=== PATIENT | female | born 1945 | race Caucasian/White ===

== ENCOUNTER 2017-02-09 18:24 | Emergency (ER) | payer MEDICARE, BC ==
[2017-02-09] MEDS ORDERED: Sodium Chloride 0.9% 10 ML Syringe FLUSH PRN (20:44)
[2017-02-09] MEDS ORDERED: Albuterol/Ipratropium 3.0-0.5 MG/3 ML Neb Soln NEB ONE (20:44)
[2017-02-09] MEDS ORDERED: methylPREDNISolone Sodium Succinate 125 MG/2 ML SDV IVPUSH ONE (20:45)
--- NOTE | 2017-02-09 21:39 | EDM.PDOC ---
ED HPI GENERAL MEDICAL PROBLEM - General Chief Complaint: Respiratory Problem Stated Complaint: LUNG PROBLEMS Time Seen by Provider: 02/09/17 20:45 Source of Information: Reports: Patient, Family History Limitations: Reports: No Limitations - History of Present Illness INITIAL COMMENTS - FREE TEXT/NARRATIVE: Cathy is a 71 year old female with a hx of COPD who presents to the ED today with c/o increasing SOB and wheezing for the last 2 days. Patient in on chronic oxygen at home at 2 liters. Patient deneis any fever, she does endorse increased weakness. Patient reports that her symptoms are similar to when she gets Bronchitis, she does not currently smoke. Patient denies any chest pain. Patient reports she has been eating and drinking well. - Related Data Allergies Allergy/AdvReac Type Severity Reaction Status Date / Time lidocaine [From LidoPatch] Allergy Intermediate Swollen Verified 02/09/17 19:44 Tongue ampicillin sodium Allergy Mild Itching Verified 02/09/17 19:44 [From Unasyn] erythromycin base Allergy Mild local eye Verified 02/09/17 19:44 [Erythromycin Base] rxn using ophthalmic dontrell sulbactam sodium Allergy Mild Itching Verified 02/09/17 19:44 [From Unasyn] aspirin Allergy Bleeding Verified 02/09/17 19:44 gabapentin Allergy Cannot Verified 02/09/17 19:44 Remember gemfibrozil [From Lopid] Allergy Hives Verified 02/09/17 19:44 menthol [From LidoPatch] Allergy Burning Verified 02/09/17 19:44 midazolam HCl [From Versed] Allergy Hallucinati Verified 02/09/17 19:44 ons prednisone Allergy Confusion Verified 02/09/17 19:44 Home Meds: Home Meds Calcium Carbonate/Vitamin D3 [Calcium 600-Vit D3 200 Tablet] 1 each PO TID 04/24 [History] Melatonin 1 mg PO BEDTIME PRN 04/24/13 [History] Multivitamin [Multi-Vitamin Daily] 1 each PO DAILY 04/24/13 [History] Sucralfate [Carafate] 1 gm PO QID 04/24/13 [History] amLODIPine Besylate [Norvasc] 10 mg PO BEDTIME 04/24/13 [History] clonazePAM [Klonopin] 0.5 mg PO ASDIRECTED 04/24/13 [History] ARIPiprazole [Abilify] 20 mg PO DAILY 10/17/13 [History] LORazepam [Ativan] 0.5 mg PO BID PRN 10/17/13 [History] Levothyroxine [Synthroid] 88 mcg PO ACBRK 10/17/13 [History] Loperamide [Imodium] 2 mg PO QID PRN 10/17/13 [History] Losartan Potassium [Cozaar] 50 mg PO DAILY 10/17/13 [History] Nitroglycerin [Nitrostat] 0.4 mg SL ASDIRECTED 10/17/13 [History] Vit B12/Lmefolate Ca/Vit B6/B2 [l-Methyl-Mc Tablet] 1,000 mcg PO DAILY 10/17/13 [History] Tranylcypromine [Parnate] 30 mg PO TASNEEM 01/06/14 [History] Tranylcypromine [Parnate] 40 mg PO QAM 01/06/14 [History] Omeprazole Magnesium [Prilosec Otc] 20 mg PO DAILY 07/04/14 [History] ClonazePAM [KlonoPIN] 1 mg PO BEDTIME 07/18/14 [History] Tranylcypromine [Parnate] 20 mg PO ACDINNER 07/18/14 [History] Magnesium Hydroxide [Milk of Magnesia] 30 ml PO Q12H PRN #2 cup 07/23/14 [Rx] Albuterol/Ipratropium [DuoNeb 3.0-0.5 MG/3 ML] 3 ml IH QID 09/05/15 [History] Aspirin [Ecotrin] 81 mg PO DAILY 09/05/15 [History] Betamethasone/Clotrimazole [Lotrisone] 15 gm TOP BID 09/05/15 [History] Budesonide [Pulmicort] 0.5 mg IH BID 09/05/15 [History] Celecoxib [CeleBREX] 200 mg PO BID 09/05/15 [History] Clindamycin HCl [Cleocin] 150 mg PO ASDIRECTED PRN 09/05/15 [History] [place] Starch [Resource Thickenup] 1 each PO ASDIRECTED 09/05/15 [History] Ferrous Fumarate [Ferretts] 50 mg PO DAILY 09/05/15 [History] Fluocinonide [Lidex 0.05% Crm] 30 gm TOP BID 09/05/15 [History] Furosemide [Lasix] 20 mg PO DAILY PRN 09/05/15 [History] Pravastatin [Pravachol] 10 mg PO DAILY 09/05/15 [History] Triamcinolone Acetonide [Kenalog 0.1% Crm] 1 applic TOP BID 09/05/15 [History] Formoterol [Perforomist] 1 ampule INH BID 02/09/17 [History] Past Medical History HEENT History: Reports: Cataract, Impaired Vision Cardiovascular History: Reports: CAD, Hypertension Respiratory History: Reports: Asthma, COPD, Intubation, Previous, Other (See Below) Other Respiratory History: cylindrical bronchiectasis Gastrointestinal History: Reports: GERD, GI Bleed Genitourinary History: Reports: None 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: Musculoskeletal History: Reports: Back Pain, Chronic, Osteoarthritis, RA Neurological History: Reports: TIA, Other (See Below) Other Neuro History: Dysphagia Psychiatric History: Reports: Anxiety, Depression Endocrine/Metabolic History: Reports: Hyperparathyroidism Hematologic History: Reports: Anemia Immunologic History: Reports: None Oncologic (Cancer) History: Reports: None Dermatologic History: Reports: None - Infectious Disease History Infectious Disease History: Reports: Chicken Pox, Measles, Mumps - Past Surgical History Head Surgeries/Procedures: Reports: None Cardiovascular Surgical History: Reports: Coronary Artery Stent Female Surgical History: Reports: Dilitation & Evacuation Musculoskeletal Surgical History: Reports: Hip Replacement Social & Family History - Tobacco Use Smoking Status *Q: Never Smoker Years of Tobacco use: 30 Used Tobacco, but Quit: Yes Month Tobacco Last Used: 1999 Second Hand Smoke Exposure: No - Alcohol Use Days Per Week of Alcohol Use: 0 Number of Drinks Per Day: 0 Total Drinks Per Week: 0 - Recreational Drug Use Recreational Drug Use: No ED ROS GENERAL - Review of Systems Review Of Systems: See Below Constitutional: Reports: Weakness HEENT: Reports: No Symptoms Respiratory: Reports: Shortness of Breath, Wheezing, Cough Cardiovascular: Reports: No Symptoms Endocrine: Reports: No Symptoms, Fatigue GI/Abdominal: Reports: No Symptoms : Reports: No Symptoms Musculoskeletal: Reports: No Symptoms Skin: Reports: No Symptoms ED EXAM, GENERAL - Physical Exam Exam: See Below Exam Limited By: No Limitations General Appearance: Alert, WD/WN, No Apparent Distress Throat/Mouth: Normal Oropharynx Head: Atraumatic Respiratory/Chest: Rhonchi (wheezing throughout, audible, rhonchi bilateral lower lobes), Wheezing Cardiovascular: Regular Rate, Rhythm Back Exam: Normal Inspection Extremities: Normal Inspection Neurological: Alert, Oriented, CN II-XII Intact Psychiatric: Normal Affect, Normal Mood Lymphatic: No Adenopathy Course - Vital Signs Last Recorded V/S: Last Vital Signs Temp 37.0 C 02/09/17 19:58 Pulse 73 02/09/17 21:40 Resp 20 02/09/17 21:40 BP 159/82 H 02/09/17 21:40 Pulse Ox 96 02/09/17 21:40 Cathy is a 71 year old female with multiple medical problems including COPD, on chronic O2, with Prednisone allergy who presents to the ED today with increasing SOB and wheezing for the last 2-3 days. Patient is on inhalers at home daily including albuterol. Patient likely has COPD exacerbation. Please refer to HPI and focused exam. Patient no exam is audibly wheezing, her oxygen saturation remains mid to upper 90's on 2 liters of oxygen via nasal cannula. Patient has no accessory muscle use. She arrives here afebrile, mildly hypertensive, she is not tachycardic. Likely COPD exacerbation vs. pneumonia. CXR obtained and is negative for any acute lobar infiltrate, on my interpretation, discussed with Dr. Jaquez who agrees. Blood work obtained, CBC returns with a normal white count. HGB is stable at 10.9. CMP returns with elevated creatinine of 1.4 and GFR of 37. Patient's BUN is elevated as well at 28, likely pre-renal. Patient does not appear dehydrated on exam and reports she has been drinking "a lot" of water today; however, feels that she did not drink as much as she should on their recent vacation to [facility]. Patient was given a DuoNeb here in the ED with some improvement in her symptoms. I did give her a dose of Levaquin for COPD exacerbation, patient has documented allergy to Prednisone (confusion) and is reluctant to receive any other steroids secondary to this as well as any potential interactions with her other medications. Patient reports she would like to be discharged home, she feels she is well enough to go home and does not want to stay in the hospital, agrees with this. Given patient's estimated creatinine clearance, I did give her 500 mg of Levaquin here in the ED today and will start her on 250 mg daily for 5 days. I did discuss with patient increasing her overall fluid intake given her mildly elevated BUN and creatinine (she has drank 500 ml of water while here) I would like her seen this next week by her primary care provider for follow up. Patient has Duo Nebs at home and can use these every 4 hours as needed for shortness of breath/wheezing. Probiotics recommended while on the Levaquin. Reasons to return to the ED were discussed in detail. Patient and her are agreeable to plan of care and patient was discharged in stable condition. - Orders/Labs/Meds Orders: Active Orders 24 hr Category Date Time Status Peripheral IV Care [RC] . DIRECTED Care 02/09/17 20:45 Active RT Aerosol Therapy [RC] ASDIRECTED Care 02/09/17 20:44 Active Chest 2V [CR] Stat Exams 02/09/17 20:46 Taken Sodium Chloride 0.9% [Saline Flush] Med 02/09/17 20:44 Active 10 ml FLUSH ASDIRECTED PRN Peripheral IV Insertion Adult [OM.PC] Routine Oth 02/09/17 20:44 Ordered Medication Orders Sodium Chloride (Saline Flush) 10 ml FLUSH ASDIRECTED PRN PRN Reason: Keep Vein Open Labs: Laboratory Tests 02/09/17 02/09/17 02/09/17 Range/Units 20:57 20:57 20:57 WBC 8.5 (4.5-11.0) K/uL RBC 3.68 (3.30-5.50) M/uL Hgb 10.9 L (12.0-15.0) g/dL Hct 35.1 L (36.0-48.0) % MCV 95 (80-98) fL MCH 30 (27-31) pg MCHC 31 L (32-36) % Plt Count 151 (150-400) K/uL Neut % (Auto) 60 (36-66) % Lymph % (Auto) 21 L (24-44) % [place] % (Auto) 13 H (2-6) % Eos % (Auto) 5 H (2-4) % Baso % (Auto) 1 (0-1) % ABG Hemoglobin 11.0 L (12.0-16.0) g/dL ABG Oxyhemoglobin 75.0 % ABG Carboxyhemoglobin 1.2 (0.0-1.6) % ABG Methemoglobin 0.9 % VBG pH 7.348 L (7.350-7.450) VBG pCO2 53.5 mm/Hg VBG pO2 41.9 mm/Hg VBG HCO3 28.6 mmol/L VBG Total CO2 26.7 mmol/L VBG O2 Saturation 76.6 VBG O2 Content 11.6 %vol VBG Base Excess 2.7 mm/L O2 Delivery Device Nasal cannula Sodium 141 (140-148) mmol/L Potassium 4.5 (3.6-5.2) mmol/L Chloride 106 (100-108) mmol/L Carbon Dioxide 30 (21-32) mmol/L Anion Gap 4.7 L (5.0-14.0) mmol/L BUN 28 H D (7-18) mg/dL Creatinine 1.4 H D (0.6-1.0) mg/dL Est Cr Clr Drug Dosing 26.09 mL/min Estimated GFR (MDRD) 37 L (>60) Glucose 107 H (74-106) mg/dL Calcium 8.8 (8.5-10.1) mg/dL Total Bilirubin 0.2 (0.2-1.0) mg/dL AST 14 L (15-37) U/L ALT 17 (12-78) U/L Alkaline Phosphatase 101 (46-116) U/L Total Protein 7.1 (6.4-8.2) g/dL Albumin 2.8 L (3.4-5.0) g/dL Globulin 4.3 H (2.3-3.5) g/dL Albumin/Globulin Ratio 0.7 L (1.2-2.2) Meds: Medications Generic Name Dose Route Start Last Admin Trade Name Freq PRN Reason Stop Dose Admin Sodium Chloride 10 ml 02/09/17 20:44 Saline Flush FLUSH ASDIRECTED PRN Keep Vein Open Discontinued Medications Generic Name Dose Route Start Last Admin Trade Name Freq PRN Reason Stop Dose Admin Albuterol/Ipratropium 3 ml 02/09/17 20:44 02/09/17 22:02 Duoneb 3.0-0.5 Mg/3 Ml NEB 02/09/17 20:45 3 ml ONETIME ONE Administration Levofloxacin 500 mg 02/09/17 21:59 Levaquin PO 02/09/17 22:00 ONETIME ONE Levofloxacin Confirm 02/09/17 22:08 02/09/17 22:27 Levaquin Administered 02/09/17 22:09 500 mg Dose Administration 500 mg .ROUTE .STK-MED ONE Methylprednisolone Sodium Succinate 125 mg 02/09/17 20:45 Solu-Medrol IVPUSH 02/09/17 20:46 ONETIME ONE Departure - Departure Time of Disposition: 22:45 Disposition: Home, Self-Care 01 Condition: Good Clinical Impression: COPD, Moderate chronic obstructive pulmonary disease, COPD exacerbation - Discharge Information Instructions: Chronic Obstructive Pulmonary Disease Exacerbation, [id number] Referrals: Cathy Stanton NP [Primary Care Provider] - Forms: ED Department Discharge Additional Instructions: Start Levaquin tomorrow, 250 mg a day for 5 days. Do not take with your Carafate, these should be taken at least 2 hours apart. Take a probiotic while on the Levaquin Drink plenty of water. See your primary doctor in this next week for follow up, your kidney function can be checked at that time. You can use your DuoNebs every 4 hours for shortness of breath/wheezing Return to the ED with any worsening symptoms - My Orders Last 24 Hours: My Active Orders 02/09/17 20:44 RT Aerosol Therapy [RC] ASDIRECTED Sodium Chloride 0.9% [Saline Flush] 10 ml FLUSH ASDIRECTED PRN Peripheral IV Insertion Adult [OM.PC] Routine 02/09/17 20:45 Peripheral IV Care [RC] . DIRECTED 02/09/17 20:46 Chest 2V [CR] Stat - Assessment/Plan Last 24 Hours: My Active Orders 02/09/17 20:44 RT Aerosol Therapy [RC] ASDIRECTED Sodium Chloride 0.9% [Saline Flush] 10 ml FLUSH ASDIRECTED PRN Peripheral IV Insertion Adult [OM.PC] Routine 02/09/17 20:45 Peripheral IV Care [RC] . DIRECTED 02/09/17 20:46 Chest 2V [CR] Stat
[2017-02-09 21:40] VITALS: BP 159/82
[2017-02-09] MEDS ORDERED: Levofloxacin 250 MG Tab PO ONE (21:59)
[2017-02-09] MEDS ORDERED: Levofloxacin 500 MG Tab ONE (22:08)
--- NOTE | 2017-02-11 11:52 | CR ---
2 view chest Comparison: 25 April 2016. The heart and vascular structures are stable. There are no infiltrates or effusions. Impression: 1. Stable exam. No acute findings.
== END 2017-02-09 22:48 | disposition home or self-care (01) ==
LOC: JP.ED 18:24
DX: J44.1 Chronic obstructive pulmonary disease with (acute) exacerbation (principal); I10 Essential (primary) hypertension; I25.10 Atherosclerotic heart disease of native coronary artery without angina pectoris; J45.909 Unspecified asthma, uncomplicated; K21.9 Gastro-esophageal reflux disease without esophagitis; Z86.73 Personal history of transient ischemic attack (TIA), and cerebral infarction without residual deficits; F41.9 Anxiety disorder, unspecified; F32.9 Major depressive disorder, single episode, unspecified; E21.3 Hyperparathyroidism, unspecified; Z95.5 Presence of coronary angioplasty implant and graft; Z96.649 Presence of unspecified artificial hip joint; Z79.82 Long term (current) use of aspirin; Z79.899 Other long term (current) drug therapy; Z88.1 Allergy status to other antibiotic agents; Z88.8 Allergy status to other drugs, medicaments and biological substances
CPT/HCPCS: 36415; 71020; 80053; 82803; 85025; 96374; 99285; A9270; J7620; 99284

== ENCOUNTER 2017-11-11 23:47 | Emergency (ER) | payer MEDICARE, BC ==
[2017-11-12] MEDS ORDERED: Oxymetazoline 0.05% Nasal Spray 15 ML Bottle NAS ONE (00:15)
--- NOTE | 2017-11-12 00:27 | EDM.PDOC ---
ED HPI GENERAL MEDICAL PROBLEM - General Chief Complaint: ENT Problem Stated Complaint: MEDICAL [facility] Time Seen by Provider: 11/12/17 00:12 Source of Information: Reports: Patient, Family, RN Notes Reviewed History Limitations: Reports: No Limitations - History of Present Illness INITIAL COMMENTS - FREE TEXT/NARRATIVE: 72-year-old female presents to the emergency department today with a nosebleed, she has a history of recurrent nosebleed is actively set up to see ear nose and throat next week. This particular event started about an hour prior she has been unsuccessful trying to get it stopped - Related Data Allergies Allergy/AdvReac Type Severity Reaction Status Date / Time lidocaine [From LidoPatch] Allergy Intermediate Swollen Verified 11/12/17 00:40 Tongue ampicillin sodium Allergy Mild Itching Verified 11/12/17 00:40 [From Unasyn] sulbactam sodium Allergy Mild Itching Verified 11/12/17 00:40 [From Unasyn] gabapentin Allergy Cannot Verified 11/12/17 00:40 Remember gemfibrozil [From Lopid] Allergy Hives Verified 11/12/17 00:40 menthol [From LidoPatch] Allergy Burning Verified 11/12/17 00:40 erythromycin base AdvReac Mild local eye Verified 11/12/17 00:40 [Erythromycin Base] rxn using ophthalmic dontrell aspirin AdvReac Bleeding Verified 11/12/17 00:40 midazolam HCl [From Versed] AdvReac Hallucinati Verified 11/12/17 00:40 ons prednisone AdvReac Confusion Verified 11/12/17 00:40 Home Meds: Home Meds Calcium Carbonate/Vitamin D3 [Calcium 600-Vit D3 200 Tablet] 1 each PO ASDIRECTED 04/24/13 [History] Melatonin 1 mg PO BEDTIME PRN 04/24/13 [History] Multivitamin [Multi-Vitamin Daily] 1 each PO DAILY 04/24/13 [History] Sucralfate [Carafate] 1 gm PO QID 04/24/13 [History] clonazePAM [Klonopin] 0.5 mg PO ASDIRECTED 04/24/13 [History] LORazepam [Ativan] 0.5 mg PO TID 10/17/13 [History] Levothyroxine [Synthroid] 88 mcg PO ACBRK 10/17/13 [History] Losartan Potassium [Cozaar] 50 mg PO BID 10/17/13 [History] Nitroglycerin [Nitrostat] 0.4 mg SL ASDIRECTED 10/17/13 [History] Tranylcypromine [Parnate] 30 mg PO TASNEEM 01/06/14 [History] Tranylcypromine [Parnate] 40 mg PO QAM 01/06/14 [History] Omeprazole Magnesium [Prilosec Otc] 20 mg PO DAILY 07/04/14 [History] ClonazePAM [KlonoPIN] 1 mg PO ASDIRECTED 07/18/14 [History] Tranylcypromine [Parnate] 20 mg PO ACDINNER 07/18/14 [History] Albuterol/Ipratropium [DuoNeb 3.0-0.5 MG/3 ML] 3 ml IH Q4H PRN 09/05/15 [History ] Aspirin [Ecotrin] 81 mg PO DAILY 09/05/15 [History] Budesonide [Pulmicort] 0.5 mg IH BID 09/05/15 [History] Celecoxib [CeleBREX] 200 mg PO BID 09/05/15 [History] Ferrous Fumarate [Ferretts] 50 mg PO DAILY 09/05/15 [History] Fluocinonide [Lidex 0.05% Crm] 30 gm TOP BID 09/05/15 [History] Furosemide [Lasix] 20 mg PO DAILY PRN 09/05/15 [History] Pravastatin [Pravachol] 10 mg PO DAILY 09/05/15 [History] Triamcinolone Acetonide [Kenalog 0.1% Crm] 1 applic TOP BID 09/05/15 [History] Formoterol [Perforomist] 1 ampule INH BID 02/09/17 [History] ARIPiprazole [Abilify] 20 mg PO DAILY 04/23/17 [History] Cyanocobalamin (Vitamin B-12) [Vitamin B-12] 1,000 mcg SL DAILY 04/23/17 [ History] Doxycycline Monohydrate 100 mg PO Q12H 04/23/17 [History] Gluc 2KCl/Chondr/Heather Hy/Hy Ac [Glucosamine & Chondroitin Cap] 1 each PO BID 10/05 [History] Isosorbide Mononitrate [Imdur] 30 mg PO DAILY 04/23/17 [History] Mirabegron [Myrbetriq] 50 mg PO DAILY 04/23/17 [History] Zinc Oxide [Boudreauxs] 1 applic TP Q4H PRN 04/23/17 [History] amLODIPine Besylate [Amlodipine Besylate] 5 mg PO DAILY 04/23/17 [History] Acetaminophen [Tylenol Extra Strength] 1,000 mg PO TID 04/24/17 [History] ARIPiprazole [Abilify] 10 mg PO DAILY 05/09/17 [History] Magnesium Oxide 250 mg PO DAILY 11/12/17 [History] oxyCODONE HCl/Acetaminophen [Percocet 10-325 mg Tablet] 1 each PO TID PRN [History] Past Medical History HEENT History: Reports: Cataract, Impaired Vision Cardiovascular History: Reports: CAD, Hypertension Respiratory History: Reports: Asthma, COPD, Intubation, Previous, Other (See Below) Other Respiratory History: cylindrical bronchiectasis Gastrointestinal History: Reports: GERD, GI Bleed 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: Musculoskeletal History: Reports: Back Pain, Chronic, Osteoarthritis, RA, Other (See Below) Other Musculoskeletal History: R hip,thigh and leg pain Neurological History: Reports: TIA, Other (See Below) Other Neuro History: Dysphagia Psychiatric History: Reports: Anxiety, Depression Endocrine/Metabolic History: Reports: Hyperparathyroidism Hematologic History: Reports: Anemia - Infectious Disease History Infectious Disease History: Reports: Chicken Pox, Measles, Mumps - Past Surgical History Head Surgeries/Procedures: Reports: None Cardiovascular Surgical History: Reports: Coronary Artery Stent Female Surgical History: Reports: Dilitation & Evacuation Musculoskeletal Surgical History: Reports: Hip Replacement Social & Family History - Tobacco Use Smoking Status *Q: Never Smoker Years of Tobacco use: 30 Used Tobacco, but Quit: Yes Month/Year Tobacco Last Used: 1999 Second Hand Smoke Exposure: No - Caffeine Use Caffeine Use: Reports: None - Alcohol Use Days Per Week of Alcohol Use: 0 Number of Drinks Per Day: 0 Total Drinks Per Week: 0 - Recreational Drug Use Recreational Drug Use: No ED ROS ENT - Review of Systems Review Of Systems: See Below Constitutional: Reports: No Symptoms HEENT: Reports: Nosebleed Respiratory: Reports: No Symptoms Cardiovascular: Reports: No Symptoms ED EXAM, ENT - Physical Exam Exam: See Below Exam Limited By: No Limitations General Appearance: Alert, Mild Distress Nose: Active Bleeding, Dried Blood Respiratory/Chest: No Respiratory Distress ED ENT PROCEDURES - Epistaxis Procedure Indication: Epistaxis Recent anticoagulants/antiplatlets: No Uncontrolled HTN: No Recent septal/nasal surgery: No Site of bleeding: Left Nare Clearing of clots: Patient Blew Nose, Suction Topical Meds: Phenylephrine Ice pack to area: No Posterior packing: Long Inflatable Nasal Tampon Local Anesthetic Volume: Other (7 cc) Complications: No Course - Vital Signs Last Recorded V/S: Last Vital Signs Temp 97.3 F 11/11/17 23:59 Pulse 80 11/11/17 23:59 Resp 20 11/11/17 23:59 BP 158/64 H 11/11/17 23:59 Pulse Ox 96 11/11/17 23:59 - Orders/Labs/Meds Labs: Laboratory Tests 11/12/17 11/12/17 Range/Units 00:30 00:30 Hgb 10.5 L (12.0-15.0) g/dL PT 10.1 (9.5-12.0) sec INR 0.95 (0.80-1.20) Meds: Medications Discontinued Medications Generic Name Dose Route Start Last Admin Trade Name Jose Carlosq PRN Reason Stop Dose Admin Oxymetazoline HCl 1 ml 11/12/17 00:15 11/12/17 00:15 Afrin Original 0.05% Nasal Jacob NILSA 11/12/17 00:16 1 ml ONETIME ONE Administration Departure - Departure Time of Disposition: 01:41 Disposition: Home, Self-Care 01 Condition: Good Clinical Impression: Epistaxis - Discharge Information Referrals: PCP,None [Primary Care Provider] - Forms: ED Department Discharge Additional Instructions: Please follow-up with your primary care provider and ear nose and throat in the upcoming week, call return to the emergency department with worsening of symptoms - Assessment/Plan Plan: Assessment Acuity = acute Site and laterality = epistaxis Etiology = unclear etiology Manifestations = none Location of injury = Home Lab values = hemoglobin 10.5 consists with anemia INR was normal Plan I did review lab work with he nasal tampon was placed with able to get the bleeding under control she has a follow-up appointment with your primary care this week in follow-up appointment with ear nose and throat that week from now she is on an antibiotic of doxycycline This note was dictated using [employer] voice recognition software please call with any questions on syntax or celina.
[2017-11-12 01:58] VITALS: BP 159/64
== END 2017-11-12 02:04 | disposition home or self-care (01) ==
LOC: JP.ED 23:47
DX: R04.0 Epistaxis (principal); I10 Essential (primary) hypertension; J44.9 Chronic obstructive pulmonary disease, unspecified; Z87.891 Personal history of nicotine dependence; Z88.8 Allergy status to other drugs, medicaments and biological substances; Z88.1 Allergy status to other antibiotic agents; Z88.6 Allergy status to analgesic agent; Z79.899 Other long term (current) drug therapy
CPT/HCPCS: 30905; 36415; 85018; 85610; 99284; A9270

== ENCOUNTER 2017-11-22 15:26 | Inpatient (IN) | payer MEDICARE, BC ==
[2017-11-22] MEDS ORDERED: Albuterol 0.083% 2.5 MG/3 ML Neb Soln NEB PRN (16:18)
[2017-11-22] MEDS ORDERED: Sodium Chloride 0.9% 10 ML Syringe FLUSH PRN (16:18)
[2017-11-22] MEDS ORDERED: Ondansetron 4 MG/2 ML SDV IV PRN (16:18)
[2017-11-22] MEDS ORDERED: Pantoprazole 40 MG Vial IVPUSH ONE (16:30)
--- NOTE | 2017-11-22 16:35 | PCM.HP ---
H&P History of Present Illness - General Date of Service: 11/22/17 Admit Problem/Dx: Source of Information: Patient, Family, Old Records, Provider, RN Notes Reviewed History Limitations: Reports: No Limitations - History of Present Illness Initial Comments - Free Text/Narative: Ms. Espinosa is a 72-year-old woman who is admitted as a direct admission from the clinic with probable upper GI bleed and acute blood loss anemia. She's had a history of previous GI bleeds approximately 6 years ago, requiring extensive evaluation and several interventions. Since then has not had significant difficulty with bleeding and up until this time has been relatively stable. Over the past few days she has become progressively more weak and fatigued, appetite has been diminished. She had some difficulty with constipation, after she took a cathartic has had diarrhea. Yesterday she had 2 black tarry stools, with an additional black tarry stool this morning. She denies significant abdominal pain and has had no nausea or vomiting. Hemoglobin is down approximately 1 g from baseline and her creatinine and GFR are mildly elevated from baseline. - Related Data Allergies/Adverse Reactions: Allergies Allergy/AdvReac Type Severity Reaction Status Date / Time lidocaine [From LidoPatch] Allergy Intermediate Swollen Verified 11/12/17 00:40 Tongue ampicillin sodium Allergy Mild Itching Verified 11/12/17 00:40 [From Unasyn] sulbactam sodium Allergy Mild Itching Verified 11/12/17 00:40 [From Unasyn] gabapentin Allergy Cannot Verified 11/12/17 00:40 Remember gemfibrozil [From Lopid] Allergy Hives Verified 11/12/17 00:40 menthol [From LidoPatch] Allergy Burning Verified 11/12/17 00:40 erythromycin base AdvReac Mild local eye Verified 11/12/17 00:40 [Erythromycin Base] rxn using ophthalmic dontrell aspirin AdvReac Bleeding Verified 11/12/17 00:40 midazolam HCl [From Versed] AdvReac Hallucinati Verified 11/12/17 00:40 ons prednisone AdvReac Confusion Verified 11/12/17 00:40 Home Medications: Home Meds Calcium Carbonate/Vitamin D3 [Calcium 600-Vit D3 200 Tablet] 1 each PO ASDIRECTED 04/24/13 [History] Melatonin 1 mg PO BEDTIME PRN 04/24/13 [History] Multivitamin [Multi-Vitamin Daily] 1 each PO DAILY 04/24/13 [History] Sucralfate [Carafate] 1 gm PO QID 04/24/13 [History] clonazePAM [Klonopin] 0.5 mg PO ASDIRECTED 04/24/13 [History] LORazepam [Ativan] 0.5 mg PO TID 10/17/13 [History] Levothyroxine [Synthroid] 88 mcg PO ACBRK 10/17/13 [History] Losartan Potassium [Cozaar] 50 mg PO BID 10/17/13 [History] Nitroglycerin [Nitrostat] 0.4 mg SL ASDIRECTED 10/17/13 [History] Tranylcypromine [Parnate] 30 mg PO TASNEEM 01/06/14 [History] Tranylcypromine [Parnate] 40 mg PO QAM 01/06/14 [History] Omeprazole Magnesium [Prilosec Otc] 20 mg PO DAILY 07/04/14 [History] ClonazePAM [KlonoPIN] 1 mg PO ASDIRECTED 07/18/14 [History] Tranylcypromine [Parnate] 20 mg PO ACDINNER 07/18/14 [History] Albuterol/Ipratropium [DuoNeb 3.0-0.5 MG/3 ML] 3 ml IH Q4H PRN 09/05/15 [History ] Aspirin [Ecotrin] 81 mg PO DAILY 09/05/15 [History] Budesonide [Pulmicort] 0.5 mg IH BID 09/05/15 [History] Celecoxib [CeleBREX] 200 mg PO BID 09/05/15 [History] Ferrous Fumarate [Ferretts] 50 mg PO DAILY 09/05/15 [History] Fluocinonide [Lidex 0.05% Crm] 30 gm TOP BID 09/05/15 [History] Furosemide [Lasix] 20 mg PO DAILY PRN 09/05/15 [History] Pravastatin [Pravachol] 10 mg PO DAILY 09/05/15 [History] Triamcinolone Acetonide [Kenalog 0.1% Crm] 1 applic TOP BID 09/05/15 [History] Formoterol [Perforomist] 1 ampule INH BID 02/09/17 [History] ARIPiprazole [Abilify] 20 mg PO DAILY 04/23/17 [History] Cyanocobalamin (Vitamin B-12) [Vitamin B-12] 1,000 mcg SL DAILY 04/23/17 [ History] Doxycycline Monohydrate 100 mg PO Q12H 04/23/17 [History] Gluc 2KCl/Chondr/Heather Hy/Hy Ac [Glucosamine & Chondroitin Cap] 1 each PO BID 10/05 [History] Isosorbide Mononitrate [Imdur] 30 mg PO DAILY 04/23/17 [History] Mirabegron [Myrbetriq] 50 mg PO DAILY 04/23/17 [History] Zinc Oxide [Boudreauxs] 1 applic TP Q4H PRN 04/23/17 [History] amLODIPine Besylate [Amlodipine Besylate] 5 mg PO DAILY 04/23/17 [History] Acetaminophen [Tylenol Extra Strength] 1,000 mg PO TID 04/24/17 [History] ARIPiprazole [Abilify] 10 mg PO DAILY 05/09/17 [History] Magnesium Oxide 250 mg PO DAILY 11/12/17 [History] oxyCODONE HCl/Acetaminophen [Percocet 10-325 mg Tablet] 1 each PO TID PRN [History] Past Medical History HEENT History: Reports: Cataract, Impaired Vision Other HEENT History: "hole between septum" Cardiovascular History: Reports: CAD, Hypertension Respiratory History: Reports: Asthma, COPD, Intubation, Previous, Other (See Below) Other Respiratory History: cylindrical bronchiectasis Gastrointestinal History: Reports: GERD, GI Bleed 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: Musculoskeletal History: Reports: Back Pain, Chronic, Osteoarthritis, RA, Other (See Below) Other Musculoskeletal History: R hip,thigh and leg pain Neurological History: Reports: TIA, Other (See Below) Other Neuro History: Dysphagia Psychiatric History: Reports: Anxiety, Depression Endocrine/Metabolic History: Reports: Hyperparathyroidism Hematologic History: Reports: Anemia - Infectious Disease History Infectious Disease History: Reports: Chicken Pox, Measles, Mumps - Past Surgical History Head Surgeries/Procedures: Reports: None Cardiovascular Surgical History: Reports: Coronary Artery Stent Female Surgical History: Reports: Dilitation & Evacuation Musculoskeletal Surgical History: Reports: Hip Replacement Social & Family History - Tobacco Use Smoking Status *Q: Former Smoker Years of Tobacco use: 35 Packs/Tins Daily: 3 Used Tobacco, but Quit: No Month/Year Tobacco Last Used: 1999 Second Hand Smoke Exposure: No - Caffeine Use Caffeine Use: Reports: None - Alcohol Use Days Per Week of Alcohol Use: 0 Number of Drinks Per Day: 0 Total Drinks Per Week: 0 - Recreational Drug Use Recreational Drug Use: No H&P Review of Systems - Review of Systems: Review Of Systems: See Below General: Reports: Weakness, Fatigue, Decreased Appetite. Denies: Fever, Chills , Diaphoresis HEENT: Reports: No Symptoms Pulmonary: Reports: No Symptoms Cardiovascular: Reports: No Symptoms Gastrointestinal: Reports: Diarrhea, Decreased Appetite, Melena. Denies: Abdominal Pain, Difficulty Swallowing, Distension, Hematemesis, Hematochezia, Nausea, Vomiting Genitourinary: Reports: No Symptoms Musculoskeletal: Reports: Back Pain, Joint Pain Skin: Reports: No Symptoms Psychiatric: Reports: Depression, Anxiety Neurological: Reports: No Symptoms Hematologic/Lymphatic: Reports: Anemia Immunologic: Reports: No Symptoms Exam - Exam Exam: See Below - Vital Signs Vital Signs: Last Vital Signs Temp 97.5 F 11/22/17 15:45 Pulse 66 11/22/17 15:45 Resp 16 11/22/17 15:45 BP 155/48 H 11/22/17 15:45 Pulse Ox 90 L 11/22/17 15:45 Weight: 181 lb 11.2 oz - Exam Quality Assessment: Supplemental Oxygen, DVT Prophylaxis General: Alert, Oriented, Cooperative, Mild Distress HEENT: Conjunctiva Clear, Hearing Intact, Normal Nasal Septum, Posterior Pharynx Clear, Pupils Equal. No: Mucosa Moist & [place] Neck: Supple, Trachea Midline, +2 Carotid Pulse wo Bruit Lungs: Decreased Breath Sounds, Wheezing. No: Rales, Rhonchi, Rub Cardiovascular: Regular Rate, Regular Rhythm, Normal S1, Normal S2. No: Systolic Murmur, Diastolic Murmur GI/Abdominal Exam: Soft, Non-Tender, No Organomegaly, No Distention Extremities: Non-Tender, No Pedal Edema Skin: Warm, Dry, Intact, Ecchymosis Neurological: Cranial Nerves Intact, Strength Equal Bilateral, Normal Speech, Normal Tone, Sensation Intact. No: Focal Deficit Neuro Extensive - Mental Status: Alert, Oriented x3, Normal Mood/Affect, Normal Cognition, Memory Intact *Q Meaningful Use (ADM) - VTE *Q VTE Pharmacological Contraindications *Q: Active Hemorrhage - VTE Risk Assess *Q Each Risk Factor Represents 1 Point: Varicose Veins, Obesity ( BMI > 25 kg/m2), Abnormal Pulmonary Function (COPD) Total Score 1 Point Risk Factors: 3 Each Risk Factor Represents 2 Points: Age 60 - 74 Years Total Score 2 Point Risk Factors: 2 Each Risk Factor Represents 3 Points: None Total Score 3 Point Risk Factors: 0 Each Risk Factor Represents 5 Points: None Total Score 5 Point Risk Factors: 0 Venous Thromboembolism Risk Factor Score *Q: 5 Problem List Initiated/Reviewed/Updated: Yes Orders Last 24hrs: Active Orders 24 hr Category Date Time Status Patient Status [ADT] Routine ADT 11/22/17 16:16 Ordered Ambulate [RC] QID Care 11/22/17 16:16 Ordered Height and Weight [RC] DAILY Care 11/22/17 16:16 Ordered Intake and Output [RC] QSHIFT Care 11/22/17 16:16 Ordered Notify Provider Consults [RC] ASDIRECTED Care 11/22/17 16:23 Ordered Notify Provider Vital Signs [RC] ASDIRECTED Care 11/22/17 16:16 Ordered Oxygen Therapy [RC] PRN Care 11/22/17 16:16 Ordered Peripheral IV Care [RC] . DIRECTED Care 11/22/17 16:23 Ordered RT Aerosol Therapy [RC] ASDIRECTED Care 11/22/17 16:23 Ordered Up With Assistance [RC] ASDIRECTED Care 11/22/17 16:16 Ordered Up to Chair [RC] QID Care 11/22/17 16:16 Ordered VTE/DVT Education [RC] Per Unit Routine Care 11/22/17 16:16 Ordered Vital Signs [RC] Q4H Care 11/22/17 16:16 Ordered Consult to Physician [CONS] Routine Cons 11/23/17 08:00 Ordered Clear Liquid Diet [DIET] Diet 11/22/17 Lunch Ordered Nothing per Oral After Midnight Diet [DIET] Diet 11/23/17 Breakfast Ordered CBC WITH AUTO DIFF [HEME] AM Lab 11/23/17 05:11 Ordered COMPREHENSIVE METABOLIC PN,CMP [CHEM] AM Lab 11/23/17 05:11 Ordered HGB [HEMOGLOBIN] [HEME] Stat Lab 11/22/17 22:00 Ordered Hemoccult [OCCULT BLOOD DIAGNOSTIC] [OP] Routine Lab 11/22/17 16:26 Ordered MAGNESIUM [CHEM] AM Lab 11/23/17 05:11 Ordered RED BLOOD CELLS LP [BBK] Stat Lab 11/22/17 16:24 Ordered TYPE AND SCREEN [BBK] Routine Lab 11/22/17 16:24 Ordered TYPE AND SCREEN [BBK] Stat Lab 11/22/17 16:24 Ordered Albuterol [Proventil Neb Soln] Med 11/22/17 16:18 Ordered 2.5 mg NEB Q4H PRN Ondansetron [Zofran] Med 11/22/17 16:18 Ordered 4 mg IV Q4H PRN Pantoprazole 80 MG in Sodium Chloride 0.9% @ 10 MLS/HR( Med 11/22/17 16:30 Ordered 100ml) Sodium Chloride 0.9% [Normal Saline] 100 ml Pantoprazole [ProTONIX IV] 80 mg IV 10 mls/hr Pantoprazole [ProTONIX IV] Med 11/22/17 16:30 Ordered 80 mg IVPUSH .BOLUS Sodium Chloride 0.9% @ 125 MLS/HR (1000ml) Med 11/22/17 16:30 Ordered Sodium Chloride 0.9% [Normal Saline] 1,000 ml IV ASDIRECTED Sodium Chloride 0.9% [Saline Flush] Med 11/22/17 16:18 Ordered 10 ml FLUSH ASDIRECTED PRN Peripheral IV Insertion Adult [OM.PC] Routine Oth 11/22/17 16:18 Ordered Sequential Compression Device [OM.PC] Per Unit Routine Oth 11/22/17 16:17 Ordered VTE Pharmacological Contraindications [AST] Per Unit Oth 11/22/17 16:16 Ordered Routine Resuscitation Status Routine Resus Stat 11/22/17 16:16 Ordered Medication Orders Albuterol (Proventil Neb Soln) 2.5 mg NEB Q4H PRN PRN Reason: Shortness Of Breath/wheezing Sodium Chloride (Normal Saline) 1,000 mls @ 125 mls/hr IV ASDIRECTED [facility] Pantoprazole Sodium 80 mg/ (Sodium Chloride) 100 mls @ 10 mls/hr IV .Q10H [facility] Ondansetron HCl (Zofran) 4 mg IV Q4H PRN PRN Reason: Nausea/Vomiting Pantoprazole Sodium (Protonix Iv) 80 mg IVPUSH .BOLUS [facility] Sodium Chloride (Saline Flush) 10 ml FLUSH ASDIRECTED PRN PRN Reason: Keep Vein Open Assessment/Plan Comment:: ASSESSMENT AND PLAN UPPER GI BLEED-history of melenic stools over the past 2 days, with progressive weakness and fatigue. Prior history of GI bleed 6 years ago requiring fairly extensive evaluation and intervention. -Clear liquid diet -Nothing by mouth after midnight -Protonix 80 mg IV now -Protonix continuous infusion 8 mg per hour -Type and cross to hold 2 units of red blood cells -Consult Dr. Knox for EGD ACUTE BLOOD LOSS ANEMIA -Serial hemoglobin levels -Otherwise management as above COPD-stable with no evidence of acute exacerbation -Continue supplemental oxygen as needed -Continue home medical regimen CHRONIC KIDNEY DISEASE STAGE III-renal function decreased from baseline, likely related to current bleed and intravascular volume depletion -IV fluids for hydration -Closely monitor urine output and renal function MAINTENANCE ISSUES -DVT prophylaxis;SCUDs, hold on anticoagulation given acute bleed -GI prophylaxis;Protonix as above -Mims catheter;Not indicated -Nutrition;Clear liquid diet, nothing by mouth after midnight -Nicotine dependence;Not required CODE STATUS-FULL CODE ADMISSION STATUS-patient will be admitted to inpatient status, expect at least a 2 night hospital stay for evaluation and management of problems as outlined above. At the time of this admission I do not reasonably expected evaluation and management of this problem will require more than a 96 hour hospital stay. DISPOSITION-anticipate discharge to home after the hospital stay. PRIMARY CARE PROVIDER-Bernard Young
[2017-11-22] MEDS ORDERED: Albuterol/Ipratropium 3.0-0.5 MG/3 ML Neb Soln INH PRN (17:56)
[2017-11-22] MEDS ORDERED: LORazepam 0.5 MG Tab PO PRN (17:56)
[2017-11-22] MEDS: Sodium Chloride 0.9% 100 ML with Pantoprazole 80 MG IV SCH ×2 (17:58)
[2017-11-22] MEDS: Sodium Chloride 0.9% 1,000 ML IV SCH (18:00)
[2017-11-22] MEDS: Budesonide 0.5 MG/2 ML Neb Susp NEB SCH (21:17)
[2017-11-22] MEDS: Albuterol 0.083% 2.5 MG/3 ML Neb Soln INH SCH (21:17)
[2017-11-22] MEDS: Sucralfate 1 GM Tab PO SCH (21:28)
[2017-11-22] MEDS: Doxycycline 100 MG Cap PO SCH (21:28)
[2017-11-22] MEDS: Losartan 50 MG Tab PO SCH (21:29)
[2017-11-22] MEDS: ARIPiprazole 10 MG Tab PO SCH (21:32)
[2017-11-22] MEDS: ClonazePAM 1 MG Tab PO SCH (21:32)
[2017-11-23] MEDS: Sodium Chloride 0.9% 1,000 ML IV SCH ×2 (04:52→12:49)
[2017-11-23] MEDS ORDERED: Pantoprazole 40 MG Vial ONE (05:14)
[2017-11-23] MEDS: Sodium Chloride 0.9% 100 ML with Pantoprazole 80 MG IV SCH ×4 (05:27→15:58)
[2017-11-23] MEDS: Acetaminophen/oxyCODONE 325-10 MG Tab PO PRN ×2 (05:31→22:59)
[2017-11-23] MEDS: Albuterol 0.083% 2.5 MG/3 ML Neb Soln INH SCH ×4 (07:40→20:36)
[2017-11-23] MEDS: Budesonide 0.5 MG/2 ML Neb Susp NEB SCH ×2 (07:41→20:36)
[2017-11-23] MEDS ORDERED: fentaNYL 100 MCG/2 ML SDV ONE (08:12)
[2017-11-23] MEDS ORDERED: Propofol 200 MG/20 ML SDV ONE (08:12)
[2017-11-23] MEDS ORDERED: Meropenem 500 MG SDV ONE (08:23)
[2017-11-23] MEDS ORDERED: ClonazePAM 1 MG Tab PO SCH (09:00)
[2017-11-23] MEDS ORDERED: Sodium Chloride 0.9% 500 ML ONE (09:43)
[2017-11-23] MEDS: Sucralfate 1 GM Tab PO SCH ×3 (12:32→20:19)
[2017-11-23] MEDS: Levothyroxine 88 MCG Tab PO SCH (12:32)
[2017-11-23] MEDS: Aspirin 81 MG Tab.EC PO SCH (12:33)
[2017-11-23] MEDS: ARIPiprazole 10 MG Tab PO SCH ×3 (12:33→20:19)
[2017-11-23] MEDS: Losartan 50 MG Tab PO SCH ×2 (12:33→20:20)
[2017-11-23] MEDS: Isosorbide Mononitrate 30 MG Tab.ER PO SCH (12:33)
--- NOTE | 2017-11-23 13:09 | PCM.PN ---
- General Info Date of Service: 11/23/17 Subjective Update: This patient has been stable since admission with no further evidence of active bleeding. Hemoglobin is essentially unchanged despite hydration with IV fluids. EGD performed this morning by Dr. Knox showed no obvious source of bleeding. She is still confused and mildly agitated from sedating medications for EGD, unable to provide meaningful information concerning symptoms or review of systems. - Patient Data Vitals - Most Recent: Last Vital Signs Temp 97.6 F 11/23/17 10:45 Pulse 72 11/23/17 11:31 Resp 18 11/23/17 10:45 BP 139/50 L 11/23/17 10:45 Pulse Ox 89 L 11/23/17 10:45 Weight - Most Recent: 181 lb 11.2 oz I&O - Last 24 Hours: Intake & Output 11/22/17 11/23/17 11/23/17 22:59 06:59 14:59 Intake Total 1231 Output Total 450 800 100 Balance -450 431 -100 Lab Results Last 24 Hours: Laboratory Results - last 24 hr 11/22/17 11/22/17 11/23/17 Range/Units 16:24 22:00 05:45 WBC 5.0 (4.5-11.0) K/uL RBC 3.28 L (3.30-5.50) M/uL Hgb 10.0 L 9.6 L (12.0-15.0) g/dL Hct 31.0 L (36.0-48.0) % MCV 95 (80-98) fL MCH 29 (27-31) pg MCHC 31 L (32-36) % Plt Count 100 L (150-400) K/uL Neut % (Auto) 51 (36-66) % Lymph % (Auto) 28 (24-44) % [place] % (Auto) 15 H (2-6) % Eos % (Auto) 6 H (2-4) % Baso % (Auto) 0 (0-1) % Sodium (140-148) mmol/L Potassium (3.6-5.2) mmol/L Chloride (100-108) mmol/L Carbon Dioxide (21-32) mmol/L Anion Gap (5.0-14.0) mmol/L BUN (7-18) mg/dL Creatinine (0.6-1.0) mg/dL Est Cr Clr Drug Dosing mL/min Estimated GFR (MDRD) (>60) Glucose (74-106) mg/dL Calcium (8.5-10.1) mg/dL Magnesium (1.8-2.4) mg/dL Total Bilirubin (0.2-1.0) mg/dL AST (15-37) U/L ALT (12-78) U/L Alkaline Phosphatase (46-116) U/L Total Protein (6.4-8.2) g/dL Albumin (3.4-5.0) g/dL Globulin (2.3-3.5) g/dL Albumin/Globulin Ratio (1.2-2.2) Blood Type AB POSITIVE Gel Antibody Screen Negative Crossmatch See Detail 11/23/17 Range/Units 05:45 WBC (4.5-11.0) K/uL RBC (3.30-5.50) M/uL Hgb (12.0-15.0) g/dL Hct (36.0-48.0) % MCV (80-98) fL MCH (27-31) pg MCHC (32-36) % Plt Count (150-400) K/uL Neut % (Auto) (36-66) % Lymph % (Auto) (24-44) % [place] % (Auto) (2-6) % Eos % (Auto) (2-4) % Baso % (Auto) (0-1) % Sodium 145 (140-148) mmol/L Potassium 4.5 (3.6-5.2) mmol/L Chloride 109 H (100-108) mmol/L Carbon Dioxide 30 (21-32) mmol/L Anion Gap 10.5 (5.0-14.0) mmol/L BUN 27 H (7-18) mg/dL Creatinine 1.4 H (0.6-1.0) mg/dL Est Cr Clr Drug Dosing 25.71 mL/min Estimated GFR (MDRD) 37 L (>60) Glucose 89 (74-106) mg/dL Calcium 8.9 (8.5-10.1) mg/dL Magnesium 1.9 (1.8-2.4) mg/dL Total Bilirubin 0.2 (0.2-1.0) mg/dL AST 27 D (15-37) U/L ALT 25 (12-78) U/L Alkaline Phosphatase 88 (46-116) U/L Total Protein 6.3 L (6.4-8.2) g/dL Albumin 2.9 L (3.4-5.0) g/dL Globulin 3.4 (2.3-3.5) g/dL Albumin/Globulin Ratio 0.9 L (1.2-2.2) Blood Type Gel Antibody Screen Crossmatch Med Orders - Current: Current Medications Albuterol (Proventil Neb Soln) 2.5 mg NEB Q4H PRN PRN Reason: Shortness Of Breath/wheezing Albuterol (Proventil Neb Soln) 2.5 mg INH QIDRT [facility] Last Admin: 11/23/17 11:31 Dose: 2.5 mg Albuterol/Ipratropium (Duoneb 3.0-0.5 Mg/3 Ml) 3 ml INH Q4H PRN PRN Reason: Dyspepsia Amlodipine Besylate (Norvasc) 5 mg PO DAILY [facility] Aripiprazole (Abilify) 10 mg PO BEDTIME [facility] Last Admin: 11/22/17 21:32 Dose: 10 mg Aripiprazole (Abilify) 20 mg PO QAM [facility] Last Admin: 11/23/17 12:33 Dose: Not Given Aspirin (Halfprin) 81 mg PO DAILY [facility] Last Admin: 11/23/17 12:33 Dose: Not Given Budesonide (Pulmicort) 0.5 mg NEB BIDRT [facility] Last Admin: 11/23/17 07:41 Dose: 0.5 mg Clonazepam (Klonopin) 1 mg PO BEDTIME [facility] Last Admin: 11/22/17 21:32 Dose: 1 mg Clonazepam (Klonopin) 0.5 mg PO DAILY [facility] Doxycycline Hyclate (Vibramycin) 100 mg PO BID [facility] Last Admin: 11/22/17 21:28 Dose: 100 mg Furosemide (Lasix) 20 mg PO DAILY [facility] Pantoprazole Sodium 80 mg/ (Sodium Chloride) 100 mls @ 10 mls/hr IV .Q10H [facility] Last Admin: 11/23/17 05:27 Dose: 10 mls/hr Isosorbide Mononitrate (Imdur) 30 mg PO DAILY [facility] Last Admin: 11/23/17 12:33 Dose: Not Given Levothyroxine Sodium (Synthroid) 88 mcg PO ACBRK [facility] Last Admin: 11/23/17 12:32 Dose: Not Given Lorazepam (Ativan) 0.5 mg PO TID PRN PRN Reason: Anxiety Losartan Potassium (Cozaar) 50 mg PO BID [facility] Last Admin: 11/23/17 12:33 Dose: Not Given Mirabegron (Myrbetriq) 50 mg PO DAILY [facility] Ondansetron HCl (Zofran) 4 mg IV Q4H PRN PRN Reason: Nausea/Vomiting Oxycodone/Acetaminophen (Percocet 325-10 Mg) 1 tab PO TID PRN PRN Reason: Pain Last Admin: 11/23/17 05:31 Dose: 1 tab Pravastatin Sodium (Pravachol) 10 mg PO DAILY [facility] Sodium Chloride (Saline Flush) 10 ml FLUSH ASDIRECTED PRN PRN Reason: Keep Vein Open Sucralfate (Carafate) 1 gm PO QIDACANDBED [facility] Last Admin: 11/23/17 12:32 Dose: Not Given Tranylcypromine Sulfate (Parnate) 20 mg PO ACDINNER [facility] Tranylcypromine Sulfate (Parnate) 30 mg PO TASNEEM [facility] Tranylcypromine Sulfate (Parnate) 40 mg PO QAM [facility] Discontinued Medications Clonazepam (Klonopin) 0.5 mg PO QAM [facility] Fentanyl (Sublimaze) Confirm Administered Dose 100 mcg .ROUTE .STK-MED ONE Stop: 11/23/17 08:13 Sodium Chloride (Normal Saline) 1,000 mls @ 125 mls/hr IV ASDIRECTED [facility] Last Admin: 11/23/17 12:49 Dose: 125 mls/hr Sodium Chloride (Normal Saline) Confirm Administered Dose 500 mls @ as directed .ROUTE .STK-MED ONE Stop: 11/23/17 09:44 Meropenem (Merrem) Confirm Administered Dose 500 mg .ROUTE .STK-MED ONE Stop: 11/23/17 08:24 Pantoprazole Sodium (Protonix Iv) 80 mg IVPUSH .BOLUS ONE Stop: 11/22/17 16:31 Last Admin: 11/22/17 17:59 Dose: 80 mg Pantoprazole Sodium (Protonix Iv) Confirm Administered Dose 80 mg .ROUTE .STK -MED ONE Stop: 11/23/17 05:15 Last Admin: 11/23/17 05:27 Dose: Not Given Propofol (Diprivan 20 Ml) Confirm Administered Dose 200 mg .ROUTE .STK-MED ONE Stop: 11/23/17 08:13 - Exam Quality Assessment: DVT Prophylaxis General: Alert, Mild Distress. No: Oriented Lungs: Clear to Auscultation, Normal Respiratory Effort Cardiovascular: Regular Rate, Regular Rhythm, No Murmurs GI/Abdominal Exam: Soft, Non-Tender, No Organomegaly, No Distention Extremities: Non-Tender, No Pedal Edema Skin: Warm, Dry - Problem List Review Problem List Initiated/Reviewed/Updated: Yes - My Orders Last 24 Hours: My Active Orders 11/22/17 16:16 Patient Status [ADT] Routine Ambulate [RC] QID Height and Weight [RC] 0500 Intake and Output [RC] QSHIFT Notify Provider Vital Signs [RC] ASDIRECTED Oxygen Therapy [RC] PRN Up With Assistance [RC] ASDIRECTED Up to Chair [RC] QID VTE/DVT Education [RC] Per Unit Routine Vital Signs [RC] Q4H VTE Pharmacological Contraindications [AST] Per Unit Routine Resuscitation Status Routine 11/22/17 16:17 Sequential Compression Device [OM.PC] Per Unit Routine 11/22/17 16:18 Albuterol [Proventil Neb Soln] 2.5 mg NEB Q4H PRN Ondansetron [Zofran] 4 mg IV Q4H PRN Sodium Chloride 0.9% [Saline Flush] 10 ml FLUSH ASDIRECTED PRN Peripheral IV Insertion Adult [OM.PC] Routine 11/22/17 16:23 Notify Provider Consults [RC] ASDIRECTED Peripheral IV Care [RC] Q12H RT Aerosol Therapy [RC] ASDIRECTED 11/22/17 16:24 RED BLOOD CELLS LP [BBK] Stat TYPE AND SCREEN [BBK] Stat 11/22/17 16:26 Hemoccult [OCCULT BLOOD DIAGNOSTIC] [OP] Routine 11/22/17 16:30 Sodium Chloride 0.9% [Normal Saline] 100 ml Pantoprazole [ProTONIX IV] 80 mg IV 10 mls/hr 11/22/17 16:35 TYPE AND SCREEN [BBK] Routine 11/22/17 17:56 Acetaminophen/oxyCODONE [Percocet 325-10 MG] 1 tab PO TID PRN Albuterol/Ipratropium [DuoNeb 3.0-0.5 MG/3 ML] 3 ml INH Q4H PRN LORazepam [Ativan] 0.5 mg PO TID PRN 11/22/17 20:00 Sucralfate [Carafate] 1 gm PO QIDACANDBED 11/22/17 21:00 ARIPiprazole [Abilify] 10 mg PO BEDTIME Albuterol [Proventil Neb Soln] 2.5 mg INH QIDRT Budesonide [Pulmicort] 0.5 mg NEB BIDRT ClonazePAM [KlonoPIN] 1 mg PO BEDTIME Doxycycline [Vibramycin] 100 mg PO BID Losartan [Cozaar] 50 mg PO BID 11/23/17 07:30 Levothyroxine [Synthroid] 88 mcg PO ACBRK 11/23/17 08:00 Consult to Physician [CONS] Routine 11/23/17 09:00 ARIPiprazole [Abilify] 20 mg PO QAM Aspirin [Halfprin] 81 mg PO DAILY ClonazePAM [KlonoPIN] 0.5 mg PO DAILY Furosemide [Lasix] 20 mg PO DAILY Isosorbide Mononitrate [Imdur] 30 mg PO DAILY Mirabegron [Myrbetriq] 50 mg PO DAILY Pravastatin [Pravachol] 10 mg PO DAILY Tranylcypromine [Parnate] 40 mg PO QAM amLODIPine [Norvasc] 5 mg PO DAILY 11/23/17 09:41 Consult to Physical Therapy [PT Evaluation and Treatment] [CONS] Routine 11/23/17 12:00 Tranylcypromine [Parnate] 30 mg PO TASNEEM 11/23/17 13:01 Convert IV to Saline Lock [OM.PC] Routine 11/23/17 16:00 Tranylcypromine [Parnate] 20 mg PO ACDINNER 11/23/17 17:00 HGB [HEMOGLOBIN] [HEME] Stat 11/23/17 Breakfast 2 Gram Sodium Diet [DIET] 11/24/17 05:11 HGB [HEMOGLOBIN] [HEME] AM - Plan Plan:: ASSESSMENT AND PLAN UPPER GI BLEED-no evidence of active bleeding since admission, hemoglobin has remained stable. EGD performed earlier today shows no obvious source of bleeding -2 g sodium diet -Protonix 40 mg by mouth twice daily -Recheck hemoglobin this afternoon and in a.m. -Type and cross to hold 2 units of red blood cells Surgical follow-up per Dr. Knox ACUTE BLOOD LOSS ANEMIA-secondary to probable recent GI bleed COPD-stable with no evidence of acute exacerbation -Continue supplemental oxygen as needed -Continue home medical regimen CHRONIC KIDNEY DISEASE STAGE III-renal function decreased from baseline, likely related to current bleed and intravascular volume depletion -IV fluids for hydration -Closely monitor urine output and renal function MAINTENANCE ISSUES -DVT prophylaxis;SCUDs, hold on anticoagulation given acute bleed -GI prophylaxis;Protonix as above -Mims catheter;Not indicated -Nutrition;Clear liquid diet, nothing by mouth after midnight -Nicotine dependence;Not required CODE STATUS-FULL CODE ADMISSION STATUS-patient will be admitted to inpatient status, expect at least a 2 night hospital stay for evaluation and management of problems as outlined above. At the time of this admission I do not reasonably expected evaluation and management of this problem will require more than a 96 hour hospital stay. DISPOSITION-anticipate discharge to home after the hospital stay. PRIMARY CARE PROVIDER-Bernard Young
[2017-11-23] MEDS: TRANYLCYPROMINE 10 MG PO SCH ×2 (13:15→13:19)
[2017-11-23] MEDS: Pravastatin 20 MG Tab PO SCH (13:17)
[2017-11-23] MEDS: Furosemide 20 MG Tab PO SCH (13:19)
[2017-11-23] MEDS: Mirabegron 25 MG Tab Extended Release PO SCH (13:20)
[2017-11-23] MEDS: amLODIPine 5 MG Tab PO SCH (13:20)
[2017-11-23] MEDS: Doxycycline 100 MG Cap PO SCH ×2 (13:21→20:21)
[2017-11-23] MEDS: ClonazePAM 0.5 MG Tab PO SCH (13:24)
[2017-11-23] MEDS ORDERED: TRANYLCYPROMINE 10 MG PO SCH (16:00)
[2017-11-23] MEDS: Pantoprazole 40 MG Tab.CR PO SCH (18:02)
[2017-11-23] MEDS: ClonazePAM 1 MG Tab PO SCH (20:35)
[2017-11-23] MEDS: Celecoxib 200 MG Cap PO SCH (20:36)
[2017-11-24] MEDS: Budesonide 0.5 MG/2 ML Neb Susp NEB SCH (07:37)
[2017-11-24] MEDS: Albuterol 0.083% 2.5 MG/3 ML Neb Soln INH SCH ×2 (07:37→11:05)
[2017-11-24] MEDS: Pantoprazole 40 MG Tab.CR PO SCH (07:47)
[2017-11-24] MEDS: Sucralfate 1 GM Tab PO SCH ×2 (07:48→11:42)
[2017-11-24] MEDS: Levothyroxine 88 MCG Tab PO SCH (07:48)
[2017-11-24] MEDS: Celecoxib 200 MG Cap PO SCH (08:03)
[2017-11-24] MEDS: Furosemide 20 MG Tab PO SCH (08:03)
[2017-11-24] MEDS: Aspirin 81 MG Tab.EC PO SCH (08:03)
[2017-11-24] MEDS: ARIPiprazole 10 MG Tab PO SCH (08:04)
[2017-11-24] MEDS: Mirabegron 25 MG Tab Extended Release PO SCH (08:05)
[2017-11-24] MEDS: TRANYLCYPROMINE 10 MG PO SCH ×2 (08:06→11:41)
[2017-11-24] MEDS: Doxycycline 100 MG Cap PO SCH (08:07)
[2017-11-24] MEDS: Pravastatin 20 MG Tab PO SCH (08:07)
[2017-11-24] MEDS: Acetaminophen/oxyCODONE 325-10 MG Tab PO PRN (08:26)
[2017-11-24] MEDS: ClonazePAM 0.5 MG Tab PO SCH (08:27)
--- NOTE | 2017-11-24 11:43 | CONS ---
DATE OF SERVICE: 11/24/2017 REFERRING PHYSICIAN: CONSULTING PHYSICIAN: Cem Knox MD REASON FOR CONSULTATION: GI bleeding. HISTORY OF PRESENT ILLNESS: This is a pleasant 72-year-old female who has had a day's history of GI bleeding. She underwent an EGD yesterday and was found to have a normal EGD. Consultation today is for evaluation of her current status. She is not having any bloody bowel movements at this time. Her pain is 0-1/10. Her hemoglobin is 9.2, down from 9.5. This is an ongoing problem for her. The patient had a similar history of this approximately couple of years ago which resolved spontaneously. PAST MEDICAL HISTORY: Quite extensive past medical history which includes hip and leg pain, osteoarthritis, back pain, history of reflux, GI bleeding as described above, asthma, COPD, coronary artery disease, hypertension, cataracts, impaired vision, history of strokes, anxiety, and hyperparathyroidism. PAST SURGICAL HISTORY: No abdominal surgery. Coronary artery stenting, hip replacement. SOCIAL HISTORY: She does not smoke currently. FAMILY HISTORY: No family history of colorectal cancer. REVIEW OF SYSTEMS: GENERAL: The patient is tired, but appropriate for her condition. HEENT: No symptoms. RESPIRATORY: No increased shortness of breath. CARDIOVASCULAR: No chest pain. GASTROINTESTINAL: As above. GENITOURINARY: No symptoms. MUSCULOSKELETAL: Chronic back, leg, joint, extremity pain, but this is baseline, and has not worsened. SKIN: The patient has history of venous ulcers, which have resolved. PSYCHIATRIC: History of depression. NEUROLOGICAL: No symptoms. HEMATOLOGY: Please see above. NEUROLOGICAL: No symptoms. PHYSICAL EXAMINATION: VITAL SIGNS: Temperature 97.4, blood pressure 159/54, pulse 76, respirations 20, 91% on 2 L. GENERAL: The patient is resting comfortably. HEENT: Pupils are equal. NECK: Supple. LUNGS: Clear. CARDIOVASCULAR: Regular rhythm and rate. RESPIRATORY: Lungs are clear to auscultation bilaterally. ABDOMEN: Bowel sounds positive. No rebound. No guarding. Minimal to no tenderness. EXTREMITIES: Full range of motion. Strength 5/5. NEUROLOGICAL: Oriented x3. PSYCHIATRIC: No gross depression. LABORATORY DATA: Described as above. ASSESSMENT AND PLAN: The patient is noted to not have bowel movements at this time. There did not appear to be any evidence of gastrointestinal bleeding at this moment. We will continue to watch the patient, and if she does develop further gastrointestinal issues, we will schedule for colonoscopy. We did discuss risks, benefits, alternatives, and limitations of performing a colonoscopy. She understands these risks and wished to proceed. Cem Knox MD /[id number]
--- NOTE | 2017-11-24 13:50 | PCM.DCSUM1 ---
Discharge Summary - Hospital Course Brief History: Is patient is a 72-year-old woman who was admitted as a direct admission from the clinic with progressive weakness and melenic stools secondary to an upper GI bleed. - Discharge Data Discharge Date: 11/24/17 Discharge Disposition: Home, Self-Care 01 Condition: Fair - Discharge Diagnosis/Problem(s) (1) Acute blood loss anemia SNOMED Code(s): 693828901 ICD Code: D62 - ACUTE POSTHEMORRHAGIC ANEMIA Status: Acute Current Visit : Yes (2) Upper GI bleed SNOMED Code(s): 66826168 ICD Code: K92.2 - GASTROINTESTINAL HEMORRHAGE, UNSPECIFIED Status: Acute Current Visit: Yes - Patient Summary/Data Consults: Consultations 11/23/17 08:00 Consult to Physician [CONS] Routine Consulting Provider: Cem Knox Call Completed to Consulting Physician: Yes Reason for Consult: Upper GI bleed 11/23/17 09:41 Consult to Physical Therapy [PT Evaluation and Treatment] [CONS] Routine Please Evaluate and Treat. PT Reason for Consult: Ambulation This query below is only for informational purposes and is not editable. Admission Diagnosis/Problem: Bleeding Hospital Course: Ms. Espinosa is a 72-year-old woman who was admitted as a direct admission from the clinic with probable upper GI bleed and acute blood loss anemia. She's had a history of previous GI bleeds approximately 6 years ago, requiring extensive evaluation and several interventions. Since then has not had significant difficulty with bleeding and up until this time has been relatively stable. Over the past few days she has become progressively more weak and fatigued, appetite has been diminished. She had some difficulty with constipation, after she took a cathartic has had diarrhea. Yesterday she had 2 black tarry stools, with an additional black tarry stool this morning. She denies significant abdominal pain and has had no nausea or vomiting. Hemoglobin is down approximately 1 g from baseline and her creatinine and GFR were mildly elevated from baseline. On admission she was given IV fluids for hydration, bolus dose of Protonix 80 mg , and started on a continuous infusion of Protonix at 8 mg per hour. Serial hemoglobin levels were obtained and were found to be stable essentially throughout her hospital stay with no further evidence of active bleeding. On the day after admission she was seen and evaluated by Dr. Knox, EGD was performed which showed no obvious bleeding source. She was monitored an additional 24 hours with no further evidence of active bleeding or melenic stools. Was felt that further endoscopic evaluation with colonoscopy would likely be a very low yield. She will be on a soft low residue diet activity will be as tolerated. Shower he has a follow-up appointment scheduled with her primary care provider Mariola hemoglobin level be obtained at the time of that appointment. She should return to the emergency department if she develops further symptoms of weakness or melenic stools. - Patient Instructions Diet: GI Soft/Low Residue/Low Fiber Activity: As Tolerated Other/Special Instructions: Patient are he has a follow-up appointment with Bernard Rodrigues in approximately 10 days, hemoglobin should be checked at the time of that appointment. - Discharge Plan Home Medications: Home Meds Calcium Carbonate/Vitamin D3 [Calcium 600-Vit D3 200 Tablet] 1 each PO BID 04/24 [History] Multivitamin [Multi-Vitamin Daily] 1 each PO DAILY 04/24/13 [History] Sucralfate [Carafate] 1 gm PO QID 04/24/13 [History] clonazePAM [Klonopin] 0.5 mg PO QAM 04/24/13 [History] LORazepam [Ativan] 0.5 mg PO TID PRN 10/17/13 [History] Levothyroxine [Synthroid] 88 mcg PO ACBRK 10/17/13 [History] Losartan Potassium [Cozaar] 50 mg PO BID 10/17/13 [History] Nitroglycerin [Nitrostat] 0.4 mg SL ASDIRECTED PRN 10/17/13 [History] Tranylcypromine [Parnate] 30 mg PO TASNEEM 01/06/14 [History] Tranylcypromine [Parnate] 40 mg PO QAM 01/06/14 [History] Omeprazole Magnesium [Prilosec Otc] 20 mg PO DAILY 07/04/14 [History] ClonazePAM [KlonoPIN] 1 mg PO ASDIRECTED 07/18/14 [History] Tranylcypromine [Parnate] 20 mg PO ACDINNER 07/18/14 [History] Albuterol/Ipratropium [DuoNeb 3.0-0.5 MG/3 ML] 3 ml IH Q4H PRN 09/05/15 [History ] Aspirin [Ecotrin] 81 mg PO DAILY 09/05/15 [History] Celecoxib [CeleBREX] 200 mg PO BID 09/05/15 [History] Ferrous Fumarate [Ferretts] 50 mg PO DAILY 09/05/15 [History] Furosemide [Lasix] 20 mg PO DAILY 09/05/15 [History] Pravastatin [Pravachol] 10 mg PO DAILY 09/05/15 [History] Formoterol [Perforomist] 1 ampule INH BID 02/09/17 [History] ARIPiprazole [Abilify] 20 mg PO QAM 04/23/17 [History] Doxycycline Monohydrate 100 mg PO Q12H 04/23/17 [History] Gluc 2KCl/Chondr/Heather Hy/Hy Ac [Glucosamine & Chondroitin Cap] 1 each PO BID 10/05 [History] Isosorbide Mononitrate [Imdur] 30 mg PO DAILY 04/23/17 [History] Mirabegron [Myrbetriq] 50 mg PO DAILY 04/23/17 [History] amLODIPine Besylate [Amlodipine Besylate] 5 mg PO DAILY 04/23/17 [History] ARIPiprazole [Abilify] 10 mg PO BEDTIME 05/09/17 [History] Magnesium Oxide 250 mg PO DAILY 11/12/17 [History] oxyCODONE HCl/Acetaminophen [Percocet 10-325 mg Tablet] 1 each PO TID PRN [History] Budesonide [Pulmicort] 2 ml NEB BID 11/22/17 [History] clonazePAM [Klonopin] 1 mg PO BEDTIME 11/22/17 [History] - Discharge Summary/Plan Comment DC Time >30 min.: No - Patient Data Vitals - Most Recent: Last Vital Signs Temp 97.2 F 11/24/17 11:21 Pulse 69 11/24/17 11:21 Resp 16 11/24/17 11:21 BP 134/50 L 11/24/17 11:21 Pulse Ox 96 11/24/17 11:21 Weight - Most Recent: 179 lb 6.4 oz I&O - Last 24 hours: Intake & Output 11/23/17 11/24/17 11/24/17 22:59 06:59 14:59 Intake Total 240 240 236 Output Total 2900 500 200 Balance -2660 -260 36 Lab Results - Last 24 hrs: Laboratory Results - last 24 hr 11/23/17 11/24/17 Range/Units 17:00 05:45 Hgb 9.5 L 9.2 L (12.0-15.0) g/dL Med Orders - Current: Current Medications Albuterol (Proventil Neb Soln) 2.5 mg NEB Q4H PRN PRN Reason: Shortness Of Breath/wheezing Albuterol (Proventil Neb Soln) 2.5 mg INH QIDRT [facility] Last Admin: 11/24/17 11:05 Dose: 2.5 mg Albuterol/Ipratropium (Duoneb 3.0-0.5 Mg/3 Ml) 3 ml INH Q4H PRN PRN Reason: Dyspepsia Amlodipine Besylate (Norvasc) 5 mg PO DAILY [facility] Last Admin: 11/23/17 13:20 Dose: Not Given Aripiprazole (Abilify) 10 mg PO BEDTIME [facility] Last Admin: 11/23/17 20:19 Dose: Not Given Aripiprazole (Abilify) 20 mg PO QAM [facility] Last Admin: 11/24/17 08:04 Dose: 20 mg Aspirin (Halfprin) 81 mg PO DAILY [facility] Last Admin: 11/24/17 08:03 Dose: 81 mg Budesonide (Pulmicort) 0.5 mg NEB BIDRT [facility] Last Admin: 11/24/17 07:37 Dose: 0.5 mg Celecoxib (Celebrex) 200 mg PO BIDMEALS [facility] Last Admin: 11/24/17 08:03 Dose: 200 mg Clonazepam (Klonopin) 1 mg PO BEDTIME [facility] Last Admin: 11/23/17 20:35 Dose: 1 mg Clonazepam (Klonopin) 0.5 mg PO DAILY [facility] Last Admin: 11/24/17 08:27 Dose: 0.5 mg Doxycycline Hyclate (Vibramycin) 100 mg PO BID [facility] Last Admin: 11/24/17 08:07 Dose: 100 mg Furosemide (Lasix) 20 mg PO DAILY [facility] Last Admin: 11/24/17 08:03 Dose: 20 mg Isosorbide Mononitrate (Imdur) 30 mg PO DAILY [facility] Last Admin: 11/23/17 12:33 Dose: Not Given Levothyroxine Sodium (Synthroid) 88 mcg PO ACBRK [facility] Last Admin: 11/24/17 07:48 Dose: 88 mcg Lorazepam (Ativan) 0.5 mg PO TID PRN PRN Reason: Anxiety Last Admin: 11/23/17 19:49 Dose: 0.5 mg Losartan Potassium (Cozaar) 50 mg PO BID [facility] Last Admin: 11/23/17 20:20 Dose: 50 mg Mirabegron (Myrbetriq) 50 mg PO DAILY [facility] Last Admin: 11/24/17 08:05 Dose: 50 mg Ondansetron HCl (Zofran) 4 mg IV Q4H PRN PRN Reason: Nausea/Vomiting Oxycodone/Acetaminophen (Percocet 325-10 Mg) 1 tab PO TID PRN PRN Reason: Pain Last Admin: 11/24/17 08:26 Dose: 0.5 tab Pantoprazole Sodium (Protonix) 40 mg PO BIDAC [facility] Last Admin: 11/24/17 07:47 Dose: 40 mg Pravastatin Sodium (Pravachol) 10 mg PO DAILY [facility] Last Admin: 11/24/17 08:07 Dose: 10 mg Sodium Chloride (Saline Flush) 10 ml FLUSH ASDIRECTED PRN PRN Reason: Keep Vein Open Sucralfate (Carafate) 1 gm PO QIDACANDBED [facility] Last Admin: 11/24/17 11:42 Dose: 1 gm Tranylcypromine Sulfate (Parnate) 20 mg PO ACDINNER [facility] Last Admin: 11/23/17 18:00 Dose: 20 mg Tranylcypromine Sulfate (Parnate) 30 mg PO TASNEEM [facility] Last Admin: 11/24/17 11:41 Dose: 30 mg Tranylcypromine Sulfate (Parnate) 40 mg PO QAM [facility] Last Admin: 11/24/17 08:06 Dose: 40 mg Discontinued Medications Clonazepam (Klonopin) 0.5 mg PO QAM [facility] Fentanyl (Sublimaze) Confirm Administered Dose 100 mcg .ROUTE .STK-MED ONE Stop: 11/23/17 08:13 Sodium Chloride (Normal Saline) 1,000 mls @ 125 mls/hr IV ASDIRECTED [facility] Last Admin: 11/23/17 12:49 Dose: 125 mls/hr Pantoprazole Sodium 80 mg/ (Sodium Chloride) 100 mls @ 10 mls/hr IV .Q10H [facility] Stop: 11/23/17 15:00 Last Admin: 11/23/17 15:58 Dose: Not Given Sodium Chloride (Normal Saline) Confirm Administered Dose 500 mls @ as directed .ROUTE .STK-MED ONE Stop: 11/23/17 09:44 Meropenem (Merrem) Confirm Administered Dose 500 mg .ROUTE .STK-MED ONE Stop: 11/23/17 08:24 Pantoprazole Sodium (Protonix Iv) 80 mg IVPUSH .BOLUS ONE Stop: 11/22/17 16:31 Last Admin: 11/22/17 17:59 Dose: 80 mg Pantoprazole Sodium (Protonix Iv) Confirm Administered Dose 80 mg .ROUTE .STK -MED ONE Stop: 11/23/17 05:15 Last Admin: 11/23/17 05:27 Dose: Not Given Propofol (Diprivan 20 Ml) Confirm Administered Dose 200 mg .ROUTE .STK-MED ONE Stop: 11/23/17 08:13 - Exam General: Reports: Alert, Oriented, Cooperative, No Acute Distress Lungs: Reports: Clear to Auscultation, Normal Respiratory Effort, Decreased Breath Sounds. Denies: Wheezing Cardiovascular: Reports: Regular Rate, Regular Rhythm, No Murmurs GI/Abdominal Exam: Soft, Non-Tender, No Organomegaly, No Distention *Q Meaningful Use (DIS) - VTE *Q VTE Pharmacological Contraindications *Q: Active Hemorrhage
[2017-11-24] MEDS: Losartan 50 MG Tab PO SCH (14:23)
[2017-11-24] MEDS: Isosorbide Mononitrate 30 MG Tab.ER PO SCH (14:24)
[2017-11-24 14:25] VITALS: BP 154/49
[2017-11-24] MEDS: amLODIPine 5 MG Tab PO SCH (14:25)
--- NOTE | 2017-12-06 08:22 | OR ---
DATE OF PROCEDURE: 11/22/2017 PROCEDURE PERFORMED: EGD. FINDINGS: Normal EGD. PREOPERATIVE DIAGNOSES: History of GI bleed and anemia. POSTOPERATIVE DIAGNOSES: History of GI bleed and anemia. RISKS: Risks, benefits, alternatives, and limitations including but not limited to infection, bleeding, and perforation were explained to the patient who wished to proceed. PROCEDURE IN DETAIL: The patient was placed in left lateral decubitus position. The EGD scope was introduced and advanced atraumatically to the second part of the duodenum. No evidence of duodenitis or abnormality. No abnormalities on retroflex. No hiatal hernia. No gastritis. No ulceration. No inflammation of the GE junction. The esophagus was normal. The patient tolerated the procedure well. Cem Knox MD /[id number]
== END 2017-11-24 14:28 | disposition home or self-care (01) | DRG 378 ==
LOC: JP.MS 15:26
PROVIDERS: ADMIT Hospitalist; ATTEND Hospitalist
PROC: 0DJ08ZZ Inspection of Upper Intestinal Tract, Via Natural or Artificial Opening Endoscopic (ICD-10-PCS; principal; 2017-11-23)
DX: K92.2 Gastrointestinal hemorrhage, unspecified (principal); D62 Acute posthemorrhagic anemia; I12.9 Hypertensive chronic kidney disease with stage 1 through stage 4 chronic kidney disease, or unspecified chronic kidney disease; N18.3 Chronic kidney disease, stage 3 (moderate); J44.9 Chronic obstructive pulmonary disease, unspecified; M54.9 Dorsalgia, unspecified; G89.29 Other chronic pain; F32.9 Major depressive disorder, single episode, unspecified; F41.9 Anxiety disorder, unspecified; E21.3 Hyperparathyroidism, unspecified; I25.10 Atherosclerotic heart disease of native coronary artery without angina pectoris; M19.90 Unspecified osteoarthritis, unspecified site; K21.9 Gastro-esophageal reflux disease without esophagitis; H54.7 Unspecified visual loss; Z96.649 Presence of unspecified artificial hip joint; Z79.82 Long term (current) use of aspirin; Z88.6 Allergy status to analgesic agent; Z88.1 Allergy status to other antibiotic agents; Z95.5 Presence of coronary angioplasty implant and graft; Z87.891 Personal history of nicotine dependence; Z86.73 Personal history of transient ischemic attack (TIA), and cerebral infarction without residual deficits; Z88.8 Allergy status to other drugs, medicaments and biological substances
CPT/HCPCS: 36415; 80053; 83735; 85018; 85025; 86850; 86870; 86900; 86901; 86902; 94640; 94667; A9270-GY; C9113; J2185; J2704; J3010; J7030; J7040

== ENCOUNTER 2018-02-07 10:09 | Emergency (ER) | payer MEDICARE, BC ==
[2018-02-07] MEDS ORDERED: Sodium Chloride 0.9% 10 ML Syringe FLUSH PRN ×2 (11:15)
[2018-02-07] MEDS ORDERED: Aspirin 81 MG Tab.Chew PO ONE (11:17)
--- NOTE | 2018-02-07 11:28 | EDM.PDOC ---
ED HPI GENERAL MEDICAL PROBLEM - General Chief Complaint: Headache Stated Complaint: HEADACHE Time Seen by Provider: 02/07/18 11:01 Source of Information: Reports: Patient, Family, Old Records, RN Notes Reviewed History Limitations: Reports: No Limitations - History of Present Illness INITIAL COMMENTS - FREE TEXT/NARRATIVE: 72-year-old female presents to the emergency department today with complaint of right-sided weakness, she is unsure of the exact timing of this she does have a history of TIAs in the past as well as coronary artery disease with stenting 1 , does have baseline dysphagia from prior event, she awoke at 5 AM this morning transferred by herself to bedside commode without difficulty, she awoke again at 8 AM this morning had weakness on her right side could not stand could not transfer without assistance. The event happened somewhere between 5 AM and 8 AM this morning. While in the emergency room she also developed chest pain no nausea no shortness of breath head and chest Pain Score (Numeric/FACES): 8 - Related Data Allergies Allergy/AdvReac Type Severity Reaction Status Date / Time lidocaine [From LidoPatch] Allergy Intermediate Swollen Verified 02/07/18 11:04 Tongue ampicillin sodium Allergy Mild Itching Verified 02/07/18 11:04 [From Unasyn] sulbactam sodium Allergy Mild Itching Verified 02/07/18 11:04 [From Unasyn] gabapentin Allergy Cannot Verified 02/07/18 11:04 Remember gemfibrozil [From Lopid] Allergy Hives Verified 02/07/18 11:04 menthol [From LidoPatch] Allergy Burning Verified 02/07/18 11:04 erythromycin base AdvReac Mild local eye Verified 02/07/18 11:04 [Erythromycin Base] rxn using ophthalmic dontrell midazolam HCl [From Versed] AdvReac Hallucinati Verified 02/07/18 11:04 ons prednisone AdvReac Confusion Verified 02/07/18 11:04 Home Meds: Home Meds Calcium Carbonate/Vitamin D3 [Calcium 600-Vit D3 200 Tablet] 1 each PO BID 04/24 [History] Multivitamin [Multi-Vitamin Daily] 1 each PO DAILY 04/24/13 [History] Sucralfate [Carafate] 1 gm PO QID 04/24/13 [History] clonazePAM [Klonopin] 0.5 mg PO QAM 04/24/13 [History] LORazepam [Ativan] 0.5 mg PO TID PRN 10/17/13 [History] Levothyroxine [Synthroid] 88 mcg PO ACBRK 10/17/13 [History] Losartan Potassium [Cozaar] 50 mg PO BID 10/17/13 [History] Nitroglycerin [Nitrostat] 0.4 mg SL ASDIRECTED PRN 10/17/13 [History] Tranylcypromine [Parnate] 30 mg PO TASNEEM 01/06/14 [History] Tranylcypromine [Parnate] 40 mg PO QAM 01/06/14 [History] Omeprazole Magnesium [Prilosec Otc] 20 mg PO DAILY 07/04/14 [History] ClonazePAM [KlonoPIN] 1 mg PO ASDIRECTED 07/18/14 [History] Tranylcypromine [Parnate] 20 mg PO ACDINNER 07/18/14 [History] Albuterol/Ipratropium [DuoNeb 3.0-0.5 MG/3 ML] 3 ml IH Q4H PRN 09/05/15 [History ] Aspirin [Ecotrin] 81 mg PO DAILY 09/05/15 [History] Celecoxib [CeleBREX] 200 mg PO BID 09/05/15 [History] Ferrous Fumarate [Ferretts] 50 mg PO DAILY 09/05/15 [History] Furosemide [Lasix] 20 mg PO DAILY 09/05/15 [History] Pravastatin [Pravachol] 10 mg PO DAILY 09/05/15 [History] Formoterol [Perforomist] 1 ampule INH BID 02/09/17 [History] ARIPiprazole [Abilify] 20 mg PO QAM 04/23/17 [History] Doxycycline Monohydrate 100 mg PO Q12H 04/23/17 [History] Gluc 2KCl/Chondr/Heather Hy/Hy Ac [Glucosamine & Chondroitin Cap] 1 each PO BID 10/05 [History] Isosorbide Mononitrate [Imdur] 30 mg PO DAILY 04/23/17 [History] Mirabegron [Myrbetriq] 50 mg PO DAILY 04/23/17 [History] amLODIPine Besylate [Amlodipine Besylate] 5 mg PO DAILY 04/23/17 [History] ARIPiprazole [Abilify] 10 mg PO BEDTIME 05/09/17 [History] Magnesium Oxide 250 mg PO DAILY 11/12/17 [History] oxyCODONE HCl/Acetaminophen [Percocet 10-325 mg Tablet] 1 each PO TID PRN [History] Budesonide [Pulmicort] 2 ml NEB BID 11/22/17 [History] clonazePAM [Klonopin] 1 mg PO BEDTIME 11/22/17 [History] Past Medical History HEENT History: Reports: Cataract, Impaired Vision Other HEENT History: "hole between septum" Cardiovascular History: Reports: CAD, High Cholesterol, Hypertension Respiratory History: Reports: Asthma, COPD, Intubation, Previous, Other (See Below) Other Respiratory History: cylindrical bronchiectasis Gastrointestinal History: Reports: GERD, GI Bleed Genitourinary History: Reports: Urinary Incontinence 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: Musculoskeletal History: Reports: Back Pain, Chronic, Osteoarthritis, RA, Other (See Below) Other Musculoskeletal History: R hip,thigh and leg pain Neurological History: Reports: TIA, Other (See Below) Other Neuro History: Dysphagia Psychiatric History: Reports: Anxiety, Depression Endocrine/Metabolic History: Reports: Hyperparathyroidism, Obesity/BMI 30+, Osteoporosis Hematologic History: Reports: Anemia, Blood Transfusion(s) - Infectious Disease History Infectious Disease History: Reports: Chicken Pox, Measles, MRSA, Mumps - Past Surgical History Head Surgeries/Procedures: Reports: None Cardiovascular Surgical History: Reports: Coronary Artery Stent GI Surgical History: Reports: None Female Surgical History: Reports: Dilitation & Evacuation Musculoskeletal Surgical History: Reports: Hip Replacement Social & Family History - Family History Family Medical History: Noncontributory Neurological: Reports: CVA Oncologic: Reports: Leukemia - Tobacco Use Smoking Status *Q: Former Smoker Used Tobacco, but Quit: Yes Month/Year Tobacco Last Used: december 29 2000 - Caffeine Use Caffeine Use: Reports: None - Recreational Drug Use Recreational Drug Use: No ED ROS GENERAL - Review of Systems Review Of Systems: See Below Constitutional: Reports: Weakness. Denies: Fever, Chills HEENT: Reports: No Symptoms Respiratory: Reports: No Symptoms Cardiovascular: Reports: Chest Pain. Denies: Dyspnea on Exertion GI/Abdominal: Reports: No Symptoms : Reports: No Symptoms Skin: Reports: No Symptoms Neurological: Reports: Weakness, Gait Disturbance ED EXAM, NEURO - Physical Exam Exam: See Below Text/Narrative:: General: Female, not in any distress, alert and oriented x3 HEENT: head is atraumatic normocephalic, eyes pupils equal round reactive to light, sclera clear no conjunctivitis appreciated, extraocular eye movements intact. Ears tympanic membranes clear and chavez landmarks and light reflex are present bilaterally canals are clear. Nose no septal deviation, nares are clear, no blood present. Mouth mucosa is moist and pink no erythema or exudate noted in soft palate, tongue is midline uvula is midline, dentition is intact. Neck: Supple no thyromegaly no tracheal deviation. Nodes: Cervical nodes subclavicular nodes nontender no palpable lymphadenopathy noted. Lungs: clear to auscultation bilaterally with symmetrical respirations, no adventitious noise appreciated. CV: Regular rate and rhythm but does have significant pauses S1 and S2 appreciated no murmurs rubs or gallops noted. Abdomen: Soft, nontender, no palpable masses or organomegaly appreciated, no distention no guarding bowel sounds are present, . Neuro: Cranial nerves II through XII grossly intact, power is 5 out 5 in upper and power is 5 x 5 on the left lower extremity and 3 x 5 right lower extremity, patellar reflex, biceps reflex +2 can do finger to nose without difficulty no dysdiadochokinesis she does have pronator drift upper extremity right side, unable to stand normally uses a walker Skin: Warm and dry, intact Extremities: No lower extremity edema appreciated, Course - Vital Signs Last Recorded V/S: Last Vital Signs Temp 97.0 F 02/07/18 10:41 Pulse 76 02/07/18 12:19 Resp 13 02/07/18 12:19 BP 116/56 L 02/07/18 12:19 Pulse Ox 97 02/07/18 12:19 - Orders/Labs/Meds Orders: Active Orders 24 hr Category Date Time Status EKG Documentation Completion [RC] ASDIRECTED Care 02/07/18 11:17 Active Neuro Check [RC] Q15M Care 02/07/18 11:15 Active Peripheral IV Care [RC] . DIRECTED Care 02/07/18 11:16 Active Chest 1V Frontal [CR] Urgent Exams 02/07/18 11:47 Taken UA W/MICROSCOPIC [URIN] Urgent Lab 02/07/18 11:15 Ordered Sodium Chloride 0.9% [Saline Flush] Med 02/07/18 11:15 Active 10 ml FLUSH ASDIRECTED PRN Sodium Chloride 0.9% [Saline Flush] Med 02/07/18 11:15 Active 10 ml FLUSH ASDIRECTED PRN Peripheral IV Insertion Adult [OM.PC] Urgent Oth 02/07/18 11:15 Ordered EKG 12 Lead [EK] Urgent Ther 02/07/18 11:15 Ordered Medication Orders Sodium Chloride (Saline Flush) 10 ml FLUSH ASDIRECTED PRN PRN Reason: Keep Vein Open Sodium Chloride (Saline Flush) 10 ml FLUSH ASDIRECTED PRN PRN Reason: Keep Vein Open Labs: Laboratory Tests 02/07/18 02/07/18 02/07/18 Range/Units 12:10 12:10 12:10 WBC 8.8 (4.5-11.0) K/uL RBC 3.90 (3.30-5.50) M/uL Hgb 11.4 L D (12.0-15.0) g/dL Hct 34.9 L (36.0-48.0) % MCV 90 (80-98) fL MCH 29 (27-31) pg MCHC 33 (32-36) % Plt Count 145 L (150-400) K/uL Neut % (Auto) 80 H (36-66) % Lymph % (Auto) 8 L (24-44) % [place] % (Auto) 13 H (2-6) % Eos % (Auto) 0 L (2-4) % Baso % (Auto) 0 (0-1) % ESR 31 H (0-25) mm/hr APTT (27.0-36.0) sec Sodium 139 L (140-148) mmol/L Potassium 4.5 (3.6-5.2) mmol/L Chloride 102 (100-108) mmol/L Carbon Dioxide 33 H (21-32) mmol/L Anion Gap 8.5 (5.0-14.0) mmol/L BUN 33 H (7-18) mg/dL Creatinine 1.4 H (0.6-1.0) mg/dL Est Cr Clr Drug Dosing 25.71 mL/min Estimated GFR (MDRD) 37 L (>60) Glucose 107 H (74-106) mg/dL Calcium 10.5 H D (8.5-10.1) mg/dL Total Bilirubin 0.2 (0.2-1.0) mg/dL AST 21 (15-37) U/L ALT 22 (12-78) U/L Alkaline Phosphatase 73 (46-116) U/L CK-MB (CK-2) 2.7 (0-3.6) mg/mL Troponin I < 0.017 (0.000-0.056) ng/mL Total Protein 6.8 (6.4-8.2) g/dL Albumin 3.3 L (3.4-5.0) g/dL Globulin 3.5 (2.3-3.5) g/dL Albumin/Globulin Ratio 0.9 L (1.2-2.2) 02/07/18 Range/Units 12:10 WBC (4.5-11.0) K/uL RBC (3.30-5.50) M/uL Hgb (12.0-15.0) g/dL Hct (36.0-48.0) % MCV (80-98) fL MCH (27-31) pg MCHC (32-36) % Plt Count (150-400) K/uL Neut % (Auto) (36-66) % Lymph % (Auto) (24-44) % [place] % (Auto) (2-6) % Eos % (Auto) (2-4) % Baso % (Auto) (0-1) % ESR (0-25) mm/hr APTT 25.3 L (27.0-36.0) sec Sodium (140-148) mmol/L Potassium (3.6-5.2) mmol/L Chloride (100-108) mmol/L Carbon Dioxide (21-32) mmol/L Anion Gap (5.0-14.0) mmol/L BUN (7-18) mg/dL Creatinine (0.6-1.0) mg/dL Est Cr Clr Drug Dosing mL/min Estimated GFR (MDRD) (>60) Glucose (74-106) mg/dL Calcium (8.5-10.1) mg/dL Total Bilirubin (0.2-1.0) mg/dL AST (15-37) U/L ALT (12-78) U/L Alkaline Phosphatase (46-116) U/L CK-MB (CK-2) (0-3.6) mg/mL Troponin I (0.000-0.056) ng/mL Total Protein (6.4-8.2) g/dL Albumin (3.4-5.0) g/dL Globulin (2.3-3.5) g/dL Albumin/Globulin Ratio (1.2-2.2) Meds: Medications Generic Name Dose Route Start Last Admin Trade Name Freq PRN Reason Stop Dose Admin Sodium Chloride 10 ml 02/07/18 11:15 Saline Flush FLUSH ASDIRECTED PRN Keep Vein Open Sodium Chloride 10 ml 02/07/18 11:15 Saline Flush FLUSH ASDIRECTED PRN Keep Vein Open Discontinued Medications Generic Name Dose Route Start Last Admin Trade Name Freq PRN Reason Stop Dose Admin Aspirin 324 mg 02/07/18 11:17 02/07/18 11:22 Aspirin PO 02/07/18 11:18 324 mg ONETIME ONE Administration Departure - Departure Time of Disposition: 13:23 Disposition: DC/Tfer to Acute Hospital 02 Clinical Impression: CVA (cerebral vascular accident) Qualifiers: CVA mechanism: unspecified Qualified Code(s): I63.9 - Cerebral infarction, unspecified - Discharge Information Referrals: Bernard Young NP [Primary Care Provider] - Forms: ED Department Discharge - My Orders Last 24 Hours: My Active Orders 02/07/18 11:15 Neuro Check [RC] Q15M UA W/MICROSCOPIC [URIN] Urgent Sodium Chloride 0.9% [Saline Flush] 10 ml FLUSH ASDIRECTED PRN Sodium Chloride 0.9% [Saline Flush] 10 ml FLUSH ASDIRECTED PRN Peripheral IV Insertion Adult [OM.PC] Urgent EKG 12 Lead [EK] Urgent 02/07/18 11:16 Peripheral IV Care [RC] . DIRECTED 02/07/18 11:17 EKG Documentation Completion [RC] ASDIRECTED 02/07/18 11:47 Chest 1V Frontal [CR] Urgent - Assessment/Plan Last 24 Hours: My Active Orders 02/07/18 11:15 Neuro Check [RC] Q15M UA W/MICROSCOPIC [URIN] Urgent Sodium Chloride 0.9% [Saline Flush] 10 ml FLUSH ASDIRECTED PRN Sodium Chloride 0.9% [Saline Flush] 10 ml FLUSH ASDIRECTED PRN Peripheral IV Insertion Adult [OM.PC] Urgent EKG 12 Lead [EK] Urgent 02/07/18 11:16 Peripheral IV Care [RC] . DIRECTED 02/07/18 11:17 EKG Documentation Completion [RC] ASDIRECTED 02/07/18 11:47 Chest 1V Frontal [CR] Urgent Plan: Assessment Acuity = acute Site and laterality = probable cerebral vascular accident complicated patient with known history of TIA in the past, rheumatoid arthritis, hypertension, dyslipidemia and coronary artery disease Etiology = unknown etiology Manifestations = right sided weakness and pronator drift right arm Location of injury = Home Lab values = hemoglobin low 11.4 consistent normochromic anemia creatinine elevated 1.4 consistent chronic renal failure stage G IIIB troponin was negative remainder CMP unremarkable CT scan of the head shows atrophy otherwise no acute process chest x-ray I did review films myself I cannot appreciate any acute process, the official read from radiology is pending Plan Called discussed case with Dr. Mcclain neurology at [facility] Kindly accepted the patient in transport will be transported via EMS ground to the emergency department for further evaluation This note was dictated using MoPub voice recognition software please call with any questions on syntax or grammar.
--- NOTE | 2018-02-07 12:43 | CR ---
Chest 1V Frontal CLINICAL HISTORY: Right-sided weakness COMPARISON: 2011 TECHNIQUE: Transverse scans were obtained from the base of the skull through the vertex without IV co ntrast on a multislice, multidetector CT scanner. Auto dosage reduction and iterative reconstruction techniques employed. FINDINGS: No focal lesion is identified. There is no mass effect, hemorrhage, or extraaxial collectio n. The basal cisterns and sulci over the convexities are prominent. The ventricles are normal for age . There is some scattered lucency in the subcortical and periventricular white matter IMPRESSION: Age-related atrophy Chronic ischemic microvascular changes
[2018-02-07 13:38] VITALS: BP 162/71
[2018-02-07] MEDS ORDERED: Acetaminophen 325 MG Tab, 50 Tab Bulk Bottle PO ONE (14:35)
[2018-02-07] MEDS ORDERED: Acetaminophen 325 MG Tab PO ONE (14:38)
--- NOTE | 2018-02-07 14:59 | CR ---
CHEST: Portable CLINICAL HISTORY:Chest pain COMPARISON:2017 FINDINGS: There is less than optimal inspiration which exaggerates lung markings. Heart size and pul monary vascularity are 3. Normal. There are atherosclerotic changes in the aorta. No infiltrates are seen. IMPRESSION: Limited study due to poor inspiration. This exaggerates lung markings No infiltrates are seen
== END 2018-02-07 14:53 ==
LOC: JP.ED 10:09
DX: I63.9 Cerebral infarction, unspecified (principal); I10 Essential (primary) hypertension; E78.5 Hyperlipidemia, unspecified; M06.9 Rheumatoid arthritis, unspecified; I25.10 Atherosclerotic heart disease of native coronary artery without angina pectoris; E21.3 Hyperparathyroidism, unspecified; Z79.899 Other long term (current) drug therapy; Z87.891 Personal history of nicotine dependence; Z88.1 Allergy status to other antibiotic agents; Z88.8 Allergy status to other drugs, medicaments and biological substances
CPT/HCPCS: 36415; 70450; 71045; 80053; 81001; 82553; 84484; 85025; 85651; 85730; 93005; 99285; A9270

== ENCOUNTER 2018-09-25 21:18 | Emergency (ER) | payer MEDICARE, BC ==
[2018-09-25 22:44] VITALS: BP 155/66
--- NOTE | 2018-09-25 23:28 | EDM.PDOC ---
ED HPI GENERAL MEDICAL PROBLEM - General Chief Complaint: General Stated Complaint: LEFT ARM AND LEG NUMBNESS Time Seen by Provider: 09/25/18 22:00 Source of Information: Reports: Patient, Family History Limitations: Reports: No Limitations - History of Present Illness INITIAL COMMENTS - FREE TEXT/NARRATIVE: 73-year-old female who tonight after taking her medications at 8:30 PM, developed left arm pain. She took nitroglycerin 2 without significant effect. She then started developing left arm numbness and left leg numbness and perceived weakness so felt she should be checked out. Even after symptoms started she was still able to use her walker for ambulation. The pain is gone but she still thinks her arm and leg feel "numb". No speech difficulties, visual changes, chest pain or shortness of breath. She does have a previous history of recurring TIAs. Onset: Sudden Duration: Hour(s): (3 hours ago) Location: Reports: Upper Extremity, Left, Lower Extremity, Left Quality: Reports: Other (Numbness) Associated Symptoms: Reports: Other (Initially left arm pain which has resolved) Treatments PSYCHIATRIC CNS: Reports: Other (see below) Other Treatments PSYCHIATRIC CNS: Unknown - Related Data Allergies Allergy/AdvReac Type Severity Reaction Status Date / Time lidocaine [From LidoPatch] Allergy Intermediate Swollen Verified 06/12/18 11:44 Tongue ampicillin sodium Allergy Mild Itching Verified 06/12/18 11:44 [From Unasyn] sulbactam sodium Allergy Mild Itching Verified 06/12/18 11:44 [From Unasyn] gabapentin Allergy Cannot Verified 06/12/18 11:44 Remember gemfibrozil [From Lopid] Allergy Hives Verified 06/12/18 11:44 menthol [From LidoPatch] Allergy Burning Verified 06/12/18 11:44 erythromycin base AdvReac Mild local eye Verified 06/12/18 11:44 [Erythromycin Base] rxn using ophthalmic dontrell midazolam HCl [From Versed] AdvReac Hallucinati Verified 06/12/18 11:44 ons prednisone AdvReac Confusion Verified 06/12/18 11:44 Home Meds: Home Meds Calcium Carbonate/Vitamin D3 [Calcium 600-Vit D3 200 Tablet] 1 each PO BID 04/24 [History] Multivitamin [Multi-Vitamin Daily] 1 each PO DAILY 04/24/13 [History] Sucralfate [Carafate] 1 gm PO QID 04/24/13 [History] clonazePAM [Klonopin] 0.5 mg PO QAM 04/24/13 [History] LORazepam [Ativan] 0.5 mg PO TID PRN 10/17/13 [History] Levothyroxine [Synthroid] 88 mcg PO ACBRK 10/17/13 [History] Losartan Potassium [Cozaar] 50 mg PO BEDTIME 10/17/13 [History] Nitroglycerin [Nitrostat] 0.4 mg SL ASDIRECTED PRN 10/17/13 [History] Tranylcypromine [Parnate] 30 mg PO TASNEEM 01/06/14 [History] Tranylcypromine [Parnate] 40 mg PO QAM 01/06/14 [History] Omeprazole Magnesium [Prilosec Otc] 20 mg PO DAILY 07/04/14 [History] Tranylcypromine [Parnate] 20 mg PO ACDINNER 07/18/14 [History] Albuterol/Ipratropium [DuoNeb 3.0-0.5 MG/3 ML] 3 ml IH Q4H PRN 09/05/15 [History ] Aspirin [Ecotrin] 81 mg PO BEDTIME 09/05/15 [History] Ferrous Fumarate [Ferretts] 50 mg PO DAILY 09/05/15 [History] Pravastatin [Pravachol] 10 mg PO BEDTIME 09/05/15 [History] Formoterol [Perforomist] 1 ampule INH BID 02/09/17 [History] ARIPiprazole [Abilify] 20 mg PO QAM 04/23/17 [History] Isosorbide Mononitrate [Imdur] 30 mg PO DAILY 04/23/17 [History] Mirabegron [Myrbetriq] 50 mg PO DAILY 04/23/17 [History] amLODIPine Besylate [Amlodipine Besylate] 5 mg PO BEDTIME 04/23/17 [History] ARIPiprazole [Abilify] 10 mg PO BEDTIME 05/09/17 [History] oxyCODONE HCl/Acetaminophen [Percocet 10-325 mg Tablet] 1 each PO TID PRN [History] Budesonide [Pulmicort] 2 ml NEB BID 11/22/17 [History] clonazePAM [Klonopin] 1 mg PO BEDTIME 11/22/17 [History] Past Medical History HEENT History: Reports: Cataract, Impaired Vision Other HEENT History: "hole between septum" Cardiovascular History: Reports: CAD, High Cholesterol, Hypertension Respiratory History: Reports: Asthma, COPD, Intubation, Previous, Other (See Below) Other Respiratory History: cylindrical bronchiectasis. 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 shouler pain. bilat knee pain Neurological History: Reports: TIA, Other (See Below) Other Neuro History: Dysphagia Psychiatric History: Reports: Anxiety, Depression Endocrine/Metabolic History: Reports: Hyperparathyroidism, Obesity/BMI 30+, Osteoporosis Hematologic History: Reports: Anemia, Blood Transfusion(s) - Infectious Disease History Infectious Disease History: Reports: Chicken Pox - Past Surgical History Head Surgeries/Procedures: Reports: None Cardiovascular Surgical History: Reports: Coronary Artery Stent GI Surgical History: Reports: None Female Surgical History: Reports: Dilitation & Evacuation Musculoskeletal Surgical History: Reports: Hip Replacement Social & Family History - Family History Family Medical History: Noncontributory Neurological: Reports: CVA Oncologic: Reports: Leukemia - Tobacco Use Smoking Status *Q: Former Smoker Used Tobacco, but Quit: Yes Month/Year Tobacco Last Used: 2000 Second Hand Smoke Exposure: No - Caffeine Use Caffeine Use: Reports: Coffee - Recreational Drug Use Recreational Drug Use: No ED ROS GENERAL - Review of Systems Review Of Systems: See Below Constitutional: Denies: Fever, Chills HEENT: Denies: Vision Change Respiratory: Reports: Shortness of Breath (Chronic and stable) Cardiovascular: Denies: Chest Pain GI/Abdominal: Denies: Nausea, Vomiting : Reports: No Symptoms Skin: Reports: Bruising (Bruises easily) Neurological: Denies: Headache ED EXAM, GENERAL - Physical Exam Exam: See Below Exam Limited By: No Limitations General Appearance: Alert, No Apparent Distress, Other (She appears her baseline state) Eye Exam: Bilateral Eye: EOMI Head: Atraumatic, Normocephalic Neck: Supple, Non-Tender Respiratory/Chest: No Respiratory Distress, Lungs Clear Cardiovascular: Regular Rate, Rhythm, Extra Beats GI/Abdominal: Soft, Non-Tender Extremities: Pedal Edema (1+ symmetric lower extremity edema) Neurological: Alert, Oriented, No Motor/Sensory Deficits (She seems to have to concentrate to move the left arm and leg and grasp, however the strength is symmetric) Psychiatric: Flat Affect Skin Exam: Warm, Dry, Other (Numerous bruises, particularly on the arms) Course - Vital Signs Last Recorded V/S: Last Vital Signs Temp 97.1 F 09/25/18 22:10 Pulse 83 09/25/18 22:43 Resp 12 09/25/18 22:10 BP 155/66 H 09/25/18 22:43 Pulse Ox 96 09/25/18 22:43 - Orders/Labs/Meds Labs: Laboratory Tests 09/25/18 09/25/18 Range/Units 22:43 23:07 WBC 9.2 (4.5-11.0) K/uL RBC 3.40 (3.30-5.50) M/uL Hgb 10.0 L (12.0-15.0) g/dL Hct 33.0 L (36.0-48.0) % MCV 97 (80-98) fL MCH 29 (27-31) pg MCHC 30 L (32-36) % Plt Count 235 (150-400) K/uL Neut % (Auto) 53 (36-66) % Lymph % (Auto) 23 L (24-44) % [place] % (Auto) 16 H (2-6) % Eos % (Auto) 9 H (2-4) % Baso % (Auto) 0 (0-1) % Sodium 138 L (140-148) mmol/L Potassium 4.4 (3.6-5.2) mmol/L Chloride 104 (100-108) mmol/L Carbon Dioxide 29 (21-32) mmol/L Anion Gap 9.4 (5.0-14.0) mmol/L BUN 25 H (7-18) mg/dL Creatinine 1.2 H (0.6-1.0) mg/dL Est Cr Clr Drug Dosing 29.54 mL/min Estimated GFR (MDRD) 44 L (>60) Glucose 116 H (74-106) mg/dL Calcium 8.8 (8.5-10.1) mg/dL Troponin I < 0.017 (0.000-0.056) ng/mL - Re-Assessments/Exams Free Text/Narrative Re-Assessment/Exam: 09/25/18 23:28 Similar symptoms occurred last year and the patient had a very extensive daily neurologic workup which was negative. She was also just seen in the clinic 2 days ago and had an ultrasound of her left lower extremity which was negative. We will obtain a troponin as well as a head CT. 09/25/18 23:40 Patient remained comfortable while in the emergency room, still insisted she get some left arm and leg paresthesia but no pain. CT was negative, CBC reassuring and troponin 0. Patient did not want transfer less necessary. She has a neurology appointment set up for early next week, this CT scan will be pushed through and she can recheck next week unless she feels she is worsening. No medication changes. Departure - Departure Time of Disposition: 00:08 Disposition: Home, Self-Care 01 Condition: Good Clinical Impression: Paresthesia of left upper and lower extremity, Weakness - Discharge Information Instructions: Weakness Referrals: Bernard Young NP [Primary Care Provider] - Forms: ED Department Discharge Care Plan Goals: Continue your current medications and activity as tolerated. Recheck next week as scheduled, or return sooner if you feel you are worsening or develop other concerns.
--- NOTE | 2018-09-25 23:37 | CRLCT ---
INDICATION: Arm and leg paresthesias TECHNIQUE: CT head without contrast. COMPARISON: 02/24/2018 FINDINGS: CSF spaces: Within normal limits for age. Brain parenchyma: The chavez-white differentiation is normal. No sign of mass, hemorrhage, or midline shift. Diffuse volume loss. Skull base and calvarium: The visualized paranasal sinuses and mastoid air cells demonstrate no acute or significant findings. The visualized orbits are grossly unremarkable. No skull fractures. IMPRESSION: Unremarkable noncontrast head CT. Dictated by Wilton Collins MD @ 09/25/2018 11:35:26 PM Please note that all CT scans at this facility use dose modulation, iterative reconstruction, and/or weight-based dosing when appropriate to reduce radiation dose to as low as reasonably achievable. Dictated by: Wilton Collins MD @ 09/25/2018 23:35:37 (Electronically Signed)
== END 2018-09-26 00:05 | disposition home or self-care (01) ==
LOC: JP.ED 21:18
DX: R20.2 Paresthesia of skin (principal); R53.1 Weakness; I25.10 Atherosclerotic heart disease of native coronary artery without angina pectoris; E78.00 Pure hypercholesterolemia, unspecified; I10 Essential (primary) hypertension; J44.9 Chronic obstructive pulmonary disease, unspecified; Z87.891 Personal history of nicotine dependence; Z88.8 Allergy status to other drugs, medicaments and biological substances; Z88.1 Allergy status to other antibiotic agents; Z79.899 Other long term (current) drug therapy
CPT/HCPCS: 36415; 70450; 80048; 84484; 85025; 99283-25

== ENCOUNTER 2019-08-10 13:50 | Emergency (ER) | payer MEDICARE, BC ==
[2019-08-10 14:11] VITALS: BP 133/61; PULSE 84
--- NOTE | 2019-08-10 16:14 | EDM.PDOC ---
ED HPI GENERAL MEDICAL PROBLEM - General Chief Complaint: Neuro Symptoms/Deficits Stated Complaint: DIZZY,NUMBNESS LEFT SIDE Time Seen by Provider: 08/10/19 16:00 Source of Information: Reports: Patient, Family History Limitations: Reports: No Limitations - History of Present Illness INITIAL COMMENTS - FREE TEXT/NARRATIVE: 74-year-old female developed some numbness in her right foot and right arm while eating lunch earlier today. She has been feeling weaker and nauseous since starting on oral Diflucan for "thrush". No nausea, vomiting, diarrhea or abdominal pain. No fevers or chills. She called the nurse hotline and they told her to call 911 or get immediately to the emergency room. Onset: Sudden (Numbness started about 3 hours ago) Duration: Hour(s): (3 hours) Location: Reports: Upper Extremity, Right, Lower Extremity, Right Associated Symptoms: Reports: Malaise, Weakness, Other (Intermittent dizziness for the past several days) - Related Data Allergies Allergy/AdvReac Type Severity Reaction Status Date / Time gemfibrozil [From Lopid] Allergy Severe Hives Verified 08/10/19 14:15 lidocaine [From LidoPatch] Allergy Intermediate Swollen Verified 08/10/19 14:15 Tongue ampicillin sodium Allergy Mild Itching Verified 08/10/19 14:15 [From Unasyn] gabapentin Allergy Mild Cannot Verified 08/10/19 14:15 Remember menthol [From LidoPatch] Allergy Mild Burning Verified 08/10/19 14:15 sulbactam sodium Allergy Mild Itching Verified 08/10/19 14:15 [From Unasyn] midazolam HCl [From Versed] AdvReac Severe Hallucinati Verified 08/10/19 14:15 ons prednisone AdvReac Intermediate Confusion Verified 08/10/19 14:15 erythromycin base AdvReac Mild local eye Verified 08/10/19 14:15 [Erythromycin Base] rxn using ophthalmic dontrell Home Meds: Home Meds Calcium Carbonate/Vitamin D3 [Calcium 600-Vit D3 200 Tablet] 1 each PO BID 04/24 [History] Multivitamin [Multi-Vitamin Daily] 1 each PO DAILY 04/24/13 [History] clonazePAM [Klonopin] 0.5 mg PO BEDTIME 04/24/13 [History] LORazepam [Ativan] 0.5 mg PO QID 10/17/13 [History] Levothyroxine [Synthroid] 88 mcg PO ACBRK 10/17/13 [History] Losartan Potassium [Cozaar] 50 mg PO ACDINNER 10/17/13 [History] Nitroglycerin [Nitrostat] 0.4 mg SL ASDIRECTED PRN 10/17/13 [History] Tranylcypromine [Parnate] 30 mg PO TASNEEM 01/06/14 [History] Tranylcypromine [Parnate] 40 mg PO QAM 01/06/14 [History] Omeprazole Magnesium [Prilosec Otc] 20 mg PO BID 07/04/14 [History] Tranylcypromine [Parnate] 20 mg PO ACDINNER 07/18/14 [History] Aspirin [Ecotrin EC] 81 mg PO BEDTIME 09/05/15 [History] Ferrous Fumarate [Ferretts] 50 mg PO PCLUNCH 09/05/15 [History] Pravastatin [Pravachol] 10 mg PO ACDINNER 09/05/15 [History] Formoterol [Perforomist] 1 ampule INH BID 02/09/17 [History] ARIPiprazole [Abilify] 20 mg PO QAM 04/23/17 [History] Isosorbide Mononitrate [Imdur] 30 mg PO DAILY 04/23/17 [History] Mirabegron [Myrbetriq] 50 mg PO DAILY 04/23/17 [History] amLODIPine Besylate [Amlodipine Besylate] 5 mg PO BEDTIME 04/23/17 [History] ARIPiprazole [Abilify] 10 mg PO ACDINNER 05/09/17 [History] oxyCODONE HCl/Acetaminophen [Percocet 10-325 mg Tablet] 1 each PO QID 11/12/17 [ History] Budesonide [Pulmicort] 2 ml NEB BID 11/22/17 [History] clonazePAM [Klonopin] 1 mg PO DAILY PRN 11/22/17 [History] Diclofenac Sodium 100 gm TP TID PRN #1 gel..gram. 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 shouler pain. bilat knee pain Neurological History: Reports: TIA, Other (See Below) Other Neuro History: Dysphagia Psychiatric History: Reports: Anxiety, Depression Endocrine/Metabolic History: Reports: Hyperparathyroidism, Obesity/BMI 30+, Osteoporosis Hematologic History: Reports: Anemia, Blood Transfusion(s) Immunologic History: Reports: None Oncologic (Cancer) History: Reports: None Dermatologic History: Reports: None - Infectious Disease History Infectious Disease History: Reports: Chicken Pox - Past Surgical History Head Surgeries/Procedures: Reports: None Cardiovascular Surgical History: Reports: Coronary Artery Stent GI Surgical History: Reports: None Female Surgical History: Reports: Dilitation & Evacuation Musculoskeletal Surgical History: Reports: Hip Replacement Social & Family History - Family History Family Medical History: Noncontributory Neurological: Reports: CVA Oncologic: Reports: Leukemia - Tobacco Use Smoking Status *Q: Former Smoker Years of Tobacco use: 40 Packs/Tins Daily: 3 Used Tobacco, but Quit: Yes Month/Year Tobacco Last Used: 2000 - Caffeine Use Caffeine Use: Reports: None - Recreational Drug Use Recreational Drug Use: No ED ROS GENERAL - Review of Systems Review Of Systems: See Below Constitutional: Reports: Malaise. Denies: Fever, Chills HEENT: Denies: Ear Pain, Vision Change Respiratory: Denies: Shortness of Breath Cardiovascular: Denies: Chest Pain, Palpitations GI/Abdominal: Denies: Vomiting Neurological: Reports: Dizziness, Paresthesia (Numbness of the right foot and right arm) ED EXAM, NEURO - Physical Exam Exam: See Below Exam Limited By: No Limitations General Appearance: Alert, No Apparent Distress Eye Exam: Bilateral Eye: EOMI Throat/Mouth: Other (A small amount of white discoloration of the tongue but no lesions of the oropharynx or palate seen) Head Exam: Atraumatic Neck: Supple Respiratory/Chest: Lungs Clear Cardiovascular: Regular Rate, Rhythm GI/Abdominal: Soft Neurological: Alert, No Motor/Sensory Deficits (I cannot elicit weakness of her grasp strength upper extremities or strength of the lower extremities), Oriented x 3 Psychiatric: Flat Affect Skin Exam: Warm, Dry Course - Vital Signs Last Recorded V/S: Last Vital Signs Temp 97.4 F 08/10/19 14:10 Pulse 84 08/10/19 14:10 Resp 15 08/10/19 14:10 BP 133/61 08/10/19 14:10 Pulse Ox 95 08/10/19 14:10 - Orders/Labs/Meds Labs: Laboratory Tests 08/10/19 08/10/19 Range/Units 16:25 16:25 WBC 9.0 (4.5-11.0) K/uL RBC 3.53 (3.30-5.50) M/uL Hgb 10.5 L (12.0-15.0) g/dL Hct 34.7 L (36.0-48.0) % MCV 98 (80-98) fL MCH 30 (27-31) pg MCHC 30 L (32-36) % Plt Count 182 (150-400) K/uL Neut % (Auto) 71 H (36-66) % Lymph % (Auto) 12 L (24-44) % [place] % (Auto) 11 H (2-6) % Eos % (Auto) 6 H (2-4) % Baso % (Auto) 0 (0-1) % Sodium 137 L (140-148) mmol/L Potassium 4.5 (3.6-5.2) mmol/L Chloride 102 (100-108) mmol/L Carbon Dioxide 31 (21-32) mmol/L Anion Gap 8.5 (5.0-14.0) mmol/L BUN 30 H (7-18) mg/dL Creatinine 1.4 H (0.6-1.0) mg/dL Est Cr Clr Drug Dosing 24.94 mL/min Estimated GFR (MDRD) 37 L (>60) Glucose 112 H (74-106) mg/dL Calcium 9.1 (8.5-10.1) mg/dL Troponin I < 0.017 (0.000-0.056) ng/mL - Re-Assessments/Exams Free Text/Narrative Re-Assessment/Exam: 08/10/19 16:17 CBC and CMP were obtained, I do not think a CT is indicated at this time. Also lili a troponin. 08/10/19 17:44 Hemoglobin is 10.5, chemistry panel is near her usual baseline. She still felt diffusely uncomfortable and weak but no asymmetry, she will try 1 to 2 days off the Diflucan and return if not improving satisfactorily. 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 Increase activity and diet as tolerated recheck in 2 to 3 days if not improving satisfactorily, or return sooner if worsening or you develop other concerns. Sepsis Event Note - Evaluation Sepsis Screening Result: No Definite Risk - Focused Exam Date Exam was Performed: 08/11/19 Time Exam was Performed: 11:47
== END 2019-08-10 18:05 | disposition home or self-care (01) ==
LOC: JP.ED 13:50
DX: R20.2 Paresthesia of skin (principal); R53.1 Weakness; I10 Essential (primary) hypertension; E78.00 Pure hypercholesterolemia, unspecified; I25.10 Atherosclerotic heart disease of native coronary artery without angina pectoris; J44.9 Chronic obstructive pulmonary disease, unspecified; K21.9 Gastro-esophageal reflux disease without esophagitis; M19.90 Unspecified osteoarthritis, unspecified site; F41.9 Anxiety disorder, unspecified; F32.9 Major depressive disorder, single episode, unspecified; E21.3 Hyperparathyroidism, unspecified; E66.9 Obesity, unspecified; Z87.891 Personal history of nicotine dependence; Z88.8 Allergy status to other drugs, medicaments and biological substances; Z88.1 Allergy status to other antibiotic agents; Z79.899 Other long term (current) drug therapy; Z79.82 Long term (current) use of aspirin
CPT/HCPCS: 36415; 80048; 84484; 85025; 99283; 99285

== ENCOUNTER 2020-02-22 10:45 | Emergency (ER) | payer MEDICARE, BC ==
[2020-02-22 10:57] VITALS: BP 179/82; PULSE 81
--- NOTE | 2020-02-22 11:48 | EDM.PDOCBH ---
ED HPI GENERAL MEDICAL PROBLEM - General Chief Complaint: Behavioral/Psych Stated Complaint: MEDICAL VIA [place] Time Seen by Provider: 02/22/20 10:57 Source of Information: Reports: Patient, Family History Limitations: Reports: No Limitations - History of Present Illness INITIAL COMMENTS - FREE TEXT/NARRATIVE: 74 yo female with PMH of dementia presents to ER today with behavior changes. She is cared for at home by her . they had a normal day yesterday. This AM she slept later then she usually does. Her went to wake her and she was not happy resisting him and verbally yelling profanities. This is not her normal behavior. Her called her daughter and the daughter came to help but behaviors continued. She harshly sat into her arm chair striking her right arm on the arm rest causing skin tear. This then bleed through her pajamas. Pt has not complaints of pain, she is afebrile. is present at the bedside. - Related Data Allergies Allergy/AdvReac Type Severity Reaction Status Date / Time gemfibrozil [From Lopid] Allergy Severe Hives Verified 08/10/19 14:15 lidocaine [From LidoPatch] Allergy Intermediate Swollen Verified 08/10/19 14:15 Tongue ampicillin sodium Allergy Mild Itching Verified 08/10/19 14:15 [From Unasyn] gabapentin Allergy Mild Cannot Verified 08/10/19 14:15 Remember menthol [From LidoPatch] Allergy Mild Burning Verified 08/10/19 14:15 sulbactam sodium Allergy Mild Itching Verified 08/10/19 14:15 [From Unasyn] midazolam HCl [From Versed] AdvReac Severe Hallucinati Verified 08/10/19 14:15 ons prednisone AdvReac Intermediate Confusion Verified 08/10/19 14:15 erythromycin base AdvReac Mild local eye Verified 08/10/19 14:15 [Erythromycin Base] rxn using ophthalmic dontrell Home Meds: Home Meds Calcium Carbonate/Vitamin D3 [Calcium 600-Vit D3 200 Tablet] 1 each PO BID 04/24 [History] Multivitamin [Multi-Vitamin Daily] 1 each PO DAILY 04/24/13 [History] clonazePAM [Klonopin] 0.5 mg PO BEDTIME 04/24/13 [History] LORazepam [Ativan] 0.5 mg PO QID 10/17/13 [History] Levothyroxine [Synthroid] 88 mcg PO ACBRK 10/17/13 [History] Losartan Potassium [Cozaar] 50 mg PO ACDINNER 10/17/13 [History] Nitroglycerin [Nitrostat] 0.4 mg SL ASDIRECTED PRN 10/17/13 [History] Tranylcypromine [Parnate] 30 mg PO TASNEEM 01/06/14 [History] Tranylcypromine [Parnate] 40 mg PO QAM 01/06/14 [History] Omeprazole Magnesium [Prilosec Otc] 20 mg PO BID 07/04/14 [History] Tranylcypromine [Parnate] 20 mg PO ACDINNER 07/18/14 [History] Aspirin [Ecotrin EC] 81 mg PO BEDTIME 09/05/15 [History] Ferrous Fumarate [Ferretts] 50 mg PO PCLUNCH 09/05/15 [History] Pravastatin [Pravachol] 10 mg PO ACDINNER 09/05/15 [History] Formoterol [Perforomist] 1 ampule INH BID 02/09/17 [History] ARIPiprazole [Abilify] 10 mg PO QAM 04/23/17 [History] Isosorbide Mononitrate [Imdur] 30 mg PO DAILY 04/23/17 [History] Mirabegron [Myrbetriq] 50 mg PO DAILY 04/23/17 [History] amLODIPine Besylate [Amlodipine Besylate] 5 mg PO BEDTIME 04/23/17 [History] ARIPiprazole [Abilify] 20 mg PO ACDINNER 05/09/17 [History] oxyCODONE HCl/Acetaminophen [Percocet 10-325 mg Tablet] 1 each PO QID 11/12/17 [History] Budesonide [Pulmicort] 2 ml NEB BID 11/22/17 [History] clonazePAM [Klonopin] 1 mg PO DAILY PRN 11/22/17 [History] Diclofenac Sodium 100 gm TP TID PRN #1 gel..gram. 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 shouler pain. bilat knee pain Neurological History: Reports: TIA, Other (See Below) Other Neuro History: Dysphagia Psychiatric History: Reports: Anxiety, Depression Endocrine/Metabolic History: Reports: Hyperparathyroidism, Obesity/BMI 30+, Osteoporosis Hematologic History: Reports: Anemia, Blood Transfusion(s) Immunologic History: Reports: None Oncologic (Cancer) History: Reports: None Dermatologic History: Reports: None - Infectious Disease History Infectious Disease History: Reports: Chicken Pox - Past Surgical History Head Surgeries/Procedures: Reports: None Cardiovascular Surgical History: Reports: Coronary Artery Stent GI Surgical History: Reports: None Female Surgical History: Reports: Dilitation & Evacuation Musculoskeletal Surgical History: Reports: Hip Replacement Social & Family History - Family History Family Medical History: Noncontributory Neurological: Reports: CVA Oncologic: Reports: Leukemia - Tobacco Use Smoking Status *Q: Never Smoker - Caffeine Use Caffeine Use: Reports: None - Recreational Drug Use Recreational Drug Use: No ED ROS GENERAL - Review of Systems Review Of Systems: See Below Constitutional: Denies: Fever, Chills Respiratory: Denies: Shortness of Breath, Wheezing, Cough Cardiovascular: Denies: Chest Pain GI/Abdominal: Denies: Abdominal Pain : Reports: Frequency Skin: Reports: Other (skin tears and bruising). Denies: Rash ED EXAM, BEHAVIORAL HEALTH - Physical Exam Exam: See Below Exam Limited By: No Limitations General Appearance: Alert, WD/WN, No Apparent Distress Head: Atraumatic, Normocephalic Neck: Normal Inspection, Supple, Non-Tender, Full Range of Motion. No: Lymphadenopathy (R), Lymphadenopathy (L) Cardiovascular: Normal Peripheral Pulses, Regular Rate, Rhythm, No Murmur GI/Abdominal: Normal Bowel Sounds, Soft, Non-Tender Neurological: Alert, Other (verbally aggresive behavior) Psychiatric: Restless Skin Exam: Warm, Dry, Intact, Wound/incision (skin tear right elbow with ecchymo sis, multiple ecchymotitic areas to bilateral arms) COURSE, BEHAVIORAL HEALTH COMP - Course Vital Signs: Last Vital Signs Temp 36.4 C 08/03/20 11:02 Pulse 81 02/22/20 11:02 Resp 13 02/22/20 11:02 BP 179/82 H 02/22/20 11:02 Pulse Ox 94 L 02/22/20 11:02 Orders, Labs, Meds: Laboratory Tests 02/22/20 02/22/20 02/22/20 Range/Units 11:42 11:42 14:50 WBC 6.6 (4.5-11.0) K/uL RBC 3.80 (3.30-5.50) M/uL Hgb 11.1 L (12.0-15.0) g/dL Hct 37.2 (36.0-48.0) % MCV 98 (80-98) fL MCH 29 (27-31) pg MCHC 30 L (32-36) % Plt Count 150 (150-400) K/uL Neut % (Auto) 66 (36-66) % Lymph % (Auto) 12 L (24-44) % [place] % (Auto) 12 H (2-6) % Eos % (Auto) 10 H (2-4) % Baso % (Auto) 1 (0-1) % Sodium 142 (140-148) mmol/L Potassium 3.9 (3.6-5.2) mmol/L Chloride 103 (100-108) mmol/L Carbon Dioxide 34 H (21-32) mmol/L Anion Gap 8.9 (5.0-14.0) mmol/L BUN 26 H (7-18) mg/dL Creatinine 1.2 H (0.6-1.0) mg/dL Est Cr Clr Drug Dosing 29.10 mL/min Estimated GFR (MDRD) 44 L (>60) Glucose 99 (74-106) mg/dL Calcium 9.4 (8.5-10.1) mg/dL Total Bilirubin 0.4 D (0.2-1.0) mg/dL AST 18 (15-37) U/L ALT 15 (12-78) U/L Alkaline Phosphatase 88 (46-116) U/L Total Protein 6.7 (6.4-8.2) g/dL Albumin 2.8 L (3.4-5.0) g/dL Globulin 3.9 H (2.3-3.5) g/dL Albumin/Globulin Ratio 0.7 L (1.2-2.2) Urine Color Yellow (YELLOW) Urine Appearance Clear (CLEAR) Urine pH 7.5 (5.0-8.0) Ur Specific [place] 1.025 (1.008-1.030) Urine Protein Negative (NEGATIVE) mg/dL Urine Glucose (UA) Negative (NEGATIVE) mg/dL Urine Ketones Trace H (NEGATIVE) mg/dL Urine Occult Blood Negative (NEGATIVE) Urine Nitrite Negative (NEGATIVE) Urine Bilirubin Negative (NEGATIVE) Urine Urobilinogen 0.2 (0.2-1.0) EU/dL Ur Leukocyte Esterase Negative (NEGATIVE) Urine RBC 0-5 (0-5) Urine WBC 0-5 (0-5) Ur Epithelial Cells Rare Amorphous Sediment Not seen Urine Bacteria Rare Urine Mucus Not seen Re-Assessment/Re-Exam: stayed at bedside. throughout the day pt did eat apple sauce and take her daily pills. CT head no intracranial bleed. pt did progressively return to normal mentation. is primary career transition specialist and has local support. He will take pt home and return if cognation returns to aggressive behavior. Departure - Departure Time of Disposition: 19:17 Disposition: Home, Self-Care 01 Condition: Fair Clinical Impression: Dementia Qualifiers: Dementia type: Alzheimer's disease Alzheimer's disease onset: unspecified onset Dementia behavioral disturbance: with behavioral disturbance Qualified Code(s): G30.9 - Alzheimer's disease, unspecified; F02.81 - Dementia in other diseases classified elsewhere with behavioral disturbance - Discharge Information *PRESCRIPTION DRUG MONITORING PROGRAM REVIEWED*: Not Applicable *COPY OF PRESCRIPTION DRUG MONITORING REPORT IN PATIENT CHARLIE: Not Applicable Instructions: Dementia, [id number] Referrals: PCP,None [Primary Care Provider] - Forms: ED Department Discharge Additional Instructions: continue normal routine and medications return to emergency room if needed, follow-up with primary care and phycology Sepsis Event Note (ED) - Evaluation Sepsis Screening Result: No Definite Risk - Focused Exam Vital Signs: Vital Signs Temp Pulse Resp BP Pulse Ox 02/22/20 11:02 36.4 C 81 13 179/82 H 94 L 02/22/20 10:56 36.4 C 81 13 179/82 H 94 L
--- NOTE | 2020-02-22 18:58 | CRLCT ---
INDICATION: Behavior changes TECHNIQUE: CT head without contrast. COMPARISON: None. FINDINGS: CSF spaces: Within normal limits for age. Brain parenchyma: No intracranial bleed or mass effect. Mild low density in the deep white matter. Doss-white differentiation is distinct. Mild cerebral atrophy. Skull base and calvarium: Atherosclerosis. Mild mucosal thickening paranasal sinuses. Trace right mastoid fluid. The visualized orbits are grossly unremarkable. No skull fractures. IMPRESSION: 1. No intracranial bleed or mass effect. 2. Mild cerebral atrophy with nonspecific white matter disease, likely microangiopathy. Please note that all CT scans at this facility use dose modulation, iterative reconstruction, and/or weight-based dosing when appropriate to reduce radiation dose to as low as reasonably achievable. Dictated by Mihai Skelton MD @ Feb 22 2020 6:49PM Signed by Dr. Mihai Skelton @ Feb 22 2020 6:57PM
== END 2020-02-22 19:33 | disposition home or self-care (01) ==
LOC: JP.ED 10:45
DX: S51.011A Laceration without foreign body of right elbow, initial encounter (principal); S40.022A Contusion of left upper arm, initial encounter; S40.021A Contusion of right upper arm, initial encounter; G30.9 Alzheimer's disease, unspecified; F02.81 Dementia in other diseases classified elsewhere, unspecified severity, with behavioral disturbance; I10 Essential (primary) hypertension; E80.0 Hereditary erythropoietic porphyria; I25.10 Atherosclerotic heart disease of native coronary artery without angina pectoris; K21.9 Gastro-esophageal reflux disease without esophagitis; Z86.73 Personal history of transient ischemic attack (TIA), and cerebral infarction without residual deficits; F41.9 Anxiety disorder, unspecified; F32.9 Major depressive disorder, single episode, unspecified; E21.3 Hyperparathyroidism, unspecified; E66.9 Obesity, unspecified; D64.9 Anemia, unspecified; Z95.5 Presence of coronary angioplasty implant and graft; Z88.4 Allergy status to anesthetic agent; Z88.1 Allergy status to other antibiotic agents; Z88.8 Allergy status to other drugs, medicaments and biological substances; Z79.899 Other long term (current) drug therapy; X58.XXXA Exposure to other specified factors, initial encounter
CPT/HCPCS: 36415; 70450; 80053; 81001; 85025; 99283; 99284-25

== ENCOUNTER 2020-03-10 10:59 | Emergency (ER) | payer MEDICARE, BC ==
[2020-03-10 11:03] VITALS: BP 157/76; PULSE 86
--- NOTE | 2020-03-10 11:15 | EDM.PDOC ---
ED HPI GENERAL MEDICAL PROBLEM - General Chief Complaint: Wound Recheck Stated Complaint: EVAL Time Seen by Provider: 03/10/20 11:05 Source of Information: Reports: Patient, Old Records, RN History Limitations: Reports: No Limitations - History of Present Illness INITIAL COMMENTS - FREE TEXT/NARRATIVE: 74 yo female here with L hip area and generalized L leg swelling. Has been f ollowed by Dr. Knox for the hip swelling. Recently had the hip drained of accumulated blood. Cultures of the wound negative to date, but the redness is getting worse. No fever. Pain not severe now, took a pain pill before coming in. Onset: Gradual Duration: Day(s):, Constant Location: Reports: Lower Extremity, Left Quality: Reports: Ache Severity: Moderate Improves with: Reports: Medication Worsens with: Reports: Movement Context: Reports: Other (See HPI) Associated Symptoms: Reports: No Other Symptoms Treatments VP PACKAGING: Reports: Other (see below) (Wound has been drained and is on IV antibiotics through Saturday. ) - Related Data Allergies Allergy/AdvReac Type Severity Reaction Status Date / Time gemfibrozil [From Lopid] Allergy Severe Hives Verified 03/07/20 15:52 lidocaine [From LidoPatch] Allergy Intermediate Swollen Verified 03/07/20 15:52 Tongue ampicillin sodium Allergy Mild Itching Verified 03/07/20 15:52 [From Unasyn] gabapentin Allergy Mild Cannot Verified 03/07/20 15:52 Remember menthol [From LidoPatch] Allergy Mild Burning Verified 03/07/20 15:52 sulbactam sodium Allergy Mild Itching Verified 03/07/20 15:52 [From Unasyn] midazolam HCl [From Versed] AdvReac Severe Hallucinati Verified 03/07/20 15:52 ons prednisone AdvReac Intermediate Confusion Verified 03/07/20 15:52 erythromycin base AdvReac Mild local eye Verified 03/07/20 15:52 [Erythromycin Base] rxn using ophthalmic dontrell Home Meds: Home Meds Calcium Carbonate/Vitamin D3 [Calcium 600-Vit D3 200 Tablet] 1 each PO BID 04/24/13 [History] Multivitamin [Multi-Vitamin Daily] 1 each PO DAILY 04/24/13 [History] clonazePAM [Klonopin] 0.25 mg PO BEDTIME 04/24/13 [History] LORazepam [Ativan] 0.5 mg PO QID 10/17/13 [History] Levothyroxine [Synthroid] 88 mcg PO ACBRK 10/17/13 [History] Losartan Potassium [Cozaar] 50 mg PO ACDINNER 10/17/13 [History] Nitroglycerin [Nitrostat] 0.4 mg SL ASDIRECTED PRN 10/17/13 [History] Tranylcypromine [Parnate] 30 mg PO TASNEEM 01/06/14 [History] Tranylcypromine [Parnate] 40 mg PO QAM 01/06/14 [History] Omeprazole Magnesium [Prilosec Otc] 20 mg PO BID 07/04/14 [History] Tranylcypromine [Parnate] 20 mg PO ACDINNER 07/18/14 [History] Aspirin [Ecotrin EC] 81 mg PO BEDTIME 09/05/15 [History] Ferrous Fumarate [Ferretts] 50 mg PO PCLUNCH 09/05/15 [History] Pravastatin [Pravachol] 10 mg PO ACDINNER 09/05/15 [History] Formoterol [Perforomist] 1 ampule INH BID 02/09/17 [History] ARIPiprazole [Abilify] 10 mg PO QAM 04/23/17 [History] Isosorbide Mononitrate [Imdur] 30 mg PO DAILY 04/23/17 [History] Mirabegron [Myrbetriq] 50 mg PO DAILY 04/23/17 [History] amLODIPine Besylate [Amlodipine Besylate] 5 mg PO BEDTIME 04/23/17 [History] ARIPiprazole [Abilify] 20 mg PO ACDINNER 05/09/17 [History] oxyCODONE HCl/Acetaminophen [Percocet 10-325 mg Tablet] 1 each PO QID 11/12/17 [History] Budesonide [Pulmicort] 2 ml NEB BID 11/22/17 [History] clonazePAM [Klonopin] 0.25 - 0.5 mg PO DAILY PRN 11/22/17 [History] Betamethasone/Clotrimazole [Lotrisone] 1 applic TOP QAM 03/07/20 [History] Cevimeline [Evoxac] 30 mg PO BID 03/07/20 [History] Furosemide [Lasix] 20 mg PO QAM 03/07/20 [History] Ipratropium [Atrovent 0.03% Nasal [place]] 2 spray NASBOTH BID 03/07/20 [History] Ketoconazole [Nizoral 2% Crm] 1 applic TOP BEDTIME 03/07/20 [History] Saliva Stimulant Comb. No.2 [Biotene Oralbalance] 2 ml PO QID 03/07/20 [History] Triamcinolone Acetonide [Triamcinolone Acetonide 0.1% Crm] 1 applic TOP BID PRN 03/07/20 [History] Zinc Oxide 1 applic TOP ASDIRECTED PRN 03/07/20 [History] Past Medical History HEENT History: Reports: Cataract, Impaired Vision Other HEENT History: "hole between septum" Cardiovascular History: Reports: CAD, High Cholesterol, Hypertension Respiratory History: Reports: Asthma, COPD, Intubation, Previous, Other (See Below) Other Respiratory History: cylindrical bronchiectasis Gastrointestinal History: Reports: GERD, GI Bleed Genitourinary History: Reports: Urinary Incontinence 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 shouler pain. bilat knee pain Neurological History: Reports: TIA, Other (See Below) Other Neuro History: Dysphagia Psychiatric History: Reports: Anxiety, Depression Endocrine/Metabolic History: Reports: Hyperparathyroidism, Obesity/BMI 30+, Osteoporosis Hematologic History: Reports: Anemia, Blood Transfusion(s) Immunologic History: Reports: None Oncologic (Cancer) History: Reports: None Dermatologic History: Reports: None - Infectious Disease History Infectious Disease History: Reports: Chicken Pox - Past Surgical History Head Surgeries/Procedures: Reports: None Cardiovascular Surgical History: Reports: Coronary Artery Stent GI Surgical History: Reports: None Female Surgical History: Reports: Dilitation & Evacuation Musculoskeletal Surgical History: Reports: Hip Replacement Social & Family History - Family History Family Medical History: Noncontributory Neurological: Reports: CVA Oncologic: Reports: Leukemia - Caffeine Use Caffeine Use: Reports: None ED ROS GENERAL - Review of Systems Review Of Systems: See Below Constitutional: Reports: No Symptoms. Denies: Fever, Chills Musculoskeletal: Reports: Leg Pain (left) Skin: Reports: Erythema (of L thigh, not worse than earlier), Wound (wick in L thigh wound since I&D was performed.) Neurological: Reports: No Symptoms ED EXAM, SKIN/RASH Exam: See Below Exam Limited By: No Limitations General Appearance: Alert, WD/WN, No Apparent Distress Extremities: Redness (L thigh, does not extend outside of the purple lines previously drawn to liz the extent of her infection. ), Other (L leg is much larger than the R leg. ). No: Increased Warmth Neurological: Alert, Oriented, CN II-XII Intact, Normal Cognition, No Motor/Sensory Deficits Psychiatric: Normal Affect, Normal Mood Skin: Warm, Dry, No Rash, Ecchymosis, Wound/Incision (surgical wound from a recent I&D of the thigh(ant/lat)). No: Increased Warmth, Rash Course - Vital Signs Last Recorded V/S: Last Vital Signs Temp 36.6 C 03/10/20 11:23 Pulse 86 03/10/20 11:23 Resp 16 03/10/20 11:23 BP 157/76 H 03/10/20 11:23 Pulse Ox 97 03/10/20 11:23 - Orders/Labs/Meds Orders: Active Orders 24 hr Category Date Time Status Extremity Non Vascular Lt [US] Stat Exams 03/10/20 11:07 Taken VL Duplex Lwr Ext Veins Ltd Lt [US] Stat Exams 03/10/20 11:07 Taken Labs: Laboratory Tests 03/10/20 03/10/20 Range/Units 11:24 11:24 WBC 7.6 (4.5-11.0) K/uL RBC 2.82 L (3.30-5.50) M/uL Hgb 7.9 L D (12.0-15.0) g/dL Hct 27.9 L (36.0-48.0) % MCV 99 H (80-98) fL MCH 28 (27-31) pg MCHC 28 L (32-36) % Plt Count 436 H (150-400) K/uL C-Reactive Protein 3.26 H (0.0-0.3) mg/dL - Radiology Interpretation Free Text/Narrative:: US of the thigh and calf suggests no DVT and the L thigh has minimal fluid in the site of her earlier wound drainage. Departure - Departure Time of Disposition: 12:40 Disposition: Home, Self-Care 01 Condition: Fair Clinical Impression: Left leg swelling - Discharge Information *PRESCRIPTION DRUG MONITORING PROGRAM REVIEWED*: No *COPY OF PRESCRIPTION DRUG MONITORING REPORT IN PATIENT CHARLIE: No Referrals: PCP,None [Primary Care Provider] - Forms: ED Department Discharge Additional Instructions: Continue current cares/medications. See Dr. Knox for recheck on Saturday. El ailynate that left leg to help reduce swelling. Return for fever or increased redness. Sepsis Event Note (ED) - Focused Exam Vital Signs: Vital Signs Temp Pulse Resp BP Pulse Ox 03/10/20 11:23 36.6 C 86 16 157/76 H 97 03/10/20 11:02 36.6 C 86 16 157/76 H 97 - My Orders Last 24 Hours: My Active Orders 03/10/20 11:07 Extremity Non Vascular Lt [US] Stat VL Duplex Lwr Ext Veins Ltd Lt [US] Stat - Assessment/Plan Last 24 Hours: My Active Orders 03/10/20 11:07 Extremity Non Vascular Lt [US] Stat VL Duplex Lwr Ext Veins Ltd Lt [US] Stat
--- NOTE | 2020-03-10 14:30 | US ---
Extremity Non Vascular Lt CLINICAL HISTORY: Leg swelling, hematoma FINDINGS: Scans were obtained over the lateral upper thigh and hip area. There is a small fluid collection measuring 1.8 x 0.8 cm. This is in the area swelling. This may represent small hematoma. In the left medial distal thigh there is a 3 x 4 x 0.7 cm fluid collection. There is no internal flow. This may represent a De Leon's cyst which was described on prior study from November. IMPRESSION: Small hematoma in the upper lateral thigh near the hip. 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
--- NOTE | 2020-03-10 14:31 | US ---
VL Duplex Lwr Ext Veins Ltd Lt INDICATION: leg swelling FINDINGS: Ultrasound examination of the lower extremity using Doppler and compressive technique demonstrates that the common femoral, femoral, and popliteal veins are patent, and compressible throughout. The calf veins were segmentally visualized and are negative where seen. IMPRESSION: Negative for deep venous thrombosis.
== END 2020-03-10 13:35 | disposition home or self-care (01) ==
LOC: JP.ED 10:59
DX: M79.89 Other specified soft tissue disorders (principal); I25.10 Atherosclerotic heart disease of native coronary artery without angina pectoris; E78.00 Pure hypercholesterolemia, unspecified; F41.9 Anxiety disorder, unspecified; F32.9 Major depressive disorder, single episode, unspecified; E21.3 Hyperparathyroidism, unspecified; I10 Essential (primary) hypertension; J44.9 Chronic obstructive pulmonary disease, unspecified; K21.9 Gastro-esophageal reflux disease without esophagitis; E66.9 Obesity, unspecified; M19.90 Unspecified osteoarthritis, unspecified site; Z88.1 Allergy status to other antibiotic agents; Z88.8 Allergy status to other drugs, medicaments and biological substances; Z91.09 Other allergy status, other than to drugs and biological substances; Z88.4 Allergy status to anesthetic agent; Z86.73 Personal history of transient ischemic attack (TIA), and cerebral infarction without residual deficits; Z79.899 Other long term (current) drug therapy; Z95.5 Presence of coronary angioplasty implant and graft; Z88.2 Allergy status to sulfonamides; Z79.82 Long term (current) use of aspirin; Z68.32 Body mass index [BMI] 32.0-32.9, adult
CPT/HCPCS: 36415; 76881-26; 76881-LT; 85027; 86140; 93971-26-LT; 93971-LT; 99284-25

== ENCOUNTER 2020-03-24 21:27 | Emergency (ER) | payer MEDICARE, BC ==
[2020-03-24] MEDS ORDERED: Ondansetron 4 MG Tab.DIS PO ONE (21:41)
--- NOTE | 2020-03-24 21:47 | EDM.PDOC ---
ED HPI GENERAL MEDICAL PROBLEM - General Chief Complaint: Chest Pain Stated Complaint: MEDICAL [facility] Time Seen by Provider: 03/24/20 21:30 Source of Information: Reports: Patient, Family, Old Records, RN History Limitations: Reports: No Limitations - History of Present Illness INITIAL COMMENTS - FREE TEXT/NARRATIVE: 74 yo female presents via EMS with CP. Sx's began while reading. 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 Her BP was in the upper 120's at that time. Has some mild nausea with her pain, no SOB or diaphoresis. She took 3 NTG tablets and a baby aspirin without relief. EMS gave more aspirin and a couple doses of NTG with improvement, but not resolution of her pain. Has not missed any of her medications recently. Reports a current ECHAVARRIA. ECHAVARRIA preceded the NTG doses. Has known CAD. Had a beef BRAT for dinner. Onset: Today, Sudden Onset Date: 03/24/20 Duration: Minutes: Location: Reports: Chest Quality: Reports: Pressure Severity: Mild (now, was worse at home.) Improves with: Reports: Medication Worsens with: Reports: Other (unknown) Context: Reports: Other (See HPI) Associated Symptoms: Reports: Chest Pain, Fever/Chills (had some chills at home, no fever. ), Nausea/Vomiting (mild, no vomiting). 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 - Related Data Allergies Allergy/AdvReac Type Severity Reaction Status Date / Time gemfibrozil [From Lopid] Allergy Severe Hives Verified 03/24/20 22:17 lidocaine [From LidoPatch] Allergy Intermediate Swollen Verified 03/24/20 22:17 Tongue ampicillin sodium Allergy Mild Itching Verified 03/24/20 22:17 [From Unasyn] gabapentin Allergy Mild Cannot Verified 03/24/20 22:17 Remember menthol [From LidoPatch] Allergy Mild Burning Verified 03/24/20 22:17 sulbactam sodium Allergy Mild Itching Verified 03/24/20 22:17 [From Unasyn] midazolam HCl [From Versed] AdvReac Severe Hallucinati Verified 03/24/20 22:17 ons prednisone AdvReac Intermediate Confusion Verified 03/24/20 22:17 erythromycin base AdvReac Mild local eye Verified 03/24/20 22:17 [Erythromycin Base] rxn using ophthalmic dontrell Home Meds: Home Meds Calcium Carbonate/Vitamin D3 [Calcium 600-Vit D3 200 Tablet] 1 each PO BID 04/24/13 [History] Multivitamin [Multi-Vitamin Daily] 1 each PO DAILY 04/24/13 [History] clonazePAM [Klonopin] 1 mg PO BEDTIME 04/24/13 [History] LORazepam [Ativan] 0.5 mg PO QID PRN 10/17/13 [History] Levothyroxine [Synthroid] 88 mcg PO ACBRK 10/17/13 [History] Losartan Potassium [Cozaar] 50 mg PO ACDINNER 10/17/13 [History] Nitroglycerin [Nitrostat] 0.4 mg SL ASDIRECTED PRN 10/17/13 [History] Tranylcypromine [Parnate] 20 mg PO TASNEEM 01/06/14 [History] Tranylcypromine [Parnate] 40 mg PO QAM 01/06/14 [History] Omeprazole Magnesium [Prilosec Otc] 20 mg PO BID 07/04/14 [History] Tranylcypromine [Parnate] 20 mg PO ACDINNER 07/18/14 [History] Aspirin [Ecotrin EC] 81 mg PO BEDTIME 09/05/15 [History] Ferrous Fumarate [Ferretts] 50 mg PO PCLUNCH 09/05/15 [History] Pravastatin [Pravachol] 10 mg PO ACDINNER 09/05/15 [History] Formoterol [Perforomist] 1 ampule INH BID 02/09/17 [History] ARIPiprazole [Abilify] 10 mg PO QAM 04/23/17 [History] Isosorbide Mononitrate [Imdur] 30 mg PO DAILY 04/23/17 [History] Mirabegron [Myrbetriq] 50 mg PO DAILY 04/23/17 [History] amLODIPine Besylate [Amlodipine Besylate] 5 mg PO BEDTIME 04/23/17 [History] ARIPiprazole [Abilify] 20 mg PO ACDINNER 05/09/17 [History] oxyCODONE HCl/Acetaminophen [Percocet 10-325 mg Tablet] 1 each PO QID 11/12/17 [History] Budesonide [Pulmicort] 2 ml NEB BID 11/22/17 [History] clonazePAM [Klonopin] 0.25 - 0.5 mg PO DAILY PRN 11/22/17 [History] Betamethasone/Clotrimazole [Lotrisone] 1 applic TOP QAM 03/07/20 [History] Cevimeline [Evoxac] 30 mg PO BID 03/07/20 [History] Furosemide [Lasix] 20 mg PO QAM 03/07/20 [History] Ipratropium [Atrovent 0.03% Nasal [place]] 2 spray NASBOTH BID 03/07/20 [History] Ketoconazole [Nizoral 2% Crm] 1 applic TOP BEDTIME 03/07/20 [History] Saliva Stimulant Comb. No.2 [Biotene Oralbalance] 2 ml PO QID 03/07/20 [History] Triamcinolone Acetonide [Triamcinolone Acetonide 0.1% Crm] 1 applic TOP BID PRN 03/07/20 [History] Zinc Oxide 1 applic TOP ASDIRECTED PRN 03/07/20 [History] Past Medical History HEENT History: Reports: Cataract, Impaired Vision Other HEENT History: "hole between septum" Cardiovascular History: Reports: CAD, High Cholesterol, Hypertension Respiratory History: Reports: Asthma, COPD, Intubation, Previous, Other (See Below) Other Respiratory History: cylindrical bronchiectasis Gastrointestinal History: Reports: GERD, GI Bleed Genitourinary History: Reports: Urinary Incontinence 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 shouler pain. bilat knee pain Neurological History: Reports: TIA, Other (See Below) Other Neuro History: Dysphagia Psychiatric History: Reports: Anxiety, Depression Endocrine/Metabolic History: Reports: Hyperparathyroidism, Obesity/BMI 30+, Osteoporosis Hematologic History: Reports: Anemia, Blood Transfusion(s) Immunologic History: Reports: None Oncologic (Cancer) History: Reports: None Dermatologic History: Reports: None - Infectious Disease History Infectious Disease History: Reports: Chicken Pox - Past Surgical History Head Surgeries/Procedures: Reports: None Cardiovascular Surgical History: Reports: Coronary Artery Stent GI Surgical History: Reports: None Female Surgical History: Reports: Dilitation & Evacuation Musculoskeletal Surgical History: Reports: Hip Replacement Social & Family History - Family History Family Medical History: Noncontributory Neurological: Reports: CVA Oncologic: Reports: Leukemia - Tobacco Use Smoking Status *Q: Never Smoker - Caffeine Use Caffeine Use: Reports: None ED ROS GENERAL - Review of Systems Review Of Systems: See Below Constitutional: Reports: No Symptoms HEENT: Reports: No Symptoms Respiratory: Denies: Shortness of Breath, Wheezing, Pleuritic Chest Pain, Cough, Sputum, Hemoptysis Cardiovascular: Reports: Chest Pain, Blood Pressure Problem (BP high per EMS ). Denies: Dyspnea on Exertion, Edema, Lightheadedness, Orthopnea, Palpitations Endocrine: Reports: No Symptoms GI/Abdominal: Reports: Nausea (mild). Denies: Abdominal Pain, Black Stool, Bloody Stool, Constipation, Diarrhea, Distension, Flatus, Hematemesis, Hematochezia, Melena, Vomiting : Reports: No Symptoms Musculoskeletal: Reports: No Symptoms Skin: Reports: No Symptoms Neurological: Reports: No Symptoms Psychiatric: Reports: No Symptoms ED EXAM, GENERAL - Physical Exam Exam: See Below Exam Limited By: No Limitations General Appearance: Alert, WD/WN, No Apparent Distress Eye Exam: Bilateral Eye: Normal Inspection, Other (pale conjunctivas) Ears: Normal External Exam, Normal Canal, Hearing Grossly Normal Ear Exam: Bilateral Ear: Auricle Normal, Canal Normal Nose: Normal Inspection, No Blood Throat/Mouth: Normal Inspection, Normal Lips, Normal Oropharynx, Normal Voice, No Airway Compromise Head: Atraumatic, Normocephalic Neck: Normal Inspection Respiratory/Chest: No Respiratory Distress, No Accessory Muscle Use, Chest Non- Tender, Crackles (at both bases). No: Respiratory Distress Cardiovascular: Regular Rate, Rhythm, No Edema GI/Abdominal: Normal Bowel Sounds, Soft, No Distention, Tender (mild RUQ tenderness) Back Exam: Normal Inspection. No: CVA Tenderness (R), CVA Tenderness (L) Extremities: Normal Inspection, Normal Range of Motion, Non-Tender, No Pedal Edema Neurological: Alert, Oriented, CN II-XII Intact, Normal Cognition, No Motor/Sensory Deficits Psychiatric: Normal Affect, Normal Mood Skin Exam: Warm, Dry, Intact, No Rash, Erythema (both legs below the knees are slightly reddened with increased warmth. ), Increased Warmth EKG INTERPRETATION EKG Date: 03/24/20 Time: 21:30 Rhythm: NSR Rate (Beats/Min): 83 Anza: Normal P-Wave: Present QRS: Normal ST-T: Normal QT: Normal Comparison: Change From Previous EKG (Rate increase of 10 beats/min. QRS complexes in lateral chest leads are taller.) Course - Vital Signs Last Recorded V/S: Last Vital Signs Temp 36.5 C 03/24/20 22:10 Pulse 87 03/24/20 23:28 Resp 13 03/24/20 23:28 BP 188/74 H 03/24/20 23:28 Pulse Ox 99 03/24/20 23:28 - Orders/Labs/Meds Orders: Active Orders 24 hr Category Date Time Status Cardiac Monitoring [RC] .As Directed Care 03/24/20 21:40 Active EKG Documentation Completion [RC] ASDIRECTED Care 03/24/20 21:41 Active Abdomen Ltd [US] Stat Exams 03/24/20 21:56 Taken Chest 2V [CR] Stat Exams 03/24/20 21:41 Taken Sodium Chloride 0.9% [Saline Flush] Med 03/24/20 22:47 Active 10 ml FLUSH ASDIRECTED PRN Saline Lock Insert [OM.PC] Routine Oth 03/24/20 22:47 Ordered EKG 12 Lead [EK] Routine Ther 03/24/20 21:40 Ordered Medication Orders Sodium Chloride (Saline Flush) 10 ml FLUSH ASDIRECTED PRN PRN Reason: Keep Vein Open Last Admin: 03/24/20 22:56 Dose: 10 ml Documented by: WILSON Labs: Laboratory Tests 03/24/20 03/24/20 03/24/20 Range/Units 21:40 21:40 22:05 WBC 5.9 (4.5-11.0) K/uL RBC 3.49 (3.30-5.50) M/uL Hgb 10.2 L D (12.0-15.0) g/dL Hct 35.6 L (36.0-48.0) % MCV 102 H (80-98) fL MCH 29 (27-31) pg MCHC 29 L (32-36) % Plt Count 179 (150-400) K/uL D-Dimer, Quantitative 674 H (0.0-400.0) ng/mL Sodium (140-148) mmol/L Potassium (3.6-5.2) mmol/L Chloride (100-108) mmol/L Carbon Dioxide (21-32) mmol/L Anion Gap (5.0-14.0) mmol/L BUN (7-18) mg/dL Creatinine (0.6-1.0) mg/dL Est Cr Clr Drug Dosing mL/min Estimated GFR (MDRD) (>60) Glucose (74-106) mg/dL Calcium (8.5-10.1) mg/dL Troponin I (0.000-0.056) ng/mL NT-Pro-B Natriuret Pep (5-450) pg/mL Urine Color Yellow (YELLOW) Urine Appearance Clear (CLEAR) Urine pH 7.0 (5.0-8.0) Ur Specific [place] 1.020 (1.008-1.030) Urine Protein Negative (NEGATIVE) mg/dL Urine Glucose (UA) Negative (NEGATIVE) mg/dL Urine Ketones Negative (NEGATIVE) mg/dL Urine Occult Blood Negative (NEGATIVE) Urine Nitrite Negative (NEGATIVE) Urine Bilirubin Negative (NEGATIVE) Urine Urobilinogen 0.2 (0.2-1.0) EU/dL Ur Leukocyte Esterase Negative (NEGATIVE) Urine RBC Not seen (0-5) Urine WBC Not seen (0-5) Ur Epithelial Cells Rare Amorphous Sediment Not seen Urine Bacteria Rare Urine Mucus Not seen 03/24/20 03/24/20 03/24/20 Range/Units 22:05 22:05 23:35 WBC (4.5-11.0) K/uL RBC (3.30-5.50) M/uL Hgb (12.0-15.0) g/dL Hct (36.0-48.0) % MCV (80-98) fL MCH (27-31) pg MCHC (32-36) % Plt Count (150-400) K/uL D-Dimer, Quantitative (0.0-400.0) ng/mL Sodium 141 (140-148) mmol/L Potassium 5.1 (3.6-5.2) mmol/L Chloride 105 (100-108) mmol/L Carbon Dioxide 32 (21-32) mmol/L Anion Gap 9.1 (5.0-14.0) mmol/L BUN 18 (7-18) mg/dL Creatinine 1.0 (0.6-1.0) mg/dL Est Cr Clr Drug Dosing 34.91 mL/min Estimated GFR (MDRD) 54 L (>60) Glucose 101 (74-106) mg/dL Calcium 9.2 (8.5-10.1) mg/dL Troponin I < 0.017 < 0.017 (0.000-0.056) ng/mL NT-Pro-B Natriuret Pep 5938 H (5-450) pg/mL Urine Color (YELLOW) Urine Appearance (CLEAR) Urine pH (5.0-8.0) Ur Specific [place] (1.008-1.030) Urine Protein (NEGATIVE) mg/dL Urine Glucose (UA) (NEGATIVE) mg/dL Urine Ketones (NEGATIVE) mg/dL Urine Occult Blood (NEGATIVE) Urine Nitrite (NEGATIVE) Urine Bilirubin (NEGATIVE) Urine Urobilinogen (0.2-1.0) EU/dL Ur Leukocyte Esterase (NEGATIVE) Urine RBC (0-5) Urine WBC (0-5) Ur Epithelial Cells Amorphous Sediment Urine Bacteria Urine Mucus Meds: Medications Generic Name Dose Route Start Last Admin Trade Name Radha PRN Reason Stop Dose Admin Sodium Chloride 10 ml 03/24/20 22:47 03/24/20 22:56 Saline Flush FLUSH 10 ml ASDIRECTED PRN Administration Keep Vein Open Discontinued Medications Generic Name Dose Route Start Last Admin Trade Name Radha PRN Reason Stop Dose Admin Acetaminophen 1,000 mg 03/24/20 21:49 03/24/20 21:56 Tylenol Extra Strength PO 03/24/20 21:50 1,000 mg ONETIME ONE Administration Furosemide 40 mg 03/24/20 22:45 03/24/20 23:27 Lasix IVPUSH 03/24/20 22:46 40 mg ONETIME ONE Administration Nitroglycerin 1 gm 03/24/20 21:49 03/24/20 22:21 Nitro-Bid 2% TOP 03/24/20 21:50 1 gm ONETIME ONE Administration Ondansetron HCl 4 mg 03/24/20 21:41 03/24/20 21:56 Zofran Odt PO 03/24/20 21:42 4 mg ONETIME ONE Administration Oxycodone/Acetaminophen 1 tab 03/24/20 23:54 03/25/20 00:02 Percocet 325-10 Mg PO 03/24/20 23:55 1 tab ONETIME STA Administration - Radiology Interpretation Free Text/Narrative:: GB ultrasound-GB upper limit of normal with dilated common duct, no stones seen. Not tender directly over GB during exam. - Re-Assessments/Exams Free Text/Narrative Re-Assessment/Exam: 03/24/20 23:33 complains now of only rib pain, says all her other pain is now gone. Free Text/Narrative Re-Assessment/Exam: 03/25/20 00:20 All her sx's are gone. Not SOB with lying nearly flat. Departure - Departure Time of Disposition: 00:30 Disposition: Home, Self-Care 01 Condition: Fair Clinical Impression: Nonspecific chest pain Instructions: Nonspecific Chest Pain, Adult, [id number] Referrals: Bernard Young NP [Primary Care Provider] - Forms: ED Department Discharge Additional Instructions: Avoid salt or salty foods. Continue your usual medications. Recheck in the clinic Saturday afternoon or Saturday morning. Return if worse. Sepsis Event Note (ED) - Focused Exam Vital Signs: Vital Signs Temp Pulse Resp BP Pulse Ox 03/24/20 23:28 87 13 188/74 H 99 03/24/20 23:05 87 14 186/84 H 96 03/24/20 22:45 86 11 L 187/85 H 96 03/24/20 22:20 85 13 172/88 H 97 03/24/20 22:10 36.5 C 85 20 190/88 H 97 03/24/20 21:37 36.5 C 85 20 190/88 H 97 - My Orders Last 24 Hours: My Active Orders 03/24/20 21:40 Cardiac Monitoring [RC] .As Directed EKG 12 Lead [EK] Routine 03/24/20 21:41 EKG Documentation Completion [RC] ASDIRECTED Chest 2V [CR] Stat 03/24/20 21:56 Abdomen Ltd [US] Stat 03/24/20 22:47 Sodium Chloride 0.9% [Saline Flush] 10 ml FLUSH ASDIRECTED PRN Saline Lock Insert [OM.PC] Routine - Assessment/Plan Last 24 Hours: My Active Orders 03/24/20 21:40 Cardiac Monitoring [RC] .As Directed EKG 12 Lead [EK] Routine 03/24/20 21:41 EKG Documentation Completion [RC] ASDIRECTED Chest 2V [CR] Stat 03/24/20 21:56 Abdomen Ltd [US] Stat 03/24/20 22:47 Sodium Chloride 0.9% [Saline Flush] 10 ml FLUSH ASDIRECTED PRN Saline Lock Insert [OM.PC] Routine
[2020-03-24] MEDS ORDERED: Acetaminophen 500 MG Tab PO ONE (21:49)
[2020-03-24] MEDS ORDERED: Nitroglycerin 2% Oint 1 GM UD Packet TOP ONE (21:49)
[2020-03-24] MEDS ORDERED: Furosemide 40 MG/4 ML VIAL IVPUSH ONE (22:45)
[2020-03-24] MEDS ORDERED: Sodium Chloride 0.9% 10 ML Syringe FLUSH PRN (22:47)
[2020-03-24 23:12] VITALS: PULSE 87
[2020-03-24 23:28] VITALS: BP 188/74
[2020-03-24] MEDS ORDERED: Acetaminophen/oxyCODONE 325-10 MG Tab PO STA (23:54)
--- NOTE | 2020-03-25 09:24 | CR ---
CHEST: 2 view CLINICAL HISTORY:Chest pain COMPARISON:03/08/2020 FINDINGS: Heart is upper limits of normal size. Pulmonary vascularity is normal. There is diffuse interstitial prominence which is thought to be chronic. There is some streaky atelectasis or scarring in both lower lobes. There are atherosclerotic changes in the aorta. Impression: Borderline cardiomegaly Underlying chronic lung field changes. Vascular cephalization seen on prior study has involuted
--- NOTE | 2020-03-25 09:28 | US ---
Abdomen Ltd CLINICAL HISTORY: Right upper quadrant pressure after eating COMPARISON: None. TECHNIQUE: Real-time images were obtained through the right upper quadrant. FINDINGS: The liver is free of mass or biliary dilatation. There is a normal hepatic parenchymal echotexture. The gallbladder is elongated measuring over 12 cm in length there is a fold. There was no tenderness during scanning. The common bile duct measures 10 mm. The pancreas is free of mass. The right kidney measures 9.0 x 5.2 x 4.2 cm. Cortical thickness is 1.1 cm. The IVC is normal. IMPRESSION: Hydropic gallbladder without stones Common bile duct mildly dilated at 10 mm
== END 2020-03-25 00:53 | disposition home or self-care (01) ==
LOC: JP.ED 21:27
DX: R07.9 Chest pain, unspecified (principal); R10.811 Right upper quadrant abdominal tenderness; L53.9 Erythematous condition, unspecified; I25.10 Atherosclerotic heart disease of native coronary artery without angina pectoris; R11.0 Nausea; I10 Essential (primary) hypertension; J44.9 Chronic obstructive pulmonary disease, unspecified; E66.9 Obesity, unspecified; K21.9 Gastro-esophageal reflux disease without esophagitis; Z68.32 Body mass index [BMI] 32.0-32.9, adult; Z88.8 Allergy status to other drugs, medicaments and biological substances; Z88.1 Allergy status to other antibiotic agents; Z88.0 Allergy status to penicillin; Z88.4 Allergy status to anesthetic agent; Z91.09 Other allergy status, other than to drugs and biological substances; Z79.899 Other long term (current) drug therapy
CPT/HCPCS: 36415; 71046; 76705; 80048; 81001; 83880; 84484; 85027; 85379; 93005; 96374; 99285; A9270; J1940; 93010

== ENCOUNTER 2020-10-28 09:56 | Emergency (ER) | payer MEDICARE, BC ==
[2020-10-28 10:22] VITALS: BP 139/68; PULSE 87
--- NOTE | 2020-10-28 10:50 | EDM.PDOC ---
ED HPI GENERAL MEDICAL PROBLEM - General Chief Complaint: ENT Problem Stated Complaint: BROUGHT FROM [facility] Time Seen by Provider: 10/28/20 10:34 Source of Information: Reports: Patient, Family, RN Notes Reviewed History Limitations: Reports: No Limitations - History of Present Illness INITIAL COMMENTS - FREE TEXT/NARRATIVE: 75-year-old female presents emergency department today with complaint of bleeding gums, she has had troubles with bleeding gums for the last 5 days did have blood work done about a week ago which was normal CBC and CMP she states it has been bleeding profusely sometimes it stops with gauze pressure she has used teabags in the past as well. She was initially evaluated in the clinic with significant bleeding and then sent to the emergency department for further evaluation. - Related Data Allergies Allergy/AdvReac Type Severity Reaction Status Date / Time gemfibrozil [From Lopid] Allergy Severe Hives Verified 10/28/20 10:14 lidocaine [From LidoPatch] Allergy Intermediate Swollen Verified 10/28/20 10:14 Tongue ampicillin sodium Allergy Mild Itching Verified 10/28/20 10:14 [From Unasyn] gabapentin Allergy Mild Cannot Verified 10/28/20 10:14 Remember menthol [From LidoPatch] Allergy Mild Burning Verified 10/28/20 10:14 sulbactam sodium Allergy Mild Itching Verified 10/28/20 10:14 [From Unasyn] midazolam HCl [From Versed] AdvReac Severe Hallucinati Verified 10/28/20 10:14 ons prednisone AdvReac Intermediate Confusion Verified 10/28/20 10:14 erythromycin base AdvReac Mild local eye Verified 10/28/20 10:14 [Erythromycin Base] rxn using ophthalmic dontrell Home Meds: Home Meds Calcium Carbonate/Vitamin D3 [Calcium 600-Vit D3 200 Tablet] 1 each PO BID 04/24/13 [History] Multivitamin [Multi-Vitamin Daily] 1 each PO DAILY 04/24/13 [History] clonazePAM [Klonopin] 1 mg PO BEDTIME 04/24/13 [History] LORazepam [Ativan] 0.5 mg PO QID PRN 10/17/13 [History] Levothyroxine [Synthroid] 88 mcg PO ACBRK 10/17/13 [History] Losartan Potassium [Cozaar] 50 mg PO ACDINNER 10/17/13 [History] Nitroglycerin [Nitrostat] 0.4 mg SL ASDIRECTED PRN 10/17/13 [History] Tranylcypromine [Parnate] 20 mg PO TASNEEM 01/06/14 [History] Tranylcypromine [Parnate] 40 mg PO QAM 01/06/14 [History] Tranylcypromine [Parnate] 20 mg PO ACDINNER 07/18/14 [History] Aspirin [Ecotrin EC] 81 mg PO BEDTIME 09/05/15 [History] Ferrous Fumarate [Ferretts] 50 mg PO PCLUNCH 09/05/15 [History] Pravastatin [Pravachol] 10 mg PO ACDINNER 09/05/15 [History] Formoterol [Perforomist] 1 ampule INH BID 02/09/17 [History] ARIPiprazole [Abilify] 10 mg PO QAM 04/23/17 [History] Isosorbide Mononitrate [Imdur] 30 mg PO DAILY 04/23/17 [History] Mirabegron [Myrbetriq] 50 mg PO DAILY 04/23/17 [History] amLODIPine Besylate [Amlodipine Besylate] 5 mg PO BEDTIME 04/23/17 [History] ARIPiprazole [Abilify] 20 mg PO ACDINNER 05/09/17 [History] Budesonide [Pulmicort] 2 ml NEB BID 11/22/17 [History] clonazePAM [Klonopin] 0.25 - 0.5 mg PO DAILY PRN 11/22/17 [History] Betamethasone/Clotrimazole [Lotrisone] 1 applic TOP QAM 03/07/20 [History] Cevimeline [Evoxac] 30 mg PO BID 03/07/20 [History] Furosemide [Lasix] 20 mg PO QAM 03/07/20 [History] Ipratropium [Atrovent 0.03% Nasal [place]] 2 spray NASBOTH BID 03/07/20 [History] Ketoconazole [Nizoral 2% Crm] 1 applic TOP BEDTIME 03/07/20 [History] Saliva Stimulant Comb. No.2 [Biotene Oralbalance] 2 ml PO QID 03/07/20 [History] Triamcinolone Acetonide [Triamcinolone Acetonide 0.1% Crm] 1 applic TOP BID PRN 03/07/20 [History] Zinc Oxide 1 applic TOP ASDIRECTED PRN 03/07/20 [History] Azithromycin 250 mg PO .MON,WED,FRI 07/26/20 [History] Cannabidiol (Cbd) Extract [Cannabis (Medical)] 1 dose PO ASDIRECTED 07/26/20 [History] Diclofenac Sodium [Voltaren] 1 applic TOP QID 07/26/20 [History] Famotidine [Pepcid AC] 60 mg PO DAILY 07/26/20 [History] polyethylene glycoL 3350 [MiraLAX] 17 gm PO DAILY 07/26/20 [History] Past Medical History HEENT History: Reports: Cataract, Impaired Vision Other HEENT History: "hole between septum" Cardiovascular History: Reports: CAD, High Cholesterol, Hypertension Respiratory History: Reports: Asthma, COPD, Intubation, Previous, Other (See Below) Other Respiratory History: cylindrical bronchiectasis Gastrointestinal History: Reports: GERD, GI Bleed Genitourinary History: Reports: Urinary Incontinence [employer] History: Reports: Musculoskeletal History: Reports: Back Pain, Chronic, Fracture, Osteoarthritis, Other (See Below) Other Musculoskeletal History: bilat. shouler pain. bilat knee pain. left hip, low back and tail bone pain Neurological History: Reports: TIA, Other (See Below) Other Neuro History: Dysphagia Psychiatric History: Reports: Anxiety, Depression Endocrine/Metabolic History: Reports: Hyperparathyroidism, Obesity/BMI 30+, Osteoporosis Hematologic History: Reports: Anemia, Blood Transfusion(s) Other Hematologic History: blood reaction when pt was 11yrs old Immunologic History: Reports: None Oncologic (Cancer) History: Reports: None Dermatologic History: Reports: None - Infectious Disease History Infectious Disease History: Reports: Chicken Pox - Past Surgical History Head Surgeries/Procedures: Reports: None HEENT Surgical History: Reports: Cataract Surgery Cardiovascular Surgical History: Reports: Coronary Artery Stent GI Surgical History: Reports: None Female Surgical History: Reports: Dilitation & Evacuation Musculoskeletal Surgical History: Reports: Hip Replacement Social & Family History - Family History Family Medical History: No Pertinent Family History Neurological: Reports: CVA Oncologic: Reports: Leukemia - Tobacco Use Tobacco Use Status *Q: Never Tobacco User - Caffeine Use Caffeine Use: Reports: None ED ROS ENT - Review of Systems Review Of Systems: See Below Constitutional: Reports: No Symptoms HEENT: Reports: Other (Bleeding gums) Respiratory: Reports: No Symptoms Cardiovascular: Reports: No Symptoms ED EXAM, ENT - Physical Exam Exam: See Below Text/Narrative:: Mouth mucosa is moist and pink there is no bleeding at this time it has been stopped however in the area that is bleeding she has 2 small ulcerations at the base of the tooth molars #31 and 32. The area is tender to the touch Exam Limited By: No Limitations General Appearance: Alert, WD/WN, No Apparent Distress Respiratory/Chest: No Respiratory Distress Course - Vital Signs Last Recorded V/S: Last Vital Signs Temp 98.4 F 10/28/20 10:20 Pulse 87 10/28/20 10:20 Resp 15 10/28/20 10:20 BP 139/68 10/28/20 10:20 Pulse Ox 91 L 10/28/20 10:20 - Orders/Labs/Meds Labs: Laboratory Tests 10/28/20 Range/Units 11:07 WBC 16.2 H (4.5-11.0) K/uL RBC 3.88 (3.30-5.50) M/uL Hgb 11.0 L (12.0-15.0) g/dL Hct 36.3 (36.0-48.0) % MCV 94 (80-98) fL MCH 28 (27-31) pg MCHC 30 L (32-36) % Plt Count 275 (150-400) K/uL Neut % (Auto) 80 H (36-66) % Lymph % (Auto) 8 L (24-44) % Towns % (Auto) 7 H (2-6) % Eos % (Auto) 5 H (2-4) % Baso % (Auto) 0 (0-1) % Departure - Departure Time of Disposition: 11:41 Disposition: Home, Self-Care 01 Condition: Fair Clinical Impression: Bleeding gums - Discharge Information Referrals: Bernard Young NP [Primary Care Provider] - Forms: ED Department Discharge Additional Instructions: Return to the emergency department if the bleeding become severe, try the gauze or teabags for pressure in that area please follow-up with dentistry as soon as possible Sepsis Event Note (ED) - Evaluation Sepsis Screening Result: No Definite Risk - Focused Exam Vital Signs: Vital Signs Temp Pulse Resp BP Pulse Ox 10/28/20 10:20 98.4 F 87 15 139/68 91 L - Assessment/Plan Plan: Assessment Acuity = acute Site and laterality = bleeding gums tooth #30 and 31 Etiology = unknown Manifestations = none Location of injury = Home Lab values = hemoglobin low 11.0 consistent with normochromic anemia, WBC elevated 16.5 consistent leukocytosis probably an acute phase response, platelets normal at 275 Plan I did review this with family and showed an exact spot where the bleeding was occurring again to try gauze and teabags to keep the bleeding under control but recommend follow-up with dentistry call return to the emergency department worsening of symptoms This note was dictated using [employer] voice recognition software please call with any questions on syntax or grammar.
== END 2020-10-28 11:58 | disposition home or self-care (01) ==
LOC: JP.ED 09:56
DX: K06.8 Other specified disorders of gingiva and edentulous alveolar ridge (principal); I25.10 Atherosclerotic heart disease of native coronary artery without angina pectoris; E78.00 Pure hypercholesterolemia, unspecified; I10 Essential (primary) hypertension; J44.9 Chronic obstructive pulmonary disease, unspecified; K21.9 Gastro-esophageal reflux disease without esophagitis; E66.9 Obesity, unspecified; M19.90 Unspecified osteoarthritis, unspecified site; Z68.28 Body mass index [BMI] 28.0-28.9, adult; Z88.4 Allergy status to anesthetic agent; Z88.1 Allergy status to other antibiotic agents; Z88.8 Allergy status to other drugs, medicaments and biological substances; Z88.2 Allergy status to sulfonamides; Z79.899 Other long term (current) drug therapy; Z79.82 Long term (current) use of aspirin; Z86.73 Personal history of transient ischemic attack (TIA), and cerebral infarction without residual deficits
CPT/HCPCS: 36415; 85025; 99283

== ENCOUNTER 2020-12-20 13:35 | Emergency (ER) | payer MEDICARE, BC ==
[2020-12-20 13:39] VITALS: BP 181/73; PULSE 80
--- NOTE | 2020-12-20 14:23 | EDM.PDOC ---
ED HPI GENERAL MEDICAL PROBLEM - General Chief Complaint: Respiratory Problem Stated Complaint: [facility] Time Seen by Provider: 12/20/20 14:00 Source of Information: Reports: Patient History Limitations: Reports: No Limitations - History of Present Illness INITIAL COMMENTS - FREE TEXT/NARRATIVE: This is a 75-year-old female history of oxygen dependent COPD and anxiety who presents with concerns of shortness of breath. She reports that last night she had to get up from bed to sleep in her chair, she does this every night but I do earlier last night than usual. She then noted today that she felt more shortness of breath. Her notes that he discovered a leak in her oxygen tubing. After this was fixed she took a nap, woke up, and is seen like her breathing may be a bit worse so they called the clinic for an appointment and return to the emergency room. She notes no increase in her baseline cough. She does note a new chest pain in her left breast. The pain does not radiate. It is not pleuritic. She has no history of similar pain in the past. She has no lower extremity swelling or pain. No fevers or chills. - Related Data Allergies Allergy/AdvReac Type Severity Reaction Status Date / Time gemfibrozil [From Lopid] Allergy Severe Hives Verified 12/20/20 13:51 lidocaine [From LidoPatch] Allergy Intermediate Swollen Verified 12/20/20 13:51 Tongue ampicillin sodium Allergy Mild Itching Verified 12/20/20 13:51 [From Unasyn] gabapentin Allergy Mild Cannot Verified 12/20/20 13:51 Remember menthol [From LidoPatch] Allergy Mild Burning Verified 12/20/20 13:51 sulbactam sodium Allergy Mild Itching Verified 12/20/20 13:51 [From Unasyn] midazolam HCl [From Versed] AdvReac Severe Hallucinati Verified 12/20/20 13:51 ons prednisone AdvReac Intermediate Confusion Verified 12/20/20 13:51 erythromycin base AdvReac Mild local eye Verified 12/20/20 13:51 [Erythromycin Base] rxn using ophthalmic dontrell Home Meds: Home Meds Calcium Carbonate/Vitamin D3 [Calcium 600-Vit D3 200 Tablet] 1 each PO BID 04/24/13 [History] Multivitamin [Multi-Vitamin Daily] 1 each PO DAILY 04/24/13 [History] clonazePAM [Klonopin] 1 mg PO BEDTIME 04/24/13 [History] LORazepam [Ativan] 0.5 mg PO QID PRN 10/17/13 [History] Levothyroxine [Synthroid] 88 mcg PO ACBRK 10/17/13 [History] Losartan Potassium [Cozaar] 100 mg PO ACDINNER 10/17/13 [History] Nitroglycerin [Nitrostat] 0.4 mg SL ASDIRECTED PRN 10/17/13 [History] Tranylcypromine [Parnate] 20 mg PO TASNEEM 01/06/14 [History] Tranylcypromine [Parnate] 40 mg PO QAM 01/06/14 [History] Tranylcypromine [Parnate] 20 mg PO ACDINNER 07/18/14 [History] Aspirin [Ecotrin EC] 81 mg PO BEDTIME 09/05/15 [History] Ferrous Fumarate [Ferretts] 50 mg PO PCLUNCH 09/05/15 [History] Pravastatin [Pravachol] 10 mg PO ACDINNER 09/05/15 [History] Formoterol [Perforomist] 1 ampule INH BID 02/09/17 [History] ARIPiprazole [Abilify] 10 mg PO QAM 04/23/17 [History] Isosorbide Mononitrate [Imdur] 30 mg PO DAILY 04/23/17 [History] Mirabegron [Myrbetriq] 50 mg PO DAILY 04/23/17 [History] amLODIPine Besylate [Amlodipine Besylate] 5 mg PO BEDTIME 04/23/17 [History] ARIPiprazole [Abilify] 20 mg PO ACDINNER 05/09/17 [History] Budesonide [Pulmicort] 2 ml NEB BID 11/22/17 [History] clonazePAM [Klonopin] 0.25 - 0.5 mg PO DAILY PRN 11/22/17 [History] Betamethasone/Clotrimazole [Lotrisone] 1 applic TOP QAM 03/07/20 [History] Cevimeline [Evoxac] 30 mg PO BID 03/07/20 [History] Furosemide [Lasix] 20 mg PO QAM 03/07/20 [History] Ipratropium [Atrovent 0.03% Nasal [place]] 2 spray NASBOTH BID 03/07/20 [History] Ketoconazole [Nizoral 2% Crm] 1 applic TOP BEDTIME 03/07/20 [History] Saliva Stimulant Comb. No.2 [Biotene Oralbalance] 2 ml PO QID 03/07/20 [History] Triamcinolone Acetonide [Triamcinolone Acetonide 0.1% Crm] 1 applic TOP BID PRN 03/07/20 [History] Zinc Oxide 1 applic TOP ASDIRECTED PRN 03/07/20 [History] Azithromycin 250 mg PO .MON,WED,FRI 07/26/20 [History] Diclofenac Sodium [Voltaren] 1 applic TOP QID 07/26/20 [History] Famotidine [Pepcid AC] 60 mg PO DAILY 07/26/20 [History] polyethylene glycoL 3350 [MiraLAX] 17 gm PO DAILY 07/26/20 [History] oxyCODONE HCl/Acetaminophen [Oxycodone-Acetaminophen 5-325] 10 - 325 mg PO Q6H 12/20/20 [History] Past Medical History HEENT History: Reports: Cataract, Impaired Vision Other HEENT History: "hole between septum" Cardiovascular History: Reports: CAD, High Cholesterol, Hypertension Respiratory History: Reports: Asthma, COPD, Intubation, Previous, Other (See Below) Other Respiratory History: cylindrical bronchiectasis Gastrointestinal History: Reports: GERD, GI Bleed Genitourinary History: Reports: Urinary Incontinence [employer] History: Reports: Musculoskeletal History: Reports: Back Pain, Chronic, Fracture, Osteoarthritis, Other (See Below) Other Musculoskeletal History: bilat. shouler pain. bilat knee pain. left hip, low back and tail bone pain Neurological History: Reports: TIA, Other (See Below) Other Neuro History: Dysphagia Psychiatric History: Reports: Anxiety, Depression Endocrine/Metabolic History: Reports: Hyperparathyroidism, Obesity/BMI 30+, O steoporosis Hematologic History: Reports: Anemia, Blood Transfusion(s) Other Hematologic History: blood reaction when pt was 11yrs old Immunologic History: Reports: None Oncologic (Cancer) History: Reports: None Dermatologic History: Reports: None - Infectious Disease History Infectious Disease History: Reports: Chicken Pox - Past Surgical History Head Surgeries/Procedures: Reports: None HEENT Surgical History: Reports: Cataract Surgery Cardiovascular Surgical History: Reports: Coronary Artery Stent Respiratory Surgical History: Reports: None GI Surgical History: Reports: Appendectomy Female Surgical History: Reports: Dilitation & Evacuation Endocrine Surgical History: Reports: None Neurological Surgical History: Reports: None Musculoskeletal Surgical History: Reports: Hip Replacement Dermatological Surgical History: Reports: None Social & Family History - Family History Family Medical History: No Pertinent Family History Neurological: Reports: CVA Oncologic: Reports: Leukemia - Tobacco Use Tobacco Use Status *Q: Never Tobacco User Second Hand Smoke Exposure: No - Caffeine Use Caffeine Use: Reports: None - Recreational Drug Use Recreational Drug Use: No ED ROS GENERAL - Review of Systems Review Of Systems: See Below Constitutional: Reports: No Symptoms HEENT: Reports: No Symptoms Respiratory: Reports: Shortness of Breath Cardiovascular: Reports: Chest Pain Endocrine: Reports: No Symptoms GI/Abdominal: Reports: No Symptoms : Reports: No Symptoms Musculoskeletal: Reports: No Symptoms Skin: Reports: No Symptoms Neurological: Reports: No Symptoms Psychiatric: Reports: No Symptoms Hematologic/Lymphatic: Reports: No Symptoms Immunologic: Reports: No Symptoms ED EXAM, GENERAL - Physical Exam Exam: See Below Exam Limited By: No Limitations General Appearance: Alert, No Apparent Distress Ears: Normal External Exam Nose: Normal Inspection Throat/Mouth: Normal Inspection Head: Atraumatic, Normocephalic Neck: Normal Inspection Respiratory/Chest: Lungs Clear, Other (Left-sided chest wall tenderness). No: Rhonchi, Wheezing Cardiovascular: Regular Rate, Rhythm, No Murmur GI/Abdominal: Soft, Non-Tender Back Exam: Normal Inspection Extremities: Normal Inspection. No: Pedal Edema Neurological: Alert, Oriented Psychiatric: Normal Affect, Normal Mood Skin Exam: Warm, Dry #1 Interpretation Rhythm: NSR Rate (Beats/Min): 75 P-Wave: Present QT: Normal (Atrial premature complexes are present.) Course - Vital Signs Last Recorded V/S: Last Vital Signs Temp 36.4 C 12/20/20 13:51 Pulse 80 12/20/20 13:51 Resp 14 12/20/20 13:51 BP 181/73 H 12/20/20 13:51 Pulse Ox 95 12/20/20 13:51 - Orders/Labs/Meds Orders: Active Orders 24 hr Category Date Time Status EKG Documentation Completion [RC] ASDIRECTED Care 12/20/20 14:19 Active EKG 12 Lead [EK] Routine Ther 12/20/20 14:19 Ordered Labs: Laboratory Tests 12/20/20 12/20/20 Range/Units 14:20 14:46 WBC 10.3 (4.5-11.0) K/uL RBC 3.68 (3.30-5.50) M/uL Hgb 10.3 L (12.0-15.0) g/dL Hct 34.5 L (36.0-48.0) % MCV 94 (80-98) fL MCH 28 (27-31) pg MCHC 30 L (32-36) % Plt Count 191 (150-400) K/uL Sodium 141 (140-148) mmol/L Potassium 4.4 (3.6-5.2) mmol/L Chloride 104 (100-108) mmol/L Carbon Dioxide 32 (21-32) mmol/L Anion Gap 5.5 (5.0-14.0) mmol/L BUN 29 H D (7-18) mg/dL Creatinine 1.1 H (0.6-1.0) mg/dL Est Cr Clr Drug Dosing 31.25 mL/min Estimated GFR (MDRD) 48 L (>60) Glucose 100 (74-106) mg/dL Calcium 9.3 (8.5-10.1) mg/dL Total Bilirubin 0.3 (0.2-1.0) mg/dL AST 12 L (15-37) U/L ALT 11 L (12-78) U/L Alkaline Phosphatase 84 (46-116) U/L Troponin I < 0.017 (0.000-0.056) ng/mL Total Protein 7.1 (6.4-8.2) g/dL Albumin 3.0 L (3.4-5.0) g/dL Globulin 4.1 H (2.3-3.5) g/dL Albumin/Globulin Ratio 0.7 L (1.2-2.2) - Re-Assessments/Exams Free Text/Narrative Re-Assessment/Exam: 75-year-old female history of oxygen dependent COPD, on 2 L at baseline, presents concerns of dyspnea. On exam she is noted to be in 2 L of oxygen, her baseline, with an O2 sat around 90%. Cardiopulmonary exam is reassuring. Chest x-ray is unrevealing. Screening labs including troponin testing unremarkable. She does have some new chest pain today, some tenderness of the lateral chest wall, with her negative work-up I am reassured this does not require further work-up or tension in the ED today. I have asked her to take Tylenol for the discomfort. I suspect her symptoms were due to the malfunction of her oxygen tubing. During observation in the ED her sats are appropriate, breathing comfortable, this is all without any intervention. I think she is safe for discharge. We discussed return precautions and I asked her to follow-up with her primary physician as needed. 12/20/20 15:26 Departure - Departure Time of Disposition: 15:24 Disposition: Home, Self-Care 01 Clinical Impression: SOB (shortness of breath) - Discharge Information *PRESCRIPTION DRUG MONITORING PROGRAM REVIEWED*: No *COPY OF PRESCRIPTION DRUG MONITORING REPORT IN PATIENT CHARLIE: No Instructions: Shortness of Breath, Adult Referrals: PCP,None [Primary Care Provider] - Forms: ED Department Discharge Additional Instructions: Your work-up in the emergency room today was reassuring. We suspect your symptoms may have been due to the malfunction of your oxygen tubing. If you develop chest pain, worsening shortness of breath, fever we are I was happy to see you in the emergency room. If your symptoms persist but are not worsening it would be a good idea to see your primary doctor. Thank you for trusting us to care for you today. Sepsis Event Note (ED) - Evaluation Sepsis Screening Result: No Definite Risk - Focused Exam Vital Signs: Vital Signs Temp Pulse Resp BP Pulse Ox 12/20/20 13:51 36.4 C 80 14 181/73 H 95 12/20/20 13:37 36.4 C 80 14 181/73 H 95 - My Orders Last 24 Hours: My Active Orders 12/20/20 14:19 EKG Documentation Completion [RC] ASDIRECTED EKG 12 Lead [EK] Routine - Assessment/Plan Last 24 Hours: My Active Orders 12/20/20 14:19 EKG Documentation Completion [RC] ASDIRECTED EKG 12 Lead [EK] Routine
--- NOTE | 2020-12-20 15:13 | CR ---
CHEST: Portable 12/20/2020 at 252 CLINICAL HISTORY:SOB COMPARISON:March 2020 FINDINGS: There is patchy density in both lung francis. Some of this is chronic. Superimposed pneumonitis is not excluded. Heart size is normal. There are atherosclerotic changes in the aorta. Impression: Patchy densities in both lung francis. Some of this is chronic. Superimposed pneumonitis is not excluded.
== END 2020-12-20 15:48 | disposition home or self-care (01) ==
LOC: JP.ED 13:35
DX: R06.02 Shortness of breath (principal); I25.10 Atherosclerotic heart disease of native coronary artery without angina pectoris; E78.00 Pure hypercholesterolemia, unspecified; I10 Essential (primary) hypertension; K21.9 Gastro-esophageal reflux disease without esophagitis; E21.3 Hyperparathyroidism, unspecified; E66.9 Obesity, unspecified; Z68.28 Body mass index [BMI] 28.0-28.9, adult; Z88.8 Allergy status to other drugs, medicaments and biological substances; Z88.4 Allergy status to anesthetic agent; Z88.1 Allergy status to other antibiotic agents; Z99.81 Dependence on supplemental oxygen; J44.9 Chronic obstructive pulmonary disease, unspecified; Z91.048 Other nonmedicinal substance allergy status; Z88.2 Allergy status to sulfonamides; Z79.899 Other long term (current) drug therapy; Z79.82 Long term (current) use of aspirin; Z86.73 Personal history of transient ischemic attack (TIA), and cerebral infarction without residual deficits
CPT/HCPCS: 36415; 71045; 71045-26; 80053; 84484; 85027; 93005; 99285-25

== ENCOUNTER 2020-12-30 15:13 | Observation (INO) | payer MEDICARE, BC ==
[2020-12-30] MEDS ORDERED: Sodium Chloride 0.9% 10 ML Syringe FLUSH PRN (15:28)
[2020-12-30] MEDS ORDERED: Polyethylene Glycol 3350 Powder 17 GM Packet PO PRN (15:28)
[2020-12-30] MEDS ORDERED: Ondansetron 4 MG/2 ML SDV IV PRN (15:28)
[2020-12-30] MEDS ORDERED: Acetaminophen 325 MG Tab PO PRN (15:28)
[2020-12-30] MEDS ORDERED: Albuterol 0.083% 2.5 MG/3 ML Neb Soln NEB PRN (15:32)
[2020-12-30] MEDS ORDERED: cefTRIAXone 1 GM in Sodium Chloride 0.9% 50 ML IV SCH (16:00)
[2020-12-30] MEDS: Albuterol/Ipratropium 3.0-0.5 MG/3 ML Neb Soln NEB SCH ×2 (16:21→22:51)
--- NOTE | 2020-12-30 16:36 | CRLCR ---
INDICATION: Pneumonia, hypoxia TECHNIQUE: Chest 2 views. COMPARISON: 12/20/2020 FINDINGS: Cardiovascular and mediastinum: Heart size and vasculature are normal in caliber and appearance. Mediastinum is within normal limits. Lungs and pleural spaces: Prominent bilobed interstitial markings unchanged compared to prior study. No sign of pleural effusion. No pneumothorax. Bones and soft tissues: No significant findings. IMPRESSION: Bilateral interstitial markings unchanged compared to prior study. Dictated by Wilton Collins MD @ 12/30/2020 4:36:34 PM Dictated by: Wilton Collins MD @ 12/30/2020 16:36:45 (Electronically Signed)
[2020-12-30] MEDS: Doxycycline 100 MG in Sodium Chloride 0.9% 100 ML IV SCH (16:58)
[2020-12-30] MEDS ORDERED: Enoxaparin 40 MG/0.4 ML Syringe SUBCUT SCH (17:00)
[2020-12-30] MEDS ORDERED: ClonazePAM 0.5 MG Tab PO PRN (18:44)
--- NOTE | 2020-12-30 18:44 | PCM.HP.2 ---
H&P History of Present Illness - General Date of Service: 12/30/20 Admit Problem/Dx: Admission Diagnosis/Problem Admission Diagnosis/Problem Hypoxia Source of Information: Patient, Family, Provider, RN Notes Reviewed History Limitations: Reports: No Limitations - History of Present Illness Initial Comments - Free Text/Narative: Ms. Espinosa is a 75-year-old woman who was admitted as a direct admission from the clinic with increased hypoxia secondary to COPD exacerbation and underlying pneumonia. Over the past 2 weeks has had difficulty with increased shortness of breath. 1 week ago she was started on oral antibiotic therapy with levofloxacin. Despite antibiotic therapy she has had increased symptoms of shortness of breath and worsening cough. Chest x-ray shows evidence of bilateral infiltrates, white blood cell count is within normal range. She was seen and evaluated the clinic today and was noted to be hypoxic with oxygen saturation of 85% on room air. She was referred for hospitalization and further management. She is unable to tolerate any type of steroid. I did the hospital saturations on 2 L of oxygen via nasal cannula were found to be in the mid 90s. - Related Data Allergies/Adverse Reactions: Allergies Allergy/AdvReac Type Severity Reaction Status Date / Time gemfibrozil [From Lopid] Allergy Severe Hives Verified 12/20/20 13:51 lidocaine [From LidoPatch] Allergy Intermediate Swollen Verified 12/20/20 13:51 Tongue ampicillin sodium Allergy Mild Itching Verified 12/20/20 13:51 [From Unasyn] gabapentin Allergy Mild Cannot Verified 12/20/20 13:51 Remember menthol [From LidoPatch] Allergy Mild Burning Verified 12/20/20 13:51 sulbactam sodium Allergy Mild Itching Verified 12/20/20 13:51 [From Unasyn] midazolam HCl [From Versed] AdvReac Severe Hallucinati Verified 12/20/20 13:51 ons prednisone AdvReac Intermediate Confusion Verified 12/20/20 13:51 erythromycin base AdvReac Mild local eye Verified 12/20/20 13:51 [Erythromycin Base] rxn using ophthalmic dontrell Home Medications: Home Meds Calcium Carbonate/Vitamin D3 [Calcium 600-Vit D3 200 Tablet] 1 each PO BID 04/24/13 [History] Multivitamin [Multi-Vitamin Daily] 1 each PO DAILY 04/24/13 [History] LORazepam [Ativan] 0.5 mg PO TID PRN 10/17/13 [History] Levothyroxine [Synthroid] 88 mcg PO ACBRK 10/17/13 [History] Losartan Potassium [Cozaar] 100 mg PO ACDINNER 10/17/13 [History] Nitroglycerin [Nitrostat] 0.4 mg SL ASDIRECTED PRN 10/17/13 [History] Tranylcypromine [Parnate] 30 mg PO ACBREAKFAST 01/06/14 [History] Tranylcypromine [Parnate] 30 mg PO TASNEEM 01/06/14 [History] Tranylcypromine [Parnate] 20 mg PO ACDINNER 07/18/14 [History] Aspirin [Ecotrin EC] 81 mg PO BEDTIME 09/05/15 [History] Ferrous Fumarate [Ferretts] 50 mg PO PCLUNCH 09/05/15 [History] Pravastatin [Pravachol] 10 mg PO ACDINNER 09/05/15 [History] Formoterol [Perforomist] 1 ampule INH BID 02/09/17 [History] ARIPiprazole [Abilify] 10 mg PO QAM 04/23/17 [History] Isosorbide Mononitrate [Imdur] 30 mg PO DAILY 04/23/17 [History] Mirabegron [Myrbetriq] 50 mg PO DAILY 04/23/17 [History] amLODIPine Besylate [Amlodipine Besylate] 5 mg PO BEDTIME 04/23/17 [History] ARIPiprazole [Abilify] 20 mg PO ACDINNER 05/09/17 [History] Budesonide [Pulmicort] 2 ml NEB BID 11/22/17 [History] clonazePAM [Klonopin] 0.25 - 0.5 mg PO DAILY PRN 11/22/17 [History] Cevimeline [Evoxac] 30 mg PO BID 03/07/20 [History] Ipratropium [Atrovent 0.03% Nasal [place]] 2 spray NASBOTH BID 03/07/20 [History] Triamcinolone Acetonide [Triamcinolone Acetonide 0.1% Crm] 1 applic TOP BID PRN 03/07/20 [History] Zinc Oxide 1 applic TOP ASDIRECTED PRN 03/07/20 [History] Famotidine [Pepcid AC] 60 mg PO BEDTIME 07/26/20 [History] polyethylene glycoL 3350 [MiraLAX] 17 gm PO DAILY 07/26/20 [History] oxyCODONE HCl/Acetaminophen [Oxycodone-Acetaminophen 5-325] 10 - 325 mg PO Q6H PRN 12/20/20 [History] Ipratropium/Albuterol Sulfate [Iprat-Albut 0.5-3(2.5) mg/3 ml] 3 ml INH QID PRN 12/30/20 [History] clonazePAM [Clonazepam] 0.25 mg PO BEDTIME 12/30/20 [History] levalbuterol HCL [Levalbuterol HCl] 1.25 mg IH TID PRN 12/30/20 [History] levoFLOXacin [Levofloxacin] 250 mg PO DAILY 12/30/20 [History] Past Medical History HEENT History: Reports: Cataract, Impaired Vision Other HEENT History: "hole between septum" Cardiovascular History: Reports: CAD, High Cholesterol, Hypertension, Other (See Below) Other Cardiovascular History: vasculitis Respiratory History: Reports: Asthma, COPD, Intubation, Previous, Other (See Below) Other Respiratory History: cylindrical bronchiectasis Gastrointestinal History: Reports: GERD, GI Bleed Genitourinary History: Reports: Urinary Incontinence, Other (See Below) Other Genitourinary History: hypertensive kidney disease; stage 3 chronic kidney disease 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 shouler pain. bilat knee pain. left hip, low back and tail bone pain Neurological History: Reports: TIA, Other (See Below) Other Neuro History: Dysphagia Psychiatric History: Reports: Anxiety, Depression Endocrine/Metabolic History: Reports: Hyperparathyroidism, Hyperthyroidism, Obesity/BMI 30+, Osteoporosis Hematologic History: Reports: Anemia, Blood Transfusion(s) Other Hematologic History: blood reaction when pt was 11yrs old Immunologic History: Reports: None Oncologic (Cancer) History: Reports: None Dermatologic History: Reports: None - Infectious Disease History Infectious Disease History: Reports: Chicken Pox - Past Surgical History Head Surgeries/Procedures: Reports: None HEENT Surgical History: Reports: Cataract Surgery Cardiovascular Surgical History: Reports: Coronary Artery Stent Respiratory Surgical History: Reports: None GI Surgical History: Reports: Appendectomy Female Surgical History: Reports: Dilitation & Evacuation Endocrine Surgical History: Reports: None Neurological Surgical History: Reports: None Musculoskeletal Surgical History: Reports: Hip Replacement Dermatological Surgical History: Reports: None Social & Family History - Family History Family Medical History: No Pertinent Family History Neurological: Reports: CVA Oncologic: Reports: Leukemia - Tobacco Use Tobacco Use Status *Q: Former Tobacco User Years of Tobacco use: 30 Packs/Tins Daily: 3 Used Tobacco, but Quit: Yes Month/Year Tobacco Last Used: 12/2000 Second Hand Smoke Exposure: No - Caffeine Use Caffeine Use: Reports: None - Recreational Drug Use Recreational Drug Use: No H&P Review of Systems - Review of Systems: Review Of Systems: See Below General: Reports: Malaise, Weakness, Fatigue. Denies: Fever, Chills HEENT: Reports: No Symptoms Pulmonary: Reports: Shortness of Breath, Cough, Sputum. Denies: Wheezing, Pleuritic Chest Pain, Hemoptysis Cardiovascular: Reports: Dyspnea on Exertion. Denies: Chest Pain, Palpitations, Orthopnea, PND, Edema, Lightheadedness Gastrointestinal: Reports: No Symptoms Genitourinary: Reports: No Symptoms Musculoskeletal: Reports: No Symptoms Skin: Reports: No Symptoms Psychiatric: Reports: No Symptoms Neurological: Reports: No Symptoms Hematologic/Lymphatic: Reports: No Symptoms Immunologic: Reports: No Symptoms Exam - Exam Exam: See Below - Vital Signs Vital Signs: Last Vital Signs Temp 98.7 F 12/30/20 15:28 Pulse 73 12/30/20 15:28 Resp 18 12/30/20 15:28 BP 184/50 H 12/30/20 15:28 Pulse Ox 97 12/30/20 16:32 Weight: 139 lb - Exam Quality Assessment: Supplemental Oxygen, DVT Prophylaxis General: Alert, Oriented, Cooperative, Mild Distress HEENT: Conjunctiva Clear, Hearing Intact, Mucosa Moist & Joseph, Normal Nasal Septum, Posterior Pharynx Clear, Pupils Equal Neck: Supple, Trachea Midline, +2 Carotid Pulse wo Bruit Lungs: Decreased Breath Sounds, Crackles. No: Rales, Rhonchi, Wheezing Cardiovascular: Regular Rate, Normal S1, Normal S2, Irregular Rhythm. No: Systolic Murmur, Diastolic Murmur GI/Abdominal Exam: Soft, Non-Tender, No Organomegaly, No Distention Back Exam: Normal Inspection, Full Range of Motion Extremities: Non-Tender, No Pedal Edema Skin: Warm, Dry, Intact Neurological: Cranial Nerves Intact, Strength Equal Bilateral, Normal Speech, Normal Tone, Sensation Intact. No: Focal Deficit Neuro Extensive - Mental Status: Alert, Oriented x3, Normal Mood/Affect, Normal Cognition, Memory Intact - Patient Data Lab Results Last 24 hrs: Laboratory Results - last 24 hr 12/30/20 12/30/20 12/30/20 Range/Units 15:53 15:53 15:53 WBC 6.9 (4.5-11.0) K/uL RBC 3.70 (3.30-5.50) M/uL Hgb 9.9 L (12.0-15.0) g/dL Hct 34.1 L (36.0-48.0) % MCV 92 (80-98) fL MCH 27 (27-31) pg MCHC 29 L (32-36) % Plt Count 294 (150-400) K/uL Neut % (Auto) 62.9 (36-66) % Lymph % (Auto) 15.9 L (24-44) % [place] % (Auto) 8.5 H (2-6) % Eos % (Auto) 11.7 H (2-4) % Baso % (Auto) 1.0 (0-1) % Sodium 140 (140-148) mmol/L Potassium 4.1 (3.6-5.2) mmol/L Chloride 100 (100-108) mmol/L Carbon Dioxide 33 H (21-32) mmol/L Anion Gap 11.1 (5.0-14.0) mmol/L BUN 23 H (7-18) mg/dL Creatinine 1.3 H (0.6-1.0) mg/dL Est Cr Clr Drug Dosing TNP Estimated GFR (MDRD) 40 L (>60) Glucose 91 (74-106) mg/dL Calcium 9.0 (8.5-10.1) mg/dL Magnesium 2.2 (1.8-2.4) mg/dL Total Bilirubin 0.3 (0.2-1.0) mg/dL AST 14 L (15-37) U/L ALT 14 (12-78) U/L Alkaline Phosphatase 89 (46-116) U/L C-Reactive Protein 2.72 H (0.0-0.3) mg/dL Total Protein 7.5 (6.4-8.2) g/dL Albumin 2.9 L (3.4-5.0) g/dL Globulin 4.6 H (2.3-3.5) g/dL Albumin/Globulin Ratio 0.6 L (1.2-2.2) Procalcitonin < 0.05 ng/mL Result Diagrams: 12/30/20 15:53 12/30/20 15:53 Sepsis Event Note - Evaluation Sepsis Screening Result: No Definite Risk - Focused Exam Vital Signs: Vital Signs Temp Pulse Resp BP Pulse Ox 12/30/20 16:32 97 12/30/20 15:28 98.7 F 73 18 184/50 H 99 *Q Meaningful Use (ADM) - VTE Risk Assess *Q Each Risk Factor Represents 1 Point: Obesity ( BMI > 25 kg/m2), Serious lung disease including pneumonia, Abnormal Pulmonary Function (COPD) Total Score 1 Point Risk Factors: 3 Each Risk Factor Represents 2 Points: None Total Score 2 Point Risk Factors: 0 Each Risk Factor Represents 3 Points: Age 75 Years or Greater Total Score 3 Point Risk Factors: 3 Each Risk Factor Represents 5 Points: None Total Score 5 Point Risk Factors: 0 Venous Thromboembolism Risk Factor Score *Q: 6 Problem List Initiated/Reviewed/Updated: Yes Orders Last 24hrs: Active Orders 24 hr Category Date Time Status Patient Status [ADT] Routine ADT 12/30/20 15:28 Active Ambulate [RC] QID Care 12/30/20 15:28 Active Height and Weight [RC] DAILY Care 12/30/20 15:28 Active Intake and Output [RC] QSHIFT Care 12/30/20 15:28 Active Notify Provider Vital Signs [RC] ASDIRECTED Care 12/30/20 15:28 Active Oxygen Therapy [RC] PRN Care 12/30/20 15:28 Active Pulse Oximetry [RC] CONTINUOUS Care 12/30/20 15:29 Active RT Aerosol Therapy [RC] ASDIRECTED Care 12/30/20 15:33 Active Up With Assistance [RC] ASDIRECTED Care 12/30/20 15:28 Active Up to Chair [RC] QID Care 12/30/20 15:28 Active VTE/DVT Education [RC] Per Unit Routine Care 12/30/20 15:28 Active Vital Signs [RC] Q4H Care 12/30/20 15:28 Active Regular Diet [DIET] Diet 12/30/20 Lunch Active Acetaminophen [TylenoL] Med 12/30/20 15:28 Active 650 mg PO Q4H PRN Albuterol [Proventil Neb Soln] Med 12/30/20 15:32 Active 2.5 mg NEB Q4H PRN Albuterol/Ipratropium [DuoNeb 3.0-0.5 MG/3 ML] Med 12/30/20 16:00 Active 3 ml NEB QIDRT Doxycycline [Vibramycin] 100 mg Med 12/30/20 17:00 Active Sodium Chloride 0.9% [Normal Saline] 100 ml IV Q12H Enoxaparin [Lovenox] Med 12/30/20 17:00 Active 40 mg SUBCUT Q24H Ondansetron [Zofran] Med 12/30/20 15:28 Active 4 mg IV Q4H PRN Sodium Chloride 0.9% [Saline Flush] Med 12/30/20 15:28 Active 10 ml FLUSH ASDIRECTED PRN cefTRIAXone [Rocephin] 1 gm Med 12/30/20 16:00 Active Sodium Chloride 0.9% [Normal Saline] 50 ml IV Q24H polyethylene glycoL 3350 [MiraLAX] Med 12/30/20 15:28 Active 17 gm PO DAILY PRN Saline Lock Insert [OM.PC] Routine Oth 12/30/20 15:28 Ordered Resuscitation Status Routine Resus Stat 12/30/20 15:28 Ordered Medication Orders Acetaminophen (Acetaminophen 325 Mg Tab) 650 mg PO Q4H PRN PRN Reason: Pain (Mild 1-3)/fever Albuterol (Albuterol 0.083% 2.5 Mg/3 Ml Neb Soln) 2.5 mg NEB Q4H PRN PRN Reason: Dyspnea Albuterol/Ipratropium (Albuterol/Ipratropium 3.0-0.5 Mg/3 Ml Neb Soln) 3 ml NEB QIDRT [facility] Last Admin: 12/30/20 16:21 Dose: 3 ml Documented by: DAPHNE Enoxaparin Sodium (Enoxaparin 40 Mg/0.4 Ml Syringe) 40 mg SUBCUT Q24H [facility] Last Admin: 12/30/20 16:52 Dose: 40 mg Documented by: DAPHNE Ceftriaxone Sodium 1 gm/ (Sodium Chloride) 50 mls @ 100 mls/hr IV Q24H [facility] Last Admin: 12/30/20 16:55 Dose: 100 mls/hr Documented by: DAPHNE Doxycycline Hyclate 100 mg/ (Sodium Chloride) 100 mls @ 100 mls/hr IV Q12H [facility] Last Admin: 12/30/20 16:58 Dose: 100 mls/hr Documented by: DAPHNE Ondansetron HCl (Ondansetron 4 Mg/2 Ml Sdv) 4 mg IV Q4H PRN PRN Reason: Nausea/Vomiting Polyethylene Glycol (Polyethylene Glycol 3350 Powder 17 Gm Packet) 17 gm PO DAILY PRN PRN Reason: Constipation Sodium Chloride (Sodium Chloride 0.9% 10 Ml Syringe) 10 ml FLUSH ASDIRECTED PRN PRN Reason: Keep Vein Open Assessment/Plan Comment:: ASSESSMENT AND PLAN ACUTE ON CHRONIC HYPOXIC RESPIRATORY FAILURE-recent history of COPD exacerbation and pulmonary infiltrates. She has not improved with antibiotic therapy over the past week and has noted increase in her cough. Increased hypoxia noted at the clinic although when she arrived at the hospital oxygen saturations on 2 L were found to be within desired range. -Continuous pulse oximeter -Supplemental oxygen as needed PULMONARY INFILTRATES-consistent with pneumonia, viral versus bacterial. She has completed 1 week of appropriate antibiotic therapy with no real improvement in symptoms. White blood cell count is normal as is the pro calcitonin level. -IV ceftriaxone and doxycycline, ending observation and further evaluation COPD EXACERBATION-likely secondary to underlying infection, she is not a candidate for steroid therapy -Management as above -Nebulized albuterol and DuoNebs ANXIETY AND DEPRESSION -Continue outpatient medications MAINTENANCE ISSUES -DVT prophylaxis; Lovenox 40 mg subcu daily -GI prophylaxis; continue outpatient H2 deric therapy -Mims catheter; not indicated -Nutrition; regular diet -Nicotine dependence; not required CODE STATUS-FULL CODE ADMISSION STATUS-this patient will be admitted to observation status, expect no more than a one night hospital stay for evaluation and management of problems as outlined above. DISPOSITION-anticipate discharge to home after the hospital stay. PRIMARY CARE PROVIDER-Bernard Young - Mortality Measure Prognosis:: Good
[2020-12-30] MEDS ORDERED: Aspirin 81 MG Tab.EC **OWN MED PO SCH (21:00)
[2020-12-30] MEDS ORDERED: Non-Formulary Medication 1 Each (Formoterol [Perforomist] 20 MCG/2 ML Neb) INH SCH (21:00)
[2020-12-30] MEDS ORDERED: ARIPIPRAZOLE 10 MG PO ONE (21:00)
[2020-12-30] MEDS ORDERED: Aspirin 81 MG Tab.EC PO SCH (21:00)
[2020-12-30] MEDS ORDERED: TRANYLCYPROMINE 10 MG PO ONE (21:00)
[2020-12-30] MEDS ORDERED: Ipratropium 0.03% Nasal Spray 30 ML Bot NASBOTH SCH (21:00)
[2020-12-30] MEDS ORDERED: Budesonide 0.5 MG/2 ML Neb Susp NEB SCH (21:00)
[2020-12-30] MEDS ORDERED: CLONAZEPAM 0.25 MG PO SCH (21:00)
[2020-12-30] MEDS ORDERED: Famotidine 20 MG Tab PO SCH ×2 (21:00→21:24)
[2020-12-30] MEDS: LORazepam 0.5 MG Tab PO PRN (21:39)
[2020-12-30] MEDS ORDERED: Famotidine 20 MG Tab**OWN MED PO SCH (21:45)
[2020-12-31] MEDS: Acetaminophen/oxyCODONE 325-5 MG Tab PO PRN ×3 (00:59→12:47)
[2020-12-31] MEDS: Doxycycline 100 MG in Sodium Chloride 0.9% 100 ML IV SCH (05:20)
[2020-12-31] MEDS: Albuterol/Ipratropium 3.0-0.5 MG/3 ML Neb Soln NEB SCH ×2 (07:11→10:48)
[2020-12-31] MEDS ORDERED: Levothyroxine 88 MCG Tab (PTOM) PO SCH (07:30)
[2020-12-31] MEDS ORDERED: TRANYLCYPROMINE 10 MG PO SCH ×3 (08:30→17:00)
[2020-12-31 08:45] VITALS: BP 160/54
[2020-12-31] MEDS ORDERED: ARIPIPRAZOLE 10 MG PO SCH (09:00)
[2020-12-31] MEDS ORDERED: Polyethylene Glycol 3350 Powder 17 GM Packet PO SCH (09:00)
[2020-12-31] MEDS ORDERED: ARIPIPRAZOLE 20 MG PO SCH ×2 (09:00→21:00)
[2020-12-31] MEDS ORDERED: Isosorbide Mononitrate 30 MG Tab.ER (PTOM) PO SCH (09:00)
[2020-12-31] MEDS ORDERED: Enoxaparin 30 MG/0.3 ML Syringe SUBCUT SCH ×2 (09:00→17:00)
[2020-12-31 09:26] VITALS: PULSE 72
--- NOTE | 2020-12-31 11:54 | PCM.DCSUM1 ---
Discharge Summary - Hospital Course Brief History: Ms. Espinosa is a 75-year-old woman who was admitted as a direct admission from the clinic with hypoxia, pneumonia, and COPD exacerbation. - Discharge Data Discharge Date: 12/31/20 Discharge Disposition: Home, Self-Care 01 Condition: Fair - Referral to Home Health Primary Care Physician: Bernard Young NP - Discharge Diagnosis/Problem(s) (1) Pneumonia SNOMED Code(s): 222082566 ICD Code: J18.9 - PNEUMONIA, UNSPECIFIED ORGANISM Status: Acute Current Visit: Yes (2) COPD exacerbation SNOMED Code(s): 920668902 ICD Code: J44.1 - CHRONIC OBSTRUCTIVE PULMONARY DISEASE W (ACUTE) EXACERBATION Status: Acute Current Visit: Yes - Patient Summary/Data Hospital Course: Ms. Espinosa is a 75-year-old woman who was admitted as a direct admission from the clinic, to observation status with increased hypoxia secondary to COPD exacerbation and underlying pneumonia. Over the past 2 weeks she has had difficulty with increased shortness of breath. 1 week ago she was started on oral antibiotic therapy with levofloxacin. Despite antibiotic therapy she has had increased symptoms of shortness of breath and worsening cough. Chest x-ray shows evidence of bilateral infiltrates, white blood cell count is within normal range. She was seen and evaluated the clinic today and was noted to be hypoxic with oxygen saturation of 85% on 2 L of oxygen via nasal cannula. She was referred for hospitalization and further management. She is unable to tolerate any type of steroid. After admission to the hospital saturations on 2 L of oxygen via nasal cannula were found to be in the mid 90s. Antibiotic therapy was changed on admission to ceftriaxone and doxycycline. She was monitored with continuous pulse oximetry and oxygen saturations remained in the 90s throughout her brief hospitalization. On the morning of discharge she was feeling at base line and will be discharged home on her usual supplemental oxygen 2 L/min via nasal cannula. She will be discharged with an additional 6 days of oral antibiotic therapy with doxycycline. Activity will be as tolerated and she will resume her usual diet. - Patient Instructions Diet: Low Sodium Activity: As Tolerated Other/Special Instructions: Please schedule follow-up appointment with primary care provider within 1 week. - Discharge Plan *PRESCRIPTION DRUG MONITORING PROGRAM REVIEWED*: Not Applicable *COPY OF PRESCRIPTION DRUG MONITORING REPORT IN PATIENT CHARLIE: Not Applicable Prescriptions/Med Rec: Doxycycline [Vibramycin] 100 mg PO BID #12 cap Home Medications: Home Meds Calcium Carbonate/Vitamin D3 [Calcium 600-Vit D3 200 Tablet] 1 each PO BID 04/24/13 [History] Multivitamin [Multi-Vitamin Daily] 1 each PO DAILY 04/24/13 [History] LORazepam [Ativan] 0.5 mg PO TID PRN 10/17/13 [History] Levothyroxine [Synthroid] 88 mcg PO ACBRK 10/17/13 [History] Losartan Potassium [Cozaar] 100 mg PO ACDINNER 10/17/13 [History] Nitroglycerin [Nitrostat] 0.4 mg SL ASDIRECTED PRN 10/17/13 [History] Tranylcypromine [Parnate] 30 mg PO ACBREAKFAST 01/06/14 [History] Tranylcypromine [Parnate] 30 mg PO TASNEEM 01/06/14 [History] Tranylcypromine [Parnate] 20 mg PO ACDINNER 07/18/14 [History] Aspirin [Ecotrin EC] 81 mg PO BEDTIME 09/05/15 [History] Ferrous Fumarate [Ferretts] 50 mg PO PCLUNCH 09/05/15 [History] Pravastatin [Pravachol] 10 mg PO ACDINNER 09/05/15 [History] Formoterol [Perforomist] 1 ampule INH BID 02/09/17 [History] ARIPiprazole [Abilify] 10 mg PO QAM 04/23/17 [History] Isosorbide Mononitrate [Imdur] 30 mg PO DAILY 04/23/17 [History] Mirabegron [Myrbetriq] 50 mg PO DAILY 04/23/17 [History] amLODIPine Besylate [Amlodipine Besylate] 5 mg PO BEDTIME 04/23/17 [History] ARIPiprazole [Abilify] 20 mg PO ACDINNER 05/09/17 [History] Budesonide [Pulmicort] 2 ml NEB BID 11/22/17 [History] clonazePAM [Klonopin] 0.25 - 0.5 mg PO DAILY PRN 11/22/17 [History] Cevimeline [Evoxac] 30 mg PO BID 03/07/20 [History] Ipratropium [Atrovent 0.03% Nasal [place]] 2 spray NASBOTH BID 03/07/20 [History] Triamcinolone Acetonide [Triamcinolone Acetonide 0.1% Crm] 1 applic TOP BID PRN 03/07/20 [History] Zinc Oxide 1 applic TOP ASDIRECTED PRN 03/07/20 [History] Famotidine [Pepcid AC] 60 mg PO BEDTIME 07/26/20 [History] polyethylene glycoL 3350 [MiraLAX] 17 gm PO DAILY 07/26/20 [History] oxyCODONE HCl/Acetaminophen [Oxycodone-Acetaminophen 5-325] 10 - 325 mg PO Q6H PRN 12/20/20 [History] Ipratropium/Albuterol Sulfate [Iprat-Albut 0.5-3(2.5) mg/3 ml] 3 ml INH QID PRN 12/30/20 [History] clonazePAM [Clonazepam] 0.25 mg PO BEDTIME 12/30/20 [History] levalbuterol HCL [Levalbuterol HCl] 1.25 mg IH TID PRN 12/30/20 [History] Doxycycline [Vibramycin] 100 mg PO BID #12 cap 12/31/20 [Rx] Oxygen Therapy Mode: Nasal Cannula Oxygen Flow Rate (L/min): 2 - Discharge Summary/Plan Comment DC Time >30 min.: No - Patient Data Vitals - Most Recent: Last Vital Signs Temp 96.8 F L 12/31/20 09:24 Pulse 72 12/31/20 09:24 Resp 16 12/31/20 09:24 BP 160/54 H 12/31/20 09:24 Pulse Ox 96 12/31/20 09:24 Weight - Most Recent: 137 lb 9.6 oz I&O - Last 24 hours: Intake & Output 12/30/20 12/31/20 12/31/20 22:59 06:59 14:59 Intake Total 390 100 300 Output Total 550 700 850 Balance -160 -600 -550 Lab Results - Last 24 hrs: Laboratory Results - last 24 hr 12/30/20 12/30/20 12/30/20 Range/Units 15:53 15:53 15:53 WBC 6.9 (4.5-11.0) K/uL RBC 3.70 (3.30-5.50) M/uL Hgb 9.9 L (12.0-15.0) g/dL Hct 34.1 L (36.0-48.0) % MCV 92 (80-98) fL MCH 27 (27-31) pg MCHC 29 L (32-36) % Plt Count 294 (150-400) K/uL Neut % (Auto) 62.9 (36-66) % Lymph % (Auto) 15.9 L (24-44) % Eddy % (Auto) 8.5 H (2-6) % Eos % (Auto) 11.7 H (2-4) % Baso % (Auto) 1.0 (0-1) % Sodium 140 (140-148) mmol/L Potassium 4.1 (3.6-5.2) mmol/L Chloride 100 (100-108) mmol/L Carbon Dioxide 33 H (21-32) mmol/L Anion Gap 11.1 (5.0-14.0) mmol/L BUN 23 H (7-18) mg/dL Creatinine 1.3 H (0.6-1.0) mg/dL Est Cr Clr Drug Dosing TNP Estimated GFR (MDRD) 40 L (>60) Glucose 91 (74-106) mg/dL Calcium 9.0 (8.5-10.1) mg/dL Magnesium 2.2 (1.8-2.4) mg/dL Total Bilirubin 0.3 (0.2-1.0) mg/dL AST 14 L (15-37) U/L ALT 14 (12-78) U/L Alkaline Phosphatase 89 (46-116) U/L C-Reactive Protein 2.72 H (0.0-0.3) mg/dL Total Protein 7.5 (6.4-8.2) g/dL Albumin 2.9 L (3.4-5.0) g/dL Globulin 4.6 H (2.3-3.5) g/dL Albumin/Globulin Ratio 0.6 L (1.2-2.2) Procalcitonin < 0.05 ng/mL Med Orders - Current: Current Medications Acetaminophen (Acetaminophen 325 Mg Tab) 650 mg PO Q4H PRN PRN Reason: Pain (Mild 1-3)/fever Albuterol (Albuterol 0.083% 2.5 Mg/3 Ml Neb Soln) 2.5 mg NEB Q4H PRN PRN Reason: Dyspnea Albuterol/Ipratropium (Albuterol/Ipratropium 3.0-0.5 Mg/3 Ml Neb Soln) 3 ml NEB QIDRT [facility] Last Admin: 12/31/20 10:48 Dose: 3 ml Documented by: Amlodipine Besylate (Amlodipine 5 Mg Tab Own Med) 5 mg PO BEDTIME [facility] Last Admin: 12/30/20 22:54 Dose: 5 mg Documented by: Aripiprazole (Aripiprazole 10 Mg Tab (Ptom)) 10 mg PO DAILY [facility] Last Admin: 12/31/20 08:41 Dose: 10 mg Documented by: Aspirin (Aspirin 81 Mg Tab.Ec) 81 mg PO BEDTIME [facility] Budesonide (Budesonide 0.5 Mg/2 Ml Neb Susp) 0.5 mg NEB BIDRT [facility] Clonazepam (Clonazepam 0.5 Mg Tab) 0.5 mg PO DAILY PRN PRN Reason: Anxiety Last Admin: 12/30/20 23:00 Dose: 0.5 mg Documented by: Enoxaparin Sodium (Enoxaparin 30 Mg/0.3 Ml Syringe) 30 mg SUBCUT Q24H [facility] Famotidine (Famotidine 20 Mg TabOwn Med) 20 mg PO BEDTIME [facility] Last Admin: 12/30/20 22:54 Dose: 20 mg Documented by: Ceftriaxone Sodium 1 gm/ (Sodium Chloride) 50 mls @ 100 mls/hr IV Q24H [facility] Last Admin: 12/30/20 16:55 Dose: 100 mls/hr Documented by: Doxycycline Hyclate 100 mg/ (Sodium Chloride) 100 mls @ 100 mls/hr IV Q12H [facility] Last Admin: 12/31/20 05:20 Dose: 100 mls/hr Documented by: Ipratropium [place] (Ipratropium 0.03% Nasal [place] 30 Ml Bot) 0 ml NASBOTH BID [facility] Last Admin: 12/31/20 08:46 Dose: Not Given Documented by: Isosorbide Mononitrate (Isosorbide Mononitrate 30 Mg Tab.Er (Ptom)) 30 mg PO DAILY [facility] Last Admin: 12/31/20 08:41 Dose: 30 mg Documented by: Levothyroxine Sodium (Levothyroxine 88 Mcg Tab (Ptom)) 88 mcg PO ACBREAKFAST [facility] Last Admin: 12/31/20 08:43 Dose: 88 mcg Documented by: Lorazepam (Lorazepam 0.5 Mg Tab) 0.5 mg PO TID PRN PRN Reason: Anxiety Last Admin: 12/30/20 21:39 Dose: 0.5 mg Documented by: Non-Formulary Medication (Formoterol [Perforomist]) 1 ampule INH BID [facility] Tranylcypromine [ Parnate] 10 Mg Tab) (Ptom) 0 mg PO QPM [facility] Tranylcypromine [ Parnate] 10 Mg Tab) (Ptom) 0 mg PO DAILY@1200 [facility] Ondansetron HCl (Ondansetron 4 Mg/2 Ml Sdv) 4 mg IV Q4H PRN PRN Reason: Nausea/Vomiting Oxycodone/Acetaminophen (Acetaminophen/Oxycodone 325-5 Mg Tab) 1 - 1.5 tab PO Q6H PRN PRN Reason: Pain Last Admin: 12/31/20 07:31 Dose: 1.5 tab Documented by: Tranylcypromine 10mg (Tab (Ptom)) 0 each PO ACBREAKFAST [facility] Last Admin: 12/31/20 08:44 Dose: 3 each Documented by: Losartan 100mg Tab ( (Ptom)) 1 each PO ACDINNER [facility] Aripiprazole 20mg (Tab (Ptom)) 1 each PO BEDTIME [facility] Polyethylene Glycol (Polyethylene Glycol 3350 Powder 17 Gm Packet) 17 gm PO DAILY PRN PRN Reason: Constipation Sodium Chloride (Sodium Chloride 0.9% 10 Ml Syringe) 10 ml FLUSH ASDIRECTED PRN PRN Reason: Keep Vein Open Discontinued Medications Aripiprazole (Aripiprazole 10 Mg Tab Own Med) 10 mg PO ONETIME ONE Stop: 12/30/20 21:01 Last Admin: 12/30/20 21:22 Dose: 10 mg Documented by: Aspirin (Aspirin 81 Mg Tab.Ec) 81 mg PO BEDTIME [facility] Last Admin: 12/30/20 23:53 Dose: Not Given Documented by: Aspirin (Aspirin 81 Mg Tab.Ec Own Med) 81 mg PO BEDTIME [facility] Last Admin: 12/30/20 21:20 Dose: 81 mg Documented by: Enoxaparin Sodium (Enoxaparin 40 Mg/0.4 Ml Syringe) 40 mg SUBCUT Q24H [facility] Last Admin: 12/30/20 16:52 Dose: 40 mg Documented by: Famotidine (Famotidine 20 Mg Tab) 60 mg PO BEDTIME [facility] Last Admin: 12/30/20 23:53 Dose: Not Given Documented by: Non-Formulary Medication (Clonazepam [Clonazepam]) 0.25 mg PO BEDTIME [facility] Last Admin: 12/30/20 23:53 Dose: Not Given Documented by: Pravastatin 10 Mg (Tab Own Med) 1 each PO NOW ONE Stop: 12/30/20 21:01 Last Admin: 12/30/20 21:21 Dose: 1 each Documented by: Tranylcypromine 10 (Mg Tab Own Med) 0 each PO NOW ONE Stop: 12/30/20 21:01 Last Admin: 12/30/20 21:20 Dose: 2 each Documented by: Polyethylene Glycol (Polyethylene Glycol 3350 Powder 17 Gm Packet) 17 gm PO DAILY [facility] - Exam General: Reports: Alert, Oriented, Cooperative, No Acute Distress Lungs: Reports: Normal Respiratory Effort, Decreased Breath Sounds, Rales, Rhonchi, Wheezing Cardiovascular: Reports: Regular Rate, Regular Rhythm, No Murmurs GI/Abdominal Exam: Soft, Non-Tender, No Organomegaly, No Distention Extremities: Non-Tender, No Pedal Edema
[2020-12-31] MEDS: LORazepam 0.5 MG Tab PO PRN (12:24)
[2020-12-31] MEDS ORDERED: LOSARTAN 100MG TAB (PTOM) PO SCH (16:00)
[2020-12-31] MEDS ORDERED: ARIPiprazole 10 MG Tab PO SCH (16:00)
[2020-12-31] MEDS ORDERED: Losartan 50 MG Tab PO SCH (16:00)
[2020-12-31] MEDS ORDERED: Aspirin 81 MG Tab.EC PO SCH (21:00)
== END 2020-12-31 13:09 | disposition home or self-care (01) ==
LOC: JP.MS 15:13
PROVIDERS: ADMIT Hospitalist; ATTEND Hospitalist
DX: J96.21 Acute and chronic respiratory failure with hypoxia (principal); J18.9 Pneumonia, unspecified organism; J44.1 Chronic obstructive pulmonary disease with (acute) exacerbation; I25.10 Atherosclerotic heart disease of native coronary artery without angina pectoris; E78.00 Pure hypercholesterolemia, unspecified; I10 Essential (primary) hypertension; J44.9 Chronic obstructive pulmonary disease, unspecified; I12.9 Hypertensive chronic kidney disease with stage 1 through stage 4 chronic kidney disease, or unspecified chronic kidney disease; N18.30 Chronic kidney disease, stage 3 unspecified; E21.3 Hyperparathyroidism, unspecified; E05.90 Thyrotoxicosis, unspecified without thyrotoxic crisis or storm; E66.9 Obesity, unspecified; Z88.8 Allergy status to other drugs, medicaments and biological substances; Z88.1 Allergy status to other antibiotic agents; Z79.899 Other long term (current) drug therapy; Z79.82 Long term (current) use of aspirin; Z86.73 Personal history of transient ischemic attack (TIA), and cerebral infarction without residual deficits; Z95.5 Presence of coronary angioplasty implant and graft; Z98.890 Other specified postprocedural states; Z87.891 Personal history of nicotine dependence; Z68.27 Body mass index [BMI] 27.0-27.9, adult
CPT/HCPCS: 36415; 71046; 80053; 83735; 84145; 85025; 86140; 94640; 94762; A9270; J0696; J1650; J3490; 96365; 96366; 96367; 96372; G0378; G0379; J7620-GY

== ENCOUNTER 2021-01-17 08:42 | Emergency (ER) | payer MEDICARE, BC ==
[2021-01-17] MEDS ORDERED: Sodium Chloride 0.9% 10 ML Syringe FLUSH PRN (08:48)
[2021-01-17] MEDS ORDERED: methylPREDNISolone Sodium Succinate 40 MG/1 ML SDV IVPUSH ONE (08:49)
[2021-01-17] MEDS ORDERED: Furosemide 20 MG/2 ML VIAL IVPUSH ONE (08:49)
--- NOTE | 2021-01-17 08:56 | EDM.PDOC ---
<Diana Steen - Last Filed: 01/17/21 13:18> ED HPI GENERAL MEDICAL PROBLEM - General Chief Complaint: Respiratory Problem Stated Complaint: [facility] Time Seen by Provider: 01/17/21 08:50 Source of Information: Reports: Patient, EMS, Family History Limitations: Reports: Respiratory Distress - History of Present Illness INITIAL COMMENTS - FREE TEXT/NARRATIVE: 75 year old female with significant medical history including COPD, chronic home oxygen use, CVA, CAD, and pneumonia presents via EMS from home due to increased shortness of breath. EMS reports that patient woke up at 0730 with shortness of breath and center chest pain. She reports trying her home neb treatment and not feeling any better so opted to call 911. She had a recent admission on 12/30 for COPD exacerbation and pneumonia and had been taking Levaquin and doxycycline up until 3 days ago. EMS found her to be hypoxic in the 80s on her normal home oxygen post neb treatment with some increased coughing. She had an EKG without acute findings and 324 mg asa via EMS. She presents on 10 L non rebreather mask in moderate respiratory distress. She is tachypneic and has audible wet, course lung sounds. She is alert and oriented, able to answer questions, and reports that her chest pain continues at an 8/10 center chest. Onset: Today Onset Date: 01/17/21 Onset Time: 07:30 Duration: Hour(s): Location: Reports: Chest Severity: Moderate Improves with: Reports: None Worsens with: Reports: None Context: Reports: Activity Associated Symptoms: Reports: Shortness of Breath, Weakness Right Chest Pain Score (Numeric/FACES): 8 - Related Data Allergies Allergy/AdvReac Type Severity Reaction Status Date / Time gemfibrozil [From Lopid] Allergy Severe Hives Verified 01/17/21 09:00 lidocaine [From LidoPatch] Allergy Intermediate Swollen Verified 01/17/21 09:00 Tongue ampicillin sodium Allergy Mild Itching Verified 01/17/21 09:00 [From Unasyn] gabapentin Allergy Mild Cannot Verified 01/17/21 09:00 Remember menthol [From LidoPatch] Allergy Mild Burning Verified 01/17/21 09:00 sulbactam sodium Allergy Mild Itching Verified 01/17/21 09:00 [From Unasyn] midazolam HCl [From Versed] AdvReac Severe Hallucinati Verified 01/17/21 09:00 ons prednisone AdvReac Intermediate Confusion Verified 01/17/21 09:00 erythromycin base AdvReac Mild local eye Verified 01/17/21 09:00 [Erythromycin Base] rxn using ophthalmic dontrell Home Meds: Home Meds Calcium Carbonate/Vitamin D3 [Calcium 600-Vit D3 200 Tablet] 1 each PO BID 04/24/13 [History] Multivitamin [Multi-Vitamin Daily] 1 each PO DAILY 04/24/13 [History] LORazepam [Ativan] 0.5 mg PO TID PRN 10/17/13 [History] Levothyroxine [Synthroid] 88 mcg PO ACBRK 10/17/13 [History] Losartan Potassium [Cozaar] 100 mg PO ACDINNER 10/17/13 [History] Nitroglycerin [Nitrostat] 0.4 mg SL ASDIRECTED PRN 10/17/13 [History] Tranylcypromine [Parnate] 30 mg PO ACBREAKFAST 01/06/14 [History] Tranylcypromine [Parnate] 30 mg PO TASNEEM 01/06/14 [History] Tranylcypromine [Parnate] 20 mg PO ACDINNER 07/18/14 [History] Aspirin [Ecotrin EC] 81 mg PO BEDTIME 09/05/15 [History] Ferrous Fumarate [Ferretts] 50 mg PO PCLUNCH 09/05/15 [History] Pravastatin [Pravachol] 10 mg PO ACDINNER 09/05/15 [History] Formoterol [Perforomist] 1 ampule INH BID 02/09/17 [History] ARIPiprazole [Abilify] 10 mg PO QAM 04/23/17 [History] Isosorbide Mononitrate [Imdur] 30 mg PO DAILY 04/23/17 [History] Mirabegron [Myrbetriq] 50 mg PO DAILY 04/23/17 [History] amLODIPine Besylate [Amlodipine Besylate] 5 mg PO BEDTIME 04/23/17 [History] ARIPiprazole [Abilify] 20 mg PO ACDINNER 05/09/17 [History] Budesonide [Pulmicort] 2 ml NEB BID 11/22/17 [History] clonazePAM [Klonopin] 0.25 - 0.5 mg PO DAILY PRN 11/22/17 [History] Cevimeline [Evoxac] 30 mg PO BID 03/07/20 [History] Ipratropium [Atrovent 0.03% Nasal [place]] 2 spray NASBOTH BID 03/07/20 [History] Triamcinolone Acetonide [Triamcinolone Acetonide 0.1% Crm] 1 applic TOP BID PRN 03/07/20 [History] Zinc Oxide 1 applic TOP ASDIRECTED PRN 03/07/20 [History] Famotidine [Pepcid AC] 60 mg PO BEDTIME 07/26/20 [History] polyethylene glycoL 3350 [MiraLAX] 17 gm PO DAILY 07/26/20 [History] oxyCODONE HCl/Acetaminophen [Oxycodone-Acetaminophen 5-325] 10 - 325 mg PO Q6H PRN 12/20/20 [History] Ipratropium/Albuterol Sulfate [Iprat-Albut 0.5-3(2.5) mg/3 ml] 3 ml INH QID PRN 12/30/20 [History] clonazePAM [Clonazepam] 0.25 mg PO BEDTIME 12/30/20 [History] levalbuterol HCL [Levalbuterol HCl] 1.25 mg IH TID PRN 12/30/20 [History] Past Medical History HEENT History: Reports: Cataract, Impaired Vision Other HEENT History: "hole between septum" Cardiovascular History: Reports: CAD, High Cholesterol, Hypertension, Other (See Below) Other Cardiovascular History: vasculitis Respiratory History: Reports: Asthma, COPD, Intubation, Previous, Other (See Below) Other Respiratory History: cylindrical bronchiectasis Gastrointestinal History: Reports: GERD, GI Bleed Genitourinary History: Reports: Urinary Incontinence, Other (See Below) Other Genitourinary History: hypertensive kidney disease; stage 3 chronic kidney disease [employer] History: Reports: Musculoskeletal History: Reports: Back Pain, Chronic, Fracture, Osteoarthritis, Other (See Below) Other Musculoskeletal History: bilat. shouler pain. bilat knee pain. left hip, low back and tail bone pain Neurological History: Reports: TIA, Other (See Below) Other Neuro History: Dysphagia Psychiatric History: Reports: Anxiety, Depression Endocrine/Metabolic History: Reports: Hyperparathyroidism, Hyperthyroidism, Obesity/BMI 30+, Osteoporosis Hematologic History: Reports: Anemia, Blood Transfusion(s) Other Hematologic History: blood reaction when pt was 11yrs old Immunologic History: Reports: None Oncologic (Cancer) History: Reports: None Dermatologic History: Reports: None - Infectious Disease History Infectious Disease History: Reports: Chicken Pox - Past Surgical History Head Surgeries/Procedures: Reports: None HEENT Surgical History: Reports: Cataract Surgery Cardiovascular Surgical History: Reports: Coronary Artery Stent Respiratory Surgical History: Reports: None GI Surgical History: Reports: Appendectomy Female Surgical History: Reports: Dilitation & Evacuation Endocrine Surgical History: Reports: None Neurological Surgical History: Reports: None Musculoskeletal Surgical History: Reports: Hip Replacement Dermatological Surgical History: Reports: None Social & Family History - Family History Family Medical History: No Pertinent Family History Neurological: Reports: CVA Oncologic: Reports: Leukemia - Caffeine Use Caffeine Use: Reports: None ED ROS GENERAL - Review of Systems Review Of Systems: See Below Constitutional: Reports: Weakness. Denies: Fever HEENT: Reports: No Symptoms Respiratory: Reports: Shortness of Breath, Cough. Denies: Hemoptysis Cardiovascular: Reports: Chest Pain, Dyspnea on Exertion. Denies: Edema Endocrine: Reports: No Symptoms GI/Abdominal: Denies: Abdominal Pain, Black Stool, Bloody Stool, Constipation, Diarrhea, Nausea, Vomiting : Reports: No Symptoms. Denies: Flank Pain Musculoskeletal: Reports: No Symptoms Skin: Reports: No Symptoms, Bruising. Denies: Diaphoresis, Rash Neurological: Denies: Confusion, Dizziness, Headache, Paresthesia Psychiatric: Reports: No Symptoms Hematologic/Lymphatic: Reports: No Symptoms Immunologic: Reports: No Symptoms ED EXAM, GENERAL - Physical Exam Exam: See Below Free Text/Narrative:: Patient is resting on cart, sitting at 90 degrees with obvious increased work of breathing, non rebreather in place at 6LPM. She is alert and oriented, skin warm and dry, Respirations are labored, dyspneic. Audible Course breath sounds, rhonchi in lung francis throughout. She does not have pedal edema, no pain to abdomen or chest with palpation. S1,S2 heart sounds with regular rate and rhythm. Course, wet cough heard. Exam Limited By: Respiratory Distress General Appearance: Alert, Moderate Distress Nose: Normal Inspection Throat/Mouth: Normal Inspection Head: Atraumatic Neck: Normal Inspection, Non-Tender Respiratory/Chest: Respiratory Distress, Rhonchi Cardiovascular: Normal Peripheral Pulses, No Edema. No: No Murmur, Tachycardia GI/Abdominal: Soft, Non-Tender. No: Distended Rectal (Female) Exam: No: Black Stool, Bloody Stool Back Exam: Normal Inspection Extremities: Normal Inspection, No Pedal Edema. No: Redness Neurological: Alert, Oriented. No: Confused Psychiatric: Normal Affect Skin Exam: Warm, Dry, Intact. No: Jaundice, Rash Lymphatic: No Adenopathy Course - Vital Signs Text/Narrative:: CBC, CMP, Troponin ABG, and Chest xray ordered. Chest imaging does not appear to be consistent with fluid overload, some mediastinal lymphadenopathy present. She is scheduled for CT chest tomorrow but ordered today due to acute changes. Placed on 6 LPM via non rebreather. and patient agree with plan of care at this time. No IV ordered at this time. - Re-Assessments/Exams Free Text/Narrative Re-Assessment/Exam: 01/17/21 10:13 patient noted to have increased CO2 on ABG- oxygen decreased to 3LPM NC 01/17/21 10:38 Consult to hospitalist here for admission but Dr Rodriguez recommendation for transfer to higher level of care for bronchoscopy. Patients family member reports that she was told to stop taking her regular oral Zithromax during course of doxycycline and Levaquin and then restart after completion of that course on Saturday01/16/21 with Zithromax. Family member forgot to restart Zithromax. Offered admission here with IV steroid and IV antibiotic treatment but patient does not tolerate steroids. Family would like to trial oral antibiotics with a home discharge and very close and prompt follow up with pulmonology. She now has returned to baseline SPO2 levels on home oxygen dose of 3LPM. Departure - Departure Time of Disposition: 12:19 Disposition: DC[facility] Condition: Fair Clinical Impression: Shortness of breath - Discharge Information Instructions: Chronic Obstructive Pulmonary Disease Exacerbation, [id number], Shortness of Breath, Adult, [id number] Referrals: PCP,None [Primary Care Provider] - Forms: ED Department Discharge Additional Instructions: Resume Zithromax at home. Continue all home medications, neb treatments and inhalers. Expect a call from the clinic to schedule prompt follow up with pulmonology for further workup of chronic lung disease. Return to ER if shortness of breath becomes worse, increased chest pain, fevers, vomiting, or diarrhea. <Efe Jaquez - Last Filed: 01/17/21 17:04> Course - Vital Signs Last Recorded V/S: Last Vital Signs Temp 97.7 F 01/17/21 08:54 Pulse 84 01/17/21 11:15 Resp 16 01/17/21 11:15 BP 168/66 H 01/17/21 11:15 Pulse Ox 91 L 01/17/21 11:15 - Orders/Labs/Meds Orders: Active Orders 24 hr Category Date Time Status Saline Lock Insert [OM.PC] Routine Oth 01/17/21 08:48 Ordered Labs: Laboratory Tests 01/17/21 01/17/21 01/17/21 Range/Units 08:48 09:02 09:02 WBC 9.9 (4.5-11.0) K/uL RBC 3.85 (3.30-5.50) M/uL Hgb 10.5 L (12.0-15.0) g/dL Hct 35.5 L (36.0-48.0) % MCV 92 (80-98) fL MCH 27 (27-31) pg MCHC 30 L (32-36) % Plt Count 147 L (150-400) K/uL Neut % (Auto) 67.0 H (36-66) % Lymph % (Auto) 12.3 L (24-44) % [place] % (Auto) 10.3 H (2-6) % Eos % (Auto) 10.1 H (2-4) % Baso % (Auto) 0.3 (0-1) % Puncture Site Lt brachial ABG pH 7.376 (7.350-7.450) ABG pCO2 51.4 H (35.0-42.0) mmHg ABG pO2 123.0 H (75.0-100.0) mmHg ABG HCO3 29.5 H (22.0-26.0) mmol/L ABG Total CO2 27.2 H (21.0-25.0) mmol/L ABG O2 Saturation 98.7 H (95.0-98.0) % ABG O2 Content 14.7 L (15.0-23.0) %vol ABG Base Excess 4.0 mm/L ABG Hemoglobin 10.8 L (12.0-16.0) g/dL ABG Oxyhemoglobin 95.7 % ABG Carboxyhemoglobin 2.3 H (0.0-1.6) % ABG Methemoglobin 0.7 % Matias Test Not performed O2 Delivery Device Non rebr mask Oxygen Flow Rate 6.0 L Sodium 142 (140-148) mmol/L Potassium 4.1 (3.6-5.2) mmol/L Chloride 104 (100-108) mmol/L Carbon Dioxide 30 (21-32) mmol/L Anion Gap 7.9 (5.0-14.0) mmol/L BUN 25 H (7-18) mg/dL Creatinine 1.1 H (0.6-1.0) mg/dL Est Cr Clr Drug Dosing 35.99 mL/min Estimated GFR (MDRD) 48 L (>60) Glucose 112 H (74-106) mg/dL Calcium 9.4 (8.5-10.1) mg/dL Total Bilirubin 0.3 (0.2-1.0) mg/dL AST 11 L (15-37) U/L ALT 10 L (12-78) U/L Alkaline Phosphatase 91 (46-116) U/L Troponin I < 0.017 (0.000-0.056) ng/mL Total Protein 7.0 (6.4-8.2) g/dL Albumin 2.6 L (3.4-5.0) g/dL Globulin 4.4 H (2.3-3.5) g/dL Albumin/Globulin Ratio 0.6 L (1.2-2.2) Meds: Medications Discontinued Medications Generic Name Dose Route Start Last Admin Trade Name Freq PRN Reason Stop Dose Admin Azithromycin 500 mg 01/17/21 10:39 01/17/21 10:47 Azithromycin 250 Mg Tab PO 01/17/21 10:40 500 mg ONETIME ONE Administration Furosemide 20 mg 01/17/21 08:49 Furosemide 20 Mg/2 Ml Vial IVPUSH 01/17/21 08:50 ONETIME ONE Methylprednisolone Sodium Succinate 40 mg 01/17/21 08:49 Methylprednisolone Sodium Succinate 40 Mg/1 Ml Sdv IVPUSH 01/17/21 08:50 ONETIME ONE Sodium Chloride 10 ml 01/17/21 08:48 Sodium Chloride 0.9% 10 Ml Syringe FLUSH ASDIRECTED PRN Keep Vein Open - Re-Assessments/Exams Free Text/Narrative Re-Assessment/Exam: 01/17/21 17:03 Patient was back to her baseline on discharge, her primary provider is working to get her a pulmonary consultation in the near future. Sepsis Event Note (ED) - Focused Exam Vital Signs: Vital Signs Temp Pulse Resp BP Pulse Ox 01/17/21 11:15 84 16 168/66 H 91 L 01/17/21 10:17 74 16 169/61 H 91 L 01/17/21 09:41 72 28 H 171/58 H 98 01/17/21 09:11 93 23 H 191/66 H 93 L 01/17/21 08:54 97.7 F 93 23 H 191/66 H 93 L - My Orders Last 24 Hours: My Active Orders 01/17/21 08:48 Saline Lock Insert [OM.PC] Routine - Assessment/Plan Last 24 Hours: My Active Orders 01/17/21 08:48 Saline Lock Insert [OM.PC] Routine Attestation - Student - Attestation Statement Attestation Statement: I personally performed or re-performed the physical examination and medical decision making. I have verified all student documentation or findings, including history, physical exam and/or medical decision making.
--- NOTE | 2021-01-17 09:34 | CR ---
CHEST: Portable 01/17/2021 at 9:10 AM CLINICAL HISTORY:Hypoxia, SOB COMPARISON:12/30/2020 FINDINGS: Heart size and pulmonary vascularity are normal. There are atherosclerotic changes in the aorta. There are prominent bronchial markings. There is diffuse interstitial similar to multiple prior studies. IMPRESSION: Chronic interstitial changes Prominent perihilar bronchial markings likely related to COPD Subtle superimposed infiltrate or pneumonitis would be difficult to exclude
--- NOTE | 2021-01-17 09:58 | CT ---
Chest wo Cont CLINICAL HISTORY: Persistent pneumonia, congestion TECHNIQUE: Transverse scans were obtained from the thoracic inlet to the lung bases without contrast. Auto dosage reduction in intervertebral reconstruction techniques were employed COMPARISONS: CT 03/21/2017 FINDINGS: There is diffuse emphysematous change. There are multiple large bulla in the right upper lobe. There is diffuse bronchiectasis and bronchial thickening. There are scattered patchy opacities the largest in the right upper lobe is suspect for pneumonia. There is a similar density in the right lower lobe. There are also patchy groundglass opacities in the right upper lobe. There are scattered irregular small solid and some solid nodules bilaterally and some tree-in-bud formation. There is a 1.4 cm lymph node in the mid pretracheal region. This is increased in size since prior study. Just below this is a 1.1 x 1.7 cm lymph node also increased in size since prior study. There is a 1.1 x 1.9 cm lymph node just anterior to the charleen which has increased in size significantly since prior study. There is bilateral hilar soft tissue fullness. Evaluation is limited with lack of IV contrast. This is increased since prior study and may represent some hilar adenopathy. IMPRESSION: Severe changes of COPD with the diffuse bronchiectasis and bronchial thickening consistent with chronic bronchitis Patchy pneumonic infiltrate in the right upper lobe anteriorly and right lower lobe posteriorly. Right upper lobe groundglass opacities suggest pneumonitis Enlarged mediastinal and hilar lymph nodes increased in size since prior study. These may be reactive due to infection. Neoplastic adenopathy is not excluded Scattered small solid and subsolid nodules and some scattered small tree-in-bud formations bilaterally most consistent with chronic infection. Some metastatic lung nodules cannot be absolutely excluded. Short-term follow-up CT following course of treatment is recommended
[2021-01-17] MEDS ORDERED: Azithromycin 250 MG Tab PO ONE (10:39)
[2021-01-17 11:34] VITALS: BP 168/66; PULSE 84
== END 2021-01-17 12:19 | disposition home or self-care (01) ==
LOC: JP.ED 08:42
DX: R06.02 Shortness of breath (principal); I25.10 Atherosclerotic heart disease of native coronary artery without angina pectoris; E78.00 Pure hypercholesterolemia, unspecified; I12.9 Hypertensive chronic kidney disease with stage 1 through stage 4 chronic kidney disease, or unspecified chronic kidney disease; N18.30 Chronic kidney disease, stage 3 unspecified; J44.9 Chronic obstructive pulmonary disease, unspecified; E03.9 Hypothyroidism, unspecified; E66.9 Obesity, unspecified; Z68.24 Body mass index [BMI] 24.0-24.9, adult; Z79.82 Long term (current) use of aspirin; Z79.899 Other long term (current) drug therapy; Z88.0 Allergy status to penicillin; Z88.1 Allergy status to other antibiotic agents; Z88.5 Allergy status to narcotic agent; Z88.8 Allergy status to other drugs, medicaments and biological substances; Z91.041 Radiographic dye allergy status
CPT/HCPCS: 36415; 36600; 71045; 71250; 80053; 82803; 84484; 85025; 99284; 99285; A9270

== ENCOUNTER 2021-01-23 12:49 | Emergency (ER) | payer MEDICARE, BC ==
--- NOTE | 2021-01-23 13:54 | EDM.PDOC ---
ED HPI GENERAL MEDICAL PROBLEM - General Chief Complaint: General Stated Complaint: NUMB FROM WAIST DOWN Time Seen by Provider: 01/23/21 13:30 Source of Information: Reports: Patient, Family, Old Records History Limitations: Reports: Other (patient is a poor historian) - History of Present Illness INITIAL COMMENTS - FREE TEXT/NARRATIVE: 75 yo female awoke from a nap today with numbness in both feet, L>R. Was able to stand with her walker and take one step to get into a wheel chair. She thinks her sx's are less pronounced now in the ER. Has no hx of DM. No hx of neuropathy. No arm/hand sx's. Is very dependent on care by her at home. Onset: Sudden Onset Date: 01/23/21 Duration: Minutes: Location: Reports: Lower Extremity, Left (worse than R), Lower Extremity, Right Quality: Reports: Other (numbness/weakness) Severity: Moderate Improves with: Reports: Other (time, is a little better now) Worsens with: Reports: Other (unknown) Context: Reports: Other (See HPI) Associated Symptoms: Reports: Chest Pain (transient) Treatments DIRECTOR DATA: Reports: Other (see below) (none) - Related Data Allergies Allergy/AdvReac Type Severity Reaction Status Date / Time gemfibrozil [From Lopid] Allergy Severe Hives Verified 01/23/21 13:58 lidocaine [From LidoPatch] Allergy Intermediate Swollen Verified 01/23/21 13:58 Tongue ampicillin sodium Allergy Mild Itching Verified 01/23/21 13:58 [From Unasyn] gabapentin Allergy Mild Cannot Verified 01/23/21 13:58 Remember menthol [From LidoPatch] Allergy Mild Burning Verified 01/23/21 13:58 sulbactam sodium Allergy Mild Itching Verified 01/23/21 13:58 [From Unasyn] midazolam HCl [From Versed] AdvReac Severe Hallucinati Verified 01/23/21 13:58 ons prednisone AdvReac Intermediate Confusion Verified 01/23/21 13:58 erythromycin base AdvReac Mild local eye Verified 01/23/21 13:58 [Erythromycin Base] rxn using ophthalmic dontrell Home Meds: Home Meds Calcium Carbonate/Vitamin D3 [Calcium 600-Vit D3 200 Tablet] 1 each PO BID 1 [History] Multivitamin [Multi-Vitamin Daily] 1 each PO DAILY 10/04/13 [History] LORazepam [Ativan] 0.5 mg PO TID PRN 10/17/13 [History] Levothyroxine [Synthroid] 88 mcg PO ACBRK 10/17/13 [History] Losartan Potassium [Cozaar] 100 mg PO ACDINNER 10/17/13 [History] Nitroglycerin [Nitrostat] 0.4 mg SL ASDIRECTED PRN 10/17/13 [History] Tranylcypromine [Parnate] 30 mg PO ACBREAKFAST 01/06/14 [History] Tranylcypromine [Parnate] 30 mg PO TASNEEM 01/06/14 [History] Tranylcypromine [Parnate] 20 mg PO ACDINNER 07/18/14 [History] Aspirin [Ecotrin EC] 81 mg PO BEDTIME 09/05/15 [History] Ferrous Fumarate [Ferretts] 50 mg PO PCLUNCH 09/05/15 [History] Pravastatin [Pravachol] 10 mg PO ACDINNER 09/05/15 [History] Formoterol [Perforomist] 1 ampule INH BID 02/09/17 [History] ARIPiprazole [Abilify] 10 mg PO QAM 04/23/17 [History] Isosorbide Mononitrate [Imdur] 30 mg PO DAILY 04/23/17 [History] Mirabegron [Myrbetriq] 50 mg PO DAILY 04/23/17 [History] amLODIPine Besylate [Amlodipine Besylate] 5 mg PO BEDTIME 04/23/17 [History] ARIPiprazole [Abilify] 20 mg PO ACDINNER 05/09/17 [History] Budesonide [Pulmicort] 2 ml NEB BID 11/22/17 [History] clonazePAM [Klonopin] 0.25 - 0.5 mg PO DAILY PRN 11/22/17 [History] Cevimeline [Evoxac] 30 mg PO BID 03/07/20 [History] Ipratropium [Atrovent 0.03% Nasal Aston] 2 spray NASBOTH BID 03/07/20 [History] Triamcinolone Acetonide [Triamcinolone Acetonide 0.1% Crm] 1 applic TOP BID PRN 08/17/20 [History] Zinc Oxide 1 applic TOP ASDIRECTED PRN 03/07/20 [History] Famotidine [Pepcid AC] 60 mg PO BEDTIME 07/26/20 [History] polyethylene glycoL 3350 [MiraLAX] 17 gm PO DAILY 07/26/20 [History] oxyCODONE HCl/Acetaminophen [Oxycodone-Acetaminophen 5-325] 10 - 325 mg PO Q6H PRN 12/20/20 [History] Ipratropium/Albuterol Sulfate [Iprat-Albut 0.5-3(2.5) mg/3 ml] 3 ml INH QID PRN 12/30/20 [History] clonazePAM [Clonazepam] 0.25 mg PO BEDTIME 12/30/20 [History] levalbuterol HCL [Levalbuterol HCl] 1.25 mg IH TID PRN 12/30/20 [History] Clopidogrel Bisulfate [Plavix] 75 mg PO DAILY #30 tablet 01/23/21 [Rx] Past Medical History HEENT History: Reports: Cataract, Impaired Vision Other HEENT History: "hole between septum" Cardiovascular History: Reports: CAD, High Cholesterol, Hypertension, Other (See Below) Other Cardiovascular History: vasculitis Respiratory History: Reports: Asthma, COPD, Intubation, Previous, Other (See Below) Other Respiratory History: cylindrical bronchiectasis Gastrointestinal History: Reports: GERD, GI Bleed Genitourinary History: Reports: Urinary Incontinence, Other (See Below) Other Genitourinary History: hypertensive kidney disease; stage 3 chronic kidney disease 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 shouler pain. bilat knee pain. left hip, low back and tail bone pain Neurological History: Reports: TIA, Other (See Below) Other Neuro History: Dysphagia Psychiatric History: Reports: Anxiety, Depression Endocrine/Metabolic History: Reports: Hyperparathyroidism, Hyperthyroidism, Obesity/BMI 30+, Osteoporosis Hematologic History: Reports: Anemia, Blood Transfusion(s) Other Hematologic History: blood reaction when pt was 11yrs old Immunologic History: Reports: None Oncologic (Cancer) History: Reports: None Dermatologic History: Reports: None - Infectious Disease History Infectious Disease History: Reports: Chicken Pox Other Infectious Disease History: had the covid vacc x2 - Past Surgical History Head Surgeries/Procedures: Reports: None HEENT Surgical History: Reports: Cataract Surgery Cardiovascular Surgical History: Reports: Coronary Artery Stent Respiratory Surgical History: Reports: None GI Surgical History: Reports: Appendectomy Female Surgical History: Reports: Dilitation & Evacuation Endocrine Surgical History: Reports: None Neurological Surgical History: Reports: None Musculoskeletal Surgical History: Reports: Hip Replacement Dermatological Surgical History: Reports: None Social & Family History - Family History Family Medical History: No Pertinent Family History Neurological: Reports: CVA Oncologic: Reports: Leukemia - Caffeine Use Caffeine Use: Reports: None ED ROS GENERAL - Review of Systems Review Of Systems: See Below Constitutional: Reports: No Symptoms HEENT: Reports: No Symptoms Respiratory: Reports: No Symptoms Cardiovascular: Reports: Chest Pain (resolved, transient) GI/Abdominal: Reports: No Symptoms : Reports: No Symptoms Musculoskeletal: Reports: No Symptoms Skin: Reports: No Symptoms Neurological: Reports: Numbness (both feet, L>R), Weakness (L leg weakness) ED EXAM, GENERAL - Physical Exam Exam: See Below Exam Limited By: No Limitations General Appearance: Alert, WD/WN, No Apparent Distress Eye Exam: Bilateral Eye: Normal Inspection Ears: Normal External Exam, Normal Canal, Hearing Grossly Normal Ear Exam: Bilateral Ear: Auricle Normal, Canal Normal Nose: Normal Inspection, No Blood Throat/Mouth: Normal Inspection, Normal Lips, Normal Oropharynx, Normal Voice, No Airway Compromise Head: Atraumatic, Normocephalic Neck: Normal Inspection Respiratory/Chest: No Respiratory Distress, Lungs Clear, Normal Breath Sounds, No Accessory Muscle Use Cardiovascular: Regular Rate, Rhythm, No Edema GI/Abdominal: Soft, Non-Tender Extremities: Normal Inspection, Normal Range of Motion, Non-Tender, No Pedal Edema. No: Pedal Edema Neurological: Alert, Oriented, CN II-XII Intact, Normal Cognition. No: No Motor/Sensory Deficits (just barely able to lift the L leg off the bed, decreased L foot ROM) Psychiatric: Normal Affect, Normal Mood Skin Exam: Warm, Dry, Intact, Normal Color, No Rash Course - Vital Signs Last Recorded V/S: Last Vital Signs Temp 36.6 C 01/23/21 13:56 Pulse 81 01/23/21 15:59 Resp 16 01/23/21 15:59 BP 171/66 H 01/23/21 15:59 Pulse Ox 94 L 01/23/21 15:59 - Orders/Labs/Meds Orders: Active Orders 24 hr Category Date Time Status Cardiac Monitoring [RC] .As Directed Care 01/23/21 13:52 Active Labs: Laboratory Tests 01/23/21 Range/Units 13:52 Troponin I < 0.017 (0.000-0.056) ng/mL Meds: Medications Discontinued Medications Generic Name Dose Route Start Last Admin Trade Name Freq PRN Reason Stop Dose Admin Clopidogrel Bisulfate 150 mg 01/23/21 15:11 Clopidogrel 75 Mg Tab PO 01/23/21 15:12 ONETIME ONE - Radiology Interpretation Free Text/Narrative:: Head CT scan-: Stable CT scan of the head. Mild diffuse volume loss. Changes of chronic small vessel ischemia. Please note that all CT scans at this facility use dose modulation, iterative reconstruction, and/or weight-based dosing when appropriate to reduce radiation dose to as low as reasonably achievable. Dictated by Yi Camejo MD @ 01/23/2021 2:56:53 PM (Electronic Signature) CT Results Date: 01/23/21 CT Results Time: 15:04 - Re-Assessments/Exams Free Text/Narrative Re-Assessment/Exam: 01/23/21 15:13 Sx's much better now in the ER Departure - Departure Time of Disposition: 16:03 Disposition: Home, Self-Care 01 Condition: Fair Clinical Impression: TIA (transient ischemic attack) - Discharge Information *PRESCRIPTION DRUG MONITORING PROGRAM REVIEWED*: Not Applicable *COPY OF PRESCRIPTION DRUG MONITORING REPORT IN PATIENT CHARLIE: Not Applicable Prescriptions: Clopidogrel Bisulfate [Plavix] 75 mg PO DAILY #30 tablet Referrals: PCP,None [Primary Care Provider] - Forms: ED Department Discharge Additional Instructions: Add Plavix 75 mg daily to your current medications. 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 Continue your other medications. Return as needed. Take your Chest CT disc to your pulmonology appt. Sepsis Event Note (ED) - Focused Exam Vital Signs: Vital Signs Temp Pulse Resp BP Pulse Ox 01/23/21 15:59 81 16 171/66 H 94 L 01/23/21 14:27 78 171/71 H 96 01/23/21 13:56 36.6 C 88 15 172/57 H 95 01/23/21 13:33 36.6 C 88 15 172/57 H 90 L - My Orders Last 24 Hours: My Active Orders 01/23/21 13:52 Cardiac Monitoring [RC] .As Directed - Assessment/Plan Last 24 Hours: My Active Orders 01/23/21 13:52 Cardiac Monitoring [RC] .As Directed
--- NOTE | 2021-01-23 14:59 | CRLCT ---
For Patients: As a result of the Century Cures Act, medical imaging exams and procedure reports are released immediately into your electronic medical record. You may view this report before your referring provider. If you have questions, please contact your health care provider. Indication: Left leg numbness and weakness. Technique: Multiple contiguous axial images were obtained from the skullbase to the vertex without intravenous contrast enhancement. Please note that all CT scans at this facility use dose modulation, iterative reconstruction, and/or weight-based dosing when appropriate to reduce radiation dose to as low as reasonably achievable. Comparison: February 22, 2020. Findings: The ventricles are symmetric. A lacunar infarct is identified in the [place] radiata on the right. The CSF spaces on the right are more prominent than on the left. However this is unchanged. Confluent areas of low-attenuation are identified in the periventricular white matter, stable. The basal cisterns are widely patent. No intra-axial or extra-axial hemorrhage is identified. No mass, mass effect or midline shift is identified. The bony calvarium is intact. The visualized paranasal sinuses and mastoid air cells are clear. Impression: Stable CT scan of the head. Mild diffuse volume loss. Changes of chronic small vessel ischemia. Please note that all CT scans at this facility use dose modulation, iterative reconstruction, and/or weight-based dosing when appropriate to reduce radiation dose to as low as reasonably achievable. Dictated by Yi Camejo MD @ 01/23/2021 2:56:[address] Yi Camejo @ Jan 23 2021 2:56PM
[2021-01-23] MEDS ORDERED: Clopidogrel 75 MG Tab PO ONE (15:11)
[2021-01-23 15:59] VITALS: BP 171/66; PULSE 81
[2021-01-23] MEDS ORDERED: Clopidogrel 75 MG Tab ONE (16:24)
== END 2021-01-23 16:44 | disposition home or self-care (01) ==
LOC: JP.ED 12:49
DX: G45.9 Transient cerebral ischemic attack, unspecified (principal); I25.10 Atherosclerotic heart disease of native coronary artery without angina pectoris; E78.00 Pure hypercholesterolemia, unspecified; I12.9 Hypertensive chronic kidney disease with stage 1 through stage 4 chronic kidney disease, or unspecified chronic kidney disease; N18.30 Chronic kidney disease, stage 3 unspecified; D63.1 Anemia in chronic kidney disease; J44.9 Chronic obstructive pulmonary disease, unspecified; K21.9 Gastro-esophageal reflux disease without esophagitis; M19.90 Unspecified osteoarthritis, unspecified site; E21.3 Hyperparathyroidism, unspecified; E66.9 Obesity, unspecified; Z68.26 Body mass index [BMI] 26.0-26.9, adult; Z88.8 Allergy status to other drugs, medicaments and biological substances; Z88.7 Allergy status to serum and vaccine; Z88.1 Allergy status to other antibiotic agents; Z79.02 Long term (current) use of antithrombotics/antiplatelets; Z79.899 Other long term (current) drug therapy
CPT/HCPCS: 36415; 70450; 84484; 99284; A9270

== ENCOUNTER 2021-02-14 13:55 | Inpatient (IN) | payer MEDICARE, BC ==
--- NOTE | 2021-02-14 14:32 | EDM.PDOC ---
ED HPI GENERAL MEDICAL PROBLEM - General Chief Complaint: Respiratory Problem Stated Complaint: SENT FROM CLINIC- O2 LEVELS LOW Time Seen by Provider: 02/14/21 14:10 Source of Information: Reports: Patient, Family, Provider History Limitations: Reports: No Limitations - History of Present Illness INITIAL COMMENTS - FREE TEXT/NARRATIVE: 75-year-old female with severe chronic COPD, chronic bronchitis and bronchiectasis presents with hypoxia after being evaluated at the clinic. She has been on cycling Bactrim and doxycycline for chronic bronchitis, was in the clinic today for evaluation and was found to be worsening over the past 24 hours. O2 saturations at the clinic were only 74%, she appeared weak and pale so she was sent to the emergency room. She is not struggling with a fever, she does not feel increased shortness of breath and she has no pain, no abdominal distention. She has had some intermittent right chest pain for the past 48 hours. Onset: Gradual Duration: Day(s): (2 to 3 days of worsening cough and right intermittent chest wall pain) Generalized Pain Score (Numeric/FACES): 8 - Related Data Allergies Allergy/AdvReac Type Severity Reaction Status Date / Time gemfibrozil [From Lopid] Allergy Severe Hives Verified 02/14/21 14:13 lidocaine [From LidoPatch] Allergy Intermediate Swollen Verified 02/14/21 14:13 Tongue ampicillin sodium Allergy Mild Itching Verified 02/14/21 14:13 [From Unasyn] gabapentin Allergy Mild Cannot Verified 02/14/21 14:13 Remember menthol [From LidoPatch] Allergy Mild Burning Verified 02/14/21 14:13 sulbactam sodium Allergy Mild Itching Verified 02/14/21 14:13 [From Unasyn] midazolam HCl [From Versed] AdvReac Severe Hallucinati Verified 02/14/21 14:13 ons prednisone AdvReac Intermediate Confusion Verified 02/14/21 14:13 erythromycin base AdvReac Mild local eye Verified 02/14/21 14:13 [Erythromycin Base] rxn using ophthalmic dontrell Home Meds: Home Meds Calcium Carbonate/Vitamin D3 [Calcium 600-Vit D3 200 Tablet] 1 each PO BID 04/24/13 [History] Multivitamin [Multi-Vitamin Daily] 1 each PO DAILY 04/24/13 [History] LORazepam [Ativan] 0.5 mg PO TID PRN 10/17/13 [History] Levothyroxine [Synthroid] 88 mcg PO ACBRK 10/17/13 [History] Losartan Potassium [Cozaar] 100 mg PO ACDINNER 10/17/13 [History] Nitroglycerin [Nitrostat] 0.4 mg SL ASDIRECTED PRN 10/17/13 [History] Tranylcypromine [Parnate] 30 mg PO ACBREAKFAST 01/06/14 [History] Tranylcypromine [Parnate] 30 mg PO TASNEEM 01/06/14 [History] Tranylcypromine [Parnate] 20 mg PO ACDINNER 07/18/14 [History] Aspirin [Ecotrin EC] 81 mg PO BEDTIME 09/05/15 [History] Ferrous Fumarate [Ferretts] 50 mg PO PCLUNCH 09/05/15 [History] Pravastatin [Pravachol] 10 mg PO ACDINNER 09/05/15 [History] Formoterol [Perforomist] 1 ampule INH BID 02/09/17 [History] ARIPiprazole [Abilify] 10 mg PO QAM 04/23/17 [History] Isosorbide Mononitrate [Imdur] 30 mg PO DAILY 04/23/17 [History] Mirabegron [Myrbetriq] 50 mg PO DAILY 04/23/17 [History] amLODIPine Besylate [Amlodipine Besylate] 5 mg PO BEDTIME 04/23/17 [History] ARIPiprazole [Abilify] 20 mg PO ACDINNER 05/09/17 [History] Budesonide [Pulmicort] 2 ml NEB BID 11/22/17 [History] clonazePAM [Klonopin] 0.25 - 0.5 mg PO DAILY PRN 11/22/17 [History] Cevimeline [Evoxac] 30 mg PO BID 03/07/20 [History] Ipratropium [Atrovent 0.03% Nasal [place]] 2 spray NASBOTH BID 03/07/20 [History] Triamcinolone Acetonide [Triamcinolone Acetonide 0.1% Crm] 1 applic TOP BID PRN 03/07/20 [History] Zinc Oxide 1 applic TOP ASDIRECTED PRN 03/07/20 [History] Famotidine [Pepcid AC] 60 mg PO BEDTIME 07/26/20 [History] polyethylene glycoL 3350 [MiraLAX] 17 gm PO DAILY 07/26/20 [History] Ipratropium/Albuterol Sulfate [Iprat-Albut 0.5-3(2.5) mg/3 ml] 3 ml INH QID PRN 12/30/20 [History] clonazePAM [Clonazepam] 0.25 mg PO BEDTIME 12/30/20 [History] levalbuterol HCL [Levalbuterol HCl] 1.25 mg IH TID PRN 12/30/20 [History] Clopidogrel Bisulfate [Plavix] 75 mg PO DAILY #30 tablet 01/23/21 [Rx] Furosemide [Lasix] 20 mg PO DAILY 02/14/21 [History] Zafirlukast [Accolate] 20 mg PO BID 02/14/21 [History] oxyCODONE HCl/Acetaminophen [Percocet 10-325 mg Tablet] 0 tab PO Q6H PRN 02/14/21 [History] Past Medical History HEENT History: Reports: Cataract, Impaired Vision Other HEENT History: "hole between septum" Cardiovascular History: Reports: CAD, High Cholesterol, Hypertension, Other (See Below) Other Cardiovascular History: vasculitis Respiratory History: Reports: Asthma, COPD, Intubation, Previous, Other (See Below) Other Respiratory History: cylindrical bronchiectasis Gastrointestinal History: Reports: GERD, GI Bleed Genitourinary History: Reports: Urinary Incontinence, Other (See Below) Other Genitourinary History: hypertensive kidney disease; stage 3 chronic kidney disease [employer] History: Reports: Musculoskeletal History: Reports: Back Pain, Chronic, Fracture, Osteoarthritis, Other (See Below) Other Musculoskeletal History: bilat. shouler pain. bilat knee pain. left hip, low back and tail bone pain Neurological History: Reports: TIA, Other (See Below) Other Neuro History: Dysphagia Psychiatric History: Reports: Anxiety, Depression Endocrine/Metabolic History: Reports: Hyperparathyroidism, Hyperthyroidism, Obesity/BMI 30+, Osteoporosis Hematologic History: Reports: Anemia, Blood Transfusion(s) Other Hematologic History: blood reaction when pt was 11yrs old Immunologic History: Reports: None Oncologic (Cancer) History: Reports: None Dermatologic History: Reports: None - Infectious Disease History Infectious Disease History: Reports: Chicken Pox Other Infectious Disease History: had the covid vacc x2 - Past Surgical History Head Surgeries/Procedures: Reports: None HEENT Surgical History: Reports: Cataract Surgery Cardiovascular Surgical History: Reports: Coronary Artery Stent Respiratory Surgical History: Reports: None GI Surgical History: Reports: Appendectomy Female Surgical History: Reports: Dilitation & Evacuation Endocrine Surgical History: Reports: None Neurological Surgical History: Reports: None Musculoskeletal Surgical History: Reports: Hip Replacement Dermatological Surgical History: Reports: None Social & Family History - Family History Family Medical History: No Pertinent Family History Neurological: Reports: CVA Oncologic: Reports: Leukemia - Caffeine Use Caffeine Use: Reports: None ED ROS GENERAL - Review of Systems Review Of Systems: See Below Constitutional: Reports: Fever, Chills, Malaise HEENT: Denies: Vision Change Respiratory: Reports: Shortness of Breath Cardiovascular: Reports: Chest Pain (Right-sided, intermittent) GI/Abdominal: Reports: Nausea. Denies: Abdominal Pain, Vomiting : Reports: No Symptoms Neurological: Reports: Dizziness, Weakness Psychiatric: Reports: Anxiety ED EXAM, GENERAL - Physical Exam Exam: See Below Free Text/Narrative:: Exam is somewhat difficult because even light palpation anywhere causes her to wince with discomfort out of proportion to real musculoskeletal pain. Exam Limited By: No Limitations General Appearance: Alert, No Apparent Distress, Other (Patient appears tired, mildly short of breath) Head: Atraumatic Neck: Supple, Non-Tender Respiratory/Chest: Rales (Diffuse rhonchi and rales bilaterally), Rhonchi Cardiovascular: Regular Rate, Rhythm. No: Tachycardia GI/Abdominal: Soft, Non-Tender Extremities: Pedal Edema (1+ symmetric pedal edema is present) Neurological: Alert, Oriented, No Motor/Sensory Deficits Psychiatric: Anxious Skin Exam: Warm, Dry Course - Vital Signs Last Recorded V/S: Last Vital Signs Temp 96.3 F L 02/14/21 16:47 Pulse 63 02/14/21 16:47 Resp 20 02/14/21 16:47 BP 147/55 H 02/14/21 17:41 Pulse Ox 93 L 02/14/21 16:47 - Orders/Labs/Meds Orders: Active Orders 24 hr Category Date Time Status cefTAZidime Pentahydrate [Fortaz] 1 gm Med 02/14/21 16:30 Active Sodium Chloride 0.9% [Normal Saline] 50 ml IV Q24H Medication Orders Acetaminophen (Acetaminophen 325 Mg Tab) 650 mg PO Q4H PRN PRN Reason: Pain (Mild 1-3)/fever Albuterol (Albuterol 0.083% 2.5 Mg/3 Ml Neb Soln) 2.5 mg NEB Q4H PRN PRN Reason: Shortness Of Breath/wheezing Albuterol/Ipratropium (Albuterol/Ipratropium 3.0-0.5 Mg/3 Ml Neb Soln) 3 ml INH QID PRN PRN Reason: Shortness of Breath Amlodipine Besylate (Amlodipine 5 Mg Tab) 5 mg PO BEDTIME W[facility]AM Arformoterol Tartrate (Arformoterol 15 Mcg/2 Ml Neb Soln) 15 mcg INH BIDRT [facility] Aripiprazole (Aripiprazole 10 Mg Tab) 20 mg PO ACDINNER [facility] Last Admin: 02/14/21 17:41 Dose: 20 mg Documented by: GAVI Aripiprazole (Aripiprazole 10 Mg Tab) 10 mg PO DAILY [facility] Aspirin (Aspirin 81 Mg Tab.Ec) 81 mg PO BEDTIME W[facility]AM Benzonatate (Benzonatate 100 Mg Cap) 100 mg PO Q8H PRN PRN Reason: Cough Budesonide (Budesonide 0.5 Mg/2 Ml Neb Susp) 0.5 mg NEB BIDRT [facility]AM Clonazepam (Clonazepam 0.5 Mg Tab) 0.25 mg PO BEDTIME [facility]AM Clopidogrel Bisulfate (Clopidogrel 75 Mg Tab) 75 mg PO DAILY [facility] Famotidine (Famotidine 20 Mg Tab) 60 mg PO BEDTIME [facility] Furosemide (Furosemide 20 Mg Tab) 20 mg PO DAILY [facility] Guaifenesin/Dextromethorphan (Guaifenesin/Dextromethorphan 100-10 Mg/5 Ml Soln 10 Ml Cup) 10 ml PO Q4H PRN PRN Reason: Cough Ceftazidime 1 gm/ Sodium (Chloride) 50 mls @ 100 mls/hr IV Q24H [facility] Last Admin: 02/14/21 17:26 Dose: 100 mls/hr Documented by: GAVI Sodium Chloride (Normal Saline) 1,000 mls @ 125 mls/hr IV ASDIRECTED [facility] Last Admin: 02/14/21 17:25 Dose: 125 mls/hr Documented by: GAVI Vancomycin HCl 1 gm/ Sodium (Chloride) 250 mls @ 150 mls/hr IV Q24H [facility] Last Admin: 02/14/21 18:20 Dose: 150 mls/hr Documented by: GAVI Ipratropium [place] (Ipratropium 0.03% Nasal Sap[place] 30 Ml Bot) 0 ml NASBOTH BID [facility]AM Isosorbide Mononitrate (Isosorbide Mononitrate 30 Mg Tab.Er) 30 mg PO DAILY [facility]AM Lactobacillus Rhamnosus (Lactobacillus Rhamnosus Gg (Probiotic) Cap) 1 cap PO BID [facility] Levalbuterol HCl (Levalbuterol Hcl 1.25 Mg/3 Ml Neb) 1.25 mg INH TID PRN PRN Reason: Wheezing Levothyroxine Sodium (Levothyroxine 88 Mcg Tab) 88 mcg PO ACBREAKFAST [facility]AM Lorazepam (Lorazepam 0.5 Mg Tab) 0.5 mg PO TID PRN PRN Reason: Anxiety Lorazepam (Lorazepam 2 Mg/Ml Sdv) 0.5 mg IVPUSH Q4H PRN PRN Reason: Nausea/Vomiting Losartan Potassium (Losartan 50 Mg Tab) 100 mg PO ACDINNER [facility] Last Admin: 02/14/21 17:41 Dose: 100 mg Documented by: GAVI Magnesium Hydroxide (Magnesium Hydroxide 400 Mg/5 Ml Susp 30 Ml Cup) 30 ml PO Q12H PRN PRN Reason: Constipation Melatonin (Melatonin 3 Mg Tab) 9 mg PO BEDTIME PRN PRN Reason: Sleep Mirabegron (Mirabegron 25 Mg Tab Extended Release) 50 mg PO DAILY [facility] Multivitamins/Minerals (Multivitamins With Iron/Calcium/Folic Acid/Minerals Tab) 1 tab PO DAILY [facility] Non-Formulary Medication (Cevimeline [Evoxac]) 30 mg PO BID [facility] Non-Formulary Medication (Tranylcypromine [Parnate]) 20 mg PO ACDINNER [facility] Non-Formulary Medication (Tranylcypromine [Parnate]) 30 mg PO ACBREAKFAST [facility] Non-Formulary Medication (Tranylcypromine [Parnate]) 30 mg PO TASNEEM [facility] Non-Formulary Medication (Zafirlukast [Accolate]) 20 mg PO BID [facility] Ondansetron HCl (Ondansetron 4 Mg/2 Ml Sdv) 4 mg IV Q6H PRN PRN Reason: Nausea/Vomiting Ondansetron HCl (Ondansetron 4 Mg Tab.Dis) 4 mg PO Q6H PRN PRN Reason: Nausea able to take PO Oxycodone/Acetaminophen (Acetaminophen/Oxycodone 325-10 Mg Tab) 1 - 1.5 tab PO Q6H PRN PRN Reason: Pain Last Admin: 02/14/21 17:50 Dose: 1 tab Documented by: GAVI Polyethylene Glycol (Polyethylene Glycol 3350 Powder 17 Gm Packet) 17 gm PO DAILY [facility] Pravastatin Sodium (Pravastatin 20 Mg Tab) 10 mg PO ACDINNER [facility] Last Admin: 02/14/21 17:42 Dose: 10 mg Documented by: GAVI Labs: Laboratory Tests 02/14/21 02/14/21 02/14/21 Range/Units 14:35 14:35 14:45 WBC 11.2 H (4.5-11.0) K/uL RBC 3.19 L (3.30-5.50) M/uL Hgb 8.6 L (12.0-15.0) g/dL Hct 29.2 L (36.0-48.0) % MCV 92 (80-98) fL MCH 27 (27-31) pg MCHC 30 L (32-36) % Plt Count 246 (150-400) K/uL Neut % (Auto) 78.5 H (36-66) % Lymph % (Auto) 4.6 L (24-44) % [place] % (Auto) 12.1 H (2-6) % Eos % (Auto) 4.7 H (2-4) % Baso % (Auto) 0.1 (0-1) % Puncture Site Right radial ABG pH 7.377 (7.350-7.450) ABG pCO2 54.9 H (35.0-42.0) mmHg ABG pO2 56.0 L (75.0-100.0) mmHg ABG HCO3 31.5 H (22.0-26.0) mmol/L ABG Total CO2 29.9 H (21.0-25.0) mmol/L ABG O2 Saturation 87.6 L (95.0-98.0) % ABG O2 Content 10.7 L (15.0-23.0) %vol ABG Base Excess 6.0 mm/L ABG Hemoglobin 8.8 L (12.0-16.0) g/dL ABG Oxyhemoglobin 85.6 % ABG Carboxyhemoglobin 1.5 (0.0-1.6) % ABG Methemoglobin 0.8 % Matias Test Passed O2 Delivery Device Nasal cannula Sodium 137 L (140-148) mmol/L Potassium 4.7 (3.6-5.2) mmol/L Chloride 100 (100-108) mmol/L Carbon Dioxide 33 H (21-32) mmol/L Anion Gap 8.7 (5.0-14.0) mmol/L BUN 19 H (7-18) mg/dL Creatinine 1.6 H (0.6-1.0) mg/dL Est Cr Clr Drug Dosing 21.49 mL/min Estimated GFR (MDRD) 31 L (>60) Glucose 125 H (74-106) mg/dL Calcium 8.8 (8.5-10.1) mg/dL Meds: Medications Generic Name Dose Route Start Last Admin Trade Name Freq PRN Reason Stop Dose Admin Acetaminophen 650 mg 02/14/21 16:47 Acetaminophen 325 Mg Tab PO Q4H PRN Pain (Mild 1-3)/fever Albuterol 2.5 mg 02/14/21 16:47 Albuterol 0.083% 2.5 Mg/3 Ml Neb Soln NEB Q4H PRN Shortness Of Breath/wheezing Albuterol/Ipratropium 3 ml 02/14/21 16:47 Albuterol/Ipratropium 3.0-0.5 Mg/3 Ml Neb Soln INH QID PRN Shortness of Breath Amlodipine Besylate 5 mg 02/14/21 21:00 Amlodipine 5 Mg Tab PO BEDTIME WISAM Arformoterol Tartrate 15 mcg 02/14/21 21:00 Arformoterol 15 Mcg/2 Ml Neb Soln INH BIDRT W[facility]AM Aripiprazole 20 mg 02/14/21 17:00 02/14/21 17:41 Aripiprazole 10 Mg Tab PO 20 mg ACDINNER [facility] Administration Aripiprazole 10 mg 02/15/21 09:00 Aripiprazole 10 Mg Tab PO DAILY [facility] Aspirin 81 mg 02/14/21 21:00 Aspirin 81 Mg Tab.Ec PO BEDTIME W[facility]AM Benzonatate 100 mg 02/14/21 16:47 Benzonatate 100 Mg Cap PO Q8H PRN Cough Budesonide 0.5 mg 02/14/21 21:00 Budesonide 0.5 Mg/2 Ml Neb Susp NEB BIDRT [facility] Clonazepam 0.25 mg 02/14/21 21:00 Clonazepam 0.5 Mg Tab PO BEDTIME [facility] Clopidogrel Bisulfate 75 mg 02/15/21 09:00 Clopidogrel 75 Mg Tab PO DAILY [facility] Famotidine 60 mg 02/14/21 21:00 Famotidine 20 Mg Tab PO BEDTIME [facility] Furosemide 20 mg 02/15/21 09:00 Furosemide 20 Mg Tab PO DAILY [facility] Guaifenesin/Dextromethorphan 10 ml 02/14/21 16:47 Guaifenesin/Dextromethorphan 100-10 Mg/5 Ml Soln 10 Ml Cup PO Q4H PRN Cough Ceftazidime 1 gm/ Sodium 50 mls @ 100 mls/hr 02/14/21 16:30 02/14/21 17:26 Chloride IV 100 mls/hr Q24H [facility] Administration Sodium Chloride 1,000 mls @ 125 mls/hr 02/14/21 16:47 02/14/21 17:25 Normal Saline IV 125 mls/hr ASDIRECTED [facility] Administration Vancomycin HCl 1 gm/ Sodium 250 mls @ 150 mls/hr 02/14/21 17:00 02/14/21 18:20 Chloride IV 150 mls/hr Q24H [facility] Administration Ipratropium [place] 0 ml 02/14/21 21:00 Ipratropium 0.03% Nasal [place] 30 Ml Bot NASBOTH BID [facility] Isosorbide Mononitrate 30 mg 02/15/21 09:00 Isosorbide Mononitrate 30 Mg Tab.Er PO DAILY [facility] Lactobacillus Rhamnosus 1 cap 02/14/21 21:00 Lactobacillus Rhamnosus Gg (Probiotic) Cap PO BID [facility] Levalbuterol HCl 1.25 mg 02/14/21 16:59 Levalbuterol Hcl 1.25 Mg/3 Ml Neb INH TID PRN Wheezing Levothyroxine Sodium 88 mcg 02/15/21 07:30 Levothyroxine 88 Mcg Tab PO ACBREAKFAST [facility] Lorazepam 0.5 mg 02/14/21 16:47 Lorazepam 0.5 Mg Tab PO TID PRN Anxiety Lorazepam 0.5 mg 02/14/21 16:47 Lorazepam 2 Mg/Ml Sdv IVPUSH Q4H PRN Nausea/Vomiting Losartan Potassium 100 mg 02/14/21 17:00 02/14/21 17:41 Losartan 50 Mg Tab PO 100 mg ACDINNER [facility] Administration Magnesium Hydroxide 30 ml 02/14/21 16:47 Magnesium Hydroxide 400 Mg/5 Ml Susp 30 Ml Cup PO Q12H PRN Constipation Melatonin 9 mg 02/14/21 16:47 Melatonin 3 Mg Tab PO BEDTIME PRN Sleep Mirabegron 50 mg 02/15/21 09:00 Mirabegron 25 Mg Tab Extended Release PO DAILY [facility] Multivitamins/Minerals 1 tab 02/15/21 09:00 Multivitamins With Iron/Calcium/Folic Acid/Minerals Tab PO DAILY [facility] Non-Formulary Medication 30 mg 02/14/21 21:00 Cevimeline [Evoxac] PO BID [facility] Non-Formulary Medication 20 mg 02/15/21 16:00 Tranylcypromine [Parnate] PO ACDINNER [facility] Non-Formulary Medication 30 mg 02/15/21 07:30 Tranylcypromine [Parnate] PO ACBREAKFAST [facility] Non-Formulary Medication 30 mg 02/15/21 12:00 Tranylcypromine [Parnate] PO TASNEEM [facility] Non-Formulary Medication 20 mg 02/14/21 21:00 Zafirlukast [Accolate] PO BID [facility] Ondansetron HCl 4 mg 02/14/21 16:47 Ondansetron 4 Mg/2 Ml Sdv IV Q6H PRN Nausea/Vomiting Ondansetron HCl 4 mg 02/14/21 16:47 Ondansetron 4 Mg Tab.Dis PO Q6H PRN Nausea able to take PO Oxycodone/Acetaminophen 1 - 1.5 tab 02/14/21 17:09 02/14/21 17:50 Acetaminophen/Oxycodone 325-10 Mg Tab PO 1 tab Q6H PRN Administration Pain Polyethylene Glycol 17 gm 02/15/21 09:00 Polyethylene Glycol 3350 Powder 17 Gm Packet PO DAILY [facility] Pravastatin Sodium 10 mg 02/14/21 17:00 02/14/21 17:42 Pravastatin 20 Mg Tab PO 10 mg ACDINNER [facility] Administration - Re-Assessments/Exams Free Text/Narrative Re-Assessment/Exam: 02/14/21 18:51 Portable 1 view chest x-ray shows an increase in right middle lobe infiltrate compared to previous. She appears to be failing outpatient treatment with antibiotics, also is struggling with a COPD exacerbation. Discussed this with Dr. Rodriguez, he kindly agreed to see the patient and assess for admission. 02/14/21 18:52 White count was mildly elevated 11,200, ABGs were done which showed a normal pH however she was hypoxic and had an elevated CO2 at 54.9. She does have chronic CO2 elevation. Departure - Departure Time of Disposition: 16:30 Disposition: Admitted As Inpatient 65 Clinical Impression: COPD exacerbation Right upper lobe pneumonia Qualifiers: Pneumonia type: due to unspecified organism Qualified Code(s): J18.9 - Pneumonia, unspecified organism - Discharge Information Sepsis Event Note (ED) - Evaluation Sepsis Screening Result: No Definite Risk - Focused Exam Vital Signs: Vital Signs Temp Pulse Resp BP Pulse Ox 02/14/21 14:17 86 L 02/14/21 14:16 98.4 F 88 14 126/49 L 74 L 02/14/21 14:10 98.4 F 88 14 126/49 L 74 L
--- NOTE | 2021-02-14 16:06 | CRLCR ---
For Patients: As a result of the Century Cures Act, medical imaging exams and procedure reports are released immediately into your electronic medical record. You may view this report before your referring provider. If you have questions, please contact your health care provider. INDICATION: HYPOXIA, COUGH HISTORY: Hypoxia. Cough. COMPARISON: 01/17/2021. TECHNIQUE: Chest one-view. Findings: Bilateral pulmonary opacities have progressed when compared with 01/17/2021. Differential diagnosis includes alveolar edema or pneumonia. Mild blunting of the left lateral costophrenic sulcus, similar to previous. This could represent a small left pleural effusion or pleural thickening. There is no pneumothorax. The central airway is normal. S shaped scoliotic curvature. Degenerative calcific plaque in the thoracic aorta. IMPRESSION: Pulmonary opacities have progressed when compared with 01/17/2021. Dictated by Cem Farmer MD @ 02/14/2021 4:05:51 PM Dictated by: Cem Farmer MD @ 02/14/2021 16:05:59 (Electronically Signed)
--- NOTE | 2021-02-14 16:35 | PCM.HP.2 ---
H&P History of Present Illness - General Date of Service: 02/14/21 Admit Problem/Dx: Admission Diagnosis/Problem Admission Diagnosis/Problem Bronchiectasis with acute exacerbation Source of Information: Patient, Family, Provider History Limitations: Reports: No Limitations - History of Present Illness Initial Comments - Free Text/Narative: CC: sent from clinic HPI: Cathy Kee presents to the emergency room from the clinic where she was being evaluated for cough and weakness. She was sent to the emergency room when she was noted to have oxygen saturations in the mid 70s. She says she does not currently feel all that short of breath but has been coughing quite a bit. Cough is more wet and loose than usual. She does not think she has had any fevers. Strength has not been as good as usual and energy has been down. She has been on oral antibiotics for the last several weeks to treat an MRSA infection of her bronchiectasis. Most recently she has been on Bactrim and was taking this at the time of presentation. She does note some mild pleuritic chest pain on the right side. This seems to come and go but is worse with coughing. She has not tried anything specific to make it better. The past couple of days have been worse though symptoms have been present for the past week or so. No nausea or abdominal pain. No change in bowel movements. No lower extremity edema. No obvious sick contacts. Work-up in the emergency room revealed mild leukocytosis and increased hypoxia from baseline requiring more supplemental oxygen than usual. Chest x-ray sugge sted a right lung pneumonia in the midlung field that was new compared to a few weeks ago. With her acute on chronic respiratory failure and worsening despite being on oral antibiotics as an outpatient she will be admitted for IV antibiotics and additional work-up. - Related Data Allergies/Adverse Reactions: Allergies Allergy/AdvReac Type Severity Reaction Status Date / Time gemfibrozil [From Lopid] Allergy Severe Hives Verified 02/14/21 14:13 lidocaine [From LidoPatch] Allergy Intermediate Swollen Verified 02/14/21 14:13 Tongue ampicillin sodium Allergy Mild Itching Verified 02/14/21 14:13 [From Unasyn] gabapentin Allergy Mild Cannot Verified 02/14/21 14:13 Remember menthol [From LidoPatch] Allergy Mild Burning Verified 02/14/21 14:13 sulbactam sodium Allergy Mild Itching Verified 02/14/21 14:13 [From Unasyn] midazolam HCl [From Versed] AdvReac Severe Hallucinati Verified 02/14/21 14:13 ons prednisone AdvReac Intermediate Confusion Verified 02/14/21 14:13 erythromycin base AdvReac Mild local eye Verified 02/14/21 14:13 [Erythromycin Base] rxn using ophthalmic dontrell Home Medications: Home Meds Calcium Carbonate/Vitamin D3 [Calcium 600-Vit D3 200 Tablet] 1 each PO BID 04/24/13 [History] Multivitamin [Multi-Vitamin Daily] 1 each PO DAILY 04/24/13 [History] LORazepam [Ativan] 0.5 mg PO TID PRN 10/17/13 [History] Levothyroxine [Synthroid] 88 mcg PO ACBRK 10/17/13 [History] Losartan Potassium [Cozaar] 100 mg PO ACDINNER 10/17/13 [History] Nitroglycerin [Nitrostat] 0.4 mg SL ASDIRECTED PRN 10/17/13 [History] Tranylcypromine [Parnate] 30 mg PO ACBREAKFAST 01/06/14 [History] Tranylcypromine [Parnate] 30 mg PO TASNEEM 01/06/14 [History] Tranylcypromine [Parnate] 20 mg PO ACDINNER 07/18/14 [History] Aspirin [Ecotrin EC] 81 mg PO BEDTIME 09/05/15 [History] Ferrous Fumarate [Ferretts] 50 mg PO PCLUNCH 09/05/15 [History] Pravastatin [Pravachol] 10 mg PO ACDINNER 09/05/15 [History] Formoterol [Perforomist] 1 ampule INH BID 02/09/17 [History] ARIPiprazole [Abilify] 10 mg PO QAM 04/23/17 [History] Isosorbide Mononitrate [Imdur] 30 mg PO DAILY 04/23/17 [History] Mirabegron [Myrbetriq] 50 mg PO DAILY 04/23/17 [History] amLODIPine Besylate [Amlodipine Besylate] 5 mg PO BEDTIME 04/23/17 [History] ARIPiprazole [Abilify] 20 mg PO ACDINNER 05/09/17 [History] Budesonide [Pulmicort] 2 ml NEB BID 11/22/17 [History] clonazePAM [Klonopin] 0.25 - 0.5 mg PO DAILY PRN 11/22/17 [History] Cevimeline [Evoxac] 30 mg PO BID 03/07/20 [History] Ipratropium [Atrovent 0.03% Nasal [place]] 2 spray NASBOTH BID 03/07/20 [History] Triamcinolone Acetonide [Triamcinolone Acetonide 0.1% Crm] 1 applic TOP BID PRN 03/07/20 [History] Zinc Oxide 1 applic TOP ASDIRECTED PRN 03/07/20 [History] Famotidine [Pepcid AC] 60 mg PO BEDTIME 07/26/20 [History] polyethylene glycoL 3350 [MiraLAX] 17 gm PO DAILY 07/26/20 [History] Ipratropium/Albuterol Sulfate [Iprat-Albut 0.5-3(2.5) mg/3 ml] 3 ml INH QID PRN 12/30/20 [History] clonazePAM [Clonazepam] 0.25 mg PO BEDTIME 12/30/20 [History] levalbuterol HCL [Levalbuterol HCl] 1.25 mg IH TID PRN 12/30/20 [History] Clopidogrel Bisulfate [Plavix] 75 mg PO DAILY #30 tablet 01/23/21 [Rx] Furosemide [Lasix] 20 mg PO DAILY 02/14/21 [History] Zafirlukast [Accolate] 20 mg PO BID 02/14/21 [History] oxyCODONE HCl/Acetaminophen [Percocet 10-325 mg Tablet] 0 tab PO Q6H PRN 02/14/21 [History] Past Medical History HEENT History: Reports: Cataract, Impaired Vision Other HEENT History: "hole between septum" Cardiovascular History: Reports: CAD, High Cholesterol, Hypertension, Other (See Below) Other Cardiovascular History: vasculitis Respiratory History: Reports: Asthma, COPD, Intubation, Previous, Other (See Below) Other Respiratory History: cylindrical bronchiectasis Gastrointestinal History: Reports: GERD, GI Bleed Genitourinary History: Reports: Urinary Incontinence, Other (See Below) Other Genitourinary History: hypertensive kidney disease; stage 3 chronic kidney disease 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 shouler pain. bilat knee pain. left hip, low back and tail bone pain Neurological History: Reports: TIA, Other (See Below) Other Neuro History: Dysphagia Psychiatric History: Reports: Anxiety, Depression Endocrine/Metabolic History: Reports: Hyperparathyroidism, Hyperthyroidism, Obesity/BMI 30+, Osteoporosis Hematologic History: Reports: Anemia, Blood Transfusion(s) Other Hematologic History: blood reaction when pt was 11yrs old Immunologic History: Reports: None Oncologic (Cancer) History: Reports: None Dermatologic History: Reports: None - Infectious Disease History Infectious Disease History: Reports: Chicken Pox Other Infectious Disease History: had the covid vacc x2 - Past Surgical History Head Surgeries/Procedures: Reports: None HEENT Surgical History: Reports: Cataract Surgery Cardiovascular Surgical History: Reports: Coronary Artery Stent Respiratory Surgical History: Reports: None GI Surgical History: Reports: Appendectomy Female Surgical History: Reports: Dilitation & Evacuation Endocrine Surgical History: Reports: None Neurological Surgical History: Reports: None Musculoskeletal Surgical History: Reports: Hip Replacement Dermatological Surgical History: Reports: None Social & Family History - Family History Family Medical History: No Pertinent Family History Neurological: Reports: CVA Oncologic: Reports: Leukemia - Tobacco Use Tobacco Use Status *Q: Former Tobacco User Used Tobacco, but Quit: Yes - Caffeine Use Caffeine Use: Reports: None - Alcohol Use Alcohol Use History: No H&P Review of Systems - Review of Systems: Review Of Systems: See Below Free Text/Narrative: A complete 12 point review of systems was obtained. Pertinent positives and negatives are noted in the history of present illness. All other systems were reviewed and were negative except as noted. Exam - Exam Exam: See Below - Vital Signs Vital Signs: Last Vital Signs Temp 36.9 C 02/14/21 14:16 Pulse 88 02/14/21 14:16 Resp 14 02/14/21 14:16 BP 126/49 L 02/14/21 14:16 Pulse Ox 86 L 02/14/21 14:17 Weight: 63.049 kg - Exam Quality Assessment: Supplemental Oxygen General: Alert, Oriented, Cooperative. No: Mild Distress HEENT: Conjunctiva Clear, Mucosa Moist & [place]. No: Scleral Icterus Neck: Supple, Trachea Midline Lungs: Normal Respiratory Effort, Crackles (moderate midlung bilaterally), Rhonchi (diffuse both lower lungs ) Cardiovascular: Regular Rate, Regular Rhythm. No: Systolic Murmur GI/Abdominal Exam: Normal Bowel Sounds, Soft, Non-Tender, No Distention Back Exam: Normal Inspection, Full Range of Motion Extremities: No Pedal Edema. No: Increased Warmth Skin: Warm, Dry Neuro Extensive - Mental Status: Alert, Oriented x3, Nl Response to Commands Neuro Extensive - Motor, Sensory, Reflexes: Tremor (mild both hands). No: Dysarthria, Abnormal Motor Psychiatric: Alert, Normal Affect - Patient Data Lab Results Last 24 hrs: Laboratory Results - last 24 hr 02/14/21 02/14/21 02/14/21 Range/Units 14:35 14:35 14:45 WBC 11.2 H (4.5-11.0) K/uL RBC 3.19 L (3.30-5.50) M/uL Hgb 8.6 L (12.0-15.0) g/dL Hct 29.2 L (36.0-48.0) % MCV 92 (80-98) fL MCH 27 (27-31) pg MCHC 30 L (32-36) % Plt Count 246 (150-400) K/uL Neut % (Auto) 78.5 H (36-66) % Lymph % (Auto) 4.6 L (24-44) % [place] % (Auto) 12.1 H (2-6) % Eos % (Auto) 4.7 H (2-4) % Baso % (Auto) 0.1 (0-1) % Puncture Site Right radial ABG pH 7.377 (7.350-7.450) ABG pCO2 54.9 H (35.0-42.0) mmHg ABG pO2 56.0 L (75.0-100.0) mmHg ABG HCO3 31.5 H (22.0-26.0) mmol/L ABG Total CO2 29.9 H (21.0-25.0) mmol/L ABG O2 Saturation 87.6 L (95.0-98.0) % ABG O2 Content 10.7 L (15.0-23.0) %vol ABG Base Excess 6.0 mm/L ABG Hemoglobin 8.8 L (12.0-16.0) g/dL ABG Oxyhemoglobin 85.6 % ABG Carboxyhemoglobin 1.5 (0.0-1.6) % ABG Methemoglobin 0.8 % Matias Test Passed O2 Delivery Device Nasal cannula Sodium 137 L (140-148) mmol/L Potassium 4.7 (3.6-5.2) mmol/L Chloride 100 (100-108) mmol/L Carbon Dioxide 33 H (21-32) mmol/L Anion Gap 8.7 (5.0-14.0) mmol/L BUN 19 H (7-18) mg/dL Creatinine 1.6 H (0.6-1.0) mg/dL Est Cr Clr Drug Dosing 21.49 mL/min Estimated GFR (MDRD) 31 L (>60) Glucose 125 H (74-106) mg/dL Calcium 8.8 (8.5-10.1) mg/dL Result Diagrams: 02/14/21 14:35 02/14/21 14:35 Imaging Impressions Last 24 hrs: CXR-images personally reviewed-there is right mid lung infiltrate and mild bilateral lower lung changes. the right mid lung infiltrate is new from 01/17/21 Sepsis Event Note - Evaluation Sepsis Screening Result: No Definite Risk - Focused Exam Vital Signs: Vital Signs Temp Pulse Resp BP Pulse Ox 02/14/21 14:17 86 L 02/14/21 14:16 36.9 C 88 14 126/49 L 74 L 02/14/21 14:10 36.9 C 88 14 126/49 L 74 L *Q Meaningful Use (ADM) - VTE Risk Assess *Q Each Risk Factor Represents 1 Point: Obesity ( BMI > 25 kg/m2), Serious lung disease including pneumonia, Abnormal Pulmonary Function (COPD) Total Score 1 Point Risk Factors: 3 Each Risk Factor Represents 2 Points: None Total Score 2 Point Risk Factors: 0 Each Risk Factor Represents 3 Points: Age 75 Years or Greater Total Score 3 Point Risk Factors: 3 Each Risk Factor Represents 5 Points: None Total Score 5 Point Risk Factors: 0 Venous Thromboembolism Risk Factor Score *Q: 6 - Problem List (1) Bronchiectasis with acute exacerbation Status: Acute Current Visit: Yes (2) COPD with emphysema SNOMED Code(s): 37615139 ICD Code: J43.9 - EMPHYSEMA, UNSPECIFIED Status: Chronic Current Visit: Yes Qualifiers: Emphysema type: unspecified Qualified Code(s): J43.9 - Emphysema, unspecified (3) Acute on chronic respiratory failure SNOMED Code(s): 20827208 ICD Code: J96.20 - ACUTE AND CHR RESP FAILURE, UNSP W HYPOXIA OR HYPERCAPNIA Status: Acute Current Visit: Yes Qualifiers: Respiratory failure complication: hypoxia Qualified Code(s): J96.21 - Acute and chronic respiratory failure with hypoxia (4) Depression with anxiety SNOMED Code(s): 631214375 ICD Code: F41.8 - OTHER SPECIFIED ANXIETY DISORDERS Status: Chronic Current Visit: Yes Problem List Initiated/Reviewed/Updated: Yes Orders Last 24hrs: Active Orders 24 hr Category Date Time Status Patient Status Manage Transfer [TRANSFER] Routine ADT 02/14/21 16:18 Ordered cefTAZidime Pentahydrate [Fortaz] 1 gm Med 02/14/21 16:30 Active Sodium Chloride 0.9% [Normal Saline] 50 ml IV Q24H Resuscitation Status Routine Resus Stat 02/14/21 16:23 Ordered Medication Orders Ceftazidime 1 gm/ Sodium (Chloride) 50 mls @ 100 mls/hr IV Q24H WISAM Assessment/Plan Comment:: ASSESSMENT AND PLAN - Bronchiectasis with acute exacerbation-complicated by acute on chronic respiratory failure. She was on antibiotics prior to presentation and was worsening despite this. Most recent culture grew out MRSA. Possible pneumonia superimposed on the bronchiectasis involving the right midlung. She would benefit from IV antibiotics because of her complicated history and recent antibiotic use. 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 No wheezing to suggest acute exacerbation of COPD. -Continue home medications Depression with anxiety, severe-long psychiatric history. Patient is currently stable with her home medication regimen. -Continue home medication Maintenance issues - -DVT prophylaxis-mechanical along with dual antiplatelet therapy -GI prophylaxis-H2 deric -Nutrition-regular -Mims catheter-not indicated CODE STATUS -short-term CPR okay but no intubation Admission justification -this patient will be admitted for inpatient services and is medically appropriate meeting medical necessity for inpatient admission as outlined in my documentation. I reasonably expect the patient will require inpatient services that span a period time over 2 midnights. I reasonably expect this patient to be discharged or transferred within 96 hours [facility]. Disposition -I anticipate discharge home after the hospital stay Primary care physician - Bernard Rodriguez M.D. - Mortality Measure Prognosis:: Good
[2021-02-14] MEDS ORDERED: Ondansetron 4 MG Tab.DIS PO PRN (16:47)
[2021-02-14] MEDS ORDERED: Ondansetron 4 MG/2 ML SDV IV PRN (16:47)
[2021-02-14] MEDS ORDERED: Albuterol/Ipratropium 3.0-0.5 MG/3 ML Neb Soln INH PRN (16:47)
[2021-02-14] MEDS ORDERED: Acetaminophen 325 MG Tab PO PRN (16:47)
[2021-02-14] MEDS ORDERED: Melatonin 3 MG Tab PO PRN (16:47)
[2021-02-14] MEDS ORDERED: Magnesium Hydroxide 400 MG/5 ML Susp 30 ML Cup PO PRN (16:47)
[2021-02-14] MEDS ORDERED: guaiFENesin/Dextromethorphan 100-10 MG/5 ML Soln 10 ML Cup PO PRN (16:47)
[2021-02-14] MEDS: Sodium Chloride 0.9% 1,000 ML IV SCH (17:25)
[2021-02-14] MEDS: Losartan 50 MG Tab PO SCH (17:41)
[2021-02-14] MEDS: ARIPiprazole 10 MG Tab PO SCH (17:41)
[2021-02-14] MEDS: Pravastatin 20 MG Tab PO SCH (17:42)
[2021-02-14] MEDS: Acetaminophen/oxyCODONE 325-10 MG Tab PO PRN (17:50)
[2021-02-14] MEDS: Ipratropium 0.03% Nasal Spray 30 ML Bot NASBOTH SCH (20:32)
[2021-02-14] MEDS: Arformoterol 15 MCG/2 ML Neb Soln INH SCH (20:34)
[2021-02-14] MEDS: amLODIPine 5 MG Tab PO SCH (20:35)
[2021-02-14] MEDS: Lactobacillus Rhamnosus GG (Probiotic) Cap PO SCH (20:35)
[2021-02-14] MEDS: Famotidine 20 MG Tab PO SCH (20:35)
[2021-02-14] MEDS: Aspirin 81 MG Tab.EC PO SCH (20:35)
[2021-02-14] MEDS: ClonazePAM 0.5 MG Tab PO SCH (20:37)
[2021-02-14] MEDS: ZAFIRLUKAST 20 MG PO SCH (20:38)
[2021-02-14] MEDS: Budesonide 0.5 MG/2 ML Neb Susp NEB SCH (20:45)
[2021-02-15] MEDS: Acetaminophen/oxyCODONE 325-10 MG Tab PO PRN ×2 (03:36→18:11)
[2021-02-15] MEDS: LORazepam 0.5 MG Tab PO PRN (04:29)
[2021-02-15] MEDS: Arformoterol 15 MCG/2 ML Neb Soln INH SCH ×2 (07:12→20:02)
[2021-02-15] MEDS: Budesonide 0.5 MG/2 ML Neb Susp NEB SCH ×2 (07:14→20:14)
[2021-02-15] MEDS: Isosorbide Mononitrate 30 MG Tab.ER PO SCH ×3 (08:12→15:19)
[2021-02-15] MEDS: ARIPiprazole 10 MG Tab PO SCH ×3 (08:12→15:21)
[2021-02-15] MEDS: Clopidogrel 75 MG Tab PO SCH ×2 (08:13→11:50)
[2021-02-15] MEDS: Multivitamins with Iron/Calcium/Folic Acid/Minerals Tab PO SCH ×2 (08:13→11:50)
[2021-02-15] MEDS: Furosemide 20 MG Tab PO SCH ×2 (08:13→11:48)
[2021-02-15] MEDS: Levothyroxine 88 MCG Tab PO SCH ×3 (08:14→15:20)
[2021-02-15] MEDS: TRANYLCYPROMINE 10 MG PO SCH ×4 (08:16→15:14)
[2021-02-15] MEDS: Polyethylene Glycol 3350 Powder 17 GM Packet PO SCH ×2 (08:17→11:48)
[2021-02-15] MEDS: Lactobacillus Rhamnosus GG (Probiotic) Cap PO SCH ×4 (08:17→20:17)
[2021-02-15] MEDS: Ipratropium 0.03% Nasal Spray 30 ML Bot NASBOTH SCH ×3 (08:17→20:18)
[2021-02-15] MEDS: Mirabegron 25 MG Tab Extended Release PO SCH ×3 (08:18→15:22)
[2021-02-15] MEDS: ZAFIRLUKAST 20 MG PO SCH ×4 (08:19→20:18)
--- NOTE | 2021-02-15 13:29 | PCM.PN ---
- General Info Date of Service: 02/15/21 Subjective Update: No acute events overnight. Still requiring about 4 L of supplemental oxygen. White count is a little better today. Vital signs have been otherwise stable. Patient had a difficult night and is very sleepy this morning. Gram stain from a sputum sample showed moderate gram-positive cocci and few yeast. Low-grade fever overnight. - Patient Data Vitals - Most Recent: Last Vital Signs Temp 36.9 C 02/15/21 11:00 Pulse 92 02/15/21 11:00 Resp 22 H 02/15/21 11:00 BP 117/60 02/15/21 11:00 Pulse Ox 88 L 02/15/21 11:00 Weight - Most Recent: 63.049 kg I&O - Last 24 Hours: Intake & Output 02/14/21 02/15/21 02/15/21 22:59 06:59 14:59 Intake Total 240 30 Output Total 0 100 Balance 240 -100 30 Lab Results Last 24 Hours: Laboratory Results - last 24 hr 02/14/21 02/14/21 02/14/21 Range/Units 14:35 14:35 14:45 WBC 11.2 H (4.5-11.0) K/uL RBC 3.19 L (3.30-5.50) M/uL Hgb 8.6 L (12.0-15.0) g/dL Hct 29.2 L (36.0-48.0) % MCV 92 (80-98) fL MCH 27 (27-31) pg MCHC 30 L (32-36) % Plt Count 246 (150-400) K/uL Neut % (Auto) 78.5 H (36-66) % Lymph % (Auto) 4.6 L (24-44) % [place] % (Auto) 12.1 H (2-6) % Eos % (Auto) 4.7 H (2-4) % Baso % (Auto) 0.1 (0-1) % Puncture Site Right radial ABG pH 7.377 (7.350-7.450) ABG pCO2 54.9 H (35.0-42.0) mmHg ABG pO2 56.0 L (75.0-100.0) mmHg ABG HCO3 31.5 H (22.0-26.0) mmol/L ABG Total CO2 29.9 H (21.0-25.0) mmol/L ABG O2 Saturation 87.6 L (95.0-98.0) % ABG O2 Content 10.7 L (15.0-23.0) %vol ABG Base Excess 6.0 mm/L ABG Hemoglobin 8.8 L (12.0-16.0) g/dL ABG Oxyhemoglobin 85.6 % ABG Carboxyhemoglobin 1.5 (0.0-1.6) % ABG Methemoglobin 0.8 % Matias Test Passed O2 Delivery Device Nasal cannula Sodium 137 L (140-148) mmol/L Potassium 4.7 (3.6-5.2) mmol/L Chloride 100 (100-108) mmol/L Carbon Dioxide 33 H (21-32) mmol/L Anion Gap 8.7 (5.0-14.0) mmol/L BUN 19 H (7-18) mg/dL Creatinine 1.6 H (0.6-1.0) mg/dL Est Cr Clr Drug Dosing 21.49 mL/min Estimated GFR (MDRD) 31 L (>60) Glucose 125 H (74-106) mg/dL Calcium 8.8 (8.5-10.1) mg/dL 02/15/21 02/15/21 Range/Units 05:18 05:18 WBC 9.9 (4.5-11.0) K/uL RBC 3.19 L (3.30-5.50) M/uL Hgb 8.9 L (12.0-15.0) g/dL Hct 29.4 L (36.0-48.0) % MCV 92 (80-98) fL MCH 28 (27-31) pg MCHC 30 L (32-36) % Plt Count 191 (150-400) K/uL Neut % (Auto) (36-66) % Lymph % (Auto) (24-44) % [place] % (Auto) (2-6) % Eos % (Auto) (2-4) % Baso % (Auto) (0-1) % Puncture Site ABG pH (7.350-7.450) ABG pCO2 (35.0-42.0) mmHg ABG pO2 (75.0-100.0) mmHg ABG HCO3 (22.0-26.0) mmol/L ABG Total CO2 (21.0-25.0) mmol/L ABG O2 Saturation (95.0-98.0) % ABG O2 Content (15.0-23.0) %vol ABG Base Excess mm/L ABG Hemoglobin (12.0-16.0) g/dL ABG Oxyhemoglobin % ABG Carboxyhemoglobin (0.0-1.6) % ABG Methemoglobin % Matias Test O2 Delivery Device Sodium 137 L (140-148) mmol/L Potassium 4.9 (3.6-5.2) mmol/L Chloride 102 (100-108) mmol/L Carbon Dioxide 29 (21-32) mmol/L Anion Gap 10.9 (5.0-14.0) mmol/L BUN 15 (7-18) mg/dL Creatinine 1.2 H (0.6-1.0) mg/dL Est Cr Clr Drug Dosing 28.65 mL/min Estimated GFR (MDRD) 44 L (>60) Glucose 109 H (74-106) mg/dL Calcium 8.6 (8.5-10.1) mg/dL Edgardo Results Last 24 Hours: Microbiology 02/14/21 20:25 Gram Stain - Final Sputum - Expectorated Med Orders - Current: Current Medications Acetaminophen (Acetaminophen 325 Mg Tab) 650 mg PO Q4H PRN PRN Reason: Pain (Mild 1-3)/fever Albuterol (Albuterol 0.083% 2.5 Mg/3 Ml Neb Soln) 2.5 mg NEB Q4H PRN PRN Reason: Shortness Of Breath/wheezing Albuterol/Ipratropium (Albuterol/Ipratropium 3.0-0.5 Mg/3 Ml Neb Soln) 3 ml INH QID PRN PRN Reason: Shortness of Breath Last Admin: 02/15/21 00:27 Dose: 3 ml Documented by: Amlodipine Besylate (Amlodipine 5 Mg Tab) 5 mg PO BEDTIME [facility] Last Admin: 02/14/21 20:35 Dose: 5 mg Documented by: Arformoterol Tartrate (Arformoterol 15 Mcg/2 Ml Neb Soln) 15 mcg INH BIDRT [facility] Last Admin: 02/15/21 07:12 Dose: 15 mcg Documented by: Aripiprazole (A[facility]ip[facility]ole 10 Mg Tab) [facility] Last Admin: 02/14/21 17:41 Dose: 20 mg Documented by: Aripiprazole (Aripiprazole 10 Mg Tab) 10 mg PO DAILY [facility] Last Admin: 02/15/21 11:47 Dose: Not Given Documented by: Aspirin (Aspirin 81 Mg Tab.Ec) 81 mg PO BEDTIME [facility] Last Admin: 02/14/21 20:35 Dose: 81 mg Documented by: Benzonatate (Benzonatate 100 Mg Cap) 100 mg PO Q8H PRN PRN Reason: Cough Budesonide (Budesonide 0.5 Mg/2 Ml Neb Susp) 0.5 mg NEB BIDRT [facility] Last Admin: 02/15/21 07:14 Dose: 0.5 mg Documented by: Clonazepam (Clonazepam 0.5 Mg Tab) 0.25 mg PO BEDTIME [facility] Last Admin: 02/14/21 20:37 Dose: 0.25 mg Documented by: Clopidogrel Bisulfate (Clopidogrel 75 Mg Tab) 75 mg PO DAILY [facility] Last Admin: 02/15/21 11:50 Dose: Not Given Documented by: Famotidine (Famotidine 20 Mg Tab) 60 mg PO BEDTIME [facility] Last Admin: 02/14/21 20:35 Dose: 60 mg Documented by: Furosemide (Furosemide 20 Mg Tab) 20 mg PO DAILY [facility] Last Admin: 02/15/21 11:48 Dose: Not Given Documented by: Guaifenesin/Dextromethorphan (Guaifenesin/Dextromethorphan 100-10 Mg/5 Ml Soln 10 Ml Cup) 10 ml PO Q4H PRN PRN Reason: Cough Last Admin: 02/15/21 03:36 Dose: 10 ml Documented by: Ceftazidime 1 gm/ Sodium (Chloride) 50 mls @ 100 mls/hr IV Q24H [facility] Last Admin: 02/14/21 17:26 Dose: 100 mls/hr Documented by: Sodium Chloride (Normal Saline) 1,000 mls @ 125 mls/hr IV ASDIRECTED [facility] Last Admin: 02/14/21 17:25 Dose: 125 mls/hr Documented by: Vancomycin HCl 1 gm/ Sodium (Chloride) 250 mls @ 150 mls/hr IV Q24H [facility] Last Admin: 02/14/21 18:20 Dose: 150 mls/hr Documented by: Ipratropium [place] (Ipratropium 0.03% Nasal Bearden 30 Ml Bot) 0 ml NASBOTH BID [facility] Last Admin: 02/15/21 11:45 Dose: Not Given Documented by: Isosorbide Mononitrate (Isosorbide Mononitrate 30 Mg Tab.Er) 30 mg PO DAILY [facility] Last Admin: 02/15/21 11:47 Dose: Not Given Documented by: Lactobacillus Rhamnosus (Lactobacillus Rhamnosus Gg (Probiotic) Cap) 1 cap PO BID [facility] Last Admin: 02/15/21 11:45 Dose: Not Given Documented by: Levalbuterol HCl (Levalbuterol Hcl 1.25 Mg/3 Ml Neb) 1.25 mg INH TID PRN PRN Reason: Wheezing Levothyroxine Sodium (Levothyroxine 88 Mcg Tab) 88 mcg PO ACBREAKFAST [facility] Last Admin: 02/15/21 11:47 Dose: Not Given Documented by: Lorazepam (Lorazepam 0.5 Mg Tab) 0.5 mg PO TID PRN PRN Reason: Anxiety Last Admin: 02/15/21 04:29 Dose: 0.5 mg Documented by: Lorazepam (Lorazepam 2 Mg/Ml Sdv) 0.5 mg IVPUSH Q4H PRN PRN Reason: Nausea/Vomiting Losartan Potassium (Losartan 50 Mg Tab) 100 mg PO [facility] Last Admin: 02/14/21 17:41 Dose: 100 mg Documented by: Magnesium Hydroxide (Magnesium Hydroxide 400 Mg/5 Ml Susp 30 Ml Cup) 30 ml PO Q12H PRN PRN Reason: Constipation Melatonin (Melatonin 3 Mg Tab) 9 mg PO BEDTIME PRN PRN Reason: Sleep Mirabegron (Mirabegron 25 Mg Tab Extended Release) 50 mg PO DAILY [facility] Last Admin: 02/15/21 11:50 Dose: Not Given Documented by: Multivitamins/Minerals (Multivitamins With Iron/Calcium/Folic Acid/Minerals Tab) 1 tab PO DAILY [facility] Last Admin: 02/15/21 11:50 Dose: Not Given Documented by: Tranylcypromine ( Parnate) 10 Mg Tab * *[facility] Med [facility] Tranylcypromine ( Parnate) 10 Mg Tab * *Own Med 0 mg PO ACBREAKFAST [facility] Last Admin: 02/15/21 11:53 Dose: Not Given Documented by: Tranylcypromine ( Parnate) 10 Mg Tab * *Own Med 0 mg PO DAILY@1200 [facility] Zafirlukast ( Accolate) 20 Mg Tablet Own Med 0 mg PO BID [facility] Last Admin: 02/15/21 11:52 Dose: Not Given Documented by: Ondansetron HCl (Ondansetron 4 Mg/2 Ml Sdv) 4 mg IV Q6H PRN PRN Reason: Nausea/Vomiting Ondansetron HCl (Ondansetron 4 Mg Tab.Dis) 4 mg PO Q6H PRN PRN Reason: Nausea able to take PO Oxycodone/Acetaminophen (Acetaminophen/Oxycodone 325-10 Mg Tab) 1 - 1.5 tab PO Q6H PRN PRN Reason: Pain Last Admin: 02/15/21 03:36 Dose: 1 tab Documented by: Polyethylene Glycol (Polyethylene Glycol 3350 Powder 17 Gm Packet) 17 gm PO DAILY [facility] Last Admin: 02/15/21 11:48 Dose: Not Given Documented by: Pravastatin Sodium (Pravastatin 20 Mg Tab) 10 mg PO ACDINNER [facility] Last Admin: 02/14/21 17:42 Dose: 10 mg Documented by: Discontinued Medications Non-Formulary Medication (Cevimeline [Evoxac]) 30 mg PO BID [facility] - Exam Quality Assessment: Supplemental Oxygen General: No Acute Distress, Lethargic. No: Alert Lungs: Normal Respiratory Effort, Rhonchi Cardiovascular: Regular Rate, Regular Rhythm GI/Abdominal Exam: Soft, No Distention Extremities: No Pedal Edema. No: Increased Warmth Psy/Mental Status: No: Alert, Agitated - Patient Data Lab Results Last 24 hrs: Laboratory Results - last 24 hr 02/14/21 02/14/21 02/14/21 Range/Units 14:35 14:35 14:45 WBC 11.2 H (4.5-11.0) K/uL RBC 3.19 L (3.30-5.50) M/uL Hgb 8.6 L (12.0-15.0) g/dL Hct 29.2 L (36.0-48.0) % MCV 92 (80-98) fL MCH 27 (27-31) pg MCHC 30 L (32-36) % Plt Count 246 (150-400) K/uL Neut % (Auto) 78.5 H (36-66) % Lymph % (Auto) 4.6 L (24-44) % [place] % (Auto) 12.1 H (2-6) % Eos % (Auto) 4.7 H (2-4) % Baso % (Auto) 0.1 (0-1) % Puncture Site Right radial ABG pH 7.377 (7.350-7.450) ABG pCO2 54.9 H (35.0-42.0) mmHg ABG pO2 56.0 L (75.0-100.0) mmHg ABG HCO3 31.5 H (22.0-26.0) mmol/L ABG Total CO2 29.9 H (21.0-25.0) mmol/L ABG O2 Saturation 87.6 L (95.0-98.0) % ABG O2 Content 10.7 L (15.0-23.0) %vol ABG Base Excess 6.0 mm/L ABG Hemoglobin 8.8 L (12.0-16.0) g/dL ABG Oxyhemoglobin 85.6 % ABG Carboxyhemoglobin 1.5 (0.0-1.6) % ABG Methemoglobin 0.8 % Matias Test Passed O2 Delivery Device Nasal cannula Sodium 137 L (140-148) mmol/L Potassium 4.7 (3.6-5.2) mmol/L Chloride 100 (100-108) mmol/L Carbon Dioxide 33 H (21-32) mmol/L Anion Gap 8.7 (5.0-14.0) mmol/L BUN 19 H (7-18) mg/dL Creatinine 1.6 H (0.6-1.0) mg/dL Est Cr Clr Drug Dosing 21.49 mL/min Estimated GFR (MDRD) 31 L (>60) Glucose 125 H (74-106) mg/dL Calcium 8.8 (8.5-10.1) mg/dL 02/15/21 02/15/21 Range/Units 05:18 05:18 WBC 9.9 (4.5-11.0) K/uL RBC 3.19 L (3.30-5.50) M/uL Hgb 8.9 L (12.0-15.0) g/dL Hct 29.4 L (36.0-48.0) % MCV 92 (80-98) fL MCH 28 (27-31) pg MCHC 30 L (32-36) % Plt Count 191 (150-400) K/uL Neut % (Auto) (36-66) % Lymph % (Auto) (24-44) % [place] % (Auto) (2-6) % Eos % (Auto) (2-4) % Baso % (Auto) (0-1) % Puncture Site ABG pH (7.350-7.450) ABG pCO2 (35.0-42.0) mmHg ABG pO2 (75.0-100.0) mmHg ABG HCO3 (22.0-26.0) mmol/L ABG Total CO2 (21.0-25.0) mmol/L ABG O2 Saturation (95.0-98.0) % ABG O2 Content (15.0-23.0) %vol ABG Base Excess mm/L ABG Hemoglobin (12.0-16.0) g/dL ABG Oxyhemoglobin % ABG Carboxyhemoglobin (0.0-1.6) % ABG Methemoglobin % Matias Test O2 Delivery Device Sodium 137 L (140-148) mmol/L Potassium 4.9 (3.6-5.2) mmol/L Chloride 102 (100-108) mmol/L Carbon Dioxide 29 (21-32) mmol/L Anion Gap 10.9 (5.0-14.0) mmol/L BUN 15 (7-18) mg/dL Creatinine 1.2 H (0.6-1.0) mg/dL Est Cr Clr Drug Dosing 28.65 mL/min Estimated GFR (MDRD) 44 L (>60) Glucose 109 H (74-106) mg/dL Calcium 8.6 (8.5-10.1) mg/dL Result Diagrams: 02/15/21 05:18 02/15/21 05:18 Edgardo Results Last 24 hrs: Microbiology 02/14/21 20:25 Gram Stain - Final Sputum - Expectorated Sepsis Event Note - Evaluation Sepsis Screening Result: No Definite Risk - Focused Exam Vital Signs: Vital Signs Temp Pulse Resp BP Pulse Ox Pulse Ox 02/15/21 11:00 36.9 C 92 22 H 117/60 88 L 02/15/21 07:14 88 87 L 02/15/21 07:03 37.1 C 87 22 H 143/49 H 86 L 02/15/21 03:06 37.5 C 98 20 151/68 H 87 L - Problem List & Annotations (1) Bronchiectasis with acute exacerbation Status: Acute Current Visit: Yes (2) COPD with emphysema SNOMED Code(s): 67329037 Code(s): J43.9 - EMPHYSEMA, UNSPECIFIED Status: Chronic Current Visit: Yes Qualifiers: Emphysema type: unspecified Qualified Code(s): J43.9 - Emphysema, unspecified (3) Acute on chronic respiratory failure SNOMED Code(s): 41459575 Code(s): J96.20 - ACUTE AND CHR RESP FAILURE, UNSP W HYPOXIA OR HYPERCAPNIA Status: Acute Current Visit: Yes Qualifiers: Respiratory failure complication: hypoxia Qualified Code(s): J96.21 - Acute and chronic respiratory failure with hypoxia (4) Depression with anxiety SNOMED Code(s): 236681288 Code(s): F41.8 - OTHER SPECIFIED ANXIETY DISORDERS Status: [facility]: Yes - Problem List Review Problem List Initiated/Reviewed/Updated: Yes - My Orders Last 24 Hours: My Active Orders 02/14/21 16:23 Resuscitation Status Routine 02/14/21 16:30 cefTAZidime Pentahydrate [Fortaz] 1 gm Sodium Chloride 0.9% [Normal Saline] 50 ml IV Q24H 02/14/21 16:47 Acetaminophen [TylenoL] 650 mg PO Q4H PRN Albuterol [Proventil Neb Soln] 2.5 mg NEB Q4H PRN Albuterol/Ipratropium [DuoNeb 3.0-0.5 MG/3 ML] 3 ml INH QID PRN Benzonatate [Tessalon Perles] 100 mg PO Q8H PRN Dextromethorphan/guaiFENesin [Robitussin DM] 10 ml PO Q4H PRN LORazepam [Ativan] 0.5 mg IVPUSH Q4H PRN LORazepam [Ativan] 0.5 mg PO TID PRN Magnesium Hydroxide [Milk of Magnesia] 30 ml PO Q12H PRN Melatonin 9 mg PO BEDTIME PRN Ondansetron [Zofran ODT] 4 mg PO Q6H PRN Ondansetron [Zofran] 4 mg IV Q6H PRN Sodium Chloride 0.9% [Normal Saline] 1,000 ml IV ASDIRECTED 02/14/21 16:47 Patient Status [ADT] Routine Antiembolic Devices [RC] .Routine Intake and Output [RC] QSHIFT Notify Provider Vital Signs [RC] ASDIRECTED Oxygen Therapy [RC] PRN RT Aerosol Therapy [RC] ASDIRECTED Up With Assistance [RC] ASDIRECTED Vital Signs [RC] Q4H RT Acapella [RESPCARE] Routine Sequential Compression Device [OM.PC] Routine 02/14/21 16:59 levalbuterol HCL [Xopenex] 1.25 mg INH TID PRN 02/14/21 Dinner Regular Diet [DIET] ARIPiprazole [Abilify] 20 mg PO ACDINNER Losartan [Cozaar] 100 mg PO ACDINNER Pravastatin [Pravachol] 10 mg PO ACDINNER Vancomycin 1 gm Sodium Chloride 0.9% [Normal Saline] 250 ml IV Q24H 02/14/21 17:09 Acetaminophen/oxyCODONE [Percocet 325-10 MG] 1 - 1.5 tab PO Q6H PRN 02/14/21 20:25 CULTURE RESPIRATORY + SMEAR [RM] Routine 02/14/21 21:00 Arformoterol [Brovana] 15 mcg INH BIDRT Aspirin [Halfprin] 81 mg PO BEDTIME Budesonide [Pulmicort] 0.5 mg NEB BIDRT ClonazePAM [KlonoPIN] 0.25 mg PO BEDTIME Famotidine [Pepcid] 60 mg PO BEDTIME Ipratropium [Atrovent 0.03% Nasal Bearden] 0 ml NASBOTH BID Lactobacillus Rhamnosus GG [Culturelle] 1 cap PO BID Zafirlukast [Accolate] 0 mg PO BID amLODIPine [Norvasc] 5 mg PO BEDTIME 02/15/21 07:30 Levothyroxine [Synthroid] 88 mcg PO ACBREAKFAST Tranylcypromine [Parnate] 0 mg PO ACBREAKFAST 02/15/21 08:54 Consult to Physical Therapy [PT Evaluation and Treatment] [CONS] Routine 02/15/21 09:00 ARIPiprazole [Abilify] 10 mg PO DAILY Clopidogrel [Plavix] 75 mg PO DAILY Furosemide [Lasix] 20 mg PO DAILY Isosorbide Mononitrate [Imdur] 30 mg PO DAILY Mirabegron [Myrbetriq] 50 mg PO DAILY Multivitamins w-Iron/Ca/FA/Min [Thera M Plus] 1 tab PO DAILY polyethylene glycoL 3350 [MiraLAX] 17 gm PO DAILY 02/15/21 12:00 Tranylcypromine [Parnate] 0 mg PO DAILY@1200 02/15/21 13:12 Urinary Catheter Assessment [RC] ASDIRECTED 02/15/21 13:26 UA W/MICROSCOPIC [URIN] Routine 02/15/21 16:00 Tranylcypromine [Parnate] 0 mg PO ACDINNER 02/16/21 05:00 BASIC METABOLIC PANEL,BMP [CHEM] Timed CBC W/O DIFF,HEMOGRAM [HEME] Timed (1) 02/16/21 13:15 Insert Mims Catheter [Insert Urinary Catheter] [OM.PC] Q24H - Plan Plan:: ASSESSMENT AND PLAN - Bronchiectasis with acute exacerbation-complicated by acute on chronic respiratory failure. Stable but not dramatically improved since admission. Gram stain of sputum revealed gram-positive cocci and few yeast but culture is pending. Still requiring 4 L of oxygen. 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 No wheezing to suggest acute exacerbation of COPD. -Continue home medications Stage III chronic kidney disease-slightly improved since yesterday with IV fluids. Depression with anxiety, severe-long psychiatric history. Patient is currently stable with her home medication regimen. -Continue home medication Maintenance issues - -DVT prophylaxis-mechanical along with dual antiplatelet therapy -GI prophylaxis-H2 deric -Nutrition-regular Disposition -I anticipate discharge home after the hospital stay Michele Rodriguez M.D.
[2021-02-15] MEDS: Losartan 50 MG Tab PO SCH (15:18)
[2021-02-15] MEDS: Pravastatin 20 MG Tab PO SCH (15:21)
[2021-02-15] MEDS: CEVIMELINE 30 MG PO SCH ×2 (15:25→21:25)
[2021-02-15] MEDS: Sodium Chloride 0.9% 1,000 ML IV SCH (15:25)
[2021-02-15] MEDS: ClonazePAM 0.5 MG Tab PO SCH (20:16)
[2021-02-15] MEDS: Famotidine 20 MG Tab PO SCH (20:16)
[2021-02-15] MEDS: Aspirin 81 MG Tab.EC PO SCH (20:17)
[2021-02-15] MEDS: amLODIPine 5 MG Tab PO SCH (20:17)
[2021-02-16] MEDS: Acetaminophen/oxyCODONE 325-10 MG Tab PO PRN ×3 (00:25→18:02)
[2021-02-16] MEDS: Albuterol 0.083% 2.5 MG/3 ML Neb Soln NEB PRN ×4 (05:06→19:18)
[2021-02-16] MEDS: LORazepam 0.5 MG Tab PO PRN ×3 (05:06→16:33)
[2021-02-16] MEDS: Arformoterol 15 MCG/2 ML Neb Soln INH SCH ×2 (07:36→21:36)
[2021-02-16] MEDS: Budesonide 0.5 MG/2 ML Neb Susp NEB SCH ×2 (07:36→21:17)
[2021-02-16] MEDS: ARIPiprazole 10 MG Tab PO SCH ×2 (08:21→16:34)
[2021-02-16] MEDS: Furosemide 20 MG Tab PO SCH (08:21)
[2021-02-16] MEDS: Polyethylene Glycol 3350 Powder 17 GM Packet PO SCH (08:22)
[2021-02-16] MEDS: Multivitamins with Iron/Calcium/Folic Acid/Minerals Tab PO SCH (08:22)
[2021-02-16] MEDS: Levothyroxine 88 MCG Tab PO SCH (08:23)
[2021-02-16] MEDS: TRANYLCYPROMINE 10 MG PO SCH ×3 (08:23→16:36)
[2021-02-16] MEDS: Clopidogrel 75 MG Tab PO SCH (08:25)
[2021-02-16] MEDS: ZAFIRLUKAST 20 MG PO SCH ×2 (08:25→21:12)
[2021-02-16] MEDS: Isosorbide Mononitrate 30 MG Tab.ER PO SCH (09:22)
[2021-02-16] MEDS: Lactobacillus Rhamnosus GG (Probiotic) Cap PO SCH ×2 (09:22→21:12)
[2021-02-16] MEDS: Mirabegron 25 MG Tab Extended Release PO SCH (09:23)
[2021-02-16] MEDS: Ipratropium 0.03% Nasal Spray 30 ML Bot NASBOTH SCH ×2 (11:35→21:13)
[2021-02-16] MEDS ORDERED: Naproxen 250 MG Tab PO PRN (15:39)
--- NOTE | 2021-02-16 15:43 | PCM.PN ---
- General Info Date of Service: 02/16/21 Subjective Update: No acute events overnight. Patient is feeling better today with improved energy and a slight decrease in her shortness of breath. Energy is better today. She did sleep better last night. Still has a loose cough but thinks this is a little better. Still requiring 4 L of supplemental oxygen but oxygenation has improved some since yesterday. Appetite acceptable. She was able to walk across the room and back but feels weak compared to baseline. Cultures so far is growing gram-positive cocci and a few yeast. Functional Status: Reports: Pain Controlled - Review of Systems General: Reports: Weakness Pulmonary: Reports: Shortness of Breath, Cough - Patient Data Vitals - Most Recent: Last Vital Signs Temp 36.3 C 02/16/21 15:06 Pulse 87 02/16/21 15:06 Resp 20 02/16/21 15:06 BP 143/47 H 02/16/21 15:06 Pulse Ox 85 L 02/16/21 15:06 Weight - Most Recent: 63.049 kg I&O - Last 24 Hours: Intake & Output 02/16/21 02/16/21 02/16/21 06:59 14:59 22:59 Intake Total 600 Output Total 875 Balance -275 Lab Results Last 24 Hours: Laboratory Results - last 24 hr 02/16/21 02/16/21 02/16/21 Range/Units 06:30 06:34 06:34 WBC 8.8 (4.5-11.0) K/uL RBC 3.47 (3.30-5.50) M/uL Hgb 9.2 L (12.0-15.0) g/dL Hct 31.5 L (36.0-48.0) % MCV 91 (80-98) fL MCH 27 (27-31) pg MCHC 29 L (32-36) % Plt Count 230 (150-400) K/uL Sodium 137 L (140-148) mmol/L Potassium 4.2 (3.6-5.2) mmol/L Chloride 101 (100-108) mmol/L Carbon Dioxide 31 (21-32) mmol/L Anion Gap 9.2 (5.0-14.0) mmol/L BUN 13 (7-18) mg/dL Creatinine 1.0 (0.6-1.0) mg/dL Est Cr Clr Drug Dosing 34.38 mL/min Estimated GFR (MDRD) 54 L (>60) Glucose 125 H (74-106) mg/dL Calcium 8.8 (8.5-10.1) mg/dL Procalcitonin 0.08 ng/mL Edgardo Results Last 24 Hours: Microbiology 02/14/21 20:25 Gram Stain - Final Sputum - Expectorated Respiratory Culture - Preliminary Med Orders - Current: Current Medications Acetaminophen (Acetaminophen 325 Mg Tab) 650 mg PO Q4H PRN PRN Reason: Pain (Mild 1-3)/fever Albuterol (Albuterol 0.083% 2.5 Mg/3 Ml Neb Soln) 2.5 mg NEB Q4H PRN PRN Reason: Shortness Of Breath/wheezing Last Admin: 02/16/21 12:57 Dose: 2.5 mg Documented by: Albuterol/Ipratropium (Albuterol/Ipratropium 3.0-0.5 Mg/3 Ml Neb Soln) 3 ml INH QID PRN PRN Reason: Shortness of Breath Last Admin: 02/15/21 00:27 Dose: 3 ml Documented by: Amlodipine Besylate (Amlodipine 5 Mg Tab) 5 mg PO BEDTIME [facility] Last Admin: 02/15/21 20:17 Dose: 5 mg Documented by: Arformoterol Tartrate (Arformoterol 15 Mcg/2 Ml Neb Soln) 15 mcg INH BIDRT [facility] Last Admin: 02/16/21 07:36 Dose: 15 mcg Documented by: Aripiprazole (Aripiprazole 10 Mg Tab) 20 mg PO ACDINNER [facility] Last Admin: 02/15/21 15:21 Dose: 20 mg Documented by: Aripiprazole (Aripiprazole 10 Mg Tab) 10 mg PO DAILY [facility] Last Admin: 02/16/21 08:21 Dose: 10 mg Documented by: Aspirin (Aspirin 81 Mg Tab.Ec) 81 mg PO BEDTIME [facility] Last Admin: 02/15/21 20:17 Dose: 81 mg Documented by: Benzonatate (Benzonatate 100 Mg Cap) 100 mg PO Q8H PRN PRN Reason: Cough Budesonide (Budesonide 0.5 Mg/2 Ml Neb Susp) 0.5 mg NEB BIDRT [facility] Last Admin: 02/16/21 07:36 Dose: 0.5 mg Documented by: Clonazepam (Clonazepam 0.5 Mg Tab) 0.25 mg PO BEDTIME [facility] Last Admin: 02/15/21 20:16 Dose: 0.25 mg Documented by: Clopidogrel Bisulfate (Clopidogrel 75 Mg Tab) 75 mg PO DAILY [facility] Last Admin: 02/16/21 08:25 Dose: 75 mg Documented by: Famotidine (Famotidine 20 Mg Tab) 60 mg PO BEDTIME [facility] Last Admin: 02/15/21 20:16 Dose: 60 mg Documented by: Furosemide (Furosemide 20 Mg Tab) 20 mg PO DAILY [facility] Last Admin: 02/16/21 08:21 Dose: 20 mg Documented by: Ceftazidime 1 gm/ Sodium (Chloride) 50 mls @ 100 mls/hr IV Q24H [facility] Last Admin: 02/15/21 16:16 Dose: 100 mls/hr Documented by: Sodium Chloride (Normal Saline) 1,000 mls @ 125 mls/hr IV ASDIRECTED [facility] Last Admin: 02/15/21 15:25 Dose: 125 mls/hr Documented by: Ipratropium [place] (Ipratropium 0.03% Nasal [place] 30 Ml Bot) 0 ml NASBOTH BID [facility] Last Admin: 02/16/21 11:35 Dose: 2 units Documented by: Isosorbide Mononitrate (Isosorbide Mononitrate 30 Mg Tab.Er) 30 mg PO DAILY [facility] Last Admin: 02/16/21 09:22 Dose: 30 mg Documented by: Lactobacillus Rhamnosus (Lactobacillus Rhamnosus Gg (Probiotic) Cap) 1 cap PO BID [facility] Last Admin: 02/16/21 09:22 Dose: 1 cap Documented by: Levalbuterol HCl (Levalbuterol Hcl 1.25 Mg/3 Ml Neb) 1.25 mg INH TID PRN PRN Reason: Wheezing Levothyroxine Sodium (Levothyroxine 88 Mcg Tab) 88 mcg PO ACBREAKFAST [facility] Last Admin: 02/16/21 08:23 Dose: 88 mcg Documented by: Lorazepam (Lorazepam 2 Mg/Ml Sdv) 0.5 mg IVPUSH Q4H PRN PRN Reason: Nausea/Vomiting Lorazepam (Lorazepam 0.5 Mg Tab) 0.5 mg PO Q4H PRN PRN Reason: Anxiety Losartan Potassium (Losartan 50 Mg Tab) 100 mg PO ACDINNER [facility] Last Admin: 02/15/21 15:18 Dose: 100 mg Documented by: Magnesium Hydroxide (Magnesium Hydroxide 400 Mg/5 Ml Susp 30 Ml Cup) 30 ml PO Q12H PRN PRN Reason: Constipation Melatonin (Melatonin 3 Mg Tab) 9 mg PO BEDTIME PRN PRN Reason: Sleep Mirabegron (Mirabegron 25 Mg Tab Extended Release) 50 mg PO DAILY [facility] Last Admin: 02/16/21 09:23 Dose: 50 mg Documented by: Multivitamins/Minerals (Multivitamins With Iron/Calcium/Folic Acid/Minerals Tab) 1 tab PO DAILY [facility] Last Admin: 02/16/21 08:22 Dose: 1 tab Documented by: Naproxen (Naproxen 250 Mg Tab) 250 mg PO Q12HR PRN PRN Reason: Headache Tranylcypromine ( Parnate) 10 Mg Tab * *Own Med 0 mg PO ACDINNER [facility] Last Admin: 02/15/21 15:14 Dose: 20 mg Documented by: Tranylcypromine ( Parnate) 10 Mg Tab * *Own Med 0 mg PO ACBREAKFAST [facility] Last Admin: 02/16/21 08:23 Dose: 30 mg Documented by: Tranylcypromine ( Parnate) 10 Mg Tab * *Own Med 0 mg PO DAILY@1200 [facility] Last Admin: 02/16/21 11:36 Dose: 30 mg Documented by: Zafirlukast ( Accolate) 20 Mg Tablet Own Med 0 mg PO BID [facility] Last Admin: 02/16/21 08:25 Dose: 20 mg Documented by: Ondansetron HCl (Ondansetron 4 Mg/2 Ml Sdv) 4 mg IV Q6H PRN PRN Reason: Nausea/Vomiting Ondansetron HCl (Ondansetron 4 Mg Tab.Dis) 4 mg PO Q6H PRN PRN Reason: Nausea able to take PO Oxycodone/Acetaminophen (Acetaminophen/Oxycodone 325-10 Mg Tab) 1 - 1.5 tab PO Q6H PRN PRN Reason: Pain Last Admin: 02/16/21 07:21 Dose: 1 tab Documented by: Polyethylene Glycol (Polyethylene Glycol 3350 Powder 17 Gm Packet) 17 gm PO DAILY [facility] Last Admin: 02/16/21 08:22 Dose: 17 gm Documented by: Pravastatin Sodium (Pravastatin 20 Mg Tab) 10 mg PO ACDINNER [facility] Last Admin: 02/15/21 15:21 Dose: Not Given Documented by: Discontinued Medications Guaifenesin/Dextromethorphan (Guaifenesin/Dextromethorphan 100-10 Mg/5 Ml Soln 10 Ml Cup) 10 ml PO Q4H PRN PRN Reason: Cough Last Admin: 02/15/21 03:36 Dose: 10 ml Documented by: Vancomycin HCl 1 gm/ Sodium (Chloride) 250 mls @ 150 mls/hr IV Q24H [facility] Last Admin: 02/15/21 17:04 Dose: 150 mls/hr Documented by: Lorazepam (Lorazepam 0.5 Mg Tab) 0.5 mg PO TID PRN PRN Reason: Anxiety Last Admin: 02/16/21 11:36 Dose: 0.5 mg Documented by: Non-Formulary Medication (Cevimeline [Evoxac]) 30 mg PO BID [facility] Last Admin: 02/15/21 21:25 Dose: Not Given Documented by: - Exam Quality Assessment: Supplemental Oxygen Urinary Catheter Total Time: 0Days 8Hours General: Alert, Oriented, Cooperative, No Acute Distress Lungs: Crackles (moderate both lower and mid lungs ). No: Normal Respiratory Effort (mild increase in work of breathing ) Cardiovascular: Regular Rate, Regular Rhythm GI/Abdominal Exam: Soft, No Distention Extremities: No Pedal Edema. No: Increased Warmth Skin: Warm, Dry Psy/Mental Status: Alert, Normal Affect - Patient Data Lab Results Last 24 hrs: Laboratory Results - last 24 hr 02/16/21 02/16/21 02/16/21 Range/Units 06:30 06:34 06:34 WBC 8.8 (4.5-11.0) K/uL RBC 3.47 (3.30-5.50) M/uL Hgb 9.2 L (12.0-15.0) g/dL Hct 31.5 L (36.0-48.0) % MCV 91 (80-98) fL MCH 27 (27-31) pg MCHC 29 L (32-36) % Plt Count 230 (150-400) K/uL Sodium 137 L (140-148) mmol/L Potassium 4.2 (3.6-5.2) mmol/L Chloride 101 (100-108) mmol/L Carbon Dioxide 31 (21-32) mmol/L Anion Gap 9.2 (5.0-14.0) mmol/L BUN 13 (7-18) mg/dL Creatinine 1.0 (0.6-1.0) mg/dL Est Cr Clr Drug Dosing 34.38 mL/min Estimated GFR (MDRD) 54 L (>60) Glucose 125 H (74-106) mg/dL Calcium 8.8 (8.5-10.1) mg/dL Procalcitonin 0.08 ng/mL Result Diagrams: 02/16/21 06:34 02/16/21 06:34 Edgardo Results Last 24 hrs: Microbiology 02/14/21 20:25 Gram Stain - Final Sputum - Expectorated Respiratory Culture - Preliminary Sepsis Event Note - Evaluation Sepsis Screening Result: No Definite Risk - Focused Exam Vital Signs: Vital Signs Temp Pulse Resp BP BP Pulse Ox 02/16/21 15:06 36.3 C 87 20 143/47 H 85 L 02/16/21 11:00 36.2 C 80 20 134/42 L 88 L 02/16/21 09:22 140/58 L 02/16/21 09:14 92 L 02/16/21 07:36 88 02/16/21 07:00 36.2 C 86 20 140/58 L 86 L - Problem List & Annotations (1) Bronchiectasis with acute exacerbation Status: Acute Current Visit: Yes (2) COPD with emphysema SNOMED Code(s): 59038207 Code(s): J43.9 - EMPHYSEMA, UNSPECIFIED Status: Chronic Current Visit: Yes Qualifiers: Emphysema type: unspecified Qualified Code(s): J43.9 - Emphysema, unspecified (3) Acute on chronic respiratory failure SNOMED Code(s): 72207402 Code(s): J96.20 - ACUTE AND CHR RESP FAILURE, UNSP W HYPOXIA OR HYPERCAPNIA Status: Acute Current Visit: Yes Qualifiers: Respiratory failure complication: hypoxia Qualified Code(s): J96.21 - Acute and chronic respiratory failure with hypoxia (4) Depression with anxiety SNOMED Code(s): 980476305 Code(s): F41.8 - OTHER SPECIFIED ANXIETY DISORDERS Status: Chronic Curr ent Visit: Yes - Problem List Review Problem List Initiated/Reviewed/Updated: Yes - My Orders Last 24 Hours: My Active Orders 02/15/21 16:00 Tranylcypromine [Parnate] 0 mg PO ACDINNER 02/16/21 13:15 Insert Mims Catheter [Insert Urinary Catheter] [OM.PC] Q24H 02/16/21 15:39 Naproxen [Naprosyn] 250 mg PO Q12HR PRN 02/16/21 15:40 LORazepam [Ativan] 0.5 mg PO Q4H PRN 02/16/21 21:00 Doxycycline [Vibramycin] 100 mg Sodium Chloride 0.9% [Normal Saline] 100 ml IV Q12H - Plan Plan:: ASSESSMENT AND PLAN - Bronchiectasis with acute exacerbation-complicated by acute on chronic respiratory failure. Slowly improving. Culture growing gram-positive cocci which is the likely culprit for the infection as well as a few yeast which are probably a contaminant with recent antibiotics. 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 No active wheezing. -Continue home medications Stage III chronic kidney disease-kidney function back to baseline. Depression with anxiety, severe-long psychiatric history. Patient is currently stable with her home medication regimen. -Continue home medication Maintenance issues - -DVT prophylaxis-mechanical along with dual antiplatelet therapy -GI prophylaxis-H2 deric -Nutrition-regular Disposition -I anticipate discharge home after the hospital stay Michele Rodriguez M.D.
[2021-02-16] MEDS ORDERED: Furosemide 20 MG Tab PO PRN (15:44)
[2021-02-16] MEDS: Losartan 50 MG Tab PO SCH (16:35)
[2021-02-16] MEDS: Pravastatin 20 MG Tab PO SCH (16:35)
[2021-02-16] MEDS ORDERED: Furosemide 40 MG/4 ML VIAL IVPUSH STA (19:30)
--- NOTE | 2021-02-16 20:10 | PCM.SN.2 ---
- Free Text/Narrative Note: Around 7 PM this evening the patient reported that she was feeling more short of breath than she had been shortly after transferring from the chair back into bed. She was requesting a nebulizer treatment when she suddenly became unresponsive. Vital signs were checked and she had a very low oxygen saturation in the 30s. She was tachycardic in the 130s. Blood pressure was in the 170s. Rapid response was called. A nonrebreather facemask was applied with improvement in her oxygenation but she did remain mildly hypoxic. A stat nebulizer treatment was given and a stat chest x-ray obtained that was suggestive of pulmonary edema. The patient did have JVD noted on examination and had coarse lung sounds as well as some expiratory wheezing. Furosemide was ordered. Additional laboratory studies including ABG, BMP and troponin were ordered. An EKG was requested. The patient was transferred [facility]. Noninvasive positive pressure ventilation was initiated. He did elect to add fluconazole at this point for additional antimicrobial coverage since a few yeast were noted on her respiratory sample. Bedside ultrasound of the heart was performed in the intensive care unit. This was a little bit technically difficult given her tachypnea but did show good cardiac function with hyperdynamic left ventricle. Right ventricle did not appear large and was functioning normally so pulmonary embolism is very unlikely. Appears to be a flash pulmonary edema type picture though I am not quite sure why this would have happened. She has received the furosemide and has stabilized with the noninvasive ventilation. Repeat arterial blood gases will be obtained in a little while. Results of the laboratory testing are still pending. 2044 - trop 0.2. EKG with sinus tach, mild lateral ST depressions, no ST elevation. suspect demand ischemia as cause for elevation but will treat as NSTE OH with enoxaparin. Will repeat ABG's at 0. Doing better on NIPPV. Critical Care time -80 minutes including respiratory stabilization, transfer to the intensive care unit and additional respiratory treatment Michele Rodriguez MD
[2021-02-16] MEDS ORDERED: Nitroglycerin/D5W 25 MG/250 ML BOTTLE ONE (20:26)
[2021-02-16] MEDS ORDERED: Nitroglycerin/D5W 25 MG/250 ML BOTTLE IV SCH (20:30)
--- NOTE | 2021-02-16 20:38 | CRLCR ---
For Patients: As a result of the Cures Act, medical imaging exams and procedure reports are released immediately into your electronic medical record. You may view this report before your referring provider. If you have questions, please contact your health care provider. INDICATION: Hypoxia. TECHNIQUE: Chest 1 view(s) COMPARISON: Multiple priors, most recent chest radiograph dated 02/14/2021. FINDINGS: Stable cardiomediastinal silhouette. Significantly increased interstitial opacities bilaterally. Increased density of infiltrate in the right midlung. Probable small left pleural effusion. No definite pneumothorax. No acute chest wall abnormality. IMPRESSION: Significantly increased interstitial opacities bilaterally, as well as increased density of infiltrate in the right midlung. Findings are concerning for pneumonia superimposed upon edema. Dictated by Socorro Santana MD @ 02/16/2021 8:36:[address] Socorro Santana @ Feb 16 2021 8:36PM
[2021-02-16] MEDS ORDERED: Enoxaparin 40 MG/0.4 ML Syringe SUBCUT SCH (21:00)
[2021-02-16] MEDS ORDERED: Enoxaparin 60 MG/0.6 ML Syringe SUBCUT SCH (21:00)
[2021-02-16] MEDS: Aspirin 81 MG Tab.EC PO SCH (21:12)
[2021-02-16] MEDS: amLODIPine 5 MG Tab PO SCH (21:12)
[2021-02-16] MEDS: ClonazePAM 0.5 MG Tab PO SCH (21:12)
[2021-02-16] MEDS: Famotidine 20 MG Tab PO SCH (21:12)
[2021-02-16] MEDS: Doxycycline 100 MG in Sodium Chloride 0.9% 100 ML IV SCH (21:17)
[2021-02-16] MEDS: Albuterol/Ipratropium 3.0-0.5 MG/3 ML Neb Soln INH SCH (21:34)
[2021-02-17] MEDS: Morphine 2 MG/ML SYRINGE IVPUSH PRN ×6 (03:08→23:22)
[2021-02-17] MEDS: Acetaminophen/oxyCODONE 325-10 MG Tab PO PRN ×2 (04:12→10:05)
--- NOTE | 2021-02-17 04:52 | CRLCR ---
For Patients: As a result of the Century Cures Act, medical imaging exams and procedure reports are released immediately into your electronic medical record. You may view this report before your referring provider. If you have questions, please contact your health care provider. INDICATION: Followup pneumonia TECHNIQUE: Chest radiograph 1 view COMPARISON: 02/16/2021 FINDINGS: Mediastinum: The mediastinum is normal in appearance. The heart silhouette is normal in size and morphology. Lung: Coarse interstitial and airspace infiltrates are noted and more confluent in the right midlung. The appearance is similar to prior examination. The right apex is obscured by the patient`s chin. Trace bilateral pleural effusions are noted without change. No pneumothorax is identified. Bone and Soft tissue: Unremarkable for age. IMPRESSION: 1. Coarse interstitial and airspace infiltrates are noted and more confluent in the right midlung. The appearance is similar to prior examination. Dictated by Tye Arana MD @ 02/17/2021 4:50:16 AM Dictated by: Tye Arana MD @ 02/17/2021 04:50:31 (Electronically Signed)
[2021-02-17] MEDS: Budesonide 0.5 MG/2 ML Neb Susp NEB SCH ×2 (07:18→20:17)
[2021-02-17] MEDS: Albuterol/Ipratropium 3.0-0.5 MG/3 ML Neb Soln INH SCH ×4 (07:18→20:17)
[2021-02-17] MEDS: Arformoterol 15 MCG/2 ML Neb Soln INH SCH ×2 (07:18→20:18)
[2021-02-17] MEDS: Lactobacillus Rhamnosus GG (Probiotic) Cap PO SCH ×2 (08:51→20:21)
[2021-02-17] MEDS: Clopidogrel 75 MG Tab PO SCH (08:52)
[2021-02-17] MEDS: Isosorbide Mononitrate 30 MG Tab.ER PO SCH (08:53)
[2021-02-17] MEDS: Mirabegron 25 MG Tab Extended Release PO SCH (08:53)
[2021-02-17] MEDS: Levothyroxine 88 MCG Tab PO SCH (08:54)
[2021-02-17] MEDS: Polyethylene Glycol 3350 Powder 17 GM Packet PO SCH (08:55)
[2021-02-17] MEDS: ARIPiprazole 10 MG Tab PO SCH ×2 (08:55→16:13)
--- NOTE | 2021-02-17 08:55 | PCM.PN ---
- General Info Date of Service: 02/17/21 Subjective Update: There were no acute events overnight following transfer to the intensive care unit. Patient has been resting comfortably. Respiratory rate and heart rate have both improved dramatically since last night. FiO2 has been weaned down to about 45%. Troponin level did rise slightly but only to a level to suggest demand ischemia with the hypoxia. Respiratory culture this morning is growing abundant germ tube positive yeast. Patient is alert but only minimally interactive. She is complaining of her chronic back pain. She feels short of breath. Desaturates quickly when the noninvasive ventilation mask is off. - Review of Systems General: Reports: Weakness - Patient Data Vitals - Most Recent: Last Vital Signs Temp 36.2 C 02/17/21 07:00 Pulse 77 02/17/21 08:00 Resp 12 02/17/21 08:00 BP 101/42 L 02/17/21 08:00 Pulse Ox 93 L 02/17/21 08:00 Weight - Most Recent: 63.049 kg I&O - Last 24 Hours: Intake & Output 02/16/21 02/17/21 02/17/21 22:59 06:59 14:59 Intake Total 850 479 Output Total 1800 350 Balance -950 129 Lab Results Last 24 Hours: Laboratory Results - last 24 hr 02/16/21 02/16/21 02/16/21 Range/Units 06:30 19:40 19:40 WBC (4.5-11.0) K/uL RBC (3.30-5.50) M/uL Hgb (12.0-15.0) g/dL Hct (36.0-48.0) % MCV (80-98) fL MCH (27-31) pg MCHC (32-36) % Plt Count (150-400) K/uL Puncture Site Right radial ABG pH 7.142 L* (7.350-7.450) ABG pCO2 85.5 H* (35.0-42.0) mmHg ABG pO2 76.1 (75.0-100.0) mmHg ABG HCO3 28.0 H (22.0-26.0) mmol/L ABG Total CO2 27.6 H (21.0-25.0) mmol/L ABG O2 Saturation 89.8 L (95.0-98.0) % ABG O2 Content 12.8 L (15.0-23.0) %vol ABG Base Excess -2.2 mm/L ABG Hemoglobin 10.3 L (12.0-16.0) g/dL ABG Oxyhemoglobin 87.8 % ABG Carboxyhemoglobin 1.5 (0.0-1.6) % ABG Methemoglobin 0.7 % Matias Test Not done O2 Delivery Device Non rebr mask Oxygen Flow Rate L Sodium 134 L (140-148) mmol/L Potassium 4.9 (3.6-5.2) mmol/L Chloride 98 L (100-108) mmol/L Carbon Dioxide 28 (21-32) mmol/L Anion Gap 12.9 (5.0-14.0) mmol/L BUN 15 (7-18) mg/dL Creatinine 1.2 H (0.6-1.0) mg/dL Est Cr Clr Drug Dosing 28.65 mL/min Estimated GFR (MDRD) 44 L (>60) Glucose 216 H (74-106) mg/dL Calcium 8.7 (8.5-10.1) mg/dL Troponin I (0.000-0.056) ng/mL Procalcitonin 0.08 ng/mL 02/16/21 02/16/21 02/16/21 Range/Units 19:55 21:35 23:00 WBC (4.5-11.0) K/uL RBC (3.30-5.50) M/uL Hgb (12.0-15.0) g/dL Hct (36.0-48.0) % MCV (80-98) fL MCH (27-31) pg MCHC (32-36) % Plt Count (150-400) K/uL Puncture Site Left radial ABG pH 7.316 L (7.350-7.450) ABG pCO2 59.3 H (35.0-42.0) mmHg ABG pO2 57.4 L (75.0-100.0) mmHg ABG HCO3 29.4 H (22.0-26.0) mmol/L ABG Total CO2 28.1 H (21.0-25.0) mmol/L ABG O2 Saturation 86.8 L (95.0-98.0) % ABG O2 Content 11.3 L (15.0-23.0) %vol ABG Base Excess 2.9 mm/L ABG Hemoglobin 9.4 L (12.0-16.0) g/dL ABG Oxyhemoglobin 85.2 % ABG Carboxyhemoglobin 1.0 (0.0-1.6) % ABG Methemoglobin 0.8 % Matias Test Passed O2 Delivery Device Bipap Oxygen Flow Rate L Sodium (140-148) mmol/L Potassium (3.6-5.2) mmol/L Chloride (100-108) mmol/L Carbon Dioxide (21-32) mmol/L Anion Gap (5.0-14.0) mmol/L BUN (7-18) mg/dL Creatinine (0.6-1.0) mg/dL Est Cr Clr Drug Dosing mL/min Estimated GFR (MDRD) (>60) Glucose (74-106) mg/dL Calcium (8.5-10.1) mg/dL Troponin I 0.217 H* 0.486 H* (0.000-0.056) ng/mL Procalcitonin ng/mL 02/17/21 02/17/21 02/17/21 Range/Units 04:50 04:50 04:50 WBC 14.9 H (4.5-11.0) K/uL RBC 3.09 L (3.30-5.50) M/uL Hgb 8.0 L (12.0-15.0) g/dL Hct 28.1 L (36.0-48.0) % MCV 91 (80-98) fL MCH 26 L (27-31) pg MCHC 29 L (32-36) % Plt Count 246 (150-400) K/uL Puncture Site L radial ABG pH 7.356 (7.350-7.450) ABG pCO2 52.9 H (35.0-42.0) mmHg ABG pO2 72.4 L (75.0-100.0) mmHg ABG HCO3 28.8 H (22.0-26.0) mmol/L ABG Total CO2 27.6 H (21.0-25.0) mmol/L ABG O2 Saturation 94.7 L (95.0-98.0) % ABG O2 Content 11.0 L (15.0-23.0) %vol ABG Base Excess 3.3 mm/L ABG Hemoglobin 8.4 L (12.0-16.0) g/dL ABG Oxyhemoglobin 92.5 % ABG Carboxyhemoglobin 1.6 (0.0-1.6) % ABG Methemoglobin 0.7 % Matias Test Ok O2 Delivery Device Bipap Oxygen Flow Rate L Sodium 136 L (140-148) mmol/L Potassium 4.2 (3.6-5.2) mmol/L Chloride 100 (100-108) mmol/L Carbon Dioxide 29 (21-32) mmol/L Anion Gap 11.2 (5.0-14.0) mmol/L BUN 20 H (7-18) mg/dL Creatinine 1.5 H (0.6-1.0) mg/dL Est Cr Clr Drug Dosing 22.92 mL/min Estimated GFR (MDRD) 34 L (>60) Glucose 119 H (74-106) mg/dL Calcium 8.3 L (8.5-10.1) mg/dL Troponin I 0.495 H* (0.000-0.056) ng/mL Procalcitonin ng/mL Edgardo Results Last 24 Hours: Microbiology 02/14/21 20:25 Gram Stain - Final Sputum - Expectorated Respiratory Culture - Final YEAST Med Orders - Current: Current Medications Acetaminophen (Acetaminophen 325 Mg Tab) 650 mg PO Q4H PRN PRN Reason: Pain (Mild 1-3)/fever Albuterol (Albuterol 0.083% 2.5 Mg/3 Ml Neb Soln) 2.5 mg NEB Q4H PRN PRN Reason: Shortness Of Breath/wheezing Last Admin: 02/16/21 19:18 Dose: 2.5 mg Documented by: Albuterol/Ipratropium (Albuterol/Ipratropium 3.0-0.5 Mg/3 Ml Neb Soln) 3 ml INH QIDRT [facility] Last Admin: 02/17/21 07:18 Dose: 3 ml Documented by: Amlodipine Besylate (Amlodipine 5 Mg Tab) 5 mg PO BEDTIME [facility] Last Admin: 02/16/21 21:12 Dose: Not Given Documented by: Arformoterol Tartrate (Arformoterol 15 Mcg/2 Ml Neb Soln) 15 mcg INH BIDRT [facility] Last Admin: 02/17/21 07:18 Dose: 15 mcg Documented by: Aripiprazole (Aripiprazole 10 Mg Tab) 20 mg PO ACDINNER [facility] Last Admin: 02/16/21 16:34 Dose: 20 mg Documented by: Aripiprazole (Aripiprazole 10 Mg Tab) 10 mg PO DAILY [facility] Last Admin: 02/16/21 08:21 Dose: 10 mg Documented by: Aspirin (Aspirin 81 Mg Tab.Ec) 81 mg PO BEDTIME [facility] Last Admin: 02/16/21 21:12 Dose: Not Given Documented by: Benzonatate (Benzonatate 100 Mg Cap) 100 mg PO Q8H PRN PRN Reason: Cough Budesonide (Budesonide 0.5 Mg/2 Ml Neb Susp) 0.5 mg NEB BIDRT [facility] Last Admin: 02/17/21 07:18 Dose: 0.5 mg Documented by: Clonazepam (Clonazepam 0.5 Mg Tab) 0.25 mg PO BEDTIME [facility] Last Admin: 02/16/21 21:12 Dose: Not Given Documented by: Clopidogrel Bisulfate (Clopidogrel 75 Mg Tab) 75 mg PO DAILY [facility] Last Admin: 02/16/21 08:25 Dose: 75 mg Documented by: Enoxaparin Sodium (Enoxaparin 60 Mg/0.6 Ml Syringe) 60 mg SUBCUT Q24H [facility] Famotidine (Famotidine 20 Mg Tab) 60 mg PO BEDTIME [facility] Last Admin: 02/16/21 21:12 Dose: Not Given Documented by: Furosemide (Furosemide 20 Mg Tab) 20 mg PO DAILY PRN PRN Reason: Edema Ceftazidime 1 gm/ Sodium (Chloride) 50 mls @ 100 mls/hr IV Q24H [facility] Last Admin: 02/16/21 16:37 Dose: 100 mls/hr Documented by: Sodium Chloride (Normal Saline) 1,000 mls @ 25 mls/hr IV ASDIRECTED [facility] Last Infusion: 02/16/21 19:58 Dose: Infused Documented by: Doxycycline Hyclate 100 mg/ (Sodium Chloride) 100 mls @ 100 mls/hr IV Q12H [facility] Last Admin: 02/16/21 21:17 Dose: 100 mls/hr Documented by: Nitroglycerin/Dextrose (Nitroglycerin 25 Mg/D5w 250 Ml) 25 mg in 250 mls @ 18 mls/hr IV TITRATE [facility]; Protocol Last Titration: 02/17/21 06:05 Dose: 15 mcg/min, 9 mls/hr Documented by: Ipratropium [place] (Ipratropium 0.03% Nasal Bronson 30 Ml Bot) 0 ml NASBOTH BID [facility] Last Admin: 02/16/21 21:13 Dose: Not Given Documented by: Isosorbide Mononitrate (Isosorbide Mononitrate 30 Mg Tab.Er) 30 mg PO DAILY [facility] Last Admin: 02/16/21 09:22 Dose: 30 mg Documented by: Lactobacillus Rhamnosus (Lactobacillus Rhamnosus Gg (Probiotic) Cap) 1 cap PO BID [facility] Last Admin: 02/16/21 21:12 Dose: Not Given Documented by: Levalbuterol HCl (Levalbuterol Hcl 1.25 Mg/3 Ml Neb) 1.25 mg INH TID PRN PRN Reason: Wheezing Levothyroxine Sodium (Levothyroxine 88 Mcg Tab) 88 mcg PO ACBREAKFAST [facility] Last Admin: 02/16/21 08:23 Dose: 88 mcg Documented by: Lorazepam (Lorazepam 2 Mg/Ml Sdv) 0.5 mg IVPUSH Q4H PRN PRN Reason: Nausea/Vomiting Lorazepam (Lorazepam 0.5 Mg Tab) 0.5 mg PO Q4H PRN PRN Reason: Anxiety Last Admin: 02/16/21 16:33 Dose: 0.5 mg Documented by: Lorazepam (Lorazepam 2 Mg/Ml Sdv) 0.5 mg IVPUSH Q4H PRN PRN Reason: Anxiety/Agitation Losartan Potassium (Losartan 50 Mg Tab) 100 mg PO ACDINNER [facility] Last Admin: 02/16/21 16:35 Dose: 100 mg Documented by: Magnesium Hydroxide (Magnesium Hydroxide 400 Mg/5 Ml Susp 30 Ml Cup) 30 ml PO Q12H PRN PRN Reason: Constipation Melatonin (Melatonin 3 Mg Tab) 9 mg PO BEDTIME PRN PRN Reason: Sleep Mirabegron (Mirabegron 25 Mg Tab Extended Release) 50 mg PO DAILY [facility] Last Admin: 02/16/21 09:23 Dose: 50 mg Documented by: Morphine Sulfate (Morphine 2 Mg/Ml Syringe) 2 mg IVPUSH Q1H PRN PRN Reason: Chest Pain Last Admin: 02/17/21 03:08 Dose: 2 mg Documented by: Multivitamins/Minerals (Multivitamins With Iron/Calcium/Folic Acid/Minerals Tab) 1 tab PO DAILY [facility] Last Admin: 02/16/21 08:22 Dose: 1 tab Documented by: Naproxen (Naproxen 250 Mg Tab) 250 mg PO Q12H PRN PRN Reason: Headache Last Admin: 02/16/21 17:17 Dose: 250 mg Documented by: Tranylcypromine ( Parnate) 10 Mg Tab * *Own Med 0 mg PO ACDINNER [facility] Last Admin: 02/16/21 16:36 Dose: 20 mg Documented by: Tranylcypromine ( Parnate) 10 Mg Tab * *Own Med 0 mg PO ACBREAKFAST [facility] Last Admin: 02/16/21 08:23 Dose: 30 mg Documented by: Tranylcypromine ( Parnate) 10 Mg Tab * *Own Med 0 mg PO DAILY@1200 [facility] Last Admin: 02/16/21 11:36 Dose: 30 mg Documented by: Zafirlukast ( Accolate) 20 Mg Tablet Own Med 0 mg PO BID [facility] Last Admin: 02/16/21 21:12 Dose: Not Given Documented by: Ondansetron HCl (Ondansetron 4 Mg/2 Ml Sdv) 4 mg IV Q6H PRN PRN Reason: Nausea/Vomiting Ondansetron HCl (Ondansetron 4 Mg Tab.Dis) 4 mg PO Q6H PRN PRN Reason: Nausea able to take PO Oxycodone/Acetaminophen (Acetaminophen/Oxycodone 325-10 Mg Tab) 1 - 1.5 tab PO Q6H PRN PRN Reason: Pain Last Admin: 02/17/21 04:12 Dose: 1 tab Documented by: Polyethylene Glycol (Polyethylene Glycol 3350 Powder 17 Gm Packet) 17 gm PO DAILY [facility] Last Admin: 02/16/21 08:22 Dose: 17 gm Documented by: Pravastatin Sodium (Pravastatin 20 Mg Tab) 10 mg PO ACDINNER [facility] Last Admin: 02/16/21 16:35 Dose: 10 mg Documented by: Discontinued Medications Albuterol/Ipratropium (Albuterol/Ipratropium 3.0-0.5 Mg/3 Ml Neb Soln) 3 ml INH QID PRN PRN Reason: Shortness of Breath Last Admin: 02/15/21 00:27 Dose: 3 ml Documented by: Enoxaparin Sodium (Enoxaparin 40 Mg/0.4 Ml Syringe) 40 mg SUBCUT BEDTIME [facility] Enoxaparin Sodium (Enoxaparin 60 Mg/0.6 Ml Syringe) 60 mg SUBCUT Q12H [facility] Last Admin: 02/16/21 21:34 Dose: 60 mg Documented by: Furosemide (Furosemide 20 Mg Tab) 20 mg PO DAILY [facility] Last Admin: 02/16/21 08:21 Dose: 20 mg Documented by: Furosemide (Furosemide 40 Mg/4 Ml Vial) 40 mg IVPUSH ONETIME STA Stop: 02/16/21 19:31 Last Admin: 02/16/21 19:48 Dose: 40 mg Documented by: Guaifenesin/Dextromethorphan (Guaifenesin/Dextromethorphan 100-10 Mg/5 Ml Soln 10 Ml Cup) 10 ml PO Q4H PRN PRN Reason: Cough Last Admin: 02/15/21 03:36 Dose: 10 ml Documented by: Vancomycin HCl 1 gm/ Sodium (Chloride) 250 mls @ 150 mls/hr IV Q24H [facility] Last Admin: 02/15/21 17:04 Dose: 150 mls/hr Documented by: Nitroglycerin/Dextrose (Nitroglycerin 25 Mg/D5w 250 Ml) Confirm Administered Dose 25 mg in 250 mls @ as directed .ROUTE .STK-MED ONE Stop: 02/16/21 20:27 Last Admin: 02/16/21 20:32 Dose: Not Given Documented by: Lorazepam (Lorazepam 0.5 Mg Tab) 0.5 mg PO TID PRN PRN Reason: Anxiety Last Admin: 02/16/21 11:36 Dose: 0.5 mg Documented by: Non-Formulary Medication (Cevimeline [Evoxac]) 30 mg PO BID [facility] Last Admin: 02/15/21 21:25 Dose: Not Given Documented by: - Exam Quality Assessment: Supplemental Oxygen Urinary Catheter Total Time: 1Days 7Hours General: Alert, Cooperative, No Acute Distress Lungs: Normal Respiratory Effort, Crackles (few both bases and midlung ). No: Wheezing Cardiovascular: Regular Rate, Regular Rhythm GI/Abdominal Exam: Normal Bowel Sounds, Soft, No Distention Extremities: No Pedal Edema. No: Increased Warmth Skin: Warm, Dry Psy/Mental Status: Alert, Normal Affect - Patient Data Lab Results Last 24 hrs: Laboratory Results - last 24 hr 02/16/21 02/16/21 02/16/21 Range/Units 06:30 19:40 19:40 WBC (4.5-11.0) K/uL RBC (3.30-5.50) M/uL Hgb (12.0-15.0) g/dL Hct (36.0-48.0) % MCV (80-98) fL MCH (27-31) pg MCHC (32-36) % Plt Count (150-400) K/uL Puncture Site Right radial ABG pH 7.142 L* (7.350-7.450) ABG pCO2 85.5 H* (35.0-42.0) mmHg ABG pO2 76.1 (75.0-100.0) mmHg ABG HCO3 28.0 H (22.0-26.0) mmol/L ABG Total CO2 27.6 H (21.0-25.0) mmol/L ABG O2 Saturation 89.8 L (95.0-98.0) % ABG O2 Content 12.8 L (15.0-23.0) %vol ABG Base Excess -2.2 mm/L ABG Hemoglobin 10.3 L (12.0-16.0) g/dL ABG Oxyhemoglobin 87.8 % ABG Carboxyhemoglobin 1.5 (0.0-1.6) % ABG Methemoglobin 0.7 % Matias Test Not done O2 Delivery Device Non rebr mask Oxygen Flow Rate L Sodium 134 L (140-148) mmol/L Potassium 4.9 (3.6-5.2) mmol/L Chloride 98 L (100-108) mmol/L Carbon Dioxide 28 (21-32) mmol/L Anion Gap 12.9 (5.0-14.0) mmol/L BUN 15 (7-18) mg/dL Creatinine 1.2 H (0.6-1.0) mg/dL Est Cr Clr Drug Dosing 28.65 mL/min Estimated GFR (MDRD) 44 L (>60) Glucose 216 H (74-106) mg/dL Calcium 8.7 (8.5-10.1) mg/dL Troponin I (0.000-0.056) ng/mL Procalcitonin 0.08 ng/mL 02/16/21 02/16/21 02/16/21 Range/Units 19:55 21:35 23:00 WBC (4.5-11.0) K/uL RBC (3.30-5.50) M/uL Hgb (12.0-15.0) g/dL Hct (36.0-48.0) % MCV (80-98) fL MCH (27-31) pg MCHC (32-36) % Plt Count (150-400) K/uL Puncture Site Left radial ABG pH 7.316 L (7.350-7.450) ABG pCO2 59.3 H (35.0-42.0) mmHg ABG pO2 57.4 L (75.0-100.0) mmHg ABG HCO3 29.4 H (22.0-26.0) mmol/L ABG Total CO2 28.1 H (21.0-25.0) mmol/L ABG O2 Saturation 86.8 L (95.0-98.0) % ABG O2 Content 11.3 L (15.0-23.0) %vol ABG Base Excess 2.9 mm/L ABG Hemoglobin 9.4 L (12.0-16.0) g/dL ABG Oxyhemoglobin 85.2 % ABG Carboxyhemoglobin 1.0 (0.0-1.6) % ABG Methemoglobin 0.8 % Matias Test Passed O2 Delivery Device Bipap Oxygen Flow Rate L Sodium (140-148) mmol/L Potassium (3.6-5.2) mmol/L Chloride (100-108) mmol/L Carbon Dioxide (21-32) mmol/L Anion Gap (5.0-14.0) mmol/L BUN (7-18) mg/dL Creatinine (0.6-1.0) mg/dL Est Cr Clr Drug Dosing mL/min Estimated GFR (MDRD) (>60) Glucose (74-106) mg/dL Calcium (8.5-10.1) mg/dL Troponin I 0.217 H* 0.486 H* (0.000-0.056) ng/mL Procalcitonin ng/mL 02/17/21 02/17/21 02/17/21 Range/Units 04:50 04:50 04:50 WBC 14.9 H (4.5-11.0) K/uL RBC 3.09 L (3.30-5.50) M/uL Hgb 8.0 L (12.0-15.0) g/dL Hct 28.1 L (36.0-48.0) % MCV 91 (80-98) fL MCH 26 L (27-31) pg MCHC 29 L (32-36) % Plt Count 246 (150-400) K/uL Puncture Site L radial ABG pH 7.356 (7.350-7.450) ABG pCO2 52.9 H (35.0-42.0) mmHg ABG pO2 72.4 L (75.0-100.0) mmHg ABG HCO3 28.8 H (22.0-26.0) mmol/L ABG Total CO2 27.6 H (21.0-25.0) mmol/L ABG O2 Saturation 94.7 L (95.0-98.0) % ABG O2 Content 11.0 L (15.0-23.0) %vol ABG Base Excess 3.3 mm/L ABG Hemoglobin 8.4 L (12.0-16.0) g/dL ABG Oxyhemoglobin 92.5 % ABG Carboxyhemoglobin 1.6 (0.0-1.6) % ABG Methemoglobin 0.7 % Matias Test Ok O2 Delivery Device Bipap Oxygen Flow Rate L Sodium 136 L (140-148) mmol/L Potassium 4.2 (3.6-5.2) mmol/L Chloride 100 (100-108) mmol/L Carbon Dioxide 29 (21-32) mmol/L Anion Gap 11.2 (5.0-14.0) mmol/L BUN 20 H (7-18) mg/dL Creatinine 1.5 H (0.6-1.0) mg/dL Est Cr Clr Drug Dosing 22.92 mL/min Estimated GFR (MDRD) 34 L (>60) Glucose 119 H (74-106) mg/dL Calcium 8.3 L (8.5-10.1) mg/dL Troponin I 0.495 H* (0.000-0.056) ng/mL Procalcitonin ng/mL Result Diagrams: 02/17/21 04:50 02/17/21 04:50 Edgardo Results Last 24 hrs: Microbiology 02/14/21 20:25 Gram Stain - Final Sputum - Expectorated Respiratory Culture - Final YEAST Sepsis Event Note - Evaluation Sepsis Screening Result: Severe Sepsis Risk - Focused Exam Vital Signs: Vital Signs Temp Pulse Resp BP Pulse Ox Pulse Ox 02/17/21 08:00 77 12 101/42 L 93 L 93 L 02/17/21 07:00 36.2 C 78 14 105/44 L 90 L 02/17/21 06:32 12 110/46 L 93 L 02/17/21 06:00 12 91/36 L 93 L 02/17/21 05:25 99/40 L 02/17/21 05:00 36.4 C 13 93/39 L 93 L 02/17/21 04:00 36.4 C 15 100/45 L 92 L 02/17/21 03:00 15 102/45 L 92 L 02/17/21 02:00 16 108/50 L 90 L 02/17/21 01:00 17 100/46 L 93 L 02/17/21 00:40 16 112/50 L 93 L 02/17/21 00:00 16 94/42 L 95 02/16/21 23:00 36.4 C 20 111/45 L 94 L 02/16/21 22:36 19 94 L 02/16/21 22:00 20 120/42 L 92 L 02/16/21 21:00 35 H 119/49 L 91 L - Problem List & Annotations (1) Bronchiectasis with acute exacerbation Status: Acute Current Visit: Yes (2) COPD with emphysema SNOMED Code(s): 42707884 Code(s): J43.9 - EMPHYSEMA, UNSPECIFIED Status: Chronic Current Visit: Yes Qualifiers: Emphysema type: unspecified Qualified Code(s): J43.9 - Emphysema, unspecified (3) Acute on chronic respiratory failure SNOMED Code(s): 77748896 Code(s): J96.20 - ACUTE AND CHR RESP FAILURE, UNSP W HYPOXIA OR HYPERCAPNIA Status: Acute Current Visit: Yes Qualifiers: Respiratory failure complication: hypoxia Qualified Code(s): J96.21 - Acute and chronic respiratory failure with hypoxia (4) Depression with anxiety SNOMED Code(s): 102965477 Code(s): F41.8 - OTHER SPECIFIED ANXIETY DISORDERS Status: Chronic Current Visit: Yes - Problem List Review Problem List Initiated/Reviewed/Updated: Yes - My Orders Last 24 Hours: My Active Orders 02/16/21 15:39 Naproxen [Naprosyn] 250 mg PO Q12H PRN 02/16/21 15:40 LORazepam [Ativan] 0.5 mg PO Q4H PRN 02/16/21 15:44 Furosemide [Lasix] 20 mg PO DAILY PRN 02/16/21 19:31 Transfer Patient (Change bed) [ADT] Routine 02/16/21 19:32 BIPAP Adult [RT BiPAP/CPAP] [RC] ASDIRECTED EKG Documentation Completion [RC] ASDIRECTED EKG 12 Lead [EK] Urgent 02/16/21 19:33 Cardiac Monitoring [RC] .As Directed Overnight Pulse Oximetry [RC] Click to Edit Pulse Oximetry Continuous Monitoring [OM.PC] Routine 02/16/21 20:24 LORazepam [Ativan] 0.5 mg IVPUSH Q4H PRN 02/16/21 20:25 Morphine 2 mg IVPUSH Q1H PRN 02/16/21 20:30 Nitroglycerin/D5W [Nitroglycerin 25 MG/D5W 250 ML] 25 mg in 250 ml IV TITRATE 02/16/21 21:00 Albuterol/Ipratropium [DuoNeb 3.0-0.5 MG/3 ML] 3 ml INH QIDRT Doxycycline [Vibramycin] 100 mg Sodium Chloride 0.9% [Normal Saline] 100 ml IV Q12H 02/17/21 13:15 Insert Mims Catheter [Insert Urinary Catheter] [OM.PC] Q24H 02/17/21 21:00 Enoxaparin [Lovenox] 60 mg SUBCUT Q24H 02/18/21 05:00 CBC W/O DIFF,HEMOGRAM [HEME] Timed (1) COMPREHENSIVE METABOLIC PN,CMP [CHEM] Timed MAGNESIUM [CHEM] Timed TROPONIN I [CHEM] Timed - Plan Plan:: ASSESSMENT AND PLAN - Bronchiectasis with acute exacerbation-complicated by acute on chronic respiratory failure with both hypoxia and hypercapnia. Rapid deterioration yesterday after a coughing spell and transferred to the ICU. Respiratory culture now growing abundant germ tube positive yeast and fluconazole was added last night. Seems to be settling down. On broad-spectrum antibiotics and antifungal. Chest x-ray last night did suggest some pulmonary edema but this seems to have resolved overnight. -Antibiotic coverage with doxycycline and ceftazidime -Antifungal coverage with fluconazole -Noninvasive ventilation as needed -Discontinue nitro drip -Supplemental oxygen -Symptomatic management of cough -Initiate physical therapy once more stable -Consider chest CT if worsening or not getting better Elevated troponin-most likely demand ischemia versus mild non-ST elevation myocardial infarction. Plan to complete 48 hours of systemic anticoagulation along with antiplatelet therapy. 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 No active wheezing. -Scheduled and as needed nebulizers -Continue home medications Stage III chronic kidney disease-kidney function back to baseline. Depression with anxiety, severe-long psychiatric history. Patient is currently stable with her home medication regimen. -Continue home medication Maintenance issues - -DVT prophylaxis-mechanical along with dual antiplatelet therapy -GI prophylaxis-H2 deric -Nutrition-regular Disposition -I anticipate discharge home after the hospital stay Michele Rodriguez M.D.
[2021-02-17] MEDS: TRANYLCYPROMINE 10 MG PO SCH ×3 (08:56→16:15)
[2021-02-17] MEDS: ZAFIRLUKAST 20 MG PO SCH ×2 (08:58→20:23)
[2021-02-17] MEDS: Ipratropium 0.03% Nasal Spray 30 ML Bot NASBOTH SCH ×2 (08:59→20:20)
[2021-02-17] MEDS: Multivitamins with Iron/Calcium/Folic Acid/Minerals Tab PO SCH (08:59)
[2021-02-17] MEDS: Doxycycline 100 MG in Sodium Chloride 0.9% 100 ML IV SCH ×2 (09:19→20:51)
[2021-02-17] MEDS: LORazepam 2 MG/ML SDV IVPUSH PRN ×2 (10:08→21:21)
[2021-02-17] MEDS: Sodium Chloride 0.9% 1,000 ML IV SCH (10:15)
[2021-02-17] MEDS: Pravastatin 20 MG Tab PO SCH (16:14)
[2021-02-17] MEDS: Benzonatate 100 MG Cap PO PRN (16:21)
--- NOTE | 2021-02-17 16:48 | PCM.EKG ---
#1 Interpretation EKG Date: 02/16/21 Time: 20:56 Rhythm: Other (Sinus tachycardia) Rate (Beats/Min): 121 [place]: Normal P-Wave: Present QRS: Normal ST-T: Other (Mild ST depressions and T wave inversions in V4 through V6) QT: Normal W[place]/PQ Interval: Normal Comparison: Change From Previous EKG EKG Interpretation Comments: Compared to the EKG from 12/20/2020 the rate is faster and the ST depressions and T wave inversions in V4 through V6 are new
[2021-02-17] MEDS: ClonazePAM 0.5 MG Tab PO SCH (20:19)
[2021-02-17] MEDS: Enoxaparin 60 MG/0.6 ML Syringe SUBCUT SCH (20:21)
[2021-02-17] MEDS: Aspirin 81 MG Tab.EC PO SCH (20:21)
[2021-02-17] MEDS: amLODIPine 5 MG Tab PO SCH (20:22)
[2021-02-17] MEDS: Famotidine 20 MG Tab PO SCH (20:22)
[2021-02-18] MEDS: LORazepam 2 MG/ML SDV IVPUSH PRN ×2 (02:00→13:59)
[2021-02-18] MEDS: Morphine 2 MG/ML SYRINGE IVPUSH PRN ×5 (05:38→21:16)
[2021-02-18] MEDS: Budesonide 0.5 MG/2 ML Neb Susp NEB SCH ×2 (07:41→20:51)
[2021-02-18] MEDS: Arformoterol 15 MCG/2 ML Neb Soln INH SCH ×2 (07:41→20:51)
[2021-02-18] MEDS: Albuterol/Ipratropium 3.0-0.5 MG/3 ML Neb Soln INH SCH ×4 (07:41→20:51)
[2021-02-18] MEDS: Mirabegron 25 MG Tab Extended Release PO SCH (08:14)
[2021-02-18] MEDS: Lactobacillus Rhamnosus GG (Probiotic) Cap PO SCH ×2 (08:14→20:52)
[2021-02-18] MEDS: Clopidogrel 75 MG Tab PO SCH (08:15)
[2021-02-18] MEDS: TRANYLCYPROMINE 10 MG PO SCH ×3 (08:19→17:52)
[2021-02-18] MEDS: Levothyroxine 88 MCG Tab PO SCH (08:19)
[2021-02-18] MEDS: Ipratropium 0.03% Nasal Spray 30 ML Bot NASBOTH SCH ×2 (08:20→20:52)
[2021-02-18] MEDS: Polyethylene Glycol 3350 Powder 17 GM Packet PO SCH (08:21)
[2021-02-18] MEDS: Multivitamins with Iron/Calcium/Folic Acid/Minerals Tab PO SCH (08:21)
[2021-02-18] MEDS: ZAFIRLUKAST 20 MG PO SCH ×2 (08:22→20:53)
[2021-02-18] MEDS: Doxycycline 100 MG in Sodium Chloride 0.9% 100 ML IV SCH ×2 (08:22→20:51)
[2021-02-18] MEDS: ARIPiprazole 10 MG Tab PO SCH ×2 (08:31→15:59)
--- NOTE | 2021-02-18 09:03 | PCM.PN ---
- General Info Date of Service: 02/18/21 Subjective Update: No acute events overnight. Patient did remain on noninvasive ventilation overnight but is off this morning. Oxygen saturations with nasal cannula supplementing her oxygen are in the mid 90s. She feels weak. She has a cough with greenish sputum. She feels somewhat short of breath even at rest. She does feel better than yesterday. No fevers. White count is a little better. No new positive culture results. Functional Status: Reports: Pain Controlled, Tolerating Diet - Review of Systems General: Reports: Weakness Pulmonary: Reports: Shortness of Breath, Cough, Sputum - Patient Data Vitals - Most Recent: Last Vital Signs Temp 36.3 C 02/18/21 02:00 Pulse 98 02/18/21 07:43 Resp 17 02/18/21 06:00 BP 158/55 H 02/18/21 06:00 Pulse Ox 90 L 02/18/21 07:43 Weight - Most Recent: 63.049 kg I&O - Last 24 Hours: Intake & Output 02/17/21 02/18/21 02/18/21 22:59 06:59 14:59 Intake Total 1020 500 Output Total 750 1050 Balance 270 -550 Lab Results Last 24 Hours: Laboratory Results - last 24 hr 02/18/21 02/18/21 Range/Units 05:00 05:00 WBC 11.7 H (4.5-11.0) K/uL RBC 3.27 L (3.30-5.50) M/uL Hgb 8.9 L (12.0-15.0) g/dL Hct 30.1 L (36.0-48.0) % MCV 92 (80-98) fL MCH 27 (27-31) pg MCHC 30 L (32-36) % Plt Count 218 (150-400) K/uL Sodium 136 L (140-148) mmol/L Potassium 4.5 (3.6-5.2) mmol/L Chloride 101 (100-108) mmol/L Carbon Dioxide 28 (21-32) mmol/L Anion Gap 11.5 (5.0-14.0) mmol/L BUN 18 (7-18) mg/dL Creatinine 1.3 H (0.6-1.0) mg/dL Est Cr Clr Drug Dosing 26.44 mL/min Estimated GFR (MDRD) 40 L (>60) Glucose 77 (74-106) mg/dL Calcium 8.5 (8.5-10.1) mg/dL Magnesium 1.6 L D (1.8-2.4) mg/dL Total Bilirubin 0.2 (0.2-1.0) mg/dL AST 26 D (15-37) U/L ALT 8 L (12-78) U/L Alkaline Phosphatase 89 (46-116) U/L Troponin I 0.209 H* (0.000-0.056) ng/mL Total Protein 6.1 L (6.4-8.2) g/dL Albumin 1.6 L (3.4-5.0) g/dL Globulin 4.5 H (2.3-3.5) g/dL Albumin/Globulin Ratio 0.4 L (1.2-2.2) Edgardo Results Last 24 Hours: Microbiology 02/14/21 20:25 Gram Stain - Final Sputum - Expectorated Respiratory Culture - Final YEAST Med Orders - Current: Current Medications Acetaminophen (Acetaminophen 325 Mg Tab) 650 mg PO Q4H PRN PRN Reason: Pain (Mild 1-3)/fever Albuterol (Albuterol 0.083% 2.5 Mg/3 Ml Neb Soln) 2.5 mg NEB Q4H PRN PRN Reason: Shortness Of Breath/wheezing Last Admin: 02/16/21 19:18 Dose: 2.5 mg Documented by: Albuterol/Ipratropium (Albuterol/Ipratropium 3.0-0.5 Mg/3 Ml Neb Soln) 3 ml INH QIDRT [facility] Last Admin: 02/18/21 07:41 Dose: 3 ml Documented by: Amlodipine Besylate (Amlodipine 5 Mg Tab) 5 mg PO BEDTIME [facility] Last Admin: 02/17/21 20:22 Dose: 5 mg Documented by: Arformoterol Tartrate (Arformoterol 15 Mcg/2 Ml Neb Soln) 15 mcg INH BIDRT [facility] Last Admin: 02/18/21 07:41 Dose: 15 mcg Documented by: Aripiprazole (Aripiprazole 10 Mg Tab) 20 mg PO ACDINNER [facility] Last Admin: 02/17/21 16:13 Dose: 20 mg Documented by: Aripiprazole (Aripiprazole 10 Mg Tab) 10 mg PO DAILY [facility] Last Admin: 02/18/21 08:31 Dose: 10 mg Documented by: Aspirin (Aspirin 81 Mg Tab.Ec) 81 mg PO BEDTIME [facility] Last Admin: 02/17/21 20:21 Dose: 81 mg Documented by: Benzonatate (Benzonatate 100 Mg Cap) 100 mg PO Q8H PRN PRN Reason: Cough Last Admin: 02/17/21 16:21 Dose: 100 mg Documented by: Budesonide (Budesonide 0.5 Mg/2 Ml Neb Susp) 0.5 mg NEB BIDRT [facility] Last Admin: 02/18/21 07:41 Dose: 0.5 mg Documented by: Clonazepam (Clonazepam 0.5 Mg Tab) 0.25 mg PO BEDTIME [facility] Last Admin: 02/17/21 20:19 Dose: 0.25 mg Documented by: Clopidogrel Bisulfate (Clopidogrel 75 Mg Tab) 75 mg PO DAILY [facility] Last Admin: 02/18/21 08:15 Dose: 75 mg Documented by: Enoxaparin Sodium (Enoxaparin 60 Mg/0.6 Ml Syringe) 60 mg SUBCUT Q24H [facility] Last Admin: 02/17/21 20:21 Dose: 60 mg Documented by: Famotidine (Famotidine 20 Mg Tab) 60 mg PO BEDTIME [facility] Last Admin: 02/17/21 20:22 Dose: 60 mg Documented by: Furosemide (Furosemide 20 Mg Tab) 20 mg PO DAILY PRN PRN Reason: Edema Ceftazidime 1 gm/ Sodium (Chloride) 50 mls @ 100 mls/hr IV Q24H [facility] Last Admin: 02/17/21 16:16 Dose: 100 mls/hr Documented by: Doxycycline Hyclate 100 mg/ (Sodium Chloride) 100 mls @ 100 mls/hr IV Q12H [facility] Last Admin: 02/18/21 08:22 Dose: 100 mls/hr Documented by: Sodium Chloride (Normal Saline) 1,000 mls @ 75 mls/hr IV ASDIRECTED [facility] Fluconazole/Sodium Chloride (100 mg/ Premix) 50 mls @ 100 mls/hr IV Q24H [facility] Magnesium Sulfate 2 gm/ Premix 50 mls @ 25 mls/hr IV Q6H [facility] Stop: 02/18/21 16:59 Ipratropium Mentor (Ipratropium 0.03% Nasal Adams 30 Ml Bot) 0 ml NASBOTH BID [facility] Last Admin: 02/18/21 08:20 Dose: 1 units Documented by: Isosorbide Mononitrate (Isosorbide Mononitrate 30 Mg Tab.Er) 30 mg PO DAILY [facility] Last Admin: 02/17/21 08:53 Dose: Not Given Documented by: Lactobacillus Rhamnosus (Lactobacillus Rhamnosus Gg (Probiotic) Cap) 1 cap PO BID [facility] Last Admin: 02/18/21 08:14 Dose: 1 cap Documented by: Levalbuterol HCl (Levalbuterol Hcl 1.25 Mg/3 Ml Neb) 1.25 mg INH TID PRN PRN Reason: Wheezing Levothyroxine Sodium (Levothyroxine 88 Mcg Tab) 88 mcg PO ACBREAKFAST [facility] Last Admin: 02/18/21 08:19 Dose: 88 mcg Documented by: Lorazepam (Lorazepam 2 Mg/Ml Sdv) 0.5 mg IVPUSH Q4H PRN PRN Reason: Nausea/Vomiting Last Admin: 02/17/21 10:08 Dose: 0.5 mg Documented by: Lorazepam (Lorazepam 0.5 Mg Tab) 0.5 mg PO Q4H PRN PRN Reason: Anxiety Last Admin: 02/16/21 16:33 Dose: 0.5 mg Documented by: Lorazepam (Lorazepam 2 Mg/Ml Sdv) 0.5 mg IVPUSH Q4H PRN PRN Reason: Anxiety/Agitation Last Admin: 02/18/21 02:00 Dose: 0.5 mg Documented by: Losartan Potassium (Losartan 50 Mg Tab) 100 mg PO ACDINNER [facility] Last Admin: 02/16/21 16:35 Dose: 100 mg Documented by: Magnesium Hydroxide (Magnesium Hydroxide 400 Mg/5 Ml Susp 30 Ml Cup) 30 ml PO Q12H PRN PRN Reason: Constipation Melatonin (Melatonin 3 Mg Tab) 9 mg PO BEDTIME PRN PRN Reason: Sleep Mirabegron (Mirabegron 25 Mg Tab Extended Release) 50 mg PO DAILY [facility] Last Admin: 02/18/21 08:14 Dose: 50 mg Documented by: Morphine Sulfate (Morphine 2 Mg/Ml Syringe) 2 mg IVPUSH Q1H PRN PRN Reason: Chest Pain Last Admin: 02/18/21 05:38 Dose: 2 mg Documented by: Multivitamins/Minerals (Multivitamins With Iron/Calcium/Folic Acid/Minerals Tab) 1 tab PO DAILY [facility] Last Admin: 02/18/21 08:21 Dose: 1 tab Documented by: Naproxen (Naproxen 250 Mg Tab) 250 mg PO Q12H PRN PRN Reason: Headache Last Admin: 02/16/21 17:17 Dose: 250 mg Documented by: Tranylcypromine ( Parnate) 10 Mg Tab * *Own Med 0 mg PO ACDINNER [facility] Last Admin: 02/17/21 16:15 Dose: 20 mg Documented by: Tranylcypromine ( Parnate) 10 Mg Tab * *Own Med 0 mg PO ACBREAKFAST [facility] Last Admin: 02/18/21 08:19 Dose: 30 mg Documented by: Tranylcypromine ( Parnate) 10 Mg Tab * *Own Med 0 mg PO DAILY@1200 [facility] Last Admin: 02/17/21 12:34 Dose: 30 mg Documented by: Zafirlukast ( Accolate) 20 Mg Tablet Own Med 0 mg PO BID [facility] Last Admin: 02/18/21 08:22 Dose: 20 mg Documented by: Ondansetron HCl (Ondansetron 4 Mg/2 Ml Sdv) 4 mg IV Q6H PRN PRN Reason: Nausea/Vomiting Ondansetron HCl (Ondansetron 4 Mg Tab.Dis) 4 mg PO Q6H PRN PRN Reason: Nausea able to take PO Oxycodone/Acetaminophen (Acetaminophen/Oxycodone 325-10 Mg Tab) 1 - 1.5 tab PO Q6H PRN PRN Reason: Pain Last Admin: 02/17/21 10:05 Dose: 1 tab Documented by: Polyethylene Glycol (Polyethylene Glycol 3350 Powder 17 Gm Packet) 17 gm PO DAILY [facility] Last Admin: 02/18/21 08:21 Dose: Not Given Documented by: Pravastatin Sodium (Pravastatin 20 Mg Tab) 10 mg PO ACDINNER [facility] Last Admin: 02/17/21 16:14 Dose: 10 mg Documented by: Discontinued Medications Albuterol/Ipratropium (Albuterol/Ipratropium 3.0-0.5 Mg/3 Ml Neb Soln) 3 ml INH QID PRN PRN Reason: Shortness of Breath Last Admin: 02/15/21 00:27 Dose: 3 ml Documented by: Enoxaparin Sodium (Enoxaparin 40 Mg/0.4 Ml Syringe) 40 mg SUBCUT BEDTIME [facility] Enoxaparin Sodium (Enoxaparin 60 Mg/0.6 Ml Syringe) 60 mg SUBCUT Q12H [facility] Last Admin: 02/16/21 21:34 Dose: 60 mg Documented by: Furosemide (Furosemide 20 Mg Tab) 20 mg PO DAILY [facility] Last Admin: 02/16/21 08:21 Dose: 20 mg Documented by: Furosemide (Furosemide 40 Mg/4 Ml Vial) 40 mg IVPUSH ONETIME STA Stop: 02/16/21 19:31 Last Admin: 02/16/21 19:48 Dose: 40 mg Documented by: Guaifenesin/Dextromethorphan (Guaifenesin/Dextromethorphan 100-10 Mg/5 Ml Soln 10 Ml Cup) 10 ml PO Q4H PRN PRN Reason: Cough Last Admin: 02/15/21 03:36 Dose: 10 ml Documented by: Sodium Chloride (Normal Saline) 1,000 mls @ 25 mls/hr IV ASDIRECTED [facility] Last Admin: 02/17/21 10:15 Dose: 25 mls/hr Documented by: Vancomycin HCl 1 gm/ Sodium (Chloride) 250 mls @ 150 mls/hr IV Q24H [facility] Last Admin: 02/15/21 17:04 Dose: 150 mls/hr Documented by: Nitroglycerin/Dextrose (Nitroglycerin 25 Mg/D5w 250 Ml) 25 mg in 250 mls @ 18 mls/hr IV TITRATE [facility]; Protocol Last Titration: 02/17/21 10:53 Dose: 0 mcg/min, 0 mls/hr Documented by: Nitroglycerin/Dextrose (Nitroglycerin 25 Mg/D5w 250 Ml) Confirm Administered Dose 25 mg in 250 mls @ as directed .ROUTE .STK-MED ONE Stop: 02/16/21 20:27 Last Admin: 02/16/21 20:32 Dose: Not Given Documented by: Lorazepam (Lorazepam 0.5 Mg Tab) 0.5 mg PO TID PRN PRN Reason: Anxiety Last Admin: 02/16/21 11:36 Dose: 0.5 mg Documented by: Non-Formulary Medication (Cevimeline [Evoxac]) 30 mg PO BID [facility] Last Admin: 02/15/21 21:25 Dose: Not Given Documented by: - Exam Quality Assessment: Supplemental Oxygen Urinary Catheter Total Time: 2Days 6Hours General: Alert, Oriented, Cooperative, No Acute Distress Neck: Supple. No: JVD Lungs: Normal Respiratory Effort, Crackles (both lower lungs and right mid lung ) Cardiovascular: Regular Rate, Regular Rhythm GI/Abdominal Exam: Normal Bowel Sounds, Soft, No Distention Extremities: No Pedal Edema. No: Increased Warmth Skin: Warm, Dry Psy/Mental Status: Alert, Normal Affect - Patient Data Lab Results Last 24 hrs: Laboratory Results - last 24 hr 02/18/21 02/18/21 Range/Units 05:00 05:00 WBC 11.7 H (4.5-11.0) K/uL RBC 3.27 L (3.30-5.50) M/uL Hgb 8.9 L (12.0-15.0) g/dL Hct 30.1 L (36.0-48.0) % MCV 92 (80-98) fL MCH 27 (27-31) pg MCHC 30 L (32-36) % Plt Count 218 (150-400) K/uL Sodium 136 L (140-148) mmol/L Potassium 4.5 (3.6-5.2) mmol/L Chloride 101 (100-108) mmol/L Carbon Dioxide 28 (21-32) mmol/L Anion Gap 11.5 (5.0-14.0) mmol/L BUN 18 (7-18) mg/dL Creatinine 1.3 H (0.6-1.0) mg/dL Est Cr Clr Drug Dosing 26.44 mL/min Estimated GFR (MDRD) 40 L (>60) Glucose 77 (74-106) mg/dL Calcium 8.5 (8.5-10.1) mg/dL Magnesium 1.6 L D (1.8-2.4) mg/dL Total Bilirubin 0.2 (0.2-1.0) mg/dL AST 26 D (15-37) U/L ALT 8 L (12-78) U/L Alkaline Phosphatase 89 (46-116) U/L Troponin I 0.209 H* (0.000-0.056) ng/mL Total Protein 6.1 L (6.4-8.2) g/dL Albumin 1.6 L (3.4-5.0) g/dL Globulin 4.5 H (2.3-3.5) g/dL Albumin/Globulin Ratio 0.4 L (1.2-2.2) Result Diagrams: 02/18/21 05:00 02/18/21 05:00 Edgardo Results Last 24 hrs: Microbiology 02/14/21 20:25 Gram Stain - Final Sputum - Expectorated Respiratory Culture - Final YEAST Sepsis Event Note - Evaluation Sepsis Screening Result: Severe Sepsis Risk - Focused Exam Vital Signs: Vital Signs Temp Pulse Resp BP Pulse Ox Pulse Ox 02/18/21 07:43 98 90 L 02/18/21 06:00 101 H 17 158/55 H 95 02/18/21 05:00 99 18 158/59 H 96 02/18/21 04:00 92 14 157/58 H 92 L 02/18/21 03:00 94 17 151/57 H 94 L 02/18/21 02:00 36.3 C 95 16 152/56 H 95 02/18/21 01:00 99 17 154/58 H 94 L 02/18/21 00:00 101 H 19 169/64 H 94 L 02/17/21 23:00 101 H 20 168/57 H 92 L 02/17/21 22:00 104 H 21 H 147/44 H 94 L - Problem List & Annotations (1) Pneumonia SNOMED Code(s): 801368296 Code(s): J18.9 - PNEUMONIA, UNSPECIFIED ORGANISM Status: Acute Current Visit: No Qualifiers: Pneumonia type: due to unspecified organism Laterality: right Lung location: lower lobe of lung Qualified Code(s): J18.9 - Pneumonia, unspecified organism (2) Bronchiectasis with acute exacerbation Status: Acute Current Visit: Yes (3) COPD with emphysema SNOMED Code(s): 09012540 Code(s): J43.9 - EMPHYSEMA, UNSPECIFIED Status: Chronic Current Visit: Yes Qualifiers: Emphysema type: unspecified Qualified Code(s): J43.9 - Emphysema, unspecified (4) Acute on chronic respiratory failure SNOMED Code(s): 46191263 Code(s): J96.20 - ACUTE AND CHR RESP FAILURE, UNSP W HYPOXIA OR HYPERCAPNIA Status: Acute Current Visit: Yes Qualifiers: Respiratory failure complication: hypoxia Qualified Code(s): J96.21 - Acute and chronic respiratory failure with hypoxia (5) Depression with anxiety SNOMED Code(s): 241271007 Code(s): F41.8 - OTHER SPECIFIED ANXIETY DISORDERS Status: Chronic Current Visit: Yes - Problem List Review Problem List Initiated/Reviewed/Updated: Yes - My Orders Last 24 Hours: My Active Orders 02/17/21 12:45 Sodium Chloride 0.9% [Normal Saline] 1,000 ml IV ASDIRECTED 02/17/21 20:09 Renew/Continue Urinary Catheter [OM.PC] Routine 02/17/21 21:00 Enoxaparin [Lovenox] 60 mg SUBCUT Q24H 02/18/21 09:00 Fluconazole/Normal Saline [Diflucan in NS 200 MG/100 ML] 100 mg Premix Bag 1 bag IV Q24H Magnesium Sulfate/Water [Magnesium Sulfate in Water 2 GM/50 ML] 2 gm Premix Bag 1 bag IV Q6H 02/18/21 13:15 Insert Mims Catheter [Insert Urinary Catheter] [OM.PC] Q24H 02/19/21 05:00 BASIC METABOLIC PANEL,BMP [CHEM] Timed CBC W/O DIFF,HEMOGRAM [HEME] Timed (1) - Plan Plan:: ASSESSMENT AND PLAN - Right lower lobe pneumonia-complicated by acute on chronic respiratory failure with both hypoxia and hypercapnia. She did require noninvasive ventilation overnight but is off as of this morning and has been stable so far. No fevers overnight. Cultures only growing abundant yeast at this time. No evidence for volume overload. -Antibiotic coverage with doxycycline and ceftazidime -Antifungal coverage with fluconazole -Noninvasive ventilation as needed -Supplemental oxygen -Symptomatic management of cough -Initiate physical therapy once more stable, Saturday? -Consider chest CT if worsening or not getting better Elevated troponin-most likely demand ischemia versus mild non-ST elevation myocardial infarction. Plan to complete 48 hours of systemic anticoagulation along with antiplatelet therapy. 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 No active wheezing. -Scheduled and as needed nebulizers -Continue home medications Stage III chronic kidney disease-kidney function back to baseline. Depression with anxiety, severe-long psychiatric history. Patient is currently stable with her home medication regimen. -Continue home medication Maintenance issues - -DVT prophylaxis-mechanical along with dual antiplatelet therapy -GI prophylaxis-H2 deric -Nutrition-regular Disposition -I anticipate discharge home with home care versus possibly subacute rehab after the hospital stay Michele Rodriguez M.D.
[2021-02-18] MEDS: Fluconazole/Normal Saline 100 MG in Premix Bag 1 BAG IV SCH (10:12)
[2021-02-18] MEDS: Magnesium Sulfate/Water 2 GM in Premix Bag 1 BAG IV SCH ×2 (11:30→16:55)
[2021-02-18] MEDS: LORazepam 0.5 MG Tab PO PRN (11:49)
[2021-02-18] MEDS ORDERED: Morphine 2 MG/ML SYRINGE IVPUSH ONE (15:13)
[2021-02-18] MEDS: Pravastatin 20 MG Tab PO SCH (17:50)
[2021-02-18] MEDS: Enoxaparin 60 MG/0.6 ML Syringe SUBCUT SCH (20:51)
[2021-02-18] MEDS: Famotidine 20 MG Tab PO SCH (20:52)
[2021-02-18] MEDS: amLODIPine 5 MG Tab PO SCH (20:52)
[2021-02-18] MEDS: Aspirin 81 MG Tab.EC PO SCH (20:53)
[2021-02-18] MEDS: ClonazePAM 0.5 MG Tab PO SCH (20:53)
[2021-02-19] MEDS: Sodium Chloride 0.9% 1,000 ML IV SCH ×2 (00:19→14:58)
[2021-02-19] MEDS: Morphine 2 MG/ML SYRINGE IVPUSH PRN ×8 (01:25→16:40)
[2021-02-19] MEDS: Budesonide 0.5 MG/2 ML Neb Susp NEB SCH ×2 (07:35→20:21)
[2021-02-19] MEDS: Albuterol/Ipratropium 3.0-0.5 MG/3 ML Neb Soln INH SCH ×4 (07:35→20:21)
[2021-02-19] MEDS: Arformoterol 15 MCG/2 ML Neb Soln INH SCH ×2 (07:35→20:21)
[2021-02-19] MEDS: Albuterol 0.083% 2.5 MG/3 ML Neb Soln NEB PRN ×2 (08:20→16:48)
[2021-02-19] MEDS: Levothyroxine 88 MCG Tab PO SCH (08:23)
[2021-02-19] MEDS: TRANYLCYPROMINE 10 MG PO SCH ×3 (08:24→15:37)
[2021-02-19] MEDS: Lactobacillus Rhamnosus GG (Probiotic) Cap PO SCH ×2 (08:25→20:22)
[2021-02-19] MEDS: Ipratropium 0.03% Nasal Spray 30 ML Bot NASBOTH SCH ×2 (08:26→20:23)
[2021-02-19] MEDS: Polyethylene Glycol 3350 Powder 17 GM Packet PO SCH (08:27)
[2021-02-19] MEDS: ARIPiprazole 10 MG Tab PO SCH ×2 (08:27→15:37)
[2021-02-19] MEDS: Clopidogrel 75 MG Tab PO SCH (08:28)
[2021-02-19] MEDS: Mirabegron 25 MG Tab Extended Release PO SCH (08:28)
[2021-02-19] MEDS: Multivitamins with Iron/Calcium/Folic Acid/Minerals Tab PO SCH (08:29)
[2021-02-19] MEDS: ZAFIRLUKAST 20 MG PO SCH ×2 (08:29→20:23)
[2021-02-19] MEDS: Doxycycline 100 MG in Sodium Chloride 0.9% 100 ML IV SCH ×2 (08:31→20:20)
--- NOTE | 2021-02-19 09:24 | PCM.PN ---
- General Info Date of Service: 02/19/21 Subjective Update: No acute events overnight. The patient did become fatigued yesterday afternoon and had to transition from nasal cannula back to the noninvasive ventilation. She rested well with 40% FiO2 overnight and is back on high flow nasal cannula this morning. She feels weak and tired. She continues to have a cough with green sputum production. Appetite has not been very good. No fevers. White count normal. No new positive culture results. Functional Status: Reports: Pain Controlled, Tolerating Diet - Review of Systems General: Reports: Weakness Pulmonary: Reports: Shortness of Breath, Cough - Patient Data Vitals - Most Recent: Last Vital Signs Temp 36.4 C 02/19/21 07:00 Pulse 92 02/19/21 08:35 Resp 15 02/19/21 07:00 BP 152/58 H 02/19/21 07:00 Pulse Ox 93 L 02/19/21 07:41 Weight - Most Recent: 63.049 kg I&O - Last 24 Hours: Intake & Output 02/18/21 02/19/21 02/19/21 22:59 06:59 14:59 Intake Total 1279 770 Output Total 350 600 Balance 929 170 Lab Results Last 24 Hours: Laboratory Results - last 24 hr 02/19/21 02/19/21 Range/Units 04:20 04:20 WBC 7.0 (4.5-11.0) K/uL RBC 3.10 L (3.30-5.50) M/uL Hgb 8.3 L (12.0-15.0) g/dL Hct 28.8 L (36.0-48.0) % MCV 93 (80-98) fL MCH 27 (27-31) pg MCHC 29 L (32-36) % Plt Count 218 (150-400) K/uL Sodium 139 L (140-148) mmol/L Potassium 4.1 (3.6-5.2) mmol/L Chloride 103 (100-108) mmol/L Carbon Dioxide 29 (21-32) mmol/L Anion Gap 11.1 (5.0-14.0) mmol/L BUN 17 (7-18) mg/dL Creatinine 1.1 H (0.6-1.0) mg/dL Est Cr Clr Drug Dosing 31.25 mL/min Estimated GFR (MDRD) 48 L (>60) Glucose 79 (74-106) mg/dL Calcium 8.7 (8.5-10.1) mg/dL Med Orders - Current: Current Medications Acetaminophen (Acetaminophen 325 Mg Tab) 650 mg PO Q4H PRN PRN Reason: Pain (Mild 1-3)/fever Acetylcysteine (Acetylcysteine 20% 200 Mg/Ml 4 Ml Nebulizer Soln Sdv) 200 mg NEB TIDRT [facility] Albuterol (Albuterol 0.083% 2.5 Mg/3 Ml Neb Soln) 2.5 mg NEB Q4H PRN PRN Reason: Shortness Of Breath/wheezing Last Admin: 02/19/21 08:20 Dose: 2.5 mg Documented by: Albuterol/Ipratropium (Albuterol/Ipratropium 3.0-0.5 Mg/3 Ml Neb Soln) 3 ml INH QIDRT [facility] Last Admin: 02/19/21 07:35 Dose: 3 ml Documented by: Amlodipine Besylate (Amlodipine 5 Mg Tab) 5 mg PO BEDTIME [facility] Last Admin: 02/18/21 20:52 Dose: 5 mg Documented by: Arformoterol Tartrate (Arformoterol 15 Mcg/2 Ml Neb Soln) 15 mcg INH BIDRT [facility] Last Admin: 02/19/21 07:35 Dose: 15 mcg Documented by: Aripiprazole (Aripiprazole 10 Mg Tab) 20 mg PO ACDINNER [facility] Last Admin: 02/18/21 15:59 Dose: 20 mg Documented by: Aripiprazole (Aripiprazole 10 Mg Tab) 10 mg PO DAILY [facility] Last Admin: 02/19/21 08:27 Dose: 10 mg Documented by: Aspirin (Aspirin 81 Mg Tab.Ec) 81 mg PO BEDTIME [facility] Last Admin: 02/18/21 20:53 Dose: 81 mg Documented by: Benzonatate (Benzonatate 100 Mg Cap) 100 mg PO Q8H PRN PRN Reason: Cough Last Admin: 02/17/21 16:21 Dose: 100 mg Documented by: Budesonide (Budesonide 0.5 Mg/2 Ml Neb Susp) 0.5 mg NEB BIDRT [facility] Last Admin: 02/19/21 07:35 Dose: 0.5 mg Documented by: Clonazepam (Clonazepam 0.5 Mg Tab) 0.25 mg PO BEDTIME [facility] Last Admin: 02/18/21 20:53 Dose: 0.25 mg Documented by: Clopidogrel Bisulfate (Clopidogrel 75 Mg Tab) 75 mg PO DAILY [facility] Last Admin: 02/19/21 08:28 Dose: 75 mg Documented by: Famotidine (Famotidine 20 Mg Tab) 60 mg PO BEDTIME [facility] Last Admin: 02/18/21 20:52 Dose: 60 mg Documented by: Furosemide (Furosemide 20 Mg Tab) 20 mg PO DAILY PRN PRN Reason: Edema Ceftazidime 1 gm/ Sodium (Chloride) 50 mls @ 100 mls/hr IV Q24H [facility] Last Admin: 02/18/21 16:00 Dose: 100 mls/hr Documented by: Doxycycline Hyclate 100 mg/ (Sodium Chloride) 100 mls @ 100 mls/hr IV Q12H [facility] Last Admin: 02/19/21 08:31 Dose: 100 mls/hr Documented by: Sodium Chloride (Normal Saline) 1,000 mls @ 75 mls/hr IV ASDIRECTED [facility] Last Admin: 02/19/21 00:19 Dose: 75 mls/hr Documented by: Fluconazole/Sodium Chloride (100 mg/ Premix) 50 mls @ 100 mls/hr IV Q24H [facility] Last Admin: 02/18/21 10:12 Dose: 100 mls/hr Documented by: Ipratropium [place] (Ipratropium 0.03% Nasal [place] 30 Ml Bot) 0 ml NASBOTH BID [facility] Last Admin: 02/19/21 08:26 Dose: 2 units Documented by: Isosorbide Mononitrate (Isosorbide Mononitrate 30 Mg Tab.Er) 30 mg PO DAILY [facility] Last Admin: 02/17/21 08:53 Dose: Not Given Documented by: Lactobacillus Rhamnosus (Lactobacillus Rhamnosus Gg (Probiotic) Cap) 1 cap PO BID [facility] Last Admin: 02/19/21 08:25 Dose: 1 cap Documented by: Levalbuterol HCl (Levalbuterol Hcl 1.25 Mg/3 Ml Neb) 1.25 mg INH TID PRN PRN Reason: Wheezing Levothyroxine Sodium (Levothyroxine 88 Mcg Tab) 88 mcg PO ACBREAKFAST [facility] Last Admin: 02/19/21 08:23 Dose: 88 mcg Documented by: Lorazepam (Lorazepam 2 Mg/Ml Sdv) 0.5 mg IVPUSH Q4H PRN PRN Reason: Nausea/Vomiting Last Admin: 02/18/21 13:59 Dose: 0.5 mg Documented by: Lorazepam (Lorazepam 0.5 Mg Tab) 0.5 mg PO Q4H PRN PRN Reason: Anxiety Last Admin: 02/18/21 11:49 Dose: 0.5 mg Documented by: Lorazepam (Lorazepam 2 Mg/Ml Sdv) 0.5 mg IVPUSH Q4H PRN PRN Reason: Anxiety/Agitation Last Admin: 02/18/21 02:00 Dose: 0.5 mg Documented by: Losartan Potassium ([facility] 50 Mg Tab) [facility] Admin: 02/16/21 16:35 Dose: 100 mg Documented by: Magnesium Hydroxide (Magnesium Hydroxide 400 Mg/5 Ml Susp 30 Ml Cup) 30 ml PO Q12H PRN PRN Reason: Constipation Melatonin (Melatonin 3 Mg Tab) 9 mg PO BEDTIME PRN PRN Reason: Sleep Mirabegron (Mirabegron 25 Mg Tab Extended Release) 50 mg PO DAILY [facility] Last Admin: 02/19/21 08:28 Dose: 50 mg Documented by: Morphine Sulfate (Morphine 2 Mg/Ml Syringe) 2 mg IVPUSH Q1H PRN PRN Reason: Chest Pain Last Admin: 02/19/21 08:15 Dose: 2 mg Documented by: Multivitamins/Minerals (Multivitamins With Iron/Calcium/Folic Acid/Minerals Tab) 1 tab PO DAILY [facility] Last Admin: 02/19/21 08:29 Dose: 1 tab Documented by: Naproxen (Naproxen 250 Mg Tab) 250 mg PO Q12H PRN PRN Reason: Headache Last Admin: 02/16/21 17:17 Dose: 250 mg Documented by: Tranylcypromine ( Parnate) 10 Mg Tab * *Own Med 0 mg PO ACDINNER [facility] Last Admin: 02/18/21 17:52 Dose: Not Given Documented by: Tranylcypromine ( Parnate) 10 Mg Tab * *Own Med 0 mg PO ACBREAKFAST [facility] Last Admin: 02/19/21 08:24 Dose: 30 mg Documented by: Tranylcypromine ( Parnate) 10 Mg Tab * *Own Med 0 mg PO DAILY@1200 [facility] Last Admin: 02/18/21 11:49 Dose: 30 mg Documented by: Zafirlukast ( Accolate) 20 Mg Tablet Own Med 0 mg PO BID [facility] Last Admin: 02/19/21 08:29 Dose: 20 mg Documented by: Ondansetron HCl (Ondansetron 4 Mg/2 Ml Sdv) 4 mg IV Q6H PRN PRN Reason: Nausea/Vomiting Ondansetron HCl (Ondansetron 4 Mg Tab.Dis) 4 mg PO Q6H PRN PRN Reason: Nausea able to take PO Oxycodone/Acetaminophen (Acetaminophen/Oxycodone 325-10 Mg Tab) 1 - 1.5 tab PO Q6H PRN PRN Reason: Pain Last Admin: 02/17/21 10:05 Dose: 1 tab Documented by: Polyethylene Glycol (Polyethylene Glycol 3350 Powder 17 Gm Packet) 17 gm PO DAILY [facility] Last Admin: 02/19/21 08:27 Dose: Not Given Documented by: Pravastatin Sodium (Pravastatin 20 Mg Tab) 10 mg PO ACDINNER [facility] Last Admin: 02/18/21 17:50 Dose: Not Given Documented by: Discontinued Medications Albuterol/Ipratropium (Albuterol/Ipratropium 3.0-0.5 Mg/3 Ml Neb Soln) 3 ml INH QID PRN PRN Reason: Shortness of Breath Last Admin: 02/15/21 00:27 Dose: 3 ml Documented by: Enoxaparin Sodium (Enoxaparin 40 Mg/0.4 Ml Syringe) 40 mg SUBCUT BEDTIME [facility] Enoxaparin Sodium (Enoxaparin 60 Mg/0.6 Ml Syringe) 60 mg SUBCUT Q12H [facility] Last Admin: 02/16/21 21:34 Dose: 60 mg Documented by: Enoxaparin Sodium (Enoxaparin 60 Mg/0.6 Ml Syringe) 60 mg SUBCUT Q24H [facility] Stop: 02/18/21 23:35 Last Admin: 02/18/21 20:51 Dose: 60 mg Documented by: Furosemide (Furosemide 20 Mg Tab) 20 mg PO DAILY [facility] Last Admin: 02/16/21 08:21 Dose: 20 mg Documented by: Furosemide (Furosemide 40 Mg/4 Ml Vial) 40 mg IVPUSH ONETIME [facility] Stop: 02/16/21 19:31 Last Admin: 02/16/21 19:48 Dose: 40 mg Documented by: Guaifenesin/Dextromethorphan (Guaifenesin/Dextromethorphan 100-10 Mg/5 Ml Soln 10 Ml Cup) 10 ml PO Q4H PRN PRN Reason: Cough Last Admin: 02/15/21 03:36 Dose: 10 ml Documented by: Sodium Chloride (Normal Saline) 1,000 mls @ 25 mls/hr IV ASDIRECTED [facility] Last Admin: 02/17/21 10:15 Dose: 25 mls/hr Documented by: Vancomycin HCl 1 gm/ Sodium (Chloride) 250 mls @ 150 mls/hr IV Q24H [facility] Last Admin: 02/15/21 17:04 Dose: 150 mls/hr Documented by: Nitroglycerin/Dextrose (Nitroglycerin 25 Mg/D5w 250 Ml) 25 mg in 250 mls @ 18 mls/hr IV TITRATE [facility]; Protocol Last Titration: 02/17/21 10:53 Dose: 0 mcg/min, 0 mls/hr Documented by: Nitroglycerin/Dextrose (Nitroglycerin 25 Mg/D5w 250 Ml) Confirm Administered Dose 25 mg in 250 mls @ as directed .ROUTE .STK-MED ONE Stop: 02/16/21 20:27 Last Admin: 02/16/21 20:32 Dose: Not Given Documented by: Magnesium Sulfate 2 gm/ Premix 50 mls @ 25 mls/hr IV Q6H [facility] Stop: 02/18/21 17:59 Last Admin: 02/18/21 16:55 Dose: 25 mls/hr Documented by: Lorazepam (Lorazepam 0.5 Mg Tab) 0.5 mg PO TID PRN PRN Reason: Anxiety Last Admin: 02/16/21 11:36 Dose: 0.5 mg Documented by: Morphine Sulfate (Morphine 2 Mg/Ml Syringe) 2 mg IVPUSH ONETIME ONE Stop: 02/18/21 15:14 Last Admin: 02/18/21 15:15 Dose: 2 mg Documented by: Non-Formulary Medication (Cevimeline [Evoxac]) 30 mg PO BID [facility] Last Admin: 02/15/21 21:25 Dose: Not Given Documented by: - Exam Quality Assessment: Supplemental Oxygen Urinary Catheter Total Time: 3Days 17Hours General: Alert, Oriented, Cooperative, Mild Distress Neck: No JVD Lungs: Crackles (right mid lung and both lower lungs ), Wheezing (rare left sided with expiration ). No: Normal Respiratory Effort (increased work of breathing ) Cardiovascular: Regular Rhythm, Tachycardia GI/Abdominal Exam: Normal Bowel Sounds, Soft, No Distention Extremities: No Pedal Edema. No: Increased Warmth Skin: Warm, Dry Psy/Mental Status: Alert, Normal Affect - Patient Data Lab Results Last 24 hrs: Laboratory Results - last 24 hr 02/19/21 02/19/21 Range/Units 04:20 04:20 WBC 7.0 (4.5-11.0) K/uL RBC 3.10 L (3.30-5.50) M/uL Hgb 8.3 L (12.0-15.0) g/dL Hct 28.8 L (36.0-48.0) % MCV 93 (80-98) fL MCH 27 (27-31) pg MCHC 29 L (32-36) % Plt Count 218 (150-400) K/uL Sodium 139 L (140-148) mmol/L Potassium 4.1 (3.6-5.2) mmol/L Chloride 103 (100-108) mmol/L Carbon Dioxide 29 (21-32) mmol/L Anion Gap 11.1 (5.0-14.0) mmol/L BUN 17 (7-18) mg/dL Creatinine 1.1 H (0.6-1.0) mg/dL Est Cr Clr Drug Dosing 31.25 mL/min Estimated GFR (MDRD) 48 L (>60) Glucose 79 (74-106) mg/dL Calcium 8.7 (8.5-10.1) mg/dL Result Diagrams: 02/19/21 04:20 02/19/21 04:20 Sepsis Event Note - Evaluation Sepsis Screening Result: No Definite Risk - Focused Exam Vital Signs: Vital Signs Temp Temp Pulse Resp BP Pulse Ox Pulse Ox 02/19/21 08:35 92 02/19/21 07:41 90 93 L 02/19/21 07:00 36.4 C 87 15 152/58 H 92 L 02/19/21 06:00 82 14 143/58 H 94 L 02/19/21 05:00 36.2 C 82 13 156/59 H 93 L 02/19/21 04:00 84 13 144/59 H 89 L 02/19/21 03:00 36.1 C 83 13 131/52 L 91 L 02/19/21 02:00 84 13 141/57 H 91 L 02/19/21 00:59 87 16 140/57 L 95 02/19/21 00:00 36.3 C 82 12 120/50 L 94 L 02/18/21 23:00 85 12 123/55 L 93 L 02/18/21 22:00 36.4 C 92 12 124/52 L 94 L - Problem List & Annotations (1) Pneumonia SNOMED Code(s): 789803145 Code(s): J18.9 - PNEUMONIA, UNSPECIFIED ORGANISM Status: Acute Current Visit: No Qualifiers: Pneumonia type: due to unspecified organism Laterality: right Lung location: lower lobe of lung Qualified Code(s): J18.9 - Pneumonia, unspecified organism (2) Bronchiectasis with acute exacerbation Status: Acute Current Visit: Yes (3) COPD with emphysema SNOMED Code(s): 11071123 Code(s): J43.9 - EMPHYSEMA, UNSPECIFIED Status: Chronic Current Visit: Yes Qualifiers: Emphysema type: unspecified Qualified Code(s): J43.9 - Emphysema, unspecified (4) Acute on chronic respiratory failure SNOMED Code(s): 78913579 Code(s): J96.20 - ACUTE AND CHR RESP FAILURE, UNSP W HYPOXIA OR HYPERCAPNIA Status: Acute Current Visit: Yes Qualifiers: Respiratory failure complication: hypoxia Qualified Code(s): J96.21 - Acute and chronic respiratory failure with hypoxia (5) Depression with anxiety SNOMED Code(s): 512144433 Code(s): F41.8 - OTHER SPECIFIED ANXIETY DISORDERS Status: Chronic Current Visit: Yes - Problem List Review Problem List Initiated/Reviewed/Updated: Yes - My Orders Last 24 Hours: My Active Orders 02/18/21 10:00 Fluconazole/Normal Saline [Diflucan in NS 200 MG/100 ML] 100 mg Premix Bag 1 bag IV Q24H 02/18/21 19:40 Renew/Continue Urinary Catheter [OM.PC] Routine 02/19/21 09:21 RT Aerosol Therapy [RC] ASDIRECTED 02/19/21 09:30 Acetylcysteine [Mucomyst 20%] 200 mg NEB TIDRT 02/19/21 13:15 Insert Imms Catheter [Insert Urinary Catheter] [OM.PC] Q24H 02/20/21 05:00 BASIC METABOLIC PANEL,BMP [CHEM] Timed CBC W/O DIFF,HEMOGRAM [HEME] Timed (1) - Plan Plan:: ASSESSMENT AND PLAN - Right lower lobe pneumonia-complicated by acute on chronic respiratory failure with both hypoxia and hypercapnia. She did require noninvasive ventilation again overnight but is off as of this morning. Cultures only growing abundant yeast at this time. No evidence for volume overload. -Antibiotic coverage with doxycycline and ceftazidime, consider de-escalation in the next day or 2 -Antifungal coverage with fluconazole -Add Mucomyst nebs for enhanced mucus clearance -Noninvasive ventilation as needed -Supplemental oxygen -Symptomatic management of cough -Initiate physical therapy once more stable, Saturday? -Consider chest CT if worsening or not getting better Elevated troponin-most likely demand ischemia versus mild non-ST elevation myocardial infarction. Patient has completed 48 hours of systemic anticoagulat ion in addition to her dual antiplatelet therapy. 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 No active wheezing. -Scheduled and as needed nebulizers -Continue home medications Stage III chronic kidney disease-kidney function stable. Depression with anxiety, severe-long psychiatric history. Patient is currently stable with her home medication regimen. -Continue home medication Maintenance issues - -DVT prophylaxis-mechanical along with dual antiplatelet therapy -GI prophylaxis-H2 deric -Nutrition-regular Disposition -I anticipate discharge home with home care versus possibly subacute rehab after the hospital stay Michele Rodriguez M.D.
[2021-02-19] MEDS: LORazepam 0.5 MG Tab PO PRN ×4 (09:37→20:43)
[2021-02-19] MEDS: Fluconazole/Normal Saline 100 MG in Premix Bag 1 BAG IV SCH (09:46)
[2021-02-19] MEDS: Acetylcysteine 20% 200 MG/ML 4 ML Nebulizer Soln SDV NEB SCH ×4 (10:02→20:20)
[2021-02-19] MEDS: Benzonatate 100 MG Cap PO PRN ×2 (12:19→19:20)
[2021-02-19] MEDS: Pravastatin 20 MG Tab PO SCH (15:35)
[2021-02-19] MEDS: Levalbuterol HCl 1.25 MG/3 ML Neb INH PRN (19:20)
[2021-02-19] MEDS: Acetaminophen/oxyCODONE 325-10 MG Tab PO PRN (19:21)
[2021-02-19] MEDS: amLODIPine 5 MG Tab PO SCH (20:21)
[2021-02-19] MEDS: Aspirin 81 MG Tab.EC PO SCH (20:21)
[2021-02-19] MEDS: Famotidine 20 MG Tab PO SCH (20:22)
[2021-02-19] MEDS: ClonazePAM 0.5 MG Tab PO SCH (20:22)
[2021-02-20] MEDS: Morphine 2 MG/ML SYRINGE IVPUSH PRN ×3 (01:09→16:27)
[2021-02-20] MEDS: Acetaminophen/oxyCODONE 325-10 MG Tab PO PRN ×4 (02:33→23:11)
[2021-02-20] MEDS: LORazepam 0.5 MG Tab PO PRN ×2 (02:33→20:04)
[2021-02-20] MEDS: Levalbuterol HCl 1.25 MG/3 ML Neb INH PRN (02:40)
[2021-02-20] MEDS: Acetylcysteine 20% 200 MG/ML 4 ML Nebulizer Soln SDV NEB SCH ×4 (07:05→20:02)
[2021-02-20] MEDS: Albuterol/Ipratropium 3.0-0.5 MG/3 ML Neb Soln INH SCH ×4 (07:05→20:02)
[2021-02-20] MEDS: Budesonide 0.5 MG/2 ML Neb Susp NEB SCH ×2 (07:06→20:02)
[2021-02-20] MEDS: Arformoterol 15 MCG/2 ML Neb Soln INH SCH ×2 (07:06→20:02)
[2021-02-20] MEDS: Fluconazole/Normal Saline 100 MG in Premix Bag 1 BAG IV SCH (09:11)
[2021-02-20] MEDS: Ipratropium 0.03% Nasal Spray 30 ML Bot NASBOTH SCH ×2 (09:40→21:40)
[2021-02-20] MEDS: Multivitamins with Iron/Calcium/Folic Acid/Minerals Tab PO SCH (09:41)
[2021-02-20] MEDS: Lactobacillus Rhamnosus GG (Probiotic) Cap PO SCH ×2 (09:41→20:04)
[2021-02-20] MEDS: Mirabegron 25 MG Tab Extended Release PO SCH (09:41)
[2021-02-20] MEDS: Isosorbide Mononitrate 30 MG Tab.ER PO SCH (09:41)
[2021-02-20] MEDS: Clopidogrel 75 MG Tab PO SCH (09:41)
[2021-02-20] MEDS: Doxycycline 100 MG in Sodium Chloride 0.9% 100 ML IV SCH ×2 (09:43→19:59)
[2021-02-20] MEDS: ARIPiprazole 10 MG Tab PO SCH ×2 (09:43→16:01)
[2021-02-20] MEDS: Polyethylene Glycol 3350 Powder 17 GM Packet PO SCH (09:44)
[2021-02-20] MEDS: ZAFIRLUKAST 20 MG PO SCH ×2 (09:44→20:03)
[2021-02-20] MEDS: TRANYLCYPROMINE 10 MG PO SCH ×3 (09:44→16:02)
[2021-02-20] MEDS: Levothyroxine 88 MCG Tab PO SCH (09:44)
--- NOTE | 2021-02-20 12:27 | PCM.PN ---
- General Info Date of Service: 02/20/21 Subjective Update: Ms. Espinosa continues to experience respiratory compromise and has required intermittent use of BiPAP. She is sleepy and lethargic this morning, family reports she had been more alert yesterday. When off of BiPAP continues to require supplemental oxygen at higher flow levels. - Review of Systems General: Reports: Weakness, Fatigue. Denies: Fever, Chills Pulmonary: Reports: Shortness of Breath, Cough. Denies: Pleuritic Chest Pain, Sputum, Hemoptysis, Wheezing Cardiovascular: Reports: No Symptoms Gastrointestinal: Reports: No Symptoms Genitourinary: Reports: No Symptoms - Patient Data Vitals - Most Recent: Last Vital Signs Temp 98 F 02/20/21 08:00 Pulse 101 H 02/20/21 10:55 Resp 12 02/20/21 10:00 BP 178/67 H 02/20/21 10:00 Pulse Ox 93 L 02/20/21 10:00 Weight - Most Recent: 139 lb I&O - Last 24 Hours: Intake & Output 02/19/21 02/20/21 02/20/21 22:59 06:59 14:59 Intake Total 1428 852 Output Total 2000 850 Balance -572 2 Lab Results Last 24 Hours: Laboratory Results - last 24 hr 02/20/21 02/20/21 Range/Units 04:15 04:15 WBC 8.1 (4.5-11.0) K/uL RBC 3.06 L (3.30-5.50) M/uL Hgb 8.2 L (12.0-15.0) g/dL Hct 28.4 L (36.0-48.0) % MCV 93 (80-98) fL MCH 27 (27-31) pg MCHC 29 L (32-36) % Plt Count 266 (150-400) K/uL Sodium 142 (140-148) mmol/L Potassium 3.9 (3.6-5.2) mmol/L Chloride 106 (100-108) mmol/L Carbon Dioxide 31 (21-32) mmol/L Anion Gap 5.1 (5.0-14.0) mmol/L BUN 12 (7-18) mg/dL Creatinine 1.0 (0.6-1.0) mg/dL Est Cr Clr Drug Dosing 34.38 mL/min Estimated GFR (MDRD) 54 L (>60) Glucose 108 H (74-106) mg/dL Calcium 8.9 (8.5-10.1) mg/dL Med Orders - Current: Current Medications Acetaminophen (Acetaminophen 325 Mg Tab) 650 mg PO Q4H PRN PRN Reason: Pain (Mild 1-3)/fever Acetylcysteine (Acetylcysteine 20% 200 Mg/Ml 4 Ml Nebulizer Soln Sdv) 200 mg NEB TIDRT [facility] Last Admin: 02/20/21 07:05 Dose: 200 mg Documented by: Albuterol (Albuterol 0.083% 2.5 Mg/3 Ml Neb Soln) 2.5 mg NEB Q4H PRN PRN Reason: Shortness Of Breath/wheezing Last Admin: 02/19/21 16:48 Dose: 2.5 mg Documented by: Albuterol/Ipratropium (Albuterol/Ipratropium 3.0-0.5 Mg/3 Ml Neb Soln) 3 ml INH QIDRT [facility] Last Admin: 02/20/21 10:54 Dose: 3 ml Documented by: Amlodipine Besylate (Amlodipine 5 Mg Tab) 5 mg PO BEDTIME [facility] Last Admin: 02/19/21 20:21 Dose: 5 mg Documented by: Arformoterol Tartrate (Arformoterol 15 Mcg/2 Ml Neb Soln) 15 mcg INH BIDRT [facility] Last Admin: 02/20/21 07:06 Dose: 15 mcg Documented by: Aripiprazole (Aripiprazole 10 Mg Tab) 20 mg PO ACDINNER [facility] Last Admin: 02/19/21 15:37 Dose: 20 mg Documented by: Aripiprazole (Aripiprazole 10 Mg Tab) 10 mg PO DAILY [facility] Last Admin: 02/20/21 09:43 Dose: 10 mg Documented by: Aspirin (Aspirin 81 Mg Tab.Ec) 81 mg PO BEDTIME [facility] Last Admin: 02/19/21 20:21 Dose: 81 mg Documented by: Benzonatate (Benzonatate 100 Mg Cap) 100 mg PO Q8H PRN PRN Reason: Cough Last Admin: 02/19/21 19:20 Dose: 100 mg Documented by: Budesonide (Budesonide 0.5 Mg/2 Ml Neb Susp) 0.5 mg NEB BIDRT [facility] Last Admin: 02/20/21 07:06 Dose: 0.5 mg Documented by: Clonazepam (Clonazepam 0.5 Mg Tab) 0.25 mg PO BEDTIME [facility] Last Admin: 02/19/21 20:22 Dose: 0.25 mg Documented by: Clopidogrel Bisulfate (Clopidogrel 75 Mg Tab) 75 mg PO DAILY [facility] Last Admin: 02/20/21 09:41 Dose: 75 mg Documented by: Famotidine (Famotidine 20 Mg Tab) 60 mg PO BEDTIME [facility] Last Admin: 02/19/21 20:22 Dose: 60 mg Documented by: Furosemide (Furosemide 20 Mg Tab) 20 mg PO DAILY PRN PRN Reason: Edema Ceftazidime 1 gm/ Sodium (Chloride) 50 mls @ 100 mls/hr IV Q24H [facility] Last Admin: 02/19/21 15:39 Dose: 100 mls/hr Documented by: Doxycycline Hyclate 100 mg/ (Sodium Chloride) 100 mls @ 100 mls/hr IV Q12H [facility] Last Admin: 02/20/21 09:43 Dose: 100 mls/hr Documented by: Fluconazole/Sodium Chloride (100 mg/ Premix) 50 mls @ 100 mls/hr IV Q24H [facility] Last Admin: 02/20/21 09:11 Dose: 100 mls/hr Documented by: Sodium Chloride (Normal Saline) 1,000 mls @ 50 mls/hr IV ASDIRECTED [facility] Ipratropium [place] (Ipratropium 0.03% Nasal [place] 30 Ml Bot) 0 ml NASBOTH BID [facility] Last Admin: 02/20/21 09:40 Dose: 2 units Documented by: Isosorbide Mononitrate (Isosorbide Mononitrate 30 Mg Tab.Er) 30 mg PO DAILY [facility] Last Admin: 02/20/21 09:41 Dose: 30 mg Documented by: Lactobacillus Rhamnosus (Lactobacillus Rhamnosus Gg (Probiotic) Cap) 1 cap PO BID [facility] Last Admin: 02/20/21 09:41 Dose: 1 cap Documented by: Levalbuterol HCl (Levalbuterol Hcl 1.25 Mg/3 Ml Neb) 1.25 mg INH TID PRN PRN Reason: Wheezing Last Admin: 02/20/21 02:40 Dose: 1.25 mg Documented by: Levothyroxine Sodium (Levothyroxine 88 Mcg Tab) 88 mcg PO ACBREAKFAST [facility] Last Admin: 02/20/21 09:44 Dose: 88 mcg Documented by: Lorazepam (Lorazepam 2 Mg/Ml Sdv) 0.5 mg IVPUSH Q4H PRN PRN Reason: Nausea/Vomiting Last Admin: 02/18/21 13:59 Dose: 0.5 mg Documented by: Lorazepam (Lorazepam 0.5 Mg Tab) 0.5 mg PO Q4H PRN PRN Reason: Anxiety Last Admin: 02/20/21 02:33 Dose: 0.5 mg Documented by: Lorazepam (Lorazepam 2 Mg/Ml Sdv) 0.5 mg IVPUSH Q4H PRN PRN Reason: Anxiety/Agitation Last Admin: 02/18/21 02:00 Dose: 0.5 mg Documented by: Losartan Potassium (Losartan 50 Mg Tab) 100 mg PO ACDINNER [facility] Last Admin: 02/16/21 16:35 Dose: 100 mg Documented by: Magnesium Hydroxide (Magnesium Hydroxide 400 Mg/5 Ml Susp 30 Ml Cup) 30 ml PO Q12H PRN PRN Reason: Constipation Melatonin (Melatonin 3 Mg Tab) 9 mg PO BEDTIME PRN PRN Reason: Sleep Mirabegron (Mirabegron 25 Mg Tab Extended Release) 50 mg PO DAILY [facility] Last Admin: 02/20/21 09:41 Dose: 50 mg Documented by: Morphine Sulfate (Morphine 2 Mg/Ml Syringe) 2 mg IVPUSH Q1H PRN PRN Reason: Chest Pain Last Admin: 02/20/21 11:58 Dose: 2 mg Documented by: Multivitamins/Minerals (Multivitamins With Iron/Calcium/Folic Acid/Minerals Tab) 1 tab PO DAILY [facility] Last Admin: 02/20/21 09:41 Dose: 1 tab Documented by: Naproxen (Naproxen 250 Mg Tab) 250 mg PO Q12H PRN PRN Reason: Headache Last Admin: 02/16/21 17:17 Dose: 250 mg Documented by: Tranylcypromine ( [place]arnate) 10 Mg Tab * *Own Med 0 mg PO ACDINNER [facility] Last Admin: 02/19/21 15:37 Dose: 20 mg Documented by: Tranylcypromine ( Parnate) 10 Mg Tab * *Own Med 0 mg PO ACBREAKFAST [facility] Last Admin: 02/20/21 09:44 Dose: 30 mg Documented by: Tranylcypromine ( Parnate) 10 Mg Tab * *Own Med 0 mg PO DAILY@1200 [facility] Last Admin: 02/19/21 11:33 Dose: 30 mg Documented by: Zafirlukast ( Accolate) 20 Mg Tablet Own Med 0 mg PO BID [facility] Last Admin: 02/20/21 09:44 Dose: 20 mg Documented by: Ondansetron HCl (Ondansetron 4 Mg/2 Ml Sdv) 4 mg IV Q6H PRN PRN Reason: Nausea/Vomiting Ondansetron HCl (Ondansetron 4 Mg Tab.Dis) 4 mg PO Q6H PRN PRN Reason: Nausea able to take PO Oxycodone/Acetaminophen (Acetaminophen/Oxycodone 325-10 Mg Tab) 1 - 1.5 tab PO Q6H PRN PRN Reason: Pain Last Admin: 02/20/21 09:12 Dose: 1 tab Documented by: Polyethylene Glycol (Polyethylene Glycol 3350 Powder 17 Gm Packet) 17 gm PO DAILY [facility] Last Admin: 02/20/21 09:44 Dose: Not Given Documented by: Pravastatin Sodium (Pravastatin 20 Mg Tab) 10 mg PO ACDINNER [facility] Last Admin: 02/19/21 15:35 Dose: 10 mg Documented by: Discontinued Medications Albuterol/Ipratropium (Albuterol/Ipratropium 3.0-0.5 Mg/3 Ml Neb Soln) 3 ml INH QID PRN PRN Reason: Shortness of Breath Last Admin: 02/15/21 00:27 Dose: 3 ml Documented by: Enoxaparin Sodium (Enoxaparin 40 Mg/0.4 Ml Syringe) 40 mg SUBCUT BEDTIME [facility] Enoxaparin Sodium (Enoxaparin 60 Mg/0.6 Ml Syringe) 60 mg SUBCUT Q12H [facility] Last Admin: 02/16/21 21:34 Dose: 60 mg Documented by: Enoxaparin Sodium (Enoxaparin 60 Mg/0.6 Ml Syringe) 60 mg SUBCUT Q24H [facility] Stop: 02/18/21 23:35 Last Admin: 02/18/21 20:51 Dose: 60 mg Documented by: Furosemide (Furosemide 20 Mg Tab) 20 mg PO DAILY [facility] Last Admin: 02/16/21 08:21 Dose: 20 mg Documented by: Furosemide (Furosemide 40 Mg/4 Ml Vial) 40 mg IVPUSH ONETIME [facility] Stop: 02/16/21 19:31 Last Admin: 02/16/21 19:48 Dose: 40 mg Documented by: Guaifenesin/Dextromethorphan (Guaifenesin/Dextromethorphan 100-10 Mg/5 Ml Soln 10 Ml Cup) 10 ml PO Q4H PRN PRN Reason: Cough Last Admin: 02/15/21 03:36 Dose: 10 ml Documented by: Sodium Chloride (Normal Saline) 1,000 mls @ 25 mls/hr IV ASDIRECTED [facility] Last Admin: 02/17/21 10:15 Dose: 25 mls/hr Documented by: Vancomycin HCl 1 gm/ Sodium (Chloride) 250 mls @ 150 mls/hr IV Q24H [facility] Last Admin: 02/15/21 17:04 Dose: 150 mls/hr Documented by: Nitroglycerin/Dextrose (Nitroglycerin 25 Mg/D5w 250 Ml) 25 mg in 250 mls @ 18 mls/hr IV TITRATE [facility]; Protocol Last Titration: 02/17/21 10:53 Dose: 0 mcg/min, 0 mls/hr Documented by: Nitroglycerin/Dextrose (Nitroglycerin 25 Mg/D5w 250 Ml) Confirm Administered Dose 25 mg in 250 mls @ as directed .ROUTE .STK-MED ONE Stop: 02/16/21 20:27 Last Admin: 02/16/21 20:32 Dose: Not Given Documented by: Sodium Chloride (Normal Saline) 1,000 mls @ 75 mls/hr IV ASDIRECTED [facility] Last Admin: 02/19/21 14:58 Dose: 75 mls/hr Documented by: Magnesium Sulfate 2 gm/ Premix 50 mls @ 25 mls/hr IV Q6H [facility] Stop: 02/18/21 17:59 Last Admin: 02/18/21 16:55 Dose: 25 mls/hr Documented by: Lorazepam (Lorazepam 0.5 Mg Tab) 0.5 mg PO TID PRN PRN Reason: Anxiety Last Admin: 02/16/21 11:36 Dose: 0.5 mg Documented by: Morphine Sulfate (Morphine 2 Mg/Ml Syringe) 2 mg IVPUSH ONETIME ONE Stop: 02/18/21 15:14 Last Admin: 02/18/21 15:15 Dose: 2 mg Documented by: Non-Formulary Medication (Cevimeline [Evoxac]) 30 mg PO BID [facility] Last Admin: 02/15/21 21:25 Dose: Not Given Documented by: - Exam Quality Assessment: Supplemental Oxygen, Urine Catheter, DVT Prophylaxis Urinary Catheter Total Time: 4Days 18Hours General: Mild Distress, Lethargic Lungs: Clear to Auscultation, Normal Respiratory Effort, Decreased Breath Sounds. No: Crackles, Rales, Rhonchi, Wheezing Cardiovascular: Regular Rate, Regular Rhythm, No Murmurs GI/Abdominal Exam: Soft, Non-Tender, No Organomegaly, No Distention Extremities: Non-Tender, No Pedal Edema - Patient Data Lab Results Last 24 hrs: Laboratory Results - last 24 hr 02/20/21 02/20/21 Range/Units 04:15 04:15 WBC 8.1 (4.5-11.0) K/uL RBC 3.06 L (3.30-5.50) M/uL Hgb 8.2 L (12.0-15.0) g/dL Hct 28.4 L (36.0-48.0) % MCV 93 (80-98) fL MCH 27 (27-31) pg MCHC 29 L (32-36) % Plt Count 266 (150-400) K/uL Sodium 142 (140-148) mmol/L Potassium 3.9 (3.6-5.2) mmol/L Chloride 106 (100-108) mmol/L Carbon Dioxide 31 (21-32) mmol/L Anion Gap 5.1 (5.0-14.0) mmol/L BUN 12 (7-18) mg/dL Creatinine 1.0 (0.6-1.0) mg/dL Est Cr Clr Drug Dosing 34.38 mL/min Estimated GFR (MDRD) 54 L (>60) Glucose 108 H (74-106) mg/dL Calcium 8.9 (8.5-10.1) mg/dL Result Diagrams: 02/20/21 04:15 02/20/21 04:15 Sepsis Event Note - Evaluation Sepsis Screening Result: No Definite Risk - Focused Exam Vital Signs: Vital Signs Temp Pulse Resp BP BP Pulse Ox 02/20/21 10:55 101 H 02/20/21 10:00 101 H 12 178/67 H 93 L 02/20/21 09:41 164/63 H 08/02/21 08:00 98 F 102 H 15 161/65 H 94 L 02/20/21 07:06 92 02/20/21 06:00 97.3 F 93 12 168/71 H 93 L 02/20/21 04:00 92 18 149/50 H 90 L 02/20/21 02:00 97.3 F 90 17 160/63 H 94 L - Problem List Review Problem List Initiated/Reviewed/Updated: Yes - My Orders Last 24 Hours: My Active Orders 02/20/21 12:30 Sodium Chloride 0.9% @ 50 MLS/HR(1000ml) Sodium Chloride 0.9% [Normal Saline] 1,000 ml IV ASDIRECTED 02/21/21 05:00 CBC WITH AUTO DIFF [HEME] Timed COMPREHENSIVE METABOLIC PN,CMP [CHEM] Timed MAGNESIUM [CHEM] Timed - Plan Plan:: ASSESSMENT AND PLAN Right lower lobe pneumonia-complicated by acute on chronic respiratory failure with both hypoxia and hypercapnia. She did require noninvasive ventilation again overnight. Cultures only growing abundant yeast at this time. No evidence for volume overload. 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 No active wheezing. -Scheduled and as needed nebulizers -Continue home medications Stage III chronic kidney disease-kidney function stable. Depression with anxiety, severe-long psychiatric history. Patient is currently stable with her home medication regimen. -Continue home medication Maintenance issues - -DVT prophylaxis-mechanical along with dual antiplatelet therapy -GI prophylaxis-H2 deric -Nutrition-regular Disposition -I anticipate discharge home with home care versus possibly subacute rehab after the hospital stay
[2021-02-20] MEDS ORDERED: Sodium Chloride 0.9% 1,000 ML IV SCH (12:30)
[2021-02-20] MEDS: Pravastatin 20 MG Tab PO SCH (16:00)
[2021-02-20] MEDS: Losartan 50 MG Tab PO SCH (16:09)
[2021-02-20] MEDS: ClonazePAM 0.5 MG Tab PO SCH (20:02)
[2021-02-20] MEDS: Aspirin 81 MG Tab.EC PO SCH (20:02)
[2021-02-20] MEDS: Famotidine 20 MG Tab PO SCH (20:03)
[2021-02-20] MEDS: amLODIPine 5 MG Tab PO SCH (20:03)
[2021-02-21] MEDS: Acetaminophen/oxyCODONE 325-10 MG Tab PO PRN ×3 (04:56→17:19)
[2021-02-21] MEDS: Levalbuterol HCl 1.25 MG/3 ML Neb INH PRN (05:37)
[2021-02-21] MEDS: Arformoterol 15 MCG/2 ML Neb Soln INH SCH ×2 (07:03→20:22)
[2021-02-21] MEDS: Budesonide 0.5 MG/2 ML Neb Susp NEB SCH ×2 (07:03→20:37)
[2021-02-21] MEDS: Albuterol/Ipratropium 3.0-0.5 MG/3 ML Neb Soln INH SCH ×4 (07:03→20:51)
[2021-02-21] MEDS: Acetylcysteine 20% 200 MG/ML 4 ML Nebulizer Soln SDV NEB SCH ×3 (07:03→20:11)
[2021-02-21] MEDS: TRANYLCYPROMINE 10 MG PO SCH ×3 (08:11→16:05)
[2021-02-21] MEDS: Levothyroxine 88 MCG Tab PO SCH (08:11)
[2021-02-21] MEDS: Isosorbide Mononitrate 30 MG Tab.ER PO SCH (08:35)
[2021-02-21] MEDS: ARIPiprazole 10 MG Tab PO SCH ×2 (08:36→16:04)
[2021-02-21] MEDS: Lactobacillus Rhamnosus GG (Probiotic) Cap PO SCH ×2 (08:37→20:06)
[2021-02-21] MEDS: Polyethylene Glycol 3350 Powder 17 GM Packet PO SCH ×2 (08:37→20:06)
[2021-02-21] MEDS: Mirabegron 25 MG Tab Extended Release PO SCH (08:37)
[2021-02-21] MEDS: Multivitamins with Iron/Calcium/Folic Acid/Minerals Tab PO SCH (08:38)
[2021-02-21] MEDS: Clopidogrel 75 MG Tab PO SCH (08:38)
[2021-02-21] MEDS: ZAFIRLUKAST 20 MG PO SCH ×2 (08:40→21:36)
[2021-02-21] MEDS: Doxycycline 100 MG in Sodium Chloride 0.9% 100 ML IV SCH ×2 (08:52→20:09)
[2021-02-21] MEDS: Fluconazole/Normal Saline 100 MG in Premix Bag 1 BAG IV SCH (09:56)
[2021-02-21] MEDS ORDERED: Magnesium Sulfate/Water 2 GM in Premix Bag 1 BAG IV SCH (10:00)
[2021-02-21] MEDS: Ipratropium 0.03% Nasal Spray 30 ML Bot NASBOTH SCH ×2 (10:22→19:59)
[2021-02-21] MEDS: Losartan 50 MG Tab PO SCH (16:04)
[2021-02-21] MEDS: Pravastatin 20 MG Tab PO SCH (16:05)
--- NOTE | 2021-02-21 16:51 | PCM.PN ---
- General Info Date of Service: 02/21/21 Subjective Update: Ms. Espinosa to require higher level of supplemental oxygen and intermittent use of BiPAP. She is more alert and interactive today although somewhat confused. Respiratory rate has been stable and she has remained afebrile. - Review of Systems General: Reports: Weakness, Fatigue. Denies: Fever, Chills Pulmonary: Reports: Shortness of Breath, Cough. Denies: Pleuritic Chest Pain, Sputum, Hemoptysis, Wheezing Cardiovascular: Reports: Dyspnea on Exertion. Denies: Chest Pain, Palpitations, Orthopnea, PND, Edema, Lightheadedness Gastrointestinal: Reports: No Symptoms - Patient Data Vitals - Most Recent: Last Vital Signs Temp 98.1 F 02/21/21 16:00 Pulse 90 02/21/21 16:00 Resp 14 02/21/21 16:00 BP 145/56 H 02/21/21 16:04 Pulse Ox 87 L 02/21/21 16:00 Weight - Most Recent: 139 lb I&O - Last 24 Hours: Intake & Output 02/21/21 02/21/21 02/21/21 06:59 14:59 22:59 Intake Total 630 350 50 Output Total 650 Balance -20 350 50 Lab Results Last 24 Hours: Laboratory Results - last 24 hr 02/21/21 02/21/21 Range/Units 04:10 04:10 WBC 9.4 (4.5-11.0) K/uL RBC 3.11 L (3.30-5.50) M/uL Hgb 8.5 L (12.0-15.0) g/dL Hct 29.7 L (36.0-48.0) % MCV 96 (80-98) fL MCH 27 (27-31) pg MCHC 29 L (32-36) % Plt Count 276 (150-400) K/uL Add Manual Diff Yes Neutrophils % (Manual) 74 H (36-66) % Lymphocytes % (Manual) 11 L (24-44) % Monocytes % (Manual) 10 H (2-6) % Eosinophils % (Manual) 5 H (2-4) % Sodium 141 (140-148) mmol/L Potassium 4.2 (3.6-5.2) mmol/L Chloride 106 (100-108) mmol/L Carbon Dioxide 27 (21-32) mmol/L Anion Gap 7.7 (5.0-14.0) mmol/L BUN 10 (7-18) mg/dL Creatinine 1.0 (0.6-1.0) mg/dL Est Cr Clr Drug Dosing 34.38 mL/min Estimated GFR (MDRD) 54 L (>60) Glucose 96 (74-106) mg/dL Calcium 8.9 (8.5-10.1) mg/dL Magnesium 1.7 L (1.8-2.4) mg/dL Total Bilirubin 0.1 L (0.2-1.0) mg/dL AST 18 (15-37) U/L ALT 9 L (12-78) U/L Alkaline Phosphatase 76 (46-116) U/L Total Protein 6.4 (6.4-8.2) g/dL Albumin 1.5 L (3.4-5.0) g/dL Globulin 4.9 H (2.3-3.5) g/dL Albumin/Globulin Ratio 0.3 L (1.2-2.2) Med Orders - Current: Current Medications Acetaminophen (Acetaminophen 325 Mg Tab) 650 mg PO Q4H PRN PRN Reason: Pain (Mild 1-3)/fever Last Admin: 02/21/21 08:52 Dose: 650 mg Documented by: Acetylcysteine (Acetylcysteine 20% 200 Mg/Ml 4 Ml Nebulizer Soln Sdv) 200 mg NEB TIDRT [facility] Last Admin: 02/21/21 12:31 Dose: 200 mg Documented by: Albuterol (Albuterol 0.083% 2.5 Mg/3 Ml Neb Soln) 2.5 mg NEB Q4H PRN PRN Reason: Shortness Of Breath/wheezing Last Admin: 02/19/21 16:48 Dose: 2.5 mg Documented by: Albuterol/Ipratropium (Albuterol/Ipratropium 3.0-0.5 Mg/3 Ml Neb Soln) 3 ml INH QIDRT [facility] Last Admin: 02/21/21 14:26 Dose: 3 ml Documented by: Amlodipine Besylate (Amlodipine 5 Mg Tab) 5 mg PO BEDTIME [facility] Last Admin: 02/20/21 20:03 Dose: 5 mg Documented by: Arformoterol Tartrate (Arformoterol 15 Mcg/2 Ml Neb Soln) 15 mcg INH BIDRT [facility] Last Admin: 02/21/21 07:03 Dose: 15 mcg Documented by: Aripiprazole (Aripiprazole 10 Mg Tab) 20 mg PO ACDINNER [facility] Last Admin: 02/21/21 16:04 Dose: 20 mg Documented by: Aripiprazole (Aripiprazole 10 Mg Tab) 10 mg PO DAILY [facility] Last Admin: 02/21/21 08:36 Dose: 10 mg Documented by: Aspirin (Aspirin 81 Mg Tab.Ec) 81 mg PO BEDTIME [facility] Last Admin: 02/20/21 20:02 Dose: 81 mg Documented by: Benzonatate (Benzonatate 100 Mg Cap) 100 mg PO Q8H PRN PRN Reason: Cough Last Admin: 02/19/21 19:20 Dose: 100 mg Documented by: Budesonide (Budesonide 0.5 Mg/2 Ml Neb Susp) 0.5 mg NEB BIDRT [facility] Last Admin: 02/21/21 07:03 Dose: 0.5 mg Documented by: Clonazepam (Clonazepam 0.5 Mg Tab) 0.25 mg PO BEDTIME [facility] Last Admin: 02/20/21 20:02 Dose: 0.25 mg Documented by: Clopidogrel Bisulfate (Clopidogrel 75 Mg Tab) 75 mg PO DAILY [facility] Last Admin: 02/21/21 08:38 Dose: 75 mg Documented by: Famotidine (Famotidine 20 Mg Tab) 60 mg PO BEDTIME [facility] Last Admin: 02/20/21 20:03 Dose: 60 mg Documented by: Furosemide (Furosemide 20 Mg Tab) 20 mg PO DAILY PRN PRN Reason: Edema Furosemide (Furosemide 40 Mg/4 Ml Vial) 20 mg IVPUSH NOW ONE Stop: 02/21/21 16:44 Ceftazidime 1 gm/ Sodium (Chloride) 50 mls @ 100 mls/hr IV Q24H [facility] Last Admin: 02/21/21 16:34 Dose: 100 mls/hr Documented by: Doxycycline Hyclate 100 mg/ (Sodium Chloride) 100 mls @ 100 mls/hr IV Q12H [facility] Last Admin: 02/21/21 08:52 Dose: 100 mls/hr Documented by: Fluconazole/Sodium Chloride (100 mg/ Premix) 50 mls @ 100 mls/hr IV Q24H [facility] Last Admin: 02/21/21 09:56 Dose: 100 mls/hr Documented by: Ipratropium [place] (Ipratropium 0.03% Nasal [place] 30 Ml Bot) 0 ml NASBOTH BID [facility] Last Admin: 02/21/21 10:22 Dose: Not Given Documented by: Isosorbide Mononitrate (Isosorbide Mononitrate 30 Mg Tab.Er) 30 mg PO DAILY [facility] Last Admin: 02/21/21 08:35 Dose: 30 mg Documented by: Lactobacillus Rhamnosus (Lactobacillus Rhamnosus Gg (Probiotic) Cap) 1 cap PO BID [facility] Last Admin: 02/21/21 08:37 Dose: 1 cap Documented by: Levalbuterol HCl (Levalbuterol Hcl 1.25 Mg/3 Ml Neb) 1.25 mg INH TID PRN PRN Reason: Wheezing Last Admin: 02/21/21 05:37 Dose: 1.25 mg Documented by: Levothyroxine Sodium (Levothyroxine 88 Mcg Tab) 88 mcg PO ACBREAKFAST [facility] Last Admin: 02/21/21 08:11 Dose: 88 mcg Documented by: Lorazepam (Lorazepam 2 Mg/Ml Sdv) 0.5 mg IVPUSH Q4H PRN PRN Reason: Nausea/Vomiting Last Admin: 02/18/21 13:59 Dose: 0.5 mg Documented by: Lorazepam (Lorazepam 0.5 Mg Tab) 0.5 mg PO Q4H PRN PRN Reason: Anxiety Last Admin: 02/20/21 20:04 Dose: 0.5 mg Documented by: Lorazepam (Lorazepam 2 Mg/Ml Sdv) 0.5 mg IVPUSH Q4H PRN PRN Reason: Anxiety/Agitation Last Admin: 02/18/21 02:00 Dose: 0.5 mg Documented by: Losartan Potassium (Losartan 50 Mg Tab) 100 mg PO ACDINNER [facility] Last Admin: 02/21/21 16:04 Dose: 100 mg Documented by: Magnesium Hydroxide (Magnesium Hydroxide 400 Mg/5 Ml Susp 30 Ml Cup) 30 ml PO Q12H PRN PRN Reason: Constipation Melatonin (Melatonin 3 Mg Tab) 9 mg PO BEDTIME PRN PRN Reason: Sleep Mirabegron (Mirabegron 25 Mg Tab Extended Release) 50 mg PO DAILY [facility] Last Admin: 02/21/21 08:37 Dose: 50 mg Documented by: Morphine Sulfate (Morphine 2 Mg/Ml Syringe) 2 mg IVPUSH Q1H PRN PRN Reason: Chest Pain Last Admin: 02/20/21 16:27 Dose: 2 mg Documented by: Multivitamins/Minerals (Multivitamins With Iron/Calcium/Folic Acid/Minerals Tab) 1 tab PO DAILY [facility] Last Admin: 02/21/21 08:38 Dose: 1 tab Documented by: Naproxen (Naproxen 250 Mg Tab) 250 mg PO Q12H PRN PRN Reason: Headache Last Admin: 02/16/21 17:17 Dose: 250 mg Documented by: Tranylcypromine ( Parnate) 10 Mg Tab * *Own Med 0 mg PO ACDINNER [facility] Last Admin: 02/21/21 16:05 Dose: 20 mg Documented by: Tranylcypromine ( [place]ate) 10 Mg Tab * *Own Med 0 mg PO ACBREAKFAST [facility] Last Admin: 02/21/21 08:11 Dose: 30 mg Documented by: Tranylcypromine ( [place]arnate) 10 Mg Tab * *Own Med 0 mg PO DAILY@1200 [facility] Last Admin: 02/21/21 11:38 Dose: 30 mg Documented by: Zafirlukast ( Accolate) 20 Mg Tablet Own Med 0 mg PO BID [facility] Last Admin: 02/21/21 08:40 Dose: 20 mg Documented by: Ondansetron HCl (Ondansetron 4 Mg/2 Ml Sdv) 4 mg IV Q6H PRN PRN Reason: Nausea/Vomiting Ondansetron HCl (Ondansetron 4 Mg Tab.Dis) 4 mg PO Q6H PRN PRN Reason: Nausea able to take PO Oxycodone/Acetaminophen (Acetaminophen/Oxycodone 325-10 Mg Tab) 1 - 1.5 tab PO Q6H PRN PRN Reason: Pain Last Admin: 02/21/21 11:11 Dose: 1 tab Documented by: Polyethylene Glycol (Polyethylene Glycol 3350 Powder 17 Gm Packet) 17 gm PO BEDTIME [facility] Pravastatin Sodium (Pravastatin 20 Mg Tab) 10 mg PO ACDINNER [facility] Last Admin: 02/21/21 16:05 Dose: 10 mg Documented by: Discontinued Medications Albuterol/Ipratropium (Albuterol/Ipratropium 3.0-0.5 Mg/3 Ml Neb Soln) 3 ml INH QID PRN PRN Reason: Shortness of Breath Last Admin: 02/15/21 00:27 Dose: 3 ml Documented by: Enoxaparin Sodium (Enoxaparin 40 Mg/0.4 Ml Syringe) 40 mg SUBCUT BEDTIME [facility] Enoxaparin Sodium (Enoxaparin 60 Mg/0.6 Ml Syringe) 60 mg SUBCUT Q12H [facility] Last Admin: 02/16/21 21:34 Dose: 60 mg Documented by: Enoxaparin Sodium (Enoxaparin 60 Mg/0.6 Ml Syringe) 60 mg SUBCUT Q24H [facility] Stop: 02/18/21 23:35 Last Admin: 02/18/21 20:51 Dose: 60 mg Documented by: Furosemide (Furosemide 20 Mg Tab) 20 mg PO DAILY [facility] Last Admin: 02/16/21 08:21 Dose: 20 mg Documented by: Furosemide (Furosemide 40 Mg/4 Ml Vial) 40 mg IVPUSH ONETIME STA Stop: 02/16/21 19:31 Last Admin: 02/16/21 19:48 Dose: 40 mg Documented by: Guaifenesin/Dextromethorphan (Guaifenesin/Dextromethorphan 100-10 Mg/5 Ml Soln 10 Ml Cup) 10 ml PO Q4H PRN PRN Reason: Cough Last Admin: 02/15/21 03:36 Dose: 10 ml Documented by: Sodium Chloride (Normal Saline) 1,000 mls @ 25 mls/hr IV ASDIRECTED [facility] Last Admin: 02/17/21 10:15 Dose: 25 mls/hr Documented by: Vancomycin HCl 1 gm/ Sodium (Chloride) 250 mls @ 150 mls/hr IV Q24H [facility] Last Admin: 02/15/21 17:04 Dose: 150 mls/hr Documented by: Nitroglycerin/Dextrose (Nitroglycerin 25 Mg/D5w 250 Ml) 25 mg in 250 mls @ 18 mls/hr IV TITRATE [facility]; Protocol Last Titration: 02/17/21 10:53 Dose: 0 mcg/min, 0 mls/hr Documented by: Nitroglycerin/Dextrose (Nitroglycerin 25 Mg/D5w 250 Ml) Confirm Administered Dose 25 mg in 250 mls @ as directed .ROUTE .STK-MED ONE Stop: 02/16/21 20:27 Last Admin: 02/16/21 20:32 Dose: Not Given Documented by: Sodium Chloride (Normal Saline) 1,000 mls @ 75 mls/hr IV ASDIRECTED [facility] Last Admin: 02/19/21 14:58 Dose: 75 mls/hr Documented by: Magnesium Sulfate 2 gm/ Premix 50 mls @ 25 mls/hr IV Q6H [facility] Stop: 02/18/21 17:59 Last Admin: 02/18/21 16:55 Dose: 25 mls/hr Documented by: Sodium Chloride (Normal Saline) 1,000 mls @ 50 mls/hr IV ASDIRECTED [facility] Last Admin: 02/20/21 19:59 Dose: 50 mls/hr Documented by: Magnesium Sulfate 2 gm/ Premix 50 mls @ 25 mls/hr IV Q6H [facility] Stop: 02/21/21 11:59 Last Admin: 02/21/21 10:41 Dose: 25 mls/hr Documented by: Lorazepam (Lorazepam 0.5 Mg Tab) 0.5 mg PO TID PRN PRN Reason: Anxiety Last Admin: 02/16/21 11:36 Dose: 0.5 mg Documented by: Morphine Sulfate (Morphine 2 Mg/Ml Syringe) 2 mg IVPUSH ONETIME ONE Stop: 02/18/21 15:14 Last Admin: 02/18/21 15:15 Dose: 2 mg Documented by: Non-Formulary Medication (Cevimeline [Evoxac]) 30 mg PO BID [facility] Last Admin: 02/15/21 21:25 Dose: Not Given Documented by: Polyethylene Glycol (Polyethylene Glycol 3350 Powder 17 Gm Packet) 17 gm PO DAILY [facility] Last Admin: 02/21/21 08:37 Dose: Not Given Documented by: - Exam Quality Assessment: Supplemental Oxygen, Urine Catheter, DVT Prophylaxis. No: Central Line/PICC Urinary Catheter Total Time: 5Days 21Hours General: Alert, Cooperative, Mild Distress Lungs: Decreased Breath Sounds. No: Rales, Rhonchi, Wheezing Cardiovascular: Regular Rate, Regular Rhythm, No Murmurs GI/Abdominal Exam: Soft, Non-Tender, No Organomegaly, No Distention Extremities: Non-Tender, No Pedal Edema - Patient Data Lab Results Last 24 hrs: Laboratory Results - last 24 hr 02/21/21 02/21/21 Range/Units 04:10 04:10 WBC 9.4 (4.5-11.0) K/uL RBC 3.11 L (3.30-5.50) M/uL Hgb 8.5 L (12.0-15.0) g/dL Hct 29.7 L (36.0-48.0) % MCV 96 (80-98) fL MCH 27 (27-31) pg MCHC 29 L (32-36) % Plt Count 276 (150-400) K/uL Add Manual Diff Yes Neutrophils % (Manual) 74 H (36-66) % Lymphocytes % (Manual) 11 L (24-44) % Monocytes % (Manual) 10 H (2-6) % Eosinophils % (Manual) 5 H (2-4) % Sodium 141 (140-148) mmol/L Potassium 4.2 (3.6-5.2) mmol/L Chloride 106 (100-108) mmol/L Carbon Dioxide 27 (21-32) mmol/L Anion Gap 7.7 (5.0-14.0) mmol/L BUN 10 (7-18) mg/dL Creatinine 1.0 (0.6-1.0) mg/dL Est Cr Clr Drug Dosing 34.38 mL/min Estimated GFR (MDRD) 54 L (>60) Glucose 96 (74-106) mg/dL Calcium 8.9 (8.5-10.1) mg/dL Magnesium 1.7 L (1.8-2.4) mg/dL Total Bilirubin 0.1 L (0.2-1.0) mg/dL AST 18 (15-37) U/L ALT 9 L (12-78) U/L Alkaline Phosphatase 76 (46-116) U/L Total Protein 6.4 (6.4-8.2) g/dL Albumin 1.5 L (3.4-5.0) g/dL Globulin 4.9 H (2.3-3.5) g/dL Albumin/Globulin Ratio 0.3 L (1.2-2.2) Result Diagrams: 02/21/21 04:10 02/21/21 04:10 Sepsis Event Note - Evaluation Sepsis Screening Result: No Definite Risk - Focused Exam Vital Signs: Vital Signs Temp Pulse Resp BP BP Pulse Ox 02/21/21 16:04 145/56 H 02/21/21 16:00 98.1 F 90 14 145/56 H 87 L 02/21/21 14:27 88 02/21/21 14:00 98 F 95 19 130/52 L 86 L 02/21/21 12:00 98 F 95 20 134/56 L 19 L 02/21/21 10:54 88 02/21/21 10:00 98.1 F 95 14 162/51 H 92 L 02/21/21 08:35 164/56 H 02/21/21 08:00 97.6 F 102 H 14 164/56 H 89 L 02/21/21 07:03 94 02/21/21 06:00 100 12 160/60 H 91 L - Problem List Review Problem List Initiated/Reviewed/Updated: Yes - My Orders Last 24 Hours: My Active Orders 02/20/21 19:10 Renew/Continue Urinary Catheter [OM.PC] Routine 02/21/21 10:09 Dietary Supplements [RC] TIDAC 02/21/21 12:08 Consult to Speech Language Pathology [[employer]PERATOR Evaluation and Treatment] [CONS] Routine PT Evaluation and Treatment [CONS] Routine 02/21/21 16:43 Furosemide [Lasix] 20 mg IVPUSH NOW ONE Convert IV to Saline Lock [OM.PC] Routine 02/22/21 05:00 Chest 1V Frontal [CR] Timed BASIC METABOLIC PANEL,BMP [CHEM] Timed CBC WITH AUTO DIFF [HEME] Timed - Plan Plan:: ASSESSMENT AND PLAN Right lower lobe pneumonia-complicated by acute on chronic respiratory failure with both hypoxia and hypercapnia. She is continued to require high level of supplemental oxygen and intermittent use of BiPAP -Antibiotic coverage with doxycycline and ceftazidime -Antifungal coverage with fluconazole -Mucomyst nebs for enhanced mucus clearance -Noninvasive ventilation as needed -Follow-up chest x-ray and labs in a.m. 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 No active wheezing. -Scheduled and as needed nebulizers -Continue home medications Stage III chronic kidney disease-kidney function stable. Depression with anxiety, severe-long psychiatric history. Patient is currently stable with her home medication regimen. -Continue home medication Maintenance issues - -DVT prophylaxis-mechanical along with dual antiplatelet therapy -GI prophylaxis-H2 deric -Nutrition-regular Disposition -I anticipate discharge home with home care versus possibly subacute rehab after the hospital stay
[2021-02-21] MEDS ORDERED: Furosemide 20 MG/2 ML VIAL IVPUSH ONE (17:00)
[2021-02-21] MEDS: amLODIPine 5 MG Tab PO SCH (20:05)
[2021-02-21] MEDS: Famotidine 20 MG Tab PO SCH (20:06)
[2021-02-21] MEDS: Aspirin 81 MG Tab.EC PO SCH (20:06)
[2021-02-21] MEDS: ClonazePAM 0.5 MG Tab PO SCH (20:06)
[2021-02-21] MEDS: LORazepam 0.5 MG Tab PO PRN (22:54)
[2021-02-21] MEDS: Morphine 2 MG/ML SYRINGE IVPUSH PRN (22:59)
[2021-02-22] MEDS: Acetaminophen/oxyCODONE 325-10 MG Tab PO PRN ×4 (00:13→22:45)
[2021-02-22] MEDS: Arformoterol 15 MCG/2 ML Neb Soln INH SCH ×2 (07:02→20:29)
[2021-02-22] MEDS: Budesonide 0.5 MG/2 ML Neb Susp NEB SCH ×2 (07:03→20:39)
[2021-02-22] MEDS: Albuterol/Ipratropium 3.0-0.5 MG/3 ML Neb Soln INH SCH ×4 (07:03→20:46)
[2021-02-22] MEDS: Acetylcysteine 20% 200 MG/ML 4 ML Nebulizer Soln SDV NEB SCH ×3 (07:03→20:59)
[2021-02-22] MEDS: Isosorbide Mononitrate 30 MG Tab.ER PO SCH (09:08)
[2021-02-22] MEDS: Mirabegron 25 MG Tab Extended Release PO SCH (09:08)
[2021-02-22] MEDS: Clopidogrel 75 MG Tab PO SCH (09:08)
[2021-02-22] MEDS: Multivitamins with Iron/Calcium/Folic Acid/Minerals Tab PO SCH (09:08)
[2021-02-22] MEDS: Lactobacillus Rhamnosus GG (Probiotic) Cap PO SCH ×2 (09:08→21:55)
[2021-02-22] MEDS: ARIPiprazole 10 MG Tab PO SCH ×2 (09:09→16:07)
[2021-02-22] MEDS: Levothyroxine 88 MCG Tab PO SCH (09:09)
[2021-02-22] MEDS: ZAFIRLUKAST 20 MG PO SCH ×2 (09:09→21:56)
[2021-02-22] MEDS: Ipratropium 0.03% Nasal Spray 30 ML Bot NASBOTH SCH ×2 (09:09→21:56)
[2021-02-22] MEDS: TRANYLCYPROMINE 10 MG PO SCH ×3 (09:09→16:07)
[2021-02-22] MEDS: LORazepam 0.5 MG Tab PO PRN ×2 (09:54→22:46)
[2021-02-22] MEDS ORDERED: Vancomycin 1 GM SDV IV SCH (10:00)
[2021-02-22] MEDS ORDERED: Meropenem 1 GM in Sodium Chloride 0.9% 100 ML IV SCH ×2 (10:00→22:00)
--- NOTE | 2021-02-22 10:07 | PCM.PN ---
- General Info Date of Service: 02/22/21 Subjective Update: Ms. Espinosa high level of supplemental oxygen as well as intermittent use of BiPAP. She has been fairly confused and is unable to provide meaningful information concerning symptoms or review of systems. Oxygen requirements have not worsened over the past few days but there also has been no significant improvement and she remains extremely weak. - Patient Data Vitals - Most Recent: Last Vital Signs Temp 98.1 F 02/22/21 08:00 Pulse 93 02/22/21 08:00 Resp 15 02/22/21 08:00 BP 146/51 H 02/22/21 09:08 Pulse Ox 92 L 02/22/21 08:00 Weight - Most Recent: 139 lb I&O - Last 24 Hours: Intake & Output 02/21/21 02/22/21 02/22/21 22:59 06:59 14:59 Intake Total 440 100 Output Total 500 1150 Balance -60 -1050 Lab Results Last 24 Hours: Laboratory Results - last 24 hr 02/22/21 02/22/21 Range/Units 05:26 05:26 WBC 9.7 (4.5-11.0) K/uL RBC 3.06 L (3.30-5.50) M/uL Hgb 8.3 L (12.0-15.0) g/dL Hct 29.5 L (36.0-48.0) % MCV 96 (80-98) fL MCH 27 (27-31) pg MCHC 28 L (32-36) % Plt Count 306 (150-400) K/uL Add Manual Diff Yes Neutrophils % (Manual) 82 H (36-66) % Band Neutrophils % 2 L (5-11) % Lymphocytes % (Manual) 5 L (24-44) % Monocytes % (Manual) 4 (2-6) % Eosinophils % (Manual) 6 H (2-4) % Basophils % (Manual) 1 (0-1) % Hypochromasia Moderate H Anisocytosis Moderate H Microcytosis Few Sodium 143 (140-148) mmol/L Potassium 4.1 (3.6-5.2) mmol/L Chloride 106 (100-108) mmol/L Carbon Dioxide 31 (21-32) mmol/L Anion Gap 6.3 (5.0-14.0) mmol/L BUN 13 (7-18) mg/dL Creatinine 1.2 H (0.6-1.0) mg/dL Est Cr Clr Drug Dosing 28.65 mL/min Estimated GFR (MDRD) 44 L (>60) Glucose 114 H (74-106) mg/dL Calcium 9.6 (8.5-10.1) mg/dL Med Orders - Current: Current Medications Acetaminophen (Acetaminophen 325 Mg Tab) 650 mg PO Q4H PRN PRN Reason: Pain (Mild 1-3)/fever Last Admin: 02/21/21 08:52 Dose: 650 mg Documented by: Acetylcysteine (Acetylcysteine 20% 200 Mg/Ml 4 Ml Nebulizer Soln Sdv) 200 mg NEB TIDRT [facility] Last Admin: 02/22/21 07:03 Dose: 200 mg Documented by: Albuterol (Albuterol 0.083% 2.5 Mg/3 Ml Neb Soln) 2.5 mg NEB Q4H PRN PRN Reason: Shortness Of Breath/wheezing Last Admin: 02/19/21 16:48 Dose: 2.5 mg Documented by: Albuterol/Ipratropium (Albuterol/Ipratropium 3.0-0.5 Mg/3 Ml Neb Soln) 3 ml INH QIDRT [facility] Last Admin: 02/22/21 07:03 Dose: 3 ml Documented by: Amlodipine Besylate (Amlodipine 5 Mg Tab) 5 mg PO BEDTIME [facility] Last Admin: 02/21/21 20:05 Dose: 5 mg Documented by: Arformoterol Tartrate (Arformoterol 15 Mcg/2 Ml Neb Soln) 15 mcg INH BIDRT [facility] Last Admin: 02/22/21 07:02 Dose: 15 mcg Documented by: Aripiprazole (Aripiprazole 10 Mg Tab) 20 mg PO ACDINNER [facility] Last Admin: 02/21/21 16:04 Dose: 20 mg Documented by: Aripiprazole (Aripiprazole 10 Mg Tab) 10 mg PO DAILY [facility] Last Admin: 02/22/21 09:09 Dose: 10 mg Documented by: Aspirin (Aspirin 81 Mg Tab.Ec) 81 mg PO BEDTIME [facility] Last Admin: 02/21/21 20:06 Dose: 81 mg Documented by: Benzonatate (Benzonatate 100 Mg Cap) 100 mg PO Q8H PRN PRN Reason: Cough Last Admin: 02/19/21 19:20 Dose: 100 mg Documented by: Budesonide (Budesonide 0.5 Mg/2 Ml Neb Susp) 0.5 mg NEB BIDRT [facility] Last Admin: 02/22/21 07:03 Dose: 0.5 mg Documented by: Clonazepam (Clonazepam 0.5 Mg Tab) 0.25 mg PO BEDTIME [facility] Last Admin: 02/21/21 20:06 Dose: 0.25 mg Documented by: Clopidogrel Bisulfate (Clopidogrel 75 Mg Tab) 75 mg PO DAILY [facility] Last Admin: 02/22/21 09:08 Dose: 75 mg Documented by: Famotidine (Famotidine 20 Mg Tab) 60 mg PO BEDTIME [facility] Last Admin: 02/21/21 20:06 Dose: 60 mg Documented by: Furosemide (Furosemide 20 Mg Tab) 20 mg PO DAILY PRN PRN Reason: Edema Fluconazole/Sodium Chloride (100 mg/ Premix) 50 mls @ 100 mls/hr IV Q24H [facility] Last Admin: 02/21/21 09:56 Dose: 100 mls/hr Documented by: Meropenem 1 gm/ Sodium (Chloride) 100 mls @ 200 mls/hr IV Q8H [facility] Vancomycin HCl 1 gm/ Sodium (Chloride) 250 mls @ 160 mls/hr IV Q24H [facility] Ipratropium [place] (Ipratropium 0.03% Nasal [place] 30 Ml Bot) 0 ml NASBOTH BID [facility] Last Admin: 02/22/21 09:09 Dose: Not Given Documented by: Isosorbide Mononitrate (Isosorbide Mononitrate 30 Mg Tab.Er) 30 mg PO DAILY [facility] Last Admin: 02/22/21 09:08 Dose: 30 mg Documented by: Lactobacillus Rhamnosus (Lactobacillus Rhamnosus Gg (Probiotic) Cap) 1 cap PO BID [facility] Last Admin: 02/22/21 09:08 Dose: 1 cap Documented by: Levalbuterol HCl (Levalbuterol Hcl 1.25 Mg/3 Ml Neb) 1.25 mg INH TID PRN PRN Reason: Wheezing Last Admin: 02/21/21 05:37 Dose: 1.25 mg Documented by: Levothyroxine Sodium (Levothyroxine 88 Mcg Tab) 88 mcg PO ACBREAKFAST [facility] Last Admin: 02/22/21 09:09 Dose: 88 mcg Documented by: Lorazepam (Lorazepam 2 Mg/Ml Sdv) 0.5 mg IVPUSH Q4H PRN PRN Reason: Nausea/Vomiting Last Admin: 02/18/21 13:59 Dose: 0.5 mg Documented by: Lorazepam (Lorazepam 0.5 Mg Tab) 0.5 mg PO Q4H PRN PRN Reason: Anxiety Last Admin: 02/22/21 09:54 Dose: 0.5 mg Documented by: Lorazepam (Lorazepam 2 Mg/Ml Sdv) 0.5 mg IVPUSH Q4H PRN PRN Reason: Anxiety/Agitation Last Admin: 02/18/21 02:00 Dose: 0.5 mg Documented by: Losartan Potassium (Losartan 50 Mg Tab) [facility] [place] Last Admin: 02/21/21 16:04 Dose: 100 mg Documented by: Magnesium Hydroxide (Magnesium Hydroxide 400 Mg/5 Ml Susp 30 Ml Cup) 30 ml PO Q12H PRN PRN Reason: Constipation Melatonin (Melatonin 3 Mg Tab) 9 mg PO BEDTIME PRN PRN Reason: Sleep Mirabegron (Mirabegron 25 Mg Tab Extended Release) 50 mg PO DAILY [facility] Last Admin: 02/22/21 09:08 Dose: 50 mg Documented by: Morphine Sulfate (Morphine 2 Mg/Ml Syringe) 2 mg IVPUSH Q1H PRN PRN Reason: Chest Pain Last Admin: 02/21/21 22:59 Dose: 2 mg Documented by: Multivitamins/Minerals (Multivitamins With Iron/Calcium/Folic Acid/Minerals Tab) 1 tab PO DAILY [facility] Last Admin: 02/22/21 09:08 Dose: 1 tab Documented by: Naproxen (Naproxen 250 Mg Tab) 250 mg PO Q12H PRN PRN Reason: Headache Last Admin: 02/16/21 17:17 Dose: 250 mg Documented by: Tranylcypromine ( [place]arnate) 10 Mg Tab * *Own Med 0 mg PO ACDINNER [facility] Last Admin: 02/21/21 16:05 Dose: 20 mg Documented by: Tranylcypromine ( Parnate) 10 Mg Tab * *Own Med 0 mg PO ACBREAKFAST [facility] Last Admin: 02/22/21 09:09 Dose: 30 mg Documented by: Tranylcypromine ( Parnate) 10 Mg Tab * *Own Med 0 mg PO DAILY@1200 [facility] Last Admin: 02/21/21 11:38 Dose: 30 mg Documented by: Zafirlukast ( Accolate) 20 Mg Tablet Own Med 0 mg PO BID [facility] Last Admin: 02/22/21 09:09 Dose: 20 mg Documented by: Ondansetron HCl (Ondansetron 4 Mg/2 Ml Sdv) 4 mg IV Q6H PRN PRN Reason: Nausea/Vomiting Ondansetron HCl (Ondansetron 4 Mg Tab.Dis) 4 mg PO Q6H PRN PRN Reason: Nausea able to take PO Oxycodone/Acetaminophen (Acetaminophen/Oxycodone 325-10 Mg Tab) 1 - 1.5 tab PO Q6H PRN PRN Reason: Pain Last Admin: 02/22/21 09:54 Dose: 1 tab Documented by: Polyethylene Glycol (Polyethylene Glycol 3350 Powder 17 Gm Packet) 17 gm PO BEDTIME [facility] Last Admin: 02/21/21 20:06 Dose: 17 gm Documented by: Pravastatin Sodium (Pravastatin 20 Mg Tab) 10 mg PO ACDINNER [facility] Last Admin: 02/21/21 16:05 Dose: 10 mg Documented by: Vancomycin HCl (Vancomycin 1 Gm Sdv) 1 gm IV .PHARMACY TO DOSE [facility] Stop: 02/22/21 18:00 Discontinued Medications Albuterol/Ipratropium (Albuterol/Ipratropium 3.0-0.5 Mg/3 Ml Neb Soln) 3 ml INH QID PRN PRN Reason: Shortness of Breath Last Admin: 02/15/21 00:27 Dose: 3 ml Documented by: Enoxaparin Sodium (Enoxaparin 40 Mg/0.4 Ml Syringe) 40 mg SUBCUT BEDTIME [facility] Enoxaparin Sodium (Enoxaparin 60 Mg/0.6 Ml Syringe) 60 mg SUBCUT Q12H [facility] Last Admin: 02/16/21 21:34 Dose: 60 mg Documented by: Enoxaparin Sodium (Enoxaparin 60 Mg/0.6 Ml Syringe) 60 mg SUBCUT Q24H [facility] Stop: 02/18/21 23:35 Last Admin: 02/18/21 20:51 Dose: 60 mg Documented by: Furosemide (Furosemide 20 Mg Tab) 20 mg PO DAILY [facility] Last Admin: 02/16/21 08:21 Dose: 20 mg Documented by: Furosemide (Furosemide 40 Mg/4 Ml Vial) 40 mg IVPUSH ONETIME STA Stop: 02/16/21 19:31 Last Admin: 02/16/21 19:48 Dose: 40 mg Documented by: Furosemide (Furosemide 20 Mg/2 Ml Vial) 20 mg IVPUSH NOW ONE Stop: 02/21/21 17:01 Last Admin: 02/21/21 17:19 Dose: 20 mg Documented by: Guaifenesin/Dextromethorphan (Guaifenesin/Dextromethorphan 100-10 Mg/5 Ml Soln 10 Ml Cup) 10 ml PO Q4H PRN PRN Reason: Cough Last Admin: 02/15/21 03:36 Dose: 10 ml Documented by: Ceftazidime 1 gm/ Sodium (Chloride) 50 mls @ 100 mls/hr IV Q24H [facility] Last Admin: 02/21/21 16:34 Dose: 100 mls/hr Documented by: Sodium Chloride (Normal Saline) 1,000 mls @ 25 mls/hr IV ASDIRECTED [facility] Last Admin: 02/17/21 10:15 Dose: 25 mls/hr Documented by: Vancomycin HCl 1 gm/ Sodium (Chloride) 250 mls @ 150 mls/hr IV Q24H [facility] Last Admin: 02/15/21 17:04 Dose: 150 mls/hr Documented by: Doxycycline Hyclate 100 mg/ (Sodium Chloride) 100 mls @ 100 mls/hr IV Q12H [facility] Last Admin: 02/21/21 20:09 Dose: 100 mls/hr Documented by: Nitroglycerin/Dextrose (Nitroglycerin 25 Mg/D5w 250 Ml) 25 mg in 250 mls @ 18 mls/hr IV TITRATE [facility]; Protocol Last Titration: 02/17/21 10:53 Dose: 0 mcg/min, 0 mls/hr Documented by: Nitroglycerin/Dextrose (Nitroglycerin 25 Mg/D5w 250 Ml) Confirm Administered Dose 25 mg in 250 mls @ as directed .ROUTE .STK-MED ONE Stop: 02/16/21 20:27 Last Admin: 02/16/21 20:32 Dose: Not Given Documented by: Sodium Chloride (Normal Saline) 1,000 mls @ 75 mls/hr IV ASDIRECTED [facility] Last Admin: 02/19/21 14:58 Dose: 75 mls/hr Documented by: Magnesium Sulfate 2 gm/ Premix 50 mls @ 25 mls/hr IV Q6H [facility] Stop: 02/18/21 17:59 Last Admin: 02/18/21 16:55 Dose: 25 mls/hr Documented by: Sodium Chloride (Normal Saline) 1,000 mls @ 50 mls/hr IV ASDIRECTED [facility] Last Admin: 02/20/21 19:59 Dose: 50 mls/hr Documented by: Magnesium Sulfate 2 gm/ Premix 50 mls @ 25 mls/hr IV Q6H [facility] Stop: 02/21/21 11:59 Last Admin: 02/21/21 10:41 Dose: 25 mls/hr Documented by: Lorazepam (Lorazepam 0.5 Mg Tab) 0.5 mg PO TID PRN PRN Reason: Anxiety Last Admin: 02/16/21 11:36 Dose: 0.5 mg Documented by: Morphine Sulfate (Morphine 2 Mg/Ml Syringe) 2 mg IVPUSH ONETIME ONE Stop: 02/18/21 15:14 Last Admin: 02/18/21 15:15 Dose: 2 mg Documented by: Non-Formulary Medication (Cevimeline [Evoxac]) 30 mg PO BID [facility] Last Admin: 02/15/21 21:25 Dose: Not Given Documented by: Polyethylene Glycol (Polyethylene Glycol 3350 Powder 17 Gm Packet) 17 gm PO DAILY [facility] Last Admin: 02/21/21 08:37 Dose: Not Given Documented by: - Exam Quality Assessment: Supplemental Oxygen, Central Line/PICC, Urine Catheter, DVT Prophylaxis Urinary Catheter Total Time: 6Days 7Hours General: Lethargic Lungs: Clear to Auscultation, Normal Respiratory Effort, Decreased Breath Sounds. No: Rales, Rhonchi, Wheezing Cardiovascular: Regular Rate, Regular Rhythm, No Murmurs GI/Abdominal Exam: Soft, Non-Tender, No Organomegaly, No Distention Extremities: Non-Tender, No Pedal Edema - Patient Data Lab Results Last 24 hrs: Laboratory Results - last 24 hr 02/22/21 02/22/21 Range/Units 05:26 05:26 WBC 9.7 (4.5-11.0) K/uL RBC 3.06 L (3.30-5.50) M/uL Hgb 8.3 L (12.0-15.0) g/dL Hct 29.5 L (36.0-48.0) % MCV 96 (80-98) fL MCH 27 (27-31) pg MCHC 28 L (32-36) % Plt Count 306 (150-400) K/uL Add Manual Diff Yes Neutrophils % (Manual) 82 H (36-66) % Band Neutrophils % 2 L (5-11) % Lymphocytes % (Manual) 5 L (24-44) % Monocytes % (Manual) 4 (2-6) % Eosinophils % (Manual) 6 H (2-4) % Basophils % (Manual) 1 (0-1) % Hypochromasia Moderate H Anisocytosis Moderate H Microcytosis Few Sodium 143 (140-148) mmol/L Potassium 4.1 (3.6-5.2) mmol/L Chloride 106 (100-108) mmol/L Carbon Dioxide 31 (21-32) mmol/L Anion Gap 6.3 (5.0-14.0) mmol/L BUN 13 (7-18) mg/dL Creatinine 1.2 H (0.6-1.0) mg/dL Est Cr Clr Drug Dosing 28.65 mL/min Estimated GFR (MDRD) 44 L (>60) Glucose 114 H (74-106) mg/dL Calcium 9.6 (8.5-10.1) mg/dL Result Diagrams: 02/22/21 05:26 02/22/21 05:26 Sepsis Event Note - Evaluation Sepsis Screening Result: No Definite Risk - Focused Exam Vital Signs: Vital Signs Temp Pulse Resp BP BP Pulse Ox 02/22/21 09:08 146/51 H 02/22/21 08:00 98.1 F 93 15 146/51 H 92 L 02/22/21 06:00 12 162/50 H 89 L 02/22/21 04:00 98 F 19 150/51 H 90 L 02/22/21 02:00 12 142/51 H 92 L 02/22/21 00:00 97.9 F 24 H 142/53 H 91 L 02/21/21 22:00 11 L 155/58 H 90 L - Problem List Review Problem List Initiated/Reviewed/Updated: Yes - My Orders Last 24 Hours: My Active Orders 02/21/21 10:09 Dietary Supplements [RC] TIDAC 02/21/21 12:08 Consult to Speech Language Pathology [[employer] Evaluation and Treatment] [CONS] Routine PT Evaluation and Treatment [CONS] Routine 02/21/21 16:43 Convert IV to Saline Lock [OM.PC] Routine 02/22/21 05:00 Chest 1V Frontal [CR] Timed 02/22/21 08:34 PICC Line [Central Line Insert Checklist] [RC] ASDIRECTED 02/22/21 08:39 Modified Barium Swallow Study [Swallowing Function w Video] [CR] Routine 02/22/21 10:00 Meropenem [Merrem] 1 gm Sodium Chloride 0.9% [Normal Saline] 100 ml IV Q8H Vancomycin 1 gm IV .PHARMACY TO DOSE 02/22/21 11:00 Vancomycin 1 gm Sodium Chloride 0.9% [Normal Saline] 250 ml IV Q24H 02/23/21 05:00 BASIC METABOLIC PANEL,BMP [CHEM] Timed CBC WITH AUTO DIFF [HEME] Timed MAGNESIUM [CHEM] Timed - Plan Plan:: ASSESSMENT AND PLAN Right lower lobe pneumonia-complicated by acute on chronic respiratory failure with both hypoxia and hypercapnia. She is continued to require high level of supplemental oxygen and intermittent use of BiPAP. There has not been significant decline over the past few days but no improvement noted in respiratory status. 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 No active wheezing. -Scheduled and as needed nebulizers -Continue home medications Stage III chronic kidney disease-kidney function stable. Depression with anxiety, severe-long psychiatric history. Patient is currently stable with her home medication regimen. -Continue home medication Maintenance issues - -DVT prophylaxis-mechanical along with dual antiplatelet therapy -GI prophylaxis-H2 deric -Nutrition-regular Disposition -I anticipate discharge home with home care versus possibly subacute rehab after the hospital stay
[2021-02-22] MEDS: Fluconazole/Normal Saline 100 MG in Premix Bag 1 BAG IV SCH (11:03)
--- NOTE | 2021-02-22 15:15 | CR ---
CHEST: Portable 02/22/2021 at 5:38 AM CLINICAL HISTORY:Follow-up infiltrate COMPARISON:02/17/2021 FINDINGS: Patient is a persistent diffuse right upper lobe infiltrate similar to prior study. There is now a small right pleural effusion. There may be minimal left effusion also. Appearance is similar to prior study. IMPRESSION: Persistent right upper lobe infiltrate without significant change. There is persistent diffuse prominence of lung markings bilaterally Right pleural effusion
[2021-02-22] MEDS: Pravastatin 20 MG Tab PO SCH (16:04)
[2021-02-22] MEDS: Losartan 50 MG Tab PO SCH (16:05)
[2021-02-22] MEDS: amLODIPine 5 MG Tab PO SCH (21:55)
[2021-02-22] MEDS: Aspirin 81 MG Tab.EC PO SCH (21:55)
[2021-02-22] MEDS: Polyethylene Glycol 3350 Powder 17 GM Packet PO SCH (21:55)
[2021-02-22] MEDS: ClonazePAM 0.5 MG Tab PO SCH (21:56)
[2021-02-22] MEDS: Famotidine 20 MG Tab PO SCH (21:56)
[2021-02-22] MEDS: Meropenem 1 GM in Sodium Chloride 0.9% 100 ML IV SCH (21:56)
[2021-02-22] MEDS: Morphine 2 MG/ML SYRINGE IVPUSH PRN (23:08)
[2021-02-23] MEDS: Morphine 2 MG/ML SYRINGE IVPUSH PRN ×5 (03:20→22:09)
[2021-02-23] MEDS: Acetaminophen/oxyCODONE 325-10 MG Tab PO PRN ×2 (05:15→13:14)
[2021-02-23] MEDS: Acetylcysteine 20% 200 MG/ML 4 ML Nebulizer Soln SDV NEB SCH ×3 (07:02→21:59)
[2021-02-23] MEDS: Arformoterol 15 MCG/2 ML Neb Soln INH SCH ×3 (07:02→22:00)
[2021-02-23] MEDS: Budesonide 0.5 MG/2 ML Neb Susp NEB SCH ×2 (07:02→22:00)
[2021-02-23] MEDS: Albuterol/Ipratropium 3.0-0.5 MG/3 ML Neb Soln INH SCH ×4 (07:02→22:00)
[2021-02-23] MEDS: Levothyroxine 88 MCG Tab PO SCH (08:22)
[2021-02-23] MEDS: TRANYLCYPROMINE 10 MG PO SCH ×3 (08:22→16:33)
[2021-02-23] MEDS: LORazepam 0.5 MG Tab PO PRN (08:23)
[2021-02-23] MEDS: Mirabegron 25 MG Tab Extended Release PO SCH (08:24)
[2021-02-23] MEDS: Clopidogrel 75 MG Tab PO SCH (08:25)
[2021-02-23] MEDS: Multivitamins with Iron/Calcium/Folic Acid/Minerals Tab PO SCH (08:25)
[2021-02-23] MEDS: Isosorbide Mononitrate 30 MG Tab.ER PO SCH (08:26)
[2021-02-23] MEDS: ZAFIRLUKAST 20 MG PO SCH ×2 (08:30→20:52)
[2021-02-23] MEDS: Lactobacillus Rhamnosus GG (Probiotic) Cap PO SCH ×2 (08:31→20:54)
[2021-02-23] MEDS: ARIPiprazole 10 MG Tab PO SCH ×2 (08:31→16:31)
[2021-02-23] MEDS: Ipratropium 0.03% Nasal Spray 30 ML Bot NASBOTH SCH ×2 (08:32→20:55)
[2021-02-23] MEDS: Doxycycline 100 MG in Sodium Chloride 0.9% 100 ML IV SCH (08:32)
[2021-02-23] MEDS: Meropenem 1 GM in Sodium Chloride 0.9% 100 ML IV SCH ×2 (09:15→22:00)
[2021-02-23] MEDS ORDERED: Sodium Chloride 0.9% 10 ML Syringe FLUSH ONE (10:11)
[2021-02-23] MEDS ORDERED: Iopamidol 755 Mg/ML 100 ML Bottle IV SCH (10:15)
[2021-02-23] MEDS: Fluconazole/Normal Saline 100 MG in Premix Bag 1 BAG IV SCH (11:02)
--- NOTE | 2021-02-23 11:41 | CRLCT ---
For Patients: As a result of the Century Cures Act, medical imaging exams and procedure reports are released immediately into your electronic medical record. You may view this report before your referring provider. If you have questions, please contact your health care provider. INDICATION: Persistent respiratory failure with hypoxia. TECHNIQUE: Contrast-enhanced chest CT performed using the pulmonary embolism protocol. 58 cc nonionic Isovue-370 administered. COMPARISON: Correlation is made with a portable chest x-ray February 22, 2021 and February 17, 2021. FINDINGS: Adequate opacification of most of the pulmonary arterial tree except at the lung bases where there is significant infiltrate/consolidation with some air bronchograms and minimal pleural fluid. There is no convincing evidence for acute pulmonary emboli. The central pulmonary arteries are enlarged suggesting pulmonary arterial hypertension. There are irregular filling defects within the superior vena cava, most likely related to combination of opacified and non-opacified blood as well as motion artifact and technical factors. Dense arterial vascular calcification within the thoracic and visualized abdominal aorta and also within the coronary artery distribution. Underlying emphysematous type change. Diffuse pulmonary infiltrates best appreciate in the right upper lobe with infiltrates or atelectasis involving both lower lobes with small pleural effusions. The left upper lobe is relatively much less affected than the right upper lobe. Narrowed bronchus intermedius on the right nonspecific potentially transient or related to debris within the smaller airways. There are enlarged right paratracheal/precarinal, subcarinal, and bilateral hilar lymph nodes which could be reactive. Malignancy would be difficult to exclude. Multi chamber cardiomegaly. Normal adrenal glands. Probable splenomegaly incompletely visualized on this chest CT. Incidental note is made of a left-sided PICC line with its tip in the superior vena cava. IMPRESSION: 1. No convincing evidence for acute pulmonary emboli. 2. Widespread pulmonary infiltrates right greater than left with consolidations/air bronchograms in the lower lobes and minimal pleural effusions. 3. Hilar/mediastinal lymphadenopathy potentially reactive. Metastatic disease or malignancy could not be entirely excluded. 4. Central pulmonary arterial enlargement likely related to pulmonary arterial hypertension. Cardiomegaly. 5. Not mentioned above, there is irregular pleural thickening within the right hemithorax particularly along the right upper lobe and right middle lobe. 6. Probable splenomegaly incompletely visualized on this chest CT. Please note that all CT scans at this facility use dose modulation, iterative reconstruction, and/or weight-based dosing when appropriate to reduce radiation dose to as low as reasonably achievable. Dictated by Sam Steele MD @ 02/23/2021 11:40:[address] Sam Steele @ Feb 23 2021 11:40AM
[2021-02-23] MEDS ORDERED: Levofloxacin/Dextrose 5%-Water 750 MG in Premix Bag 1 BAG IV SCH (12:00)
--- NOTE | 2021-02-23 15:32 | PCM.PN ---
- General Info Date of Service: 02/23/21 Subjective Update: Ms. Espinosa continues to require high level of supplemental oxygen as well as intermittent use of BiPAP. CT scan of the chest was obtained today because of ongoing hypoxia and respiratory compromise. This did show evidence of bilateral pulmonary infiltrates consistent with probable infection. White blood cell count remains within normal range and she has been afebrile. She has experienced ongoing delirium and confusion, because of this she is unable to provide meaningful history concerning recent symptoms or review of systems. - Patient Data Vitals - Most Recent: Last Vital Signs Temp 97.6 F 02/23/21 12:00 Pulse 105 H 02/23/21 14:39 Resp 20 02/23/21 12:00 BP 154/49 H 02/23/21 12:00 Pulse Ox 90 L 02/23/21 12:00 Weight - Most Recent: 139 lb I&O - Last 24 Hours: Intake & Output 02/23/21 02/23/21 02/23/21 06:59 14:59 22:59 Output Total 450 650 Balance -450 -650 Lab Results Last 24 Hours: Laboratory Results - last 24 hr 02/23/21 02/23/21 Range/Units 05:49 05:49 WBC 8.9 (4.5-11.0) K/uL RBC 2.98 L (3.30-5.50) M/uL Hgb 8.0 L (12.0-15.0) g/dL Hct 28.7 L (36.0-48.0) % MCV 96 (80-98) fL MCH 27 (27-31) pg MCHC 28 L (32-36) % Plt Count 357 (150-400) K/uL Add Manual Diff Yes Neutrophils % (Manual) 79 H (36-66) % Band Neutrophils % 2 L (5-11) % Lymphocytes % (Manual) 5 L (24-44) % Monocytes % (Manual) 9 H (2-6) % Eosinophils % (Manual) 5 H (2-4) % Sodium 146 (140-148) mmol/L Potassium 4.1 (3.6-5.2) mmol/L Chloride 107 (100-108) mmol/L Carbon Dioxide 36 H (21-32) mmol/L Anion Gap 7.1 (5.0-14.0) mmol/L BUN 14 (7-18) mg/dL Creatinine 1.1 H (0.6-1.0) mg/dL Est Cr Clr Drug Dosing 31.25 mL/min Estimated GFR (MDRD) 48 L (>60) Glucose 100 (74-106) mg/dL Calcium 9.7 (8.5-10.1) mg/dL Magnesium 1.9 (1.8-2.4) mg/dL Med Orders - Current: Current Medications Acetaminophen (Acetaminophen 325 Mg Tab) 650 mg PO Q4H PRN PRN Reason: Pain (Mild 1-3)/fever Last Admin: 02/21/21 08:52 Dose: 650 mg Documented by: Acetylcysteine (Acetylcysteine 20% 200 Mg/Ml 4 Ml Nebulizer Soln Sdv) 200 mg NEB TID@0700,1500,2100 [facility] Last Admin: 02/23/21 14:41 Dose: 200 mg Documented by: Albuterol (Albuterol 0.083% 2.5 Mg/3 Ml Neb Soln) 2.5 mg NEB Q4H PRN PRN Reason: Shortness Of Breath/wheezing Last Admin: 02/19/21 16:48 Dose: 2.5 mg Documented by: Albuterol/Ipratropium (Albuterol/Ipratropium 3.0-0.5 Mg/3 Ml Neb Soln) 3 ml INH QIDRT [facility] Last Admin: 02/23/21 14:38 Dose: 3 ml Documented by: Amlodipine Besylate (Amlodipine 5 Mg Tab) 5 mg PO BEDTIME [facility] Last Admin: 02/22/21 21:55 Dose: 5 mg Documented by: Arformoterol Tartrate (Arformoterol 15 Mcg/2 Ml Neb Soln) 15 mcg INH BIDRT [facility] Last Admin: 02/23/21 07:02 Dose: 15 mcg Documented by: Aripiprazole (Aripiprazole 10 Mg Tab) 20 mg PO ACDINNER [facility] Last Admin: 02/22/21 16:07 Dose: 20 mg Documented by: Aripiprazole (Aripiprazole 10 Mg Tab) 10 mg PO DAILY [facility] Last Admin: 02/23/21 08:31 Dose: 10 mg Documented by: Aspirin (Aspirin 81 Mg Tab.Ec) 81 mg PO BEDTIME [facility] Last Admin: 02/22/21 21:55 Dose: 81 mg Documented by: Benzonatate (Benzonatate 100 Mg Cap) 100 mg PO Q8H PRN PRN Reason: Cough Last Admin: 02/19/21 19:20 Dose: 100 mg Documented by: Budesonide (Budesonide 0.5 Mg/2 Ml Neb Susp) 0.5 mg NEB BIDRT [facility] Last Admin: 02/23/21 07:02 Dose: 0.5 mg Documented by: Clonazepam (Clonazepam 0.5 Mg Tab) 0.25 mg PO BEDTIME [facility] Last Admin: 02/22/21 21:56 Dose: 0.25 mg Documented by: Clopidogrel Bisulfate (Clopidogrel 75 Mg Tab) 75 mg PO DAILY [facility] Last Admin: 02/23/21 08:25 Dose: 75 mg Documented by: Famotidine (Famotidine 20 Mg Tab) 60 mg PO BEDTIME [facility] Last Admin: 02/22/21 21:56 Dose: 60 mg Documented by: Furosemide (Furosemide 20 Mg Tab) 20 mg PO DAILY PRN PRN Reason: Edema Last Admin: 02/23/21 11:59 Dose: 20 mg Documented by: Fluconazole/Sodium Chloride (100 mg/ Premix) 50 mls @ 100 mls/hr IV Q24H [facility] Last Admin: 02/23/21 11:02 Dose: 100 mls/hr Documented by: Meropenem 1 gm/ Sodium (Chloride) 100 mls @ 200 mls/hr IV Q12H [facility] Last Admin: 02/23/21 09:15 Dose: 200 mls/hr Documented by: Vancomycin HCl 1 gm/ Sodium (Chloride) 250 mls @ 160 mls/hr IV Q24H [facility] Last Admin: 02/23/21 11:44 Dose: 160 mls/hr Documented by: Levofloxacin/Dextrose 750 mg/ (Premix) 150 mls @ 100 mls/hr IV Q48H [facility] Last Admin: 02/23/21 13:30 Dose: 100 mls/hr Documented by: Iopamidol (Iopamidol 755 Mg/Ml 100 Ml Bottle) 58 ml IV . DIRECTED [facility] Stop: 02/23/21 16:00 Last Admin: 02/23/21 10:52 Dose: 58 ml Documented by: Ipratropium [place] (Ipratropium 0.03% Nasal [place] 30 Ml Bot) 0 ml NASBOTH BID [facility] Last Admin: 02/23/21 08:32 Dose: 1 spray Documented by: Isosorbide Mononitrate (Isosorbide Mononitrate 30 Mg Tab.Er) 30 mg PO DAILY [facility] Last Admin: 02/23/21 08:26 Dose: 30 mg Documented by: Lactobacillus Rhamnosus (Lactobacillus Rhamnosus Gg (Probiotic) Cap) 1 cap PO BID [facility] Last Admin: 02/23/21 08:31 Dose: 1 cap Documented by: Levalbuterol HCl (Levalbuterol Hcl 1.25 Mg/3 Ml Neb) 1.25 mg INH TID PRN PRN Reason: Wheezing Last Admin: 02/21/21 05:37 Dose: 1.25 mg Documented by: Levothyroxine Sodium (Levothyroxine 88 Mcg Tab) 88 mcg PO ACBREAKFAST [facility] Last Admin: 02/23/21 08:22 Dose: 88 mcg Documented by: Lorazepam (Lorazepam 2 Mg/Ml Sdv) 0.5 mg IVPUSH Q4H PRN PRN Reason: Nausea/Vomiting Last Admin: 02/18/21 13:59 Dose: 0.5 mg Documented by: Lorazepam (Lorazepam 0.5 Mg Tab) 0.5 mg PO Q4H PRN PRN Reason: Anxiety Last Admin: 02/23/21 08:23 Dose: 0.5 mg Documented by: Lorazepam (Lorazepam 2 Mg/Ml Sdv) 0.5 mg IVPUSH Q4H PRN PRN Reason: Anxiety/Agitation Last Admin: 02/18/21 02:00 Dose: 0.5 mg Documented by: Losartan Potassium (Losartan 50 Mg Tab) 100 mg PO ACDINNER [facility] Last Admin: 02/22/21 16:05 Dose: 100 mg Documented by: Magnesium Hydroxide (Magnesium Hydroxide 400 Mg/5 Ml Susp 30 Ml Cup) 30 ml PO Q12H PRN PRN Reason: Constipation Melatonin (Melatonin 3 Mg Tab) 9 mg PO BEDTIME PRN PRN Reason: Sleep Mirabegron (Mirabegron 25 Mg Tab Extended Release) 50 mg PO DAILY [facility] Last Admin: 02/23/21 08:24 Dose: 50 mg Documented by: Morphine Sulfate (Morphine 2 Mg/Ml Syringe) 2 mg IVPUSH Q1H PRN PRN Reason: Chest Pain Last Admin: 02/23/21 13:13 Dose: 2 mg Documented by: Multivitamins/Minerals (Multivitamins With Iron/Calcium/Folic Acid/Minerals Tab) 1 tab PO DAILY [facility] Last Admin: 02/23/21 08:25 Dose: 1 tab Documented by: Naproxen (Naproxen 250 Mg Tab) 250 mg PO Q12H PRN PRN Reason: Headache Last Admin: 02/16/21 17:17 Dose: 250 mg Documented by: Tranylcypromine ( Parnate) 10 Mg Tab * *Own Med 0 mg PO ACDINNER [facility] Last Admin: 02/22/21 16:07 Dose: 20 mg Documented by: Tranylcypromine ( Parnate) 10 Mg Tab * *Own Med 0 mg PO ACBREAKFAST [facility] Last Admin: 02/23/21 08:22 Dose: 3 mg Documented by: Tranylcypromine ( Parnate) 10 Mg Tab * *Own Med 0 mg PO DAILY@1200 [facility] Last Admin: 02/23/21 12:00 Dose: 30 mg Documented by: Zafirlukast ( Accolate) 20 Mg Tablet Own Med 0 mg PO BID [facility] Last Admin: 02/23/21 08:30 Dose: 20 mg Documented by: Ondansetron HCl (Ondansetron 4 Mg/2 Ml Sdv) 4 mg IV Q6H PRN PRN Reason: Nausea/Vomiting Ondansetron HCl (Ondansetron 4 Mg Tab.Dis) 4 mg PO Q6H PRN PRN Reason: Nausea able to take PO Oxycodone/Acetaminophen (Acetaminophen/Oxycodone 325-10 Mg Tab) 1 - 1.5 tab PO Q6H PRN PRN Reason: Pain Last Admin: 02/23/21 13:14 Dose: 1 tab Documented by: Polyethylene Glycol (Polyethylene Glycol 3350 Powder 17 Gm Packet) 17 gm PO BEDTIME [facility] Last Admin: 02/22/21 21:55 Dose: 17 gm Documented by: Pravastatin Sodium (Pravastatin 20 Mg Tab) 10 mg PO ACDINNER [facility] Last Admin: 02/22/21 16:04 Dose: 10 mg Documented by: Discontinued Medications Acetylcysteine (Acetylcysteine 20% 200 Mg/Ml 4 Ml Nebulizer Soln Sdv) 200 mg NEB TIDRT [facility] Last Admin: 02/22/21 07:03 Dose: 200 mg Documented by: Albuterol/Ipratropium (Albuterol/Ipratropium 3.0-0.5 Mg/3 Ml Neb Soln) 3 ml INH QID PRN PRN Reason: Shortness of Breath Last Admin: 02/15/21 00:27 Dose: 3 ml Documented by: Enoxaparin Sodium (Enoxaparin 40 Mg/0.4 Ml Syringe) 40 mg SUBCUT BEDTIME [facility] Enoxaparin Sodium (Enoxaparin 60 Mg/0.6 Ml Syringe) 60 mg SUBCUT Q12H [facility] Last Admin: 02/16/21 21:34 Dose: 60 mg Documented by: Enoxaparin Sodium (Enoxaparin 60 Mg/0.6 Ml Syringe) 60 mg SUBCUT Q24H [facility] Stop: 02/18/21 23:35 Last Admin: 02/18/21 20:51 Dose: 60 mg Documented by: Furosemide (Furosemide 20 Mg Tab) 20 mg PO DAILY [facility] Last Admin: 02/16/21 08:21 Dose: 20 mg Documented by: Furosemide (Furosemide 40 Mg/4 Ml Vial) 40 mg IVPUSH ONETIME STA Stop: 02/16/21 19:31 Last Admin: 02/16/21 19:48 Dose: 40 mg Documented by: Furosemide (Furosemide 20 Mg/2 Ml Vial) 20 mg IVPUSH NOW ONE Stop: 02/21/21 17:01 Last Admin: 02/21/21 17:19 Dose: 20 mg Documented by: Guaifenesin/Dextromethorphan (Guaifenesin/Dextromethorphan 100-10 Mg/5 Ml Soln 10 Ml Cup) 10 ml PO Q4H PRN PRN Reason: Cough Last Admin: 02/15/21 03:36 Dose: 10 ml Documented by: Ceftazidime 1 gm/ Sodium (Chloride) 50 mls @ 100 mls/hr IV Q24H [facility] Last Admin: 02/21/21 16:34 Dose: 100 mls/hr Documented by: Sodium Chloride (Normal Saline) 1,000 mls @ 25 mls/hr IV ASDIRECTED [facility] Last Admin: 02/17/21 10:15 Dose: 25 mls/hr Documented by: Vancomycin HCl 1 gm/ Sodium (Chloride) 250 mls @ 150 mls/hr IV Q24H [facility] Last Admin: 02/15/21 17:04 Dose: 150 mls/hr Documented by: Doxycycline Hyclate 100 mg/ (Sodium Chloride) 100 mls @ 100 mls/hr IV Q12H [facility] Last Admin: 02/23/21 08:32 Dose: Not Given Documented by: Nitroglycerin/Dextrose (Nitroglycerin 25 Mg/D5w 250 Ml) 25 mg in 250 mls @ 18 mls/hr IV TITRATE [facility]; Protocol Last Titration: 02/17/21 10:53 Dose: 0 mcg/min, 0 mls/hr Documented by: Nitroglycerin/Dextrose (Nitroglycerin 25 Mg/D5w 250 Ml) Confirm Administered Dose 25 mg in 250 mls @ as directed .ROUTE .STK-MED ONE Stop: 02/16/21 20:27 Last Admin: 02/16/21 20:32 Dose: Not Given Documented by: Sodium Chloride (Normal Saline) 1,000 mls @ 75 mls/hr IV ASDIRECTED [facility] Last Admin: 02/19/21 14:58 Dose: 75 mls/hr Documented by: Magnesium Sulfate 2 gm/ Premix 50 mls @ 25 mls/hr IV Q6H [facility] Stop: 02/18/21 17:59 Last Admin: 02/18/21 16:55 Dose: 25 mls/hr Documented by: Sodium Chloride (Normal Saline) 1,000 mls @ 50 mls/hr IV ASDIRECTED [facility] Last Admin: 02/20/21 19:59 Dose: 50 mls/hr Documented by: Magnesium Sulfate 2 gm/ Premix 50 mls @ 25 mls/hr IV Q6H [facility] Stop: 02/21/21 11:59 Last Admin: 02/21/21 10:41 Dose: 25 mls/hr Documented by: Meropenem 1 gm/ Sodium (Chloride) 100 mls @ 200 mls/hr IV Q8H [facility] Stop: 02/22/21 12:00 Last Admin: 02/22/21 11:42 Dose: 200 mls/hr Documented by: Vancomycin HCl 1 gm/ Sodium (Chloride) 250 mls @ 160 mls/hr IV Q24H [facility] Stop: 02/22/21 15:00 Last Admin: 02/22/21 12:25 Dose: 160 mls/hr Documented by: Sodium Chloride (Normal Saline) 84 mls @ 4 mls/sec IV ASDIRECTED [facility] Stop: 02/23/21 14:00 Last Admin: 02/23/21 10:53 Dose: 4 mls/sec Documented by: Lorazepam (Lorazepam 0.5 Mg Tab) 0.5 mg PO TID PRN PRN Reason: Anxiety Last Admin: 02/16/21 11:36 Dose: 0.5 mg Documented by: Morphine Sulfate (Morphine 2 Mg/Ml Syringe) 2 mg IVPUSH ONETIME ONE Stop: 02/18/21 15:14 Last Admin: 02/18/21 15:15 Dose: 2 mg Documented by: Non-Formulary Medication (Cevimeline [Evoxac]) 30 mg PO BID [facility] Last Admin: 02/15/21 21:25 Dose: Not Given Documented by: Polyethylene Glycol (Polyethylene Glycol 3350 Powder 17 Gm Packet) 17 gm PO DAILY [facility] Last Admin: 02/21/21 08:37 Dose: Not Given Documented by: Sodium Chloride (Sodium Chloride 0.9% 10 Ml Syringe) 10 ml FLUSH ONETIME ONE Stop: 02/23/21 10:12 Last Admin: 02/23/21 10:53 Dose: 10 ml Documented by: Vancomycin HCl (Vancomycin 1 Gm Sdv) 1 gm IV .PHARMACY TO DOSE [facility] Stop: 02/22/21 18:00 - Exam Quality Assessment: Supplemental Oxygen, Central Line/PICC, Urine Catheter, DVT Prophylaxis Central Line Total Time: 0Days 9Hours Urinary Catheter Total Time: 7Days 17Hours General: Alert, Moderate Distress. No: Oriented Lungs: Clear to Auscultation, Normal Respiratory Effort, Decreased Breath Sounds. No: Rales, Rhonchi, Wheezing Cardiovascular: Regular Rate, Regular Rhythm, No Murmurs GI/Abdominal Exam: Soft, Non-Tender, No Organomegaly, No Distention Extremities: Non-Tender, Pedal Edema - Patient Data Lab Results Last 24 hrs: Laboratory Results - last 24 hr 02/23/21 02/23/21 Range/Units 05:49 05:49 WBC 8.9 (4.5-11.0) K/uL RBC 2.98 L (3.30-5.50) M/uL Hgb 8.0 L (12.0-15.0) g/dL Hct 28.7 L (36.0-48.0) % MCV 96 (80-98) fL MCH 27 (27-31) pg MCHC 28 L (32-36) % Plt Count 357 (150-400) K/uL Add Manual Diff Yes Neutrophils % (Manual) 79 H (36-66) % Band Neutrophils % 2 L (5-11) % Lymphocytes % (Manual) 5 L (24-44) % Monocytes % (Manual) 9 H (2-6) % Eosinophils % (Manual) 5 H (2-4) % Sodium 146 (140-148) mmol/L Potassium 4.1 (3.6-5.2) mmol/L Chloride 107 (100-108) mmol/L Carbon Dioxide 36 H (21-32) mmol/L Anion Gap 7.1 (5.0-14.0) mmol/L BUN 14 (7-18) mg/dL Creatinine 1.1 H (0.6-1.0) mg/dL Est Cr Clr Drug Dosing 31.25 mL/min Estimated GFR (MDRD) 48 L (>60) Glucose 100 (74-106) mg/dL Calcium 9.7 (8.5-10.1) mg/dL Magnesium 1.9 (1.8-2.4) mg/dL Result Diagrams: 02/23/21 05:49 02/23/21 05:49 Sepsis Event Note - Evaluation Sepsis Screening Result: No Definite Risk - Focused Exam Vital Signs: Vital Signs Temp Pulse Resp BP BP Pulse Ox 02/23/21 14:39 105 H 02/23/21 12:00 97.6 F 102 H 20 154/49 H 90 L 02/23/21 10:57 107 H 02/23/21 10:00 93 17 160/59 H 90 L 02/23/21 08:26 157/55 H 02/23/21 08:00 97.2 F 88 20 157/55 H 91 L 02/23/21 07:07 92 02/23/21 06:00 10 L 160/58 H 90 L 02/23/21 04:00 97.4 F 9 L 152/51 H 94 L - Problem List Review Problem List Initiated/Reviewed/Updated: Yes - My Orders Last 24 Hours: My Active Orders 02/22/21 22:00 Meropenem [Merrem] 1 gm Sodium Chloride 0.9% [Normal Saline] 100 ml IV Q12H 02/23/21 10:15 Iopamidol [Isovue-370 (76%)] 58 ml IV . DIRECTED 08/05/21 12:00 Levofloxacin/Dextrose 5%-Water [Levaquin in D5W 750 MG/150 ML] 750 mg Premix Bag 1 bag IV Q48H Vancomycin 1 gm Sodium Chloride 0.9% [Normal Saline] 250 ml IV Q24H 02/23/21 14:22 Resuscitation Status Routine 02/24/21 05:00 BASIC METABOLIC PANEL,BMP [CHEM] Timed CBC WITH AUTO DIFF [HEME] Timed - Plan Plan:: ASSESSMENT AND PLAN Bilateral pneumonia-complicated by acute on chronic respiratory failure with both hypoxia and hypercapnia. She is continued to require high level of sup plemental oxygen and intermittent use of BiPAP. CT scan of the chest obtained today shows evidence of bilateral pulmonary infiltrates suggesting ongoing infection. White blood cell count has remained normal and she has been afebrile. 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 No active wheezing. -Scheduled and as needed nebulizers -Continue home medications Stage III chronic kidney disease-kidney function stable. Depression with anxiety, severe-long psychiatric history. Patient is currently stable with her home medication regimen. -Continue home medication Maintenance issues - -DVT prophylaxis-mechanical along with dual antiplatelet therapy -GI prophylaxis-H2 deric -Nutrition-regular Disposition -I anticipate discharge home with home care versus possibly subacute rehab after the hospital stay
[2021-02-23] MEDS: Pravastatin 20 MG Tab PO SCH (16:31)
[2021-02-23] MEDS: Losartan 50 MG Tab PO SCH (16:32)
[2021-02-23] MEDS: Famotidine 20 MG Tab PO SCH (20:52)
[2021-02-23] MEDS: Polyethylene Glycol 3350 Powder 17 GM Packet PO SCH (20:53)
[2021-02-23] MEDS: ClonazePAM 0.5 MG Tab PO SCH (20:53)
[2021-02-23] MEDS: amLODIPine 5 MG Tab PO SCH (20:53)
[2021-02-23] MEDS: Aspirin 81 MG Tab.EC PO SCH (20:54)
[2021-02-24] MEDS: Morphine 2 MG/ML SYRINGE IVPUSH PRN ×7 (00:02→12:40)
[2021-02-24] MEDS: LORazepam 2 MG/ML SDV IVPUSH PRN ×4 (03:09→12:52)
[2021-02-24] MEDS: Budesonide 0.5 MG/2 ML Neb Susp NEB SCH (07:34)
[2021-02-24] MEDS: Arformoterol 15 MCG/2 ML Neb Soln INH SCH (07:34)
[2021-02-24] MEDS: Acetylcysteine 20% 200 MG/ML 4 ML Nebulizer Soln SDV NEB SCH (07:34)
[2021-02-24] MEDS: Albuterol/Ipratropium 3.0-0.5 MG/3 ML Neb Soln INH SCH ×3 (07:34→14:41)
[2021-02-24 08:20] VITALS: BP 159/59; PULSE 98
[2021-02-24] MEDS: Multivitamins with Iron/Calcium/Folic Acid/Minerals Tab PO SCH (09:06)
[2021-02-24] MEDS: ZAFIRLUKAST 20 MG PO SCH (09:06)
[2021-02-24] MEDS: Levothyroxine 88 MCG Tab PO SCH (09:49)
[2021-02-24] MEDS: TRANYLCYPROMINE 10 MG PO SCH (09:50)
[2021-02-24] MEDS: ARIPiprazole 10 MG Tab PO SCH (09:50)
[2021-02-24] MEDS: Ipratropium 0.03% Nasal Spray 30 ML Bot NASBOTH SCH (09:51)
[2021-02-24] MEDS: Lactobacillus Rhamnosus GG (Probiotic) Cap PO SCH (09:51)
[2021-02-24] MEDS: Isosorbide Mononitrate 30 MG Tab.ER PO SCH (09:52)
[2021-02-24] MEDS: Clopidogrel 75 MG Tab PO SCH (09:54)
[2021-02-24] MEDS: Mirabegron 25 MG Tab Extended Release PO SCH (09:54)
--- NOTE | 2021-02-24 10:37 | PCM.PN ---
- General Info Date of Service: 02/24/21 Subjective Update: Ms. Espinosa has unfortunately declined from a respiratory standpoint over the past 24 hours. Family feels strongly that she is not going to survive this episode and would not want life prolonging cares. They have decided to proceed with comfort cares only and withdraw much of her current support. They feel that this is very consistent with the patient's previously expressed wishes. She is sedated and very lethargic, unable to provide meaningful information concerning symptoms or review of systems. - Patient Data Vitals - Most Recent: Last Vital Signs Temp 98.3 F 02/24/21 08:00 Pulse 98 02/24/21 08:00 Resp 15 02/24/21 08:00 BP 159/59 H 02/24/21 08:00 Pulse Ox 90 L 02/24/21 08:00 Weight - Most Recent: 139 lb I&O - Last 24 Hours: Intake & Output 02/23/21 02/24/21 02/24/21 22:59 06:59 14:59 Intake Total 1390 Output Total 500 950 Balance 890 -950 Lab Results Last 24 Hours: Laboratory Results - last 24 hr 02/23/21 02/24/21 02/24/21 Range/Units 23:41 05:19 05:19 WBC 9.8 (4.5-11.0) K/uL RBC 2.81 L (3.30-5.50) M/uL Hgb 7.4 L (12.0-15.0) g/dL Hct 27.6 L (36.0-48.0) % MCV 98 (80-98) fL MCH 26 L (27-31) pg MCHC 27 L (32-36) % Plt Count 376 (150-400) K/uL Neut % (Auto) 76.8 H (36-66) % Lymph % (Auto) 5.0 L (24-44) % [place] % (Auto) 9.6 H (2-6) % Eos % (Auto) 8.5 H (2-4) % Baso % (Auto) 0.1 (0-1) % Sodium 150 H (140-148) mmol/L Potassium 4.1 (3.6-5.2) mmol/L Chloride 106 (100-108) mmol/L Carbon Dioxide 41 H (21-32) mmol/L Anion Gap 7.1 (5.0-14.0) mmol/L BUN 13 (7-18) mg/dL Creatinine 0.9 (0.6-1.0) mg/dL Est Cr Clr Drug Dosing 38.20 mL/min Estimated GFR (MDRD) > 60 (>60) Glucose 97 (74-106) mg/dL POC Glucose 108 H (74-106) mg/dL Calcium 9.9 (8.5-10.1) mg/dL Med Orders - Current: Current Medications Acetaminophen (Acetaminophen 325 Mg Tab) 650 mg PO Q4H PRN PRN Reason: Pain (Mild 1-3)/fever Last Admin: 02/21/21 08:52 Dose: 650 mg Documented by: Albuterol (Albuterol 0.083% 2.5 Mg/3 Ml Neb Soln) 2.5 mg NEB Q4H PRN PRN Reason: Shortness Of Breath/wheezing Last Admin: 02/19/21 16:48 Dose: 2.5 mg Documented by: Albuterol/Ipratropium (Albuterol/Ipratropium 3.0-0.5 Mg/3 Ml Neb Soln) 3 ml INH QIDRT [facility] Last Admin: 02/24/21 07:34 Dose: Not Given Documented by: Arformoterol Tartrate (Arformoterol 15 Mcg/2 Ml Neb Soln) 15 mcg INH BIDRT [facility] Last Admin: 02/24/21 07:34 Dose: Not Given Documented by: Benzonatate (Benzonatate 100 Mg Cap) 100 mg PO Q8H PRN PRN Reason: Cough Last Admin: 02/19/21 19:20 Dose: 100 mg Documented by: Furosemide (Furosemide 20 Mg Tab) 20 mg PO DAILY PRN PRN Reason: Edema Last Admin: 02/23/21 11:59 Dose: 20 mg Documented by: Levalbuterol HCl (Levalbuterol Hcl 1.25 Mg/3 Ml Neb) 1.25 mg INH TID PRN PRN Reason: Wheezing Last Admin: 02/21/21 05:37 Dose: 1.25 mg Documented by: Lorazepam (Lorazepam 2 Mg/Ml Sdv) 0.5 mg IVPUSH Q2H PRN PRN Reason: Anxiety Last Admin: 02/24/21 07:13 Dose: 0.5 mg Documented by: Magnesium Hydroxide (Magnesium Hydroxide 400 Mg/5 Ml Susp 30 Ml Cup) 30 ml PO Q12H PRN PRN Reason: Constipation Morphine Sulfate (Morphine 2 Mg/Ml Syringe) 2 - 4 mg IVPUSH Q1H PRN PRN Reason: Shortness of Breath Last Admin: 02/24/21 10:30 Dose: 4 mg Documented by: Naproxen (Naproxen 250 Mg Tab) 250 mg PO Q12H PRN PRN Reason: Headache Last Admin: 02/16/21 17:17 Dose: 250 mg Documented by: Ondansetron HCl (Ondansetron 4 Mg/2 Ml Sdv) 4 mg IV Q6H PRN PRN Reason: Nausea/Vomiting Ondansetron HCl (Ondansetron 4 Mg Tab.Dis) 4 mg PO Q6H PRN PRN Reason: Nausea able to take PO Oxycodone/Acetaminophen (Acetaminophen/Oxycodone 325-10 Mg Tab) 1 - 1.5 tab PO Q6H PRN PRN Reason: Pain Last Admin: 02/23/21 13:14 Dose: 1 tab Documented by: Polyethylene Glycol (Polyethylene Glycol 3350 Powder 17 Gm Packet) 17 gm PO BEDTIME [facility] Last Admin: 02/23/21 20:53 Dose: Not Given Documented by: Discontinued Medications Acetylcysteine (Acetylcysteine 20% 200 Mg/Ml 4 Ml Nebulizer Soln Sdv) 200 mg NEB TIDRT [facility] Last Admin: 02/22/21 07:03 Dose: 200 mg Documented by: Acetylcysteine (Acetylcysteine 20% 200 Mg/Ml 4 Ml Nebulizer Soln Sdv) 200 mg NEB TID@0700,1500,2100 [facility] Last Admin: 02/24/21 07:34 Dose: Not Given Documented by: Albuterol/Ipratropium (Albuterol/Ipratropium 3.0-0.5 Mg/3 Ml Neb Soln) 3 ml INH QID PRN PRN Reason: Shortness of Breath Last Admin: 02/15/21 00:27 Dose: 3 ml Documented by: Amlodipine Besylate (Amlodipine 5 Mg Tab) 5 mg PO BEDTIME [facility] Last Admin: 02/23/21 20:53 Dose: Not Given Documented by: Aripiprazole (Aripiprazole 10 Mg Tab) 20 mg PO ACDINNER [facility] Last Admin: 02/23/21 16:31 Dose: 20 mg Documented by: Aripiprazole (Aripiprazole 10 Mg Tab) 10 mg PO DAILY [facility] Last Admin: 02/24/21 09:50 Dose: Not Given Documented by: Aspirin (Aspirin 81 Mg Tab.Ec) 81 mg PO BEDTIME [facility] Last Admin: 02/23/21 20:54 Dose: Not Given Documented by: Budesonide (Budesonide 0.5 Mg/2 Ml Neb Susp) 0.5 mg NEB BIDRT [facility] Last Admin: 02/24/21 07:34 Dose: Not Given Documented by: Clonazepam (Clonazepam 0.5 Mg Tab) 0.25 mg PO BEDTIME [facility] Last Admin: 02/23/21 20:53 Dose: Not Given Documented by: Clopidogrel Bisulfate (Clopidogrel 75 Mg Tab) 75 mg PO DAILY [facility] Last Admin: 02/24/21 09:54 Dose: Not Given Documented by: Enoxaparin Sodium (Enoxaparin 40 Mg/0.4 Ml Syringe) 40 mg SUBCUT BEDTIME [facility] Enoxaparin Sodium (Enoxaparin 60 Mg/0.6 Ml Syringe) 60 mg SUBCUT Q12H [facility] Last Admin: 02/16/21 21:34 Dose: 60 mg Documented by: Enoxaparin Sodium (Enoxaparin 60 Mg/0.6 Ml Syringe) 60 mg SUBCUT Q24H [facility] Stop: 02/18/21 23:35 Last Admin: 02/18/21 20:51 Dose: 60 mg Documented by: Famotidine (Famotidine 20 Mg Tab) 60 mg PO BEDTIME [facility] Last Admin: 02/23/21 20:52 Dose: Not Given Documented by: Furosemide (Furosemide 20 Mg Tab) 20 mg PO DAILY [facility] Last Admin: 02/16/21 08:21 Dose: 20 mg Documented by: Furosemide (Furosemide 40 Mg/4 Ml Vial) 40 mg IVPUSH ONETIME [facility] Stop: 02/16/21 19:31 Last Admin: 02/16/21 19:48 Dose: 40 mg Documented by: Furosemide (Furosemide 20 Mg/2 Ml Vial) 20 mg IVPUSH NOW ONE Stop: 02/21/21 17:01 Last Admin: 02/21/21 17:19 Dose: 20 mg Documented by: Guaifenesin/Dextromethorphan (Guaifenesin/Dextromethorphan 100-10 Mg/5 Ml Soln 10 Ml Cup) 10 ml PO Q4H PRN PRN Reason: Cough Last Admin: 02/15/21 03:36 Dose: 10 ml Documented by: Ceftazidime 1 gm/ Sodium (Chloride) 50 mls @ 100 mls/hr IV Q24H [facility] Last Admin: 02/21/21 16:34 Dose: 100 mls/hr Documented by: Sodium Chloride (Normal Saline) 1,000 mls @ 25 mls/hr IV ASDIRECTED [facility] Last Admin: 02/17/21 10:15 Dose: 25 mls/hr Documented by: Vancomycin HCl 1 gm/ Sodium (Chloride) 250 mls @ 150 mls/hr IV Q24H [facility] Last Admin: 02/15/21 17:04 Dose: 150 mls/hr Documented by: Doxycycline Hyclate 100 mg/ (Sodium Chloride) 100 mls @ 100 mls/hr IV Q12H [facility] Last Admin: 02/23/21 08:32 Dose: Not Given Documented by: Nitroglycerin/Dextrose (Nitroglycerin 25 Mg/D5w 250 Ml) 25 mg in 250 mls @ 18 mls/hr IV TITRATE [facility]; Protocol Last Titration: 02/17/21 10:53 Dose: 0 mcg/min, 0 mls/hr Documented by: Nitroglycerin/Dextrose (Nitroglycerin 25 Mg/D5w 250 Ml) Confirm Administered Dose 25 mg in 250 mls @ as directed .ROUTE .STK-MED ONE Stop: 02/16/21 20:27 Last Admin: 02/16/21 20:32 Dose: Not Given Documented by: Sodium Chloride (Normal Saline) 1,000 mls @ 75 mls/hr IV ASDIRECTED [facility] Last Admin: 02/19/21 14:58 Dose: 75 mls/hr Documented by: Fluconazole/Sodium Chloride (100 mg/ Premix) 50 mls @ 100 mls/hr IV Q24H [facility] Last Admin: 02/23/21 11:02 Dose: 100 mls/hr Documented by: Magnesium Sulfate 2 gm/ Premix 50 mls @ 25 mls/hr IV Q6H [facility] Stop: 02/18/21 17:59 Last Admin: 02/18/21 16:55 Dose: 25 mls/hr Documented by: Sodium Chloride (Normal Saline) 1,000 mls @ 50 mls/hr IV ASDIRECTED [facility] Last Admin: 02/20/21 19:59 Dose: 50 mls/hr Documented by: Magnesium Sulfate 2 gm/ Premix 50 mls @ 25 mls/hr IV Q6H [facility] Stop: 02/21/21 11:59 Last Admin: 02/21/21 10:41 Dose: 25 mls/hr Documented by: Meropenem 1 gm/ Sodium (Chloride) 100 mls @ 200 mls/hr IV Q8H [facility] Stop: 02/22/21 12:00 Last Admin: 02/22/21 11:42 Dose: 200 mls/hr Documented by: Vancomycin HCl 1 gm/ Sodium (Chloride) 250 mls @ 160 mls/hr IV Q24H [facility] Stop: 02/22/21 15:00 Last Admin: 02/22/21 12:25 Dose: 160 mls/hr Documented by: Meropenem 1 gm/ Sodium (Chloride) 100 mls @ 200 mls/hr IV Q12H [facility] Last Admin: 02/23/21 22:00 Dose: 200 mls/hr Documented by: Vancomycin HCl 1 gm/ Sodium (Chloride) 250 mls @ 160 mls/hr IV Q24H [facility] Last Admin: 02/23/21 11:44 Dose: 160 mls/hr Documented by: Sodium Chloride (Normal Saline) 84 mls @ 4 mls/sec IV ASDIRECTED [facility] Stop: 02/23/21 14:00 Last Admin: 02/23/21 10:53 Dose: 4 mls/sec Documented by: Levofloxacin/Dextrose 750 mg/ (Premix) 150 mls @ 100 mls/hr IV Q48H [facility] Last Admin: 02/23/21 13:30 Dose: 100 mls/hr Documented by: Iopamidol (Iopamidol 755 Mg/Ml 100 Ml Bottle) 58 ml IV . DIRECTED [facility] Stop: 02/23/21 16:00 Last Admin: 02/23/21 10:52 Dose: 58 ml Documented by: Ipratropium [place] (Ipratropium 0.03% Nasal [place] 30 Ml Bot) 0 ml NASBOTH BID [facility] Last Admin: 02/24/21 09:51 Dose: Not Given Documented by: Isosorbide Mononitrate (Isosorbide Mononitrate 30 Mg Tab.Er) 30 mg PO DAILY [facility] Last Admin: 02/24/21 09:52 Dose: Not Given Documented by: Lactobacillus Rhamnosus (Lactobacillus Rhamnosus Gg (Probiotic) Cap) 1 cap PO BID [facility] Last Admin: 02/24/21 09:51 Dose: Not Given Documented by: Levothyroxine Sodium (Levothyroxine 88 Mcg Tab) 88 mcg PO ACBREAKFAST [facility] Last Admin: 02/24/21 09:49 Dose: Not Given Documented by: Lorazepam (Lorazepam 0.5 Mg Tab) 0.5 mg PO TID PRN PRN Reason: Anxiety Last Admin: 02/16/21 11:36 Dose: 0.5 mg Documented by: Lorazepam (Lorazepam 2 Mg/Ml Sdv) 0.5 mg IVPUSH Q4H PRN PRN Reason: Nausea/Vomiting Last Admin: 02/18/21 13:59 Dose: 0.5 mg Documented by: Lorazepam (Lorazepam 0.5 Mg Tab) 0.5 mg PO Q4H PRN PRN Reason: Anxiety Last Admin: 02/23/21 08:23 Dose: 0.5 mg Documented by: Lorazepam (Lorazepam 2 Mg/Ml Sdv) 0.5 mg IVPUSH Q4H PRN PRN Reason: Anxiety/Agitation Last Admin: 02/24/21 03:09 Dose: 0.5 mg Documented by: Losartan Potassium (Losartan 50 Mg Tab) 100 mg PO ACDINNER [facility] Last Admin: 02/23/21 16:32 Dose: 100 mg Documented by: Melatonin (Melatonin 3 Mg Tab) 9 mg PO BEDTIME PRN PRN Reason: Sleep Mirabegron (Mirabegron 25 Mg Tab Extended Release) 50 mg PO DAILY [facility] Last Admin: 02/24/21 09:54 Dose: Not Given Documented by: Morphine Sulfate (Morphine 2 Mg/Ml Syringe) 2 mg IVPUSH Q1H PRN PRN Reason: Chest Pain Last Admin: 02/24/21 06:17 Dose: 2 mg Documented by: Morphine Sulfate (Morphine 2 Mg/Ml Syringe) 2 mg IVPUSH ONETIME ONE Stop: 02/18/21 15:14 Last Admin: 02/18/21 15:15 Dose: 2 mg Documented by: Multivitamins/Minerals (Multivitamins With Iron/Calcium/Folic Acid/Minerals Tab) 1 tab PO DAILY [facility] Last Admin: 02/24/21 09:06 Dose: Not Given Documented by: Non-Formulary Medication (Cevimeline [Evoxac]) 30 mg PO BID [facility] Last Admin: 02/15/21 21:25 Dose: Not Given Documented by: Tranylcypromine ( Parnate) 10 Mg Tab * *Own Med 0 mg PO ACDINNER [facility] Last Admin: 02/23/21 16:33 Dose: 20 mg Documented by: Tranylcypromine ( Parnate) 10 Mg Tab * *Own Med 0 mg PO ACBREAKFAST [facility] Last Admin: 02/24/21 09:50 Dose: Not Given Documented by: Tranylcypromine ( Parnate) 10 Mg Tab * *Own Med 0 mg PO DAILY@1200 [facility] Last Admin: 02/23/21 12:00 Dose: 30 mg Documented by: Zafirlukast ( Accolate) 20 Mg Tablet Own Med 0 mg PO BID [facility] Last Admin: 02/24/21 09:06 Dose: Not Given Documented by: Polyethylene Glycol (Polyethylene Glycol 3350 Powder 17 Gm Packet) 17 gm PO DAILY [facility] Last Admin: 02/21/21 08:37 Dose: Not Given Documented by: Pravastatin Sodium (Pravastatin 20 Mg Tab) 10 mg PO ACDINNER [facility] Last Admin: 02/23/21 16:31 Dose: 10 mg Documented by: Sodium Chloride (Sodium Chloride 0.9% 10 Ml Syringe) 10 ml FLUSH ONETIME ONE Stop: 02/23/21 10:12 Last Admin: 02/23/21 10:53 Dose: 10 ml Documented by: Vancomycin HCl (Vancomycin 1 Gm Sdv) 1 gm IV .PHARMACY TO DOSE [facility] Stop: 02/22/21 18:00 - Exam Quality Assessment: Supplemental Oxygen Central Line Total Time: 1Days 10Hours Urinary Catheter Total Time: 8Days 18Hours General: Sedated, Lethargic Lungs: Decreased Breath Sounds. No: Rales, Rhonchi, Wheezing Cardiovascular: Regular Rate, Regular Rhythm, No Murmurs GI/Abdominal Exam: Soft, Non-Tender, No Organomegaly, No Distention Extremities: Non-Tender, No Pedal Edema - Patient Data Lab Results Last 24 hrs: Laboratory Results - last 24 hr 02/23/21 02/24/21 02/24/21 Range/Units 23:41 05:19 05:19 WBC 9.8 (4.5-11.0) K/uL RBC 2.81 L (3.30-5.50) M/uL Hgb 7.4 L (12.0-15.0) g/dL Hct 27.6 L (36.0-48.0) % MCV 98 (80-98) fL MCH 26 L (27-31) pg MCHC 27 L (32-36) % Plt Count 376 (150-400) K/uL Neut % (Auto) 76.8 H (36-66) % Lymph % (Auto) 5.0 L (24-44) % Brule % (Auto) 9.6 H (2-6) % Eos % (Auto) 8.5 H (2-4) % Baso % (Auto) 0.1 (0-1) % Sodium 150 H (140-148) mmol/L Potassium 4.1 (3.6-5.2) mmol/L Chloride 106 (100-108) mmol/L Carbon Dioxide 41 H (21-32) mmol/L Anion Gap 7.1 (5.0-14.0) mmol/L BUN 13 (7-18) mg/dL Creatinine 0.9 (0.6-1.0) mg/dL Est Cr Clr Drug Dosing 38.20 mL/min Estimated GFR (MDRD) > 60 (>60) Glucose 97 (74-106) mg/dL POC Glucose 108 H (74-106) mg/dL Calcium 9.9 (8.5-10.1) mg/dL Result Diagrams: 02/24/21 05:19 02/24/21 05:19 Sepsis Event Note - Evaluation Sepsis Screening Result: No Definite Risk - Focused Exam Vital Signs: Vital Signs Temp Pulse Resp BP Pulse Ox 02/24/21 08:00 98.3 F 98 15 159/59 H 90 L 02/24/21 06:00 98.6 F 17 176/65 H 90 L 02/24/21 04:00 90 14 143/53 H 94 L 02/24/21 02:00 16 161/66 H 89 L 02/24/21 00:00 96.8 F L 17 151/53 H 91 L - Problem List Review Problem List Initiated/Reviewed/Updated: Yes - My Orders Last 24 Hours: My Active Orders 02/24/21 06:38 Morphine 2 - 4 mg IVPUSH Q1H PRN 02/24/21 06:40 LORazepam [Ativan] 0.5 mg IVPUSH Q2H PRN 02/24/21 09:13 Resuscitation Status Routine - Plan Plan:: ASSESSMENT AND PLAN Bilateral pneumonia-complicated by acute on chronic respiratory failure with both hypoxia and hypercapnia. 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 No active wheezing. -Scheduled and as needed nebulizers -Continue home medications Stage III chronic kidney disease-kidney function stable. Depression with anxiety, severe-long psychiatric history. Patient is currently stable with her home medication regimen. Palliative care-family does not want further aggressive interventions or evaluation -Morphine and lorazepam as needed for comfort Maintenance issues - -DVT prophylaxis-not indicated, comfort cares only -GI prophylaxis-not indicated -Nutrition-regular
[2021-02-24] MEDS ORDERED: LORazepam 2 MG/ML SDV IVPUSH PRN (13:08)
[2021-02-24] MEDS ORDERED: Morphine 2 MG/ML SYRINGE IVPUSH PRN (13:15)
--- NOTE | 2021-02-24 16:17 | PCM.DCSUM1 ---
Discharge Summary - Hospital Course Brief History: Ms. Espinosa was a 75-year-old woman who was admitted as a direct admission from the clinic with acute on chronic respiratory failure and underlying pneumonia. - Discharge Data Discharge Date: 02/24/21 Discharge Disposition: 20 Preliminary Cause of *Q: Respiratory Failure Event(s) Leading to Patient's *Q: Bilateral pneumonia with acute on chronic hypoxic and hypercapnic respiratory failure. Condition: - Referral to Home Health Primary Care Physician: PCP None - Discharge Diagnosis/Problem(s) (1) Acute on chronic respiratory failure with hypoxia and hypercapnia SNOMED Code(s): 06343922808564 ICD Code: J96.21 - ACUTE AND CHRONIC RESPIRATORY FAILURE WITH HYPOXIA; J96.22 - ACUTE AND CHRONIC RESPIRATORY FAILURE WITH HYPERCAPNIA Status: Acute Current Visit: Yes (2) Pneumonia SNOMED Code(s): 551389667 ICD Code: J18.9 - PNEUMONIA, UNSPECIFIED ORGANISM Status: Acute Current Visit: No Qualifiers: Pneumonia type: due to unspecified organism Laterality: right Lung location: lower lobe of lung Qualified Code(s): J18.9 - Pneumonia, unspecified organism (3) COPD exacerbation SNOMED Code(s): 079602818 ICD Code: J44.1 - CHRONIC OBSTRUCTIVE PULMONARY DISEASE W (ACUTE) EXACERBATION Status: Acute Current Visit: Yes (4) Palliative care status SNOMED Code(s): 067564903 ICD Code: Z51.5 - ENCOUNTER FOR PALLIATIVE CARE Status: Acute Current Visit: Yes - Patient Summary/Data Hospital Course: Ms. Espinosa presented to the emergency room from the clinic where she was being evaluated for cough and weakness. She was sent to the emergency room when she was noted to have oxygen saturations in the mid 70s. She says she does not currently feel all that short of breath but has been coughing quite a bit. Cough is more wet and loose than usual. She does not think she has had any fevers. Strength has not been as good as usual and energy has been down. She has been on oral antibiotics for the last several weeks to treat an MRSA infection of her bronchiectasis. Most recently she has been on Bactrim and was taking this at the time of presentation. She does note some mild pleuritic chest pain on the right side. This seems to come and go but is worse with coughing. Work-up in the emergency room revealed mild leukocytosis and increased hypoxia from baseline requiring more supplemental oxygen than usual. Chest x-ray suggested a right lung pneumonia in the midlung field that was new compared to a few weeks ago. With her acute on chronic respiratory failure and worsening despite being on oral antibiotics as an outpatient she will be admitted for IV antibiotics and additional work-up. On admission she was placed on broad-spectrum IV antibiotic therapy and given IV fluids for hydration. Cultures did grow out yeast and antibiotic therapy was expanded to use of fluconazole. She remained fairly stable over the first few days of her hospital stay but after 3 days became acutely worse requiring transfer to the intensive care unit and use of BiPAP. CODE STATUS had been discussed at the time of admission and she was adamant about not wanting intubation or mechanical ventilation. With use of the BiPAP status seemed to stabilize for another few days. Over the last 4 days of her life she experienced progressive decline in her respiratory status and required frequent use of the BiPAP. Antibiotic therapy was expanded and changed to vancomycin, meropenem, and levofloxacin. CT scan of the chest with IV contrast was obtained that showed no pulmonary emboli or pulmonary masses. It did document bilateral pulmonary infiltrates. We discussed possible bronchoscopy for further diagnostic evaluation, family decided against this because of the risk of putting her into respiratory failure. Situation was reviewed with her family including her Hemal and daughter Annamarie. They decided that she would not want further aggressive intervention and requested that we discontinue BiPAP and antibiotic therapy. She was placed on comfort cares only and treated with morphine and lorazepam as needed. She in the afternoon of February 24, no attempts were made at resuscitation as per her previously expressed wishes. - Discharge Plan *PRESCRIPTION DRUG MONITORING PROGRAM REVIEWED*: Not Applicable *COPY OF PRESCRIPTION DRUG MONITORING REPORT IN PATIENT CHARLIE: Not Applicable Home Medications: Home Meds Calcium Carbonate/Vitamin D3 [Calcium 600-Vit D3 200 Tablet] 1 each PO BID 04/24/13 [History] Multivitamin [Multi-Vitamin Daily] 1 each PO DAILY 04/24/13 [History] LORazepam [Ativan] 0.5 mg PO TID PRN 10/17/13 [History] Levothyroxine [Synthroid] 88 mcg PO ACBRK 10/17/13 [History] Losartan Potassium [Cozaar] 100 mg PO ACDINNER 10/17/13 [History] Nitroglycerin [Nitrostat] 0.4 mg SL ASDIRECTED PRN 10/17/13 [History] Tranylcypromine [Parnate] 30 mg PO ACBREAKFAST 01/06/14 [History] Tranylcypromine [Parnate] 30 mg PO TASNEEM 01/06/14 [History] Tranylcypromine [Parnate] 20 mg PO ACDINNER 07/18/14 [History] Aspirin [Ecotrin EC] 81 mg PO BEDTIME 09/05/15 [History] Ferrous Fumarate [Ferretts] 50 mg PO PCLUNCH 09/05/15 [History] Pravastatin [Pravachol] 10 mg PO ACDINNER 09/05/15 [History] Formoterol [Perforomist] 1 ampule INH BID 02/09/17 [History] ARIPiprazole [Abilify] 10 mg PO QAM 04/23/17 [History] Isosorbide Mononitrate [Imdur] 30 mg PO DAILY 04/23/17 [History] Mirabegron [Myrbetriq] 50 mg PO DAILY 04/23/17 [History] amLODIPine Besylate [Amlodipine Besylate] 5 mg PO BEDTIME 04/23/17 [History] ARIPiprazole [Abilify] 20 mg PO ACDINNER 05/09/17 [History] Budesonide [Pulmicort] 2 ml NEB BID 11/22/17 [History] clonazePAM [Klonopin] 0.25 - 0.5 mg PO DAILY PRN 11/22/17 [History] Cevimeline [Evoxac] 30 mg PO BID 03/07/20 [History] Ipratropium [Atrovent 0.03% Nasal [place]] 2 spray NASBOTH BID 03/07/20 [History] Triamcinolone Acetonide [Triamcinolone Acetonide 0.1% Crm] 1 applic TOP BID PRN 03/07/20 [History] Zinc Oxide 1 applic TOP ASDIRECTED PRN 03/07/20 [History] Famotidine [Pepcid AC] 60 mg PO BEDTIME 07/26/20 [History] polyethylene glycoL 3350 [MiraLAX] 17 gm PO DAILY 07/26/20 [History] Ipratropium/Albuterol Sulfate [Iprat-Albut 0.5-3(2.5) mg/3 ml] 3 ml INH QID PRN 12/30/20 [History] clonazePAM [Clonazepam] 0.25 mg PO BEDTIME 12/30/20 [History] levalbuterol HCL [Levalbuterol HCl] 1.25 mg IH TID PRN 12/30/20 [History] Clopidogrel Bisulfate [Plavix] 75 mg PO DAILY #30 tablet 01/23/21 [Rx] Furosemide [Lasix] 20 mg PO DAILY 02/14/21 [History] Zafirlukast [Accolate] 20 mg PO BID 02/14/21 [History] oxyCODONE HCl/Acetaminophen [Percocet 10-325 mg Tablet] 0 tab PO Q6H PRN 02/14/21 [History] - Discharge Summary/Plan Comment DC Time >30 min.: No - Patient Data Vitals - Most Recent: Last Vital Signs Temp 98.3 F 02/24/21 08:00 Pulse 98 02/24/21 08:00 Resp 15 02/24/21 08:00 BP 159/59 H 02/24/21 08:00 Pulse Ox 90 L 02/24/21 08:00 Weight - Most Recent: 139 lb I&O - Last 24 hours: Intake & Output 02/24/21 02/24/21 02/24/21 06:59 14:59 22:59 Output Total 950 Balance -950 Lab Results - Last 24 hrs: Laboratory Results - last 24 hr 02/23/21 02/24/21 02/24/21 Range/Units 23:41 05:19 05:19 WBC 9.8 (4.5-11.0) K/uL RBC 2.81 L (3.30-5.50) M/uL Hgb 7.4 L (12.0-15.0) g/dL Hct 27.6 L (36.0-48.0) % MCV 98 (80-98) fL MCH 26 L (27-31) pg MCHC 27 L (32-36) % Plt Count 376 (150-400) K/uL Neut % (Auto) 76.8 H (36-66) % Lymph % (Auto) 5.0 L (24-44) % [place] % (Auto) 9.6 H (2-6) % Eos % (Auto) 8.5 H (2-4) % Baso % (Auto) 0.1 (0-1) % Sodium 150 H (140-148) mmol/L Potassium 4.1 (3.6-5.2) mmol/L Chloride 106 (100-108) mmol/L Carbon Dioxide 41 H (21-32) mmol/L Anion Gap 7.1 (5.0-14.0) mmol/L BUN 13 (7-18) mg/dL Creatinine 0.9 (0.6-1.0) mg/dL Est Cr Clr Drug Dosing 38.20 mL/min Estimated GFR (MDRD) > 60 (>60) Glucose 97 (74-106) mg/dL POC Glucose 108 H (74-106) mg/dL Calcium 9.9 (8.5-10.1) mg/dL Med Orders - Current: Current Medications Acetaminophen (Acetaminophen 325 Mg Tab) 650 mg PO Q4H PRN PRN Reason: Pain (Mild 1-3)/fever Last Admin: 02/21/21 08:52 Dose: 650 mg Documented by: Albuterol (Albuterol 0.083% 2.5 Mg/3 Ml Neb Soln) 2.5 mg NEB Q4H PRN PRN Reason: Shortness Of Breath/wheezing Last Admin: 02/19/21 16:48 Dose: 2.5 mg Documented by: Albuterol/Ipratropium (Albuterol/Ipratropium 3.0-0.5 Mg/3 Ml Neb Soln) 3 ml INH QIDRT [facility] Last Admin: 02/24/21 14:41 Dose: Not Given Documented by: Arformoterol Tartrate (Arformoterol 15 Mcg/2 Ml Neb Soln) 15 mcg INH BIDRT [facility] Last Admin: 02/24/21 07:34 Dose: Not Given Documented by: Benzonatate (Benzonatate 100 Mg Cap) 100 mg PO Q8H PRN PRN Reason: Cough Last Admin: 02/19/21 19:20 Dose: 100 mg Documented by: Furosemide (Furosemide 20 Mg Tab) 20 mg PO DAILY PRN PRN Reason: Edema Last Admin: 02/23/21 11:59 Dose: 20 mg Documented by: Levalbuterol HCl (Levalbuterol Hcl 1.25 Mg/3 Ml Neb) 1.25 mg INH TID PRN PRN Reason: Wheezing Last Admin: 02/21/21 05:37 Dose: 1.25 mg Documented by: Lorazepam (Lorazepam 2 Mg/Ml Sdv) 1 mg IVPUSH Q2H PRN PRN Reason: Anxiety Last Admin: 02/24/21 13:49 Dose: 1 mg Documented by: Magnesium Hydroxide (Magnesium Hydroxide 400 Mg/5 Ml Susp 30 Ml Cup) 30 ml PO Q12H PRN PRN Reason: Constipation Morphine Sulfate (Morphine 2 Mg/Ml Syringe) 2 - 4 mg IVPUSH Q30M PRN PRN Reason: PAIN Last Admin: 02/24/21 13:35 Dose: 4 mg Documented by: Naproxen (Naproxen 250 Mg Tab) 250 mg PO Q12H PRN PRN Reason: Headache Last Admin: 02/16/21 17:17 Dose: 250 mg Documented by: Ondansetron HCl (Ondansetron 4 Mg/2 Ml Sdv) 4 mg IV Q6H PRN PRN Reason: Nausea/Vomiting Ondansetron HCl (Ondansetron 4 Mg Tab.Dis) 4 mg PO Q6H PRN PRN Reason: Nausea able to take PO Oxycodone/Acetaminophen (Acetaminophen/Oxycodone 325-10 Mg Tab) 1 - 1.5 tab PO Q6H PRN PRN Reason: Pain Last Admin: 02/23/21 13:14 Dose: 1 tab Documented by: Polyethylene Glycol (Polyethylene Glycol 3350 Powder 17 Gm Packet) 17 gm PO BEDTIME [facility] Last Admin: 02/23/21 20:53 Dose: Not Given Documented by: Discontinued Medications Acetylcysteine (Acetylcysteine 20% 200 Mg/Ml 4 Ml Nebulizer Soln Sdv) 200 mg NEB TIDRT [facility] Last Admin: 02/22/21 07:03 Dose: 200 mg Documented by: Acetylcysteine (Acetylcysteine 20% 200 Mg/Ml 4 Ml Nebulizer Soln Sdv) 200 mg NEB TID@0700,1500,2100 [facility] Last Admin: 02/24/21 07:34 Dose: Not Given Documented by: Albuterol/Ipratropium (Albuterol/Ipratropium 3.0-0.5 Mg/3 Ml Neb Soln) 3 ml INH QID PRN PRN Reason: Shortness of Breath Last Admin: 02/15/21 00:27 Dose: 3 ml Documented by: Amlodipine Besylate (Amlodipine 5 Mg Tab) 5 mg PO BEDTIME [facility] Last Admin: 02/23/21 20:53 Dose: Not Given Documented by: Aripiprazole (Aripiprazole 10 Mg Tab) 20 mg PO ACDINNER [facility] Last Admin: 02/23/21 16:31 Dose: 20 mg Documented by: Aripiprazole (Aripiprazole 10 Mg Tab) 10 mg PO DAILY [facility] Last Admin: 02/24/21 09:50 Dose: Not Given Documented by: Aspirin (Aspirin 81 Mg Tab.Ec) 81 mg PO BEDTIME [facility] Last Admin: 02/23/21 20:54 Dose: Not Given Documented by: Budesonide (Budesonide 0.5 Mg/2 Ml Neb Susp) 0.5 mg NEB BIDRT [facility] Last Admin: 02/24/21 07:34 Dose: Not Given Documented by: Clonazepam (Clonazepam 0.5 Mg Tab) 0.25 mg PO BEDTIME [facility] Last Admin: 02/23/21 20:53 Dose: Not Given Documented by: Clopidogrel Bisulfate (Clopidogrel 75 Mg Tab) 75 mg PO DAILY [facility] Last Admin: 02/24/21 09:54 Dose: Not Given Documented by: Enoxaparin Sodium (Enoxaparin 40 Mg/0.4 Ml Syringe) 40 mg SUBCUT BEDTIME [facility] Enoxaparin Sodium (Enoxaparin 60 Mg/0.6 Ml Syringe) 60 mg SUBCUT Q12H [facility] Last Admin: 02/16/21 21:34 Dose: 60 mg Documented by: Enoxaparin Sodium (Enoxaparin 60 Mg/0.6 Ml Syringe) 60 mg SUBCUT Q24H [facility] Stop: 02/18/21 23:35 Last Admin: 02/18/21 20:51 Dose: 60 mg Documented by: Famotidine (Famotidine 20 Mg Tab) 60 mg PO BEDTIME [facility] Last Admin: 02/23/21 20:52 Dose: Not Given Documented by: Furosemide (Furosemide 20 Mg Tab) 20 mg PO DAILY [facility] Last Admin: 02/16/21 08:21 Dose: 20 mg Documented by: Furosemide (Furosemide 40 Mg/4 Ml Vial) 40 mg IVPUSH ONETIME STA Stop: 02/16/21 19:31 Last Admin: 02/16/21 19:48 Dose: 40 mg Documented by: Furosemide (Furosemide 20 Mg/2 Ml Vial) 20 mg IVPUSH NOW ONE Stop: 02/21/21 17:01 Last Admin: 02/21/21 17:19 Dose: 20 mg Documented by: Guaifenesin/Dextromethorphan (Guaifenesin/Dextromethorphan 100-10 Mg/5 Ml Soln 10 Ml Cup) 10 ml PO Q4H PRN PRN Reason: Cough Last Admin: 02/15/21 03:36 Dose: 10 ml Documented by: Ceftazidime 1 gm/ Sodium (Chloride) 50 mls @ 100 mls/hr IV Q24H [facility] Last Admin: 02/21/21 16:34 Dose: 100 mls/hr Documented by: Sodium Chloride (Normal Saline) 1,000 mls @ 25 mls/hr IV ASDIRECTED [facility] Last Admin: 02/17/21 10:15 Dose: 25 mls/hr Documented by: Vancomycin HCl 1 gm/ Sodium (Chloride) 250 mls @ 150 mls/hr IV Q24H [facility] Last Admin: 02/15/21 17:04 Dose: 150 mls/hr Documented by: Doxycycline Hyclate 100 mg/ (Sodium Chloride) 100 mls @ 100 mls/hr IV Q12H [facility] Last Admin: 02/23/21 08:32 Dose: Not Given Documented by: Nitroglycerin/Dextrose (Nitroglycerin 25 Mg/D5w 250 Ml) 25 mg in 250 mls @ 18 mls/hr IV TITRATE [facility]; Protocol Last Titration: 02/17/21 10:53 Dose: 0 mcg/min, 0 mls/hr Documented by: Nitroglycerin/Dextrose (Nitroglycerin 25 Mg/D5w 250 Ml) Confirm Administered Dose 25 mg in 250 mls @ as directed .ROUTE .STK-MED ONE Stop: 02/16/21 20:27 Last Admin: 02/16/21 20:32 Dose: Not Given Documented by: Sodium Chloride (Normal Saline) 1,000 mls @ 75 mls/hr IV ASDIRECTED [facility] Last Admin: 02/19/21 14:58 Dose: 75 mls/hr Documented by: Fluconazole/Sodium Chloride (100 mg/ Premix) 50 mls @ 100 mls/hr IV Q24H [facility] Last Admin: 02/23/21 11:02 Dose: 100 mls/hr Documented by: Magnesium Sulfate 2 gm/ Premix 50 mls @ 25 mls/hr IV Q6H [facility] Stop: 02/18/21 17:59 Last Admin: 02/18/21 16:55 Dose: 25 mls/hr Documented by: Sodium Chloride (Normal Saline) 1,000 mls @ 50 mls/hr IV ASDIRECTED [facility] Last Admin: 02/20/21 19:59 Dose: 50 mls/hr Documented by: Magnesium Sulfate 2 gm/ Premix 50 mls @ 25 mls/hr IV Q6H [facility] Stop: 02/21/21 11:59 Last Admin: 02/21/21 10:41 Dose: 25 mls/hr Documented by: Meropenem 1 gm/ Sodium (Chloride) 100 mls @ 200 mls/hr IV Q8H [facility] Stop: 02/22/21 12:00 Last Admin: 02/22/21 11:42 Dose: 200 mls/hr Documented by: Vancomycin HCl 1 gm/ Sodium (Chloride) 250 mls @ 160 mls/hr IV Q24H [facility] Stop: 02/22/21 15:00 Last Admin: 02/22/21 12:25 Dose: 160 mls/hr Documented by: Meropenem 1 gm/ Sodium (Chloride) 100 mls @ 200 mls/hr IV Q12H [facility] Last Admin: 02/23/21 22:00 Dose: 200 mls/hr Documented by: Vancomycin HCl 1 gm/ Sodium (Chloride) 250 mls @ 160 mls/hr IV Q24H [facility] Last Admin: 02/23/21 11:44 Dose: 160 mls/hr Documented by: Sodium Chloride (Normal Saline) 84 mls @ 4 mls/sec IV ASDIRECTED [facility] Stop: 02/23/21 14:00 Last Admin: 02/23/21 10:53 Dose: 4 mls/sec Documented by: Levofloxacin/Dextrose 750 mg/ (Premix) 150 mls @ 100 mls/hr IV Q48H [facility] Last Admin: 02/23/21 13:30 Dose: 100 mls/hr Documented by: Iopamidol (Iopamidol 755 Mg/Ml 100 Ml Bottle) 58 ml IV . DIRECTED [facility] Stop: 02/23/21 16:00 Last Admin: 02/23/21 10:52 Dose: 58 ml Documented by: Ipratropium [place] (Ipratropium 0.03% Nasal [place] 30 Ml Bot) 0 ml NASBOTH BID [facility] Last Admin: 02/24/21 09:51 Dose: Not Given Documented by: Isosorbide Mononitrate (Isosorbide Mononitrate 30 Mg Tab.Er) 30 mg PO DAILY [facility] Last Admin: 02/24/21 09:52 Dose: Not Given Documented by: Lactobacillus Rhamnosus (Lactobacillus Rhamnosus Gg (Probiotic) Cap) 1 cap PO BID [facility] Last Admin: 02/24/21 09:51 Dose: Not Given Documented by: Levothyroxine Sodium (Levothyroxine 88 Mcg Tab) 88 mcg PO ACBREAKFAST [facility] Last Admin: 02/24/21 09:49 Dose: Not Given Documented by: Lorazepam (Lorazepam 0.5 Mg Tab) 0.5 mg PO TID PRN PRN Reason: Anxiety Last Admin: 02/16/21 11:36 Dose: 0.5 mg Documented by: Lorazepam (Lorazepam 2 Mg/Ml Sdv) 0.5 mg IVPUSH Q4H PRN PRN Reason: Nausea/Vomiting Last Admin: 02/18/21 13:59 Dose: 0.5 mg Documented by: Lorazepam (Lorazepam 0.5 Mg Tab) 0.5 mg PO Q4H PRN PRN Reason: Anxiety Last Admin: 02/23/21 08:23 Dose: 0.5 mg Documented by: Lorazepam (Lorazepam 2 Mg/Ml Sdv) 0.5 mg IVPUSH Q4H PRN PRN Reason: Anxiety/Agitation Last Admin: 02/24/21 03:09 Dose: 0.5 mg Documented by: Lorazepam (Lorazepam 2 Mg/Ml Sdv) 0.5 mg IVPUSH Q2H PRN PRN Reason: Anxiety Last Admin: 02/24/21 12:52 Dose: 0.5 mg Documented by: Losartan Potassium (Losartan 50 Mg Tab) 100 mg PO ACDINNER [facility] Last Admin: 02/23/21 16:32 Dose: 100 mg Documented by: Melatonin (Melatonin 3 Mg Tab) 9 mg PO BEDTIME PRN PRN Reason: Sleep Mirabegron (Mirabegron 25 Mg Tab Extended Release) 50 mg PO DAILY [facility] Last Admin: 02/24/21 09:54 Dose: Not Given Documented by: Morphine Sulfate (Morphine 2 Mg/Ml Syringe) 2 mg IVPUSH Q1H PRN PRN Reason: Chest Pain Last Admin: 02/24/21 06:17 Dose: 2 mg Documented by: Morphine Sulfate (Morphine 2 Mg/Ml Syringe) 2 mg IVPUSH ONETIME ONE Stop: 02/18/21 15:14 Last Admin: 02/18/21 15:15 Dose: 2 mg Documented by: Morphine Sulfate (Morphine 2 Mg/Ml Syringe) 2 - 4 mg IVPUSH Q1H PRN PRN Reason: Shortness of Breath Last Admin: 02/24/21 12:40 Dose: 4 mg Documented by: Multivitamins/Minerals (Multivitamins With Iron/Calcium/Folic Acid/Minerals Tab) 1 tab PO DAILY [facility] Last Admin: 02/24/21 09:06 Dose: Not Given Documented by: Non-Formulary Medication (Cevimeline [Evoxac]) 30 mg PO BID [facility] Last Admin: 02/15/21 21:25 Dose: Not Given Documented by: Tranylcypromine ( Parnate) 10 Mg Tab * *Own Med 0 mg PO ACDINNER [facility] Last Admin: 02/23/21 16:33 Dose: 20 mg Documented by: Tranylcypromine ( Parnate) 10 Mg Tab * *Own Med 0 mg PO ACBREAKFAST [facility] Last Admin: 02/24/21 09:50 Dose: Not Given Documented by: Tranylcypromine ( Parnate) 10 Mg Tab * *Own Med 0 mg PO DAILY@1200 [facility] Last Admin: 02/23/21 12:00 Dose: 30 mg Documented by: Zafirlukast ( Accolate) 20 Mg Tablet Own Med 0 mg PO BID [facility] Last Admin: 02/24/21 09:06 Dose: Not Given Documented by: Polyethylene Glycol (Polyethylene Glycol 3350 Powder 17 Gm Packet) 17 gm PO DAILY [facility] Last Admin: 02/21/21 08:37 Dose: Not Given Documented by: Pravastatin Sodium (Pravastatin 20 Mg Tab) 10 mg PO ACDINNER [facility] Last Admin: 02/23/21 16:31 Dose: 10 mg Documented by: Sodium Chloride (Sodium Chloride 0.9% 10 Ml Syringe) 10 ml FLUSH ONETIME ONE Stop: 02/23/21 10:12 Last Admin: 02/23/21 10:53 Dose: 10 ml Documented by: Vancomycin HCl (Vancomycin 1 Gm Sdv) 1 gm IV .PHARMACY TO DOSE [facility] Stop: 02/22/21 18:00 - Exam General: Reports: Other ()
== END 2021-02-24 17:59 | disposition expired | DRG 193 ==
LOC: JP.ED 13:55 → JP.MS 16:18 → JP.ICU 02-16 19:40
PROVIDERS: ADMIT Internal Medicine; ATTEND Hospitalist
PROC: 5A09457 Assistance with Respiratory Ventilation, 24-96 Consecutive Hours, Continuous Positive Airway Pressure (ICD-10-PCS; principal; 2021-02-16)
PROC: 5A0955A Assistance with Respiratory Ventilation, Greater than 96 Consecutive Hours, High Flow/Velocity Cannula (ICD-10-PCS; 2021-02-19)
DX: J18.9 Pneumonia, unspecified organism (principal); J96.21 Acute and chronic respiratory failure with hypoxia; J96.22 Acute and chronic respiratory failure with hypercapnia; J47.1 Bronchiectasis with (acute) exacerbation; I24.8 Other forms of acute ischemic heart disease; Z51.5 Encounter for palliative care; J44.1 Chronic obstructive pulmonary disease with (acute) exacerbation; J44.0 Chronic obstructive pulmonary disease with (acute) lower respiratory infection; H54.7 Unspecified visual loss; I25.10 Atherosclerotic heart disease of native coronary artery without angina pectoris; E78.00 Pure hypercholesterolemia, unspecified; I10 Essential (primary) hypertension; K21.9 Gastro-esophageal reflux disease without esophagitis; G89.29 Other chronic pain; R32 Unspecified urinary incontinence; M54.5 Low back pain; D63.1 Anemia in chronic kidney disease; E66.9 Obesity, unspecified; I12.9 Hypertensive chronic kidney disease with stage 1 through stage 4 chronic kidney disease, or unspecified chronic kidney disease; N18.30 Chronic kidney disease, stage 3 unspecified; M81.0 Age-related osteoporosis without current pathological fracture; Z96.649 Presence of unspecified artificial hip joint; M54.9 Dorsalgia, unspecified; J43.9 Emphysema, unspecified; F41.8 Other specified anxiety disorders; Z86.14 Personal history of Methicillin resistant Staphylococcus aureus infection; M19.90 Unspecified osteoarthritis, unspecified site; Z88.1 Allergy status to other antibiotic agents; Z86.73 Personal history of transient ischemic attack (TIA), and cerebral infarction without residual deficits; E21.3 Hyperparathyroidism, unspecified; Z98.49 Cataract extraction status, unspecified eye; E05.90 Thyrotoxicosis, unspecified without thyrotoxic crisis or storm; D64.9 Anemia, unspecified; Z90.49 Acquired absence of other specified parts of digestive tract; Z87.891 Personal history of nicotine dependence; Z80.6 Family history of leukemia; Z82.3 Family history of stroke; Z99.81 Dependence on supplemental oxygen; Z87.19 Personal history of other diseases of the digestive system; Z68.28 Body mass index [BMI] 28.0-28.9, adult; Z88.8 Allergy status to other drugs, medicaments and biological substances; Z79.02 Long term (current) use of antithrombotics/antiplatelets; Z79.82 Long term (current) use of aspirin; Z79.890 Hormone replacement therapy; Z79.899 Other long term (current) drug therapy; Z95.5 Presence of coronary angioplasty implant and graft
CPT/HCPCS: 36415; 36569; 36600; 51702; 71045; 71045-26; 71275; 80048; 80053; 81001; 82803; 82947; 83735; 84145; 84484; 85025; 85027; 87070; 87077; 87205; 92610-GN; 93005; 94640; 94660; 94667; 94668; 97110-GP; 97163-GP; 97164-GP; 97530-GP; 99285-25; A9270-GY; J0713; J1450; J1650; J1940; J1956; J2060; J2185; J2270; J3370; J3475; J3490; J7030; J7050; J7605; J7612-GY; J7620-GY; Q9967